=== PATIENT | female | born 1985 | race Caucasian/White ===

== ENCOUNTER 2020-09-07 13:43 | Outpatient (CLI) | payer BC, SELFPAY | END 2020-09-07 13:44 | disposition home or self-care (01) | LOC: ANHAUDIO 13:45 | PROVIDERS: PCP Physician Assistant | DX: H90.3 Sensorineural hearing loss, bilateral (principal) | CPT/HCPCS: 92557; 92567 ==

== ENCOUNTER 2021-02-22 13:24 | Outpatient (CLI) | payer MEDICARE, MEDICAID, SELFPAY ==
--- NOTE | 2021-02-22 15:00 | NEURO_ITS ---
Impression: # Complains of paresthesia of upper limbs. # Normal nerve conduction study # No Carpal Tunnel Syndrome or ulnar neuropathy. # Normal needle/EMG exam. Nerve Conduction Studies Anti Sensory Summary Table Stim Site NR Peak (ms) P-T Amp (?V) Site1 Site2 Delta-P (ms) Dist (cm) Ilir (m/s) Left Median Anti Sensory (2-3nd Digit) Wrist 2.7 60.9 Wrist 2-3nd Digit 2.7 14.0 52 Wrist 2.5 73.9 Wrist 2-3nd Digit 2.7 14.0 52 Right Median Anti Sensory (2-3nd Digit) Wrist 2.3 65.6 Wrist 2-3nd Digit 2.3 14.0 61 Wrist 2.3 75.4 Wrist 2-3nd Digit 2.3 14.0 61 Left Radial Anti Sensory (Base 1st Digit) Wrist 2.0 25.0 Wrist Base 1st Digit 2.0 0.0 Right Radial Anti Sensory (Base 1st Digit) Wrist 1.9 23.4 Wrist Base 1st Digit 1.9 0.0 Left Ulnar Anti Sensory (5th Digit) Wrist 2.2 80.9 Wrist 5th Digit 2.2 14.0 64 Right Ulnar Anti Sensory (5th Digit) Wrist 2.0 62.8 Wrist 5th Digit 2.0 14.0 70 Motor Summary Table Stim Site NR Onset (ms) O-P Amp (mV) Site1 Site2 Delta-0 (ms) Dist (cm) Ilir (m/s) Left Median Motor (Abd Poll Brev) Wrist 2.3 10.8 Elbow Wrist 4.2 26.0 62 Elbow 6.5 5.2 Right Median Motor (Abd Poll Brev) Wrist 2.4 9.7 Elbow Wrist 4.2 26.0 62 Elbow 6.6 4.5 Left Ulnar Motor (Abd Dig Minimi) Wrist 2.1 7.5 A Elbow Wrist 4.7 29.0 62 A Elbow 6.8 6.1 Right Ulnar Motor (Abd Dig Minimi) Wrist 2.0 5.7 A Elbow Wrist 4.7 28.0 60 A Elbow 6.7 5.3 F Wave Studies NR F-Lat (ms) L-R F-Lat (ms) Left Median (Mrkrs) (Abd Poll Brev) 25.78 0.16 Right Median (Mrkrs) (Abd Poll Brev) 25.61 0.16 Left Ulnar (Mrkrs) (Abd Dig Min) 23.93 0.29 Right Ulnar (Mrkrs) (Abd Dig Min) 24.22 0.29 EMG Side Muscle Nerve Root Ins Act Fibs Amp Dur Recrt Comment Right 1stDorInt Ulnar C8-T1 Nml Nml Nml Nml Nml Right Ext Indicis Radial (Post Int) C7-8 Nml Nml Nml Nml Nml Right Ext Digitorum Radial (Post Int) C7-8 Nml Nml Nml Nml Nml Right BrachioRad Radial C5-6 Nml Nml Nml Nml Nml Right PronatorTeres Median C6-7 Nml Nml Nml Nml Nml Right Abd Poll Brev Median C8-T1 Nml Nml Nml Nml Nml Left 1stDorInt Ulnar C8-T1 Nml Nml Nml Nml Nml Left Ext Indicis Radial (Post Int) C7-8 Nml Nml Nml Nml Nml Left Ext Digitorum Radial (Post Int) C7-8 Nml Nml Nml Nml Nml Left BrachioRad Radial C5-6 Nml Nml Nml Nml Nml Left PronatorTeres Median C6-7 Nml Nml Nml Nml Nml Left Abd Poll Brev Median C8-T1 Nml Nml Nml Nml Nml MTDD
== END 2021-02-22 13:25 | disposition home or self-care (01) ==
LOC: ANHNEURO 13:29
PROVIDERS: PCP Physician Assistant; Visit Provider Physician Assistant
DX: R20.2 Paresthesia of skin (principal)
CPT/HCPCS: 95886; 95911

== ENCOUNTER 2023-09-04 15:15 | Outpatient (RCR) | payer MEDICARE, MEDICAID, SELFPAY ==
--- NOTE | 2023-07-03 16:02 | OTOPEVAL1 ---
Assessment and note entered by Hector Arambula, ADRIAN/Caitlin, CHT Evaluation Information Assessment Status Evaluation Diagnosis Post-traumatic osteoarthritis of left wrist Subjective Information Patient has a long history of left wrist issues. About 5 years ago she fell onto her wrist and fractured her scaphoid. She states it took 2 years to get surgery on it and this evidently failed. She just recently (about 2.5 months ago) underwent another surgery - removal of the scaphoid with a 4 corner wrist fusion. She presents today in a prefabricated wrist immobilizer. Reports persistent pain, never getting down to 0/10. States she is unable to carry a laundry basket, but is able to do light tasks in the kitchen, dress, and do her hair with both hands. Reported Pain Level Pain Score 4: Self Report Additional Pain Score Comments 4/10 at rest, never gets lower than 3/10 7/10 pain with active ROM 10/10 pain typically by the end of the day Assessment OT Clinical Summary Patient referred to outpatient hand therapy following a wrist fusion. She presents with limited functional use of the left hand/wrist due to deficits with pain and weakness. Skilled OT indicated to maximize functional use of the hand/ wrist through use of modalities, therapeutic exercise/activities, and HEP instruction and progression. Plan of Care Interventions Therapeutic Exercise,Therapeutic Activities, Paraffin OT Services Indicated Yes Treatment Frequency and 1x/week for 5 weeks Duration These treatments will address the objective and functional deficits as defined above. The patient will be advanced safely and appropriately in order for the patient to progress towards his/her prior level of function. Additional exercises will be introduced and as well as a comprehensive home exercise program upon discharge, if needed, ?to ensure carryover of functional gains achieved in the clinic. This treatment plan has been reviewed and agreement upon by the patient.
--- NOTE | 2023-07-03 16:02 | OPREHPOC ---
Outpatient Therapy Plan of Care This is a Multidisciplinary Plan of Care that may contain components documented by all disciplines (PT, OT, and ST.) OT Problem 1 OT Problem #1 Knowledge Deficit OT Goal 1 Goal 1. Patient to be independent with instructed materials. Target Visit 6 OT Problem 2 OT Problem #2 Impaired Range of Motion OT Goal 1 Goal 1. Increase functional ROM of the left wrist: - flexion to 30 degrees - extension to 40 degrees - RD to 15 degrees - UD to 15 degrees Target Visit 6 OT Problem 3 OT Problem #3 Impaired Strength OT Goal 1 Goal Hold strengthening until ROM is pain-free: 1. Be able to complete wrist strengthening in all planes with 1 lb. free weight. Target Visit 6 OT Problem 4 OT Problem #4 Pain OT Goal 1 Goal 1. Patient to report reduced pain with active ROM to 1/10 or less. Target Visit 6
--- NOTE | 2023-07-17 15:52 | PCOTNOTE ---
Patient did not show up for scheduled appointment this date. Called patient who states she forgot. Reminded her of her next appointment.
--- NOTE | 2023-08-15 16:01 | OTOPPROG ---
Assessment and note entered by ADRIAN Barrow/Caitlin, CHT Progress Update 08/15/23 Assessment Status Progress Diagnosis Post-traumatic osteoarthritis of left wrist Subjective Information Patient has a long history of left wrist issues. About 5 years ago she fell onto her wrist and fractured her scaphoid. She states it took 2 years to get surgery on it and this evidently failed. She just recently (about 2.5 months ago) underwent another surgery - removal of the scaphoid with a 4 corner wrist fusion. She comes in today with increased pain, reporting 8/10 pain for about 10 days. Reports she had to stop doing her home exercise program due to the pain. Site of pain is localized to the ulnar wrist . She presents today stating she is sweaty and nauseated from the pain. Assessment OT Clinical Summary Patient referred to outpatient hand therapy following a wrist fusion. She continues present with limited functional use of the left hand/wrist due to deficits with pain and weakness. 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 Focused on pain management through modalities, manual therapy, and use of kinesiotape. Continued skilled OT indicated to maximize functional use of the hand/wrist through use of modalities, therapeutic exercise/activities , and HEP instruction and progression. Plan of Care Interventions Therapeutic Exercise,Therapeutic Activities, Paraffin OT Services Indicated Yes Treatment Frequency and 1x/week for 4 weeks Duration These treatments will address the objective and functional deficits as defined above. The patient will be advanced safely and appropriately in order for the patient to progress towards his/her prior level of function. Additional exercises will be introduced and as well as a comprehensive home exercise program upon discharge, if needed, ?to ensure carryover of functional gains achieved in the clinic. This treatment plan has been reviewed and agreement upon by the patient.
--- NOTE | 2023-08-16 07:41 | BUOTOPEVAL ---
Assessment and note entered by ADRIAN Barrow/Caitlin, T Progress Update 08/15/23 Diagnosis Post-traumatic osteoarthritis of left wrist Subjective Information Patient has a long history of left wrist issues. About 5 years ago she fell onto her wrist and fractured her scaphoid. She states it took 2 years to get surgery on it and this evidently failed. She recently underwent removal of the scaphoid with a 4 corner wrist fusion. She comes in today with increased pain, reporting 8/10 pain for about 10 days. Reports she had to stop doing her home exercise program due to the pain. Site of pain is localized to the ulnar wrist. She presents today stating she is sweaty and nauseated from the pain. Therapy has been unable to progress past active ROM and use of modalities and manual therapy for pain control. She is unable to use the left hand to lift anything heavier than 0.5 lbs. 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 Reported Pain Level Pain Score 8: Self Report Assessment OT Clinical Summary Patient referred to outpatient hand therapy following a wrist fusion. She continues present with limited functional use of the left hand/wrist due to deficits with pain and weakness. Today she was experiencing too much pain to measure ROM and window systems administrator strength. Focused on pain management through modalities, manual therapy, and use of kinesiotape. Continued skilled OT indicated to maximize functional use of the hand/wrist through use of modalities, therapeutic exercise/activities , and HEP instruction and progression. Plan of Care Interventions Therapeutic Exercise,Therapeutic Activities, Paraffin OT Services Indicated Yes Treatment Frequency and 1x/week for 4 weeks Duration These treatments will address the objective and functional deficits as defined above. The patient will be advanced safely and appropriately in order for the patient to progress towards his/her prior level of function. Additional exercises will be introduced and as well as a comprehensive home exercise program upon discharge, if needed, ?to ensure carryover of functional gains achieved in the clinic. This treatment plan has been reviewed and agreement upon by the patient.
--- NOTE | 2023-08-22 10:03 | PCOTNOTE ---
Patient called & cancelled scheduled appointment yesterday 08/21.
--- NOTE | 2023-08-22 10:03 | PCOTNOTE ---
Patient called & cancelled scheduled appointment this date.
--- NOTE | 2023-08-28 13:20 | PCOTNOTE ---
Patient called & cancelled scheduled appointment this date due to being sick.
--- NOTE | 2023-09-11 12:55 | OTOPDC ---
Assessment and note entered by Hector Arambula, ADRIAN/Caitlin, CHT Therapy Discharge Notification 09/11/23 OT Clinical Summary Please refer to most recent progress note, dated 08/15/23, for most recent therapy summary and updates. OT Discharge 09/11/23: Patient has called and cancelled every appointment since 08/15/23 due to being in too much pain. It is recommended that she follows up with MD for further recommendations as therapy has been unable to progress past very gentle active ROM.
== END 2023-09-11 14:59 | disposition home or self-care (01) ==
LOC: ANHOT 15:15
PROVIDERS: PCP Physician Assistant
DX: M19.132 Post-traumatic osteoarthritis, left wrist (principal)
CPT/HCPCS: 97018; 97110; 97140; 97166; 99199; L3906

== ENCOUNTER 2024-05-13 15:14 | Outpatient (CLI) | payer MEDICARE, MEDICAID, SELFPAY ==
--- NOTE | ~2024-05-13 | CT_ITS ---
EXAMINATION: CT abdomen pelvis wo con DATE: 05/13/2024 15:27 INDICATION: Right lower quadrant abdominal pain. TECHNIQUE: Computed tomography (CT) of the abdomen and pelvis was performed without intravenous contr ast. Automated exposure control and iterative reconstruction technique were employed. The dose-length product was 1143.20 mGy-cm. COMPARISON: CT abdomen and pelvis 08/08/2011 FINDINGS: The visualized portions of the lung bases demonstrate mild atelectasis. No pleural effusion is normal. No pericardial effusion. There is a small sliding hiatal hernia. The liver, gallbladder, spleen, pancreas, adrenal glands, and left kidney are normal. There is a 3 mm stone in right kidney. There are no dilated loops of bowel. The appendix is normal. There are no pathologically enlarged lym ph nodes. There is no free intraperitoneal fluid. There is chronic anterior wedging of multiple lower thoracic vertebral bodies. There is severe lower thoracic spondylosis. IMPRESSION: 1. Small sliding hiatal hernia. Reviewed, dictated and finalized at location E.
== END 2024-05-13 15:15 ==
PROVIDERS: PCP Obstetrics & Gynecology; Visit Provider Surgery
DX: K44.9 Diaphragmatic hernia without obstruction or gangrene (principal); G89.29 Other chronic pain
CPT/HCPCS: 74176

== ENCOUNTER 2024-07-27 13:15 | Outpatient (RCR) | payer MEDICARE, MEDICAID, SELFPAY ==
--- NOTE | 2024-06-29 14:21 | OTOPEVAL1 ---
Assessment and note entered by Hector Arambula, CATARINOR/Caitlin, CHT Evaluation Information Diagnosis Left TFCC injury ICD-10 Condition Codes (OT) M25.532 Subjective Information Patient is s/p left TFCC repair 04/01. Prior to surgery she was experiencing excruciating pain and was unable to use her left hand. Since surgery, she reports she has been experiencing no pain at rest. She has been going without her wrist immobilizer for light ADLs. She has been able to package pick up her water bottle and this is progress for her. She wears the immobilizer when she leaves the house and if her kids are playing rowdy. She reports she feels too weak to get back to heavier lifting, such as holding and washing dishes, carrying the laundry basket, etc. She has been relying on using her right, dominant UE for heavy tasks. Reported Pain Level Pain Score 0: Self Report Additional Pain Score Comments Pain has increased to 5/10 when trying to turn a doorknob. Assessment OT Clinical Summary Patient referred to OT with dx of left TFCC repair . She presents with residual stiffness and weakness that limits return to heavier ADL tasks. Skilled OT indicated to maximize functional strength and use of her left UE. Plan of Care Interventions Therapeutic Exercise,Manual Therapy,Paraffin OT Services Indicated Yes Treatment Frequency and 1x/week for 5 weeks Duration These treatments will address the objective and functional deficits as defined above. The patient will be advanced safely and appropriately in order for the patient to progress towards his/her prior level of function. Additional exercises will be introduced and as well as a comprehensive home exercise program upon discharge, if needed, ?to ensure carryover of functional gains achieved in the clinic. This treatment plan has been reviewed and agreement upon by the patient.
--- NOTE | 2024-06-29 14:23 | OPREHPOC ---
Outpatient Therapy Plan of Care This is a Multidisciplinary Plan of Care that may contain components documented by all disciplines (PT, OT, and ST.) OT Problem 1 OT Problem #1 Knowledge Deficit OT Goal 1 Goal / Goal Update 1. Patient to be independent with HEP. Target Visit 6 OT Problem 2 OT Problem #2 Pain OT Goal 1 Goal / Goal Update 1. Patient to be independent with non-medication pain management. Target Visit 6 OT Problem 3 OT Problem #3 Impaired Strength OT Goal 1 Goal / Goal Update 1. Improve functional strength of the left forearm and wrist to allow patient to be able to complete dishes and carry a laundry basket again. 2. 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 Target Visit 6
--- NOTE | 2024-07-15 14:06 | PCOTNOTE ---
Patient did not show up for scheduled appointment this date. Patient called and message was left with call back number.
--- NOTE | 2024-08-03 13:53 | PCOTNOTE ---
Patient did not show up for scheduled re-evaluation appointment this date. Called patient and she did not answer. Left voicemail informing her to call back to get the re-eval rescheduled and that if we don't hear from her by the end of the week she will be discharged from OT.
--- NOTE | 2024-08-13 14:41 | OTOPDC ---
Assessment and note entered by Hector Arambula, OTR/L, CHT OT D/C 08/13/24 OT Clinical Summary Patient referred to OT with dx of left TFCC repair . She attended the initial evaluation and 2 follow up treatments. She has unfortunately has not shown for her last 2 appointments and we have been unable to get a hold of her to reschedule. D/C OT due to limited attendance.
== END 2024-08-13 15:19 | disposition home or self-care (01) ==
LOC: ANHGOSHOT 13:15
PROVIDERS: PCP Obstetrics & Gynecology
DX: Z48.89 Encounter for other specified surgical aftercare (principal); S69.82XD Other specified injuries of left wrist, hand and finger(s), subsequent encounter
CPT/HCPCS: 97018; 97110; 97140; 97165

== ENCOUNTER 2024-09-15 09:57 | Outpatient (CLI) | payer MEDICARE, MEDICAID, SELFPAY | END 2024-09-15 09:58 | disposition home or self-care (01) | LOC: ANHAUDIO 09:59 | PROVIDERS: PCP Obstetrics & Gynecology; Visit Provider Physician Assistant | DX: H92.03 Otalgia, bilateral (principal); H93.13 Tinnitus, bilateral; H93.239 Hyperacusis, unspecified ear; M26.609 Unspecified temporomandibular joint disorder, unspecified side; G43.809 Other migraine, not intractable, without status migrainosus; R42 Dizziness and giddiness; Z91.81 History of falling | CPT/HCPCS: 92557; 92567 ==

== ENCOUNTER 2024-10-04 10:39 | Emergency (ER) | payer MEDICARE, MEDICAID, SELFPAY ==
--- NOTE | 2024-10-04 10:52 | ED_ITS ---
HPI - URI/Sore Throat General Chief Complaint: Upper Respiratory Infection Stated Complaint: SORE THROAT/TONGUE PROBLEM/EARACHE Time Seen by Provider: 10/04/24 10:41 Source: patient Mode of arrival: ambulatory Limitations: no limitations History of Present Illness HPI Narrative: Magaly is a 39-year-old female patient presenting to the clinic today with complaints of sore throat, pain to her tongue, and ear discomfort. She reports that she is on ear drops for the ear currently and just finished up cephalexin for UTI. She reports symptoms of started over the last 2-3 days. Denies any fever or chills. Patient reports she is also having yeast vaginal discharge. MD elicited complaint: sore throat and nasal congestion Related Data Home Medications Medication Instructions Recorded Confirmed aripiprazole 15 mg tablet 15 mg PO DAILY 11/21/21 04/29/24 bupropion HCl 150 mg 24 hr tablet, 150 mg PO QAM 11/21/21 04/29/24 extended release gabapentin 300 mg capsule 300 mg PO DAILY 11/21/21 04/29/24 montelukast 10 mg tablet 10 mg PO DAILY 11/21/21 04/29/24 nortriptyline 75 mg capsule 75 mg PO DAILY 11/21/21 04/29/24 sumatriptan succinate 100 mg tablet 100 mg PO ONCE 11/21/21 04/29/24 topiramate 100 mg tablet 100 mg PO DAILY 11/21/21 04/29/24 triamcinolone acetonide 0.5 % 1 applic topical BID 11/21/21 04/29/24 topical cream clonazepam 0.5 mg tablet 0.5 mg PO DAILY 03/04/24 04/29/24 acyclovir 400 mg tablet 400 mg PO DAILY 04/13/24 04/29/24 atogepant 60 mg tablet (Qulipta) 60 mg PO DAILY 04/13/24 04/29/24 baclofen 5 mg/5 mL oral solution 5 mg PO DAILY 04/13/24 04/29/24 galcanezumab-gnlm 120 mg/mL 120 mg subcut MONTHLY 04/13/24 04/29/24 subcutaneous pen injector (Emgality Pen) mecobalamin (vitamin B12) 1,000 1,000 mcg PO DAILY 04/13/24 04/29/24 mcg lozenges naproxen 500 mg tablet 500 mg PO BID 04/13/24 04/29/24 omeprazole 40 mg capsule,delayed 40 mg PO DAILY 04/13/24 04/29/24 release ondansetron 4 mg disintegrating 4 mg PO Q8H 04/13/24 04/29/24 tablet prazosin 5 mg capsule 7 mg PO QHS 04/13/24 04/29/24 trazodone 100 mg tablet 100 mg PO BID 04/13/24 04/29/24 ubrogepant 100 mg tablet (Ubrelvy) 100 mg PO ONCE 04/13/24 04/29/24 Allergies Allergy/AdvReac Type Severity Reaction Status Date / Time ibuprofen Allergy Severe stomach Verified 10/04/24 11:01 bleeding Sulfa (Sulfonamide Allergy Severe throat Verified 10/04/24 11:01 Antibiotics) swelling escitalopram Allergy Unknown hives Verified 10/04/24 11:01 GRAPE FLAVORS Allergy Mild hives Uncoded 10/04/24 11:01 Review of Systems Review of Systems: Pertinent positives per HPI. Patient denies any fever, chills, rash, headache, visual changes, dizziness, cough, shortness of breath, chest pain, palpitations, nausea, vomiting, diarrhea, constipation, abdominal pain, or any urinary issues. [facility] Past Medical History Medical History (Reviewed 04/28/24 @ 09:15 by Chastity Cho [facility]) Anxiety Arthritis Depression Dysphagia Cecilia's disease Herpes hsv 1 and 2 Hx LEEP (loop electrosurgical excision procedure), cervix, Hyperlipidemia Kidney stones Osteoporosis Sleep disorder Trichomonal vaginitis Surgical History Surgical History H/O endoscopy H/O total hysterectomy (~03/08/16) History of dilation and curettage (~11/08/15) History of gynecological procedure cryo on cervix History of hysteroscopy (~11/08/15) biopsy History of left salpingo-oophorectomy (~10/06/20) History of orthopedic surgery x 2 left hand History of tonsillectomy Family History Family History Sibling Family history of mental disorder Mother Hypertension Hyperthyroidism Scoliosis Degenerative disorder Social History Social History (Reviewed 10/04/24 @ 11:02 by JANE García Smoking status: Current some day smoker Tobacco type: e-cigarettes/vaping Alcohol intake: current Alcohol use details: 1/2 pint of whiskey on Saturdays Substance use: current Substance use type: marijuana Other substance usage details: 1 every 2 weeks Do You Feel Safe in your Home?: Yes Lack of Transportation: No Lack of Food: Never True Current Housing: Decline to Answer Concerned About Future Housing: YES Difficulty Paying Gas/Electric Bills: YES Difficulty Paying for Meds: No Currently Unemployed: No Education: High School Diploma/GED Difficulty w/ Childcare or Family Care: No Living arrangements: other Additional living arrangements comments: single Occupation/Education: unemployed Additional occupation/education comments: disabled Gender identity (if verbalized by the patient): Female Sexual Orientation (if Verbalized by the Patient): Bisexual Comments At the time of my signature, I reviewed and agree with the nursing past medical, surgical, social, and family history. There is no relevant family history pertinent to the patient complaint. Exam Narrative: General: Well-developed, well nourished, in no apparent distress Head: Normocephalic, atraumatic Eyes: Pupils equally round and reactive to light bilaterally, EOM intact, sclera and conjunctive clear, no discharge, lids normal Ears: TMs intact and clear, ear canals clear, no drainage, grossly hearing normal. Nose: Nares patent, no discharge, no inflammation, no sinus tenderness. Mouth: Oral pharynx red and beefy appearance and tongue with yellow oral thrush, no masses, good dentition, MMM. Neck: Supple, trachea midline, no enlargement of anterior or posterior cervical nodes, no thyroid masses or goiter palpable. Cardio: Regular rate and rhythm, s1 and s2 normal, no murmur appreciated. Resp: Clear to auscultation bilaterally, no rhonchi, rales, wheezing or rubs Course Course Emergency Course: Portions of this record may have been created with voice recognition software. Level of Care: Express Care Visit Vital Signs Vital signs: Vital Signs Temperature 36.6 C 10/04/24 10:56 Pulse Rate 80 10/04/24 10:56 Respiratory Rate 16 10/04/24 10:56 Blood Pressure 115/73 10/04/24 10:56 Pulse Oximetry 100 10/04/24 10:56 Temperature 36.6 C 10/04/24 10:56 Pulse Rate 80 10/04/24 10:56 Respiratory Rate 16 10/04/24 10:56 Blood Pressure 115/73 10/04/24 10:56 Pulse Oximetry 100 10/04/24 10:56 Vital signs reviewed MDM - URI/Sore Throat MDM Narrative Medical decision making narrative: At the time of visit patient is resting comfortably on the exam table. Patient appears to be nontoxic. Plan: Suspect patient has oral thrush and vaginal Sandra is. Will send in prescription for Diflucan and oral nystatin. Supportive measures were discussed with the patient and they voiced understanding discharge instructions and agrees to treatment plan. Return precautions reviewed Differential Diagnosis Differential diagnosis: Likely upper respiratory infection, otitis media, sinusitis, viral infection, bronchitis, influenza, pharyngitis and other (COVID) Discharge Plan Discharge Clinical Impression: Candidiasis of vagina, Oral thrush Patient Disposition: Home, Self-Care Condition: Stable Instructions: Antibiotic Form, Oral Candidiasis (ED), Yeast Infection (ED) Additional Instructions: Take fluconazole and nystatin as prescribed Nystatin is a swish and swallow-retain the medication in your mouth for as long as possible Increase fluids and stay well hydrated Avoid acidic, salty, or spicy foods May take Tylenol/Motrin as needed for pain or fever Follow-up with your primary care doctor next week Prescriptions: New nystatin 100,000 unit/mL suspension 5 ml PO QID 14 Days Qty: 280 0RF Rx Instructions: administer 1/2 of dose in each side of the mouth fluconazole 150 mg tablet 150 mg PO ONCE Qty: 2 0RF Rx Instructions: as a single dose. May repeat in 72 hours if needed. No Action aripiprazole 15 mg tablet 15 mg PO DAILY bupropion HCl 150 mg tablet extended release 24 hr 150 mg PO QAM montelukast 10 mg tablet 10 mg PO DAILY gabapentin 300 mg capsule 300 mg PO DAILY nortriptyline 75 mg capsule 75 mg PO DAILY sumatriptan succinate 100 mg tablet 100 mg PO ONCE topiramate 100 mg tablet 100 mg PO DAILY triamcinolone acetonide 0.5 % cream 1 applic topical BID prazosin 5 mg capsule 7 mg PO QHS clonazepam 0.5 mg tablet 0.5 mg PO DAILY acyclovir 400 mg tablet 400 mg PO DAILY Rx Instructions: take TID for 7 days then BID for the rest of month Qulipta 60 mg tablet 60 mg PO DAILY Emgality Pen 120 mg/mL pen injector 120 mg subcut MONTHLY Ubrelvy 100 mg tablet 100 mg PO ONCE Rx Instructions: as a single dose; may repeat once in >=2 hours after first dose if needed omeprazole 40 mg capsule,delayed release(DR/EC) 40 mg PO DAILY trazodone 100 mg tablet 100 mg PO BID mecobalamin (vitamin B12) 1,000 mcg lozenge 1,000 mcg PO DAILY Rx Instructions: allow to dissolve in mouth OR may chew lightly before swallowing ondansetron 4 mg tablet,disintegrating 4 mg PO Q8H naproxen 500 mg tablet 500 mg PO BID baclofen 5 mg/5 mL solution 5 mg PO DAILY Follow-up/Referrals: Dennise,JOSH Quigley [Primary Care Provider] - Time of Disposition: 10:58 Quality NIHSS Nursing Documentation ED NIHSS nursing documentation: reviewed/agree
[2024-10-04 10:56] VITALS: BP 115/73; PULSE 80; RESP 16; TEMP 36.6; O2SAT 100
== END 2024-10-04 11:06 | disposition home or self-care (01) ==
PROVIDERS: Emergency Provider Nurse Practitioner Family; PCP Physician Assistant
DX: B37.31 Acute candidiasis of vulva and vagina (principal); B37.0 Candidal stomatitis; F17.290 Nicotine dependence, other tobacco product, uncomplicated; F12.90 Cannabis use, unspecified, uncomplicated; M19.90 Unspecified osteoarthritis, unspecified site; E06.3 Autoimmune thyroiditis; E78.5 Hyperlipidemia, unspecified; M81.0 Age-related osteoporosis without current pathological fracture; F41.9 Anxiety disorder, unspecified; F32.A Depression, unspecified
CPT/HCPCS: 99213; G0463

== ENCOUNTER 2024-11-23 13:36 | Outpatient (CLI) | payer MEDICARE, MEDICAID, SELFPAY ==
[2024-11-23 16:15] LABS: Basophils Absolute Auto 0.1 K/mm3 (0.0-0.1); Basophils Percent Auto 0.5 % (0.2-1.2); Eosinophils Absolute Auto 0.1 K/mm3 (0-0.3); Eosinophils Percent Auto 0.5 % (0-4.4); Hematocrit 39.9 % (37.0-47.0); Hemoglobin 12.3 g/dL (12.0-15.0); Immature Granulocyte Absolute 0.05 K/mm3 (0.00-0.031); Immature Granulocyte Percent A 0.5 % (0-0.5); Lymphocytes Absolute Auto 3.18 K/mm3 (0.9-3.2); Lymphocytes Percent Auto 32.3 % (18.3-44.2); Mean Corpuscular HGB Conc 30.8 g/dl (32-36); Mean Corpuscular Hemoglobin 29.1 pg (26-34); Mean Corpuscular Volume 94.3 fl (80-100); Mean Platelet Volume 11.6 fl (7.4-10.4); Monocytes Absolute Auto 0.5 K/mm3 (0.1-0.6); Monocytes Percent Auto 5.5 % (2.6-8.5); Neutrophils Percent Auto 60.7 % (45.5-73.1); Platelet Count Result 240 k/mm3 (150-375); Red Blood Count 4.23 M/mm3 (4.2-5.4); Red Cell Distribution Width 15.6 % (11.5-14.5); White Blood Count 9.8 K/mm3 (4.5-10.0)
[2024-11-23 16:39] LABS: Hemoglobin A1C 5.2 % (<5.7)
[2024-11-23 16:50] LABS: Free T4 Free Thyroxine 0.74 ng/dL (0.78-2.19)
[2024-11-24 20:24] LABS: Alanine Aminotransferase 16 U/L (6-35); Albumin Level 3.8 g/dL (3.5-5.1); Alkaline Phosphatase 76 U/L (38-126); Anion Gap 9 mmol/L (4-12); Aspartate Amino Transferase 24 U/L (14-36); Bilirubin,Total 0.4 mg/dL (0.2-1.3); Blood Urea Nitrogen 13 mg/dL (7-17); Calcium 9.5 mg/dL (8.4-10.2); Carbon Dioxide 25 mmol/L (22-30); Chloride 103 mmol/L (98-107); Estimated Glomerular Filt Rate > 60; Glucose 80 mg/dL (65-110); Potassium 3.8 mmol/L (3.4-5.0); Sodium 137 mmol/L (137-145)
[2024-11-24 21:27] LABS: Folic Acid 6.7 ng/mL (2.76->20)
--- OUTSIDE RECORDS SUMMARY | 2024-11-26 13:38 | XMS_ITS | Data Portability ---
Author Organization [place] - [facility], Main Office Address [address] [place] [address] Care Team Providers Care Sidehand Name Role Phone CHAPINRAFAEL HAYDEN Primary Care Provider [phone] RAFAEL HORAN Referring Provider Assessment Encounter Date Assessment Date Assessment LastModified by Organization Details LastModified Time 03/26/2024 03/26/2024 This note is dictated and transcribed by [employer]. [employer] variances may occur. Despite proofreading, typographical errors may occur. Occasional wrong-word or '[id number]' substitutions may have occurred due to the inherent limitations of voice recording. Read the chart carefully and recognize, using context, where substitutions have occurred. [email or web address] Not available 03/26/2024 12:21:19 07/28/2024 07/28/2024 Time spent with patient included: preparing to see patient by reviewing tests, obtaining and reviewing history, medical examination and evaluation, counseling and educating the patient, ordering medications and tests, documenting clinical information in EHR, independently interpreting results and communicating results to the patient for a total of 55 minutes. [email or web address] Not available 07/28/2024 12:23:29 Plan of Treatment Reminders Order Date Submit Date Provider Last Modified By Organization Details Last Modified Time Details Appointments None recorded. Lab TSH, serum, reflex free T4 2022 023 [email or web address] 146 Not available 3 16:15:47 CBC w/ auto diff 2022 023 [email or web address] 146 Not available 3 16:15:46 BMP, serum or plasma 2022 023 [email or web address] 146 Not available 3 16:15:47 hepatic function panel, serum 2022 023 [email or web address] 146 Not available 3 16:15:47 vitamin B12 + folate, serum or blood 2022 023 PATTIE Not available 3 09:49:28 respiratory allergen panel, [facility] A, serum [address] (Lab), [address] [place], [address], 4 14:37:30 respiratory allergen panel - [facility] b [address] (Lab), [address] [place], [address], 4 14:37:44 tb (M tuberculosi s), ifn-gamma graham, blood [address] (Lab), [address] [place], [address], 4 14:37:55 igg subclasses 1+2+3+4, serum [address] (Lab), [address] [place], [address], 4 14:38:08 alpha-1-ant itrypsin (aat) phenotype, serum [address] (Lab), [address] [place], [address], 4 14:38:19 eosinophil count, manual, blood (OBS) [address] (Lab), [address] [place], [address], 4 14:38:30 BNP (B-type natriuretic peptide), serum or plasma 2023 024 [email or web address] [address] [facility] (Lab), [address] [place], [address], 4 14:38:42 ige, total, serum 2023 024 [email or web address] 82 [facility] (Lab), [address] [place], [address], 4 14:38:52 Referral general surgeon referral 2023 024 [email or web address] Leandro Cordova, [facility] [place], [address], 4 08:11:28 Procedures None recorded. Surgeries None recorded. Imaging None recorded. Medication Orders hydrocodone 7.5 mg-acetamin ophen 325 mg tablet 2022 023 [email or web address] Not available 4 12:47:24 Valium 5 mg tablet 2022 023 [email or web address] Not available 4 11:31:25 methocarbam ol 750 mg tablet 2022 023 [email or web address] [facility] [address] [place], [address], 4 12:47:38 lidocaine 4 % topical cream 2022 023 [email or web address] [facility] [address] [place], [address], 4 11:32:13 nystatin 100,000 unit/mL oral suspension 2022 023 [email or web address] [facility] [address] [place], [address], 4 11:32:34 ammonium lactate 12 % topical cream [address] [facility] [address] [facility] [address] [place], [address], 4 08:09:31 Creon 24,000-76,0 00-120,000 unit capsule,del ayed release [address] [facility] [address] [place], [address], 08:11:50 Patient TargetsNo targets recorded. Patient Instructions Encounter Date Encounter Id Patient Instructions Last Modified By Organization Details Last Modified Time 05/27/2024 [id number] LOW DIET [email or web address] Not available 13:07:09 PT WITH EPI. RESTART CREON 24K/76K/ 120K UNITS . 4 TABS PER MEAL AND 2 PER SNACK . F/U IN 6 MTHS . [email or web address] Not available 05/27/2024 13:08:18 07/28/2024 [id number] methacholine challenge* - Please call patient to schedule. NPAN for [id number] [email or web address] Not available 09/10/2024 11:54:29 six minute walk test* [email or web address] Not available 09/02/2024 16:11:47 Reason for Referral General Surgeon Referral for Sliding hiatus hernia Referring Physician: Mary Ellen Jin, Gastroenterology, Encounter Date: 05/27/2024 Results Created Date Observation Date Name Description Value Unit Range Abnormal Flag Note LastModifiedBy Organization Detail LastModifiedTime 05/21/2003/25/2023 home sleep study No observ ation record ed. [email or web address] Not Available 05/23 15:25:15 05/22/20 23 01/06/2023 CT, abdom en + pelvi s, w/ contr ast No observ ation record ed. [email or web address] [facility] [address] [place], [address], 05/23/2023 15:33:43 11/29/19 24 10/19/2023 XR, chest , 2 view No observ ation record ed. [email or web address] [facility] [address] [place], [address], 11/29/2023 12:40:15 11/29/19 24 10/19/2023 CT, angio gram, chest , w/o contr ast No observ ation record ed. [email or web address] Not Available 11/29 14:06:13 07/24/20 24 07/23/2024 compl ete PFT w/ post bron hodil ator iva metry * No observ ation record ed. BARCODE Not Available 2023 16:26:09 Result Notes None recorded. Problems Name Problem SNOMED Code Status Onset Date Resolution Date Notes Provider Name and Address Organization Details Recorded Time Pain in upper limb 987038808 Active Not Available [facility] 3 02:50:54 Tobacco user 233471871 Active Not Available [facility] 3 02:50:54 Mass of soft tissue of right lower limb 59028400085 106118 Active 2022 Not Available [facility] 3 02:50:54 Acute folliculi tis 346876946 Active Not Available [facility] 3 02:50:54 Disorder of colon 507296797 Active Not Available [facility] 3 02:50:54 Post-scab etic nodules 773737458 Active Not Available [facility] 3 02:50:54 Constipat ion 82193312 Active Not Available [facility] 3 02:50:54 Congenita l bilateral pes planus 08051895674 347689 Active 2021 Not Available [facility] 3 02:50:54 Pain of left ankle joint 13291874290 329579 Active 2021 Not Available [facility] 3 02:50:55 Abnormal weight gain 681850497 Active Not Available [facility] 3 02:50:55 Indigesti on 451394786 Active Not Available [facility] 3 02:50:55 Body mass index 30+ - obesity 609849125 Active Not Available [facility] 3 02:50:55 Dry skin 94958047 Active Not Available [facility] 3 02:50:55 On examinati on - nails brittle Active Not Available [facility] 3 02:50:55 Tibialis posterior tendiniti s 023544872 Active 2020 Not Available [facility] 3 02:50:55 Abdominal pain 82348975 Completed Not Available [facility] 3 02:50:56 Generaliz ed anxiety disorder 50557446 Active Not Available [facility] 3 02:50:56 Nile thyroidit is 08999456 Active Not Available [facility] 3 02:50:56 Foot callus 571404554 Active 2020 Not Available [facility] 3 02:50:56 Osteophyt e of bone 70945623808 9100 Active Not Available [facility] 3 02:50:56 Gastroeso phageal reflux disease 366515721 Active Not Available [facility] 3 02:50:56 Chronic diarrhea 693434957 Active 2021 Not Available [facility] 3 02:50:56 Chronic pelvic pain of female 242916361 Active Not Available [facility] 3 02:50:57 Lateral femoral cutaneous neuralgia 732812779 Active Not Available [facility] 3 02:50:57 Degenerat ion of lumbar intervert ebral disc 83205406 Active 2016 Not Available [facility] 3 02:50:57 Dysmenorr hea 128245591 Completed Not Available [facility] 3 02:50:57 Abnormal weight loss 935219310 Active 2021 Not Available [facility] 3 02:50:57 Mixed hyperlipi demia 144476739 Active Not Available [facility] 3 02:50:57 Papular eruption 262311007 Active Not Available [facility] 3 02:50:58 Eruption 363937921 Active Not Available [facility] 3 02:50:58 Insect bite - wound 478102675 Active 2021 Not Available [facility] 3 02:50:58 Loss of hair 537118103 Active 2022 Not Available [facility] 3 02:50:58 Periphera l neuropath ic pain 864409109 Active 2022 Not Available [facility] 3 02:50:58 Scoliosis deformity of spine 783001964 Active Not Available [facility] 3 02:50:59 Left lower quadrant pain 821030438 Active Not Available [facility] 3 02:50:59 Nonunion of fracture 574407323 Active Not Available [facility] 3 02:50:59 Glossodyn ia 04743008 Active 2022 Not Available [facility] 3 02:50:59 Lower urinary tract symptoms 369037809 Active Not Available [facility] 3 02:50:59 Thyroid function tests abnormal 194373441 Active 2022 Not Available [facility] 3 02:51:00 Anterior abdominal wall mass 230023082 Active Not Available [facility] 3 02:51:00 Pain in right foot 42208067832 9107 Active Not Available [facility] 3 02:51:00 Multiple joint pain 64515165 Active Not Available [facility] 3 02:51:00 Major depressiv e disorder 589307931 Active Not Available [facility] 3 02:51:01 Arthritis 8160232 Active left foot Not Available [facility] 3 02:51:01 Hematoma 100328247 Completed Not Available [facility] 3 02:51:01 Disorder of vitamin B12 601995030 Active Not Available [facility] 3 02:51:01 Effusion of joint 411176865 Active Not Available [facility] 3 02:51:02 Hirsutism 112462173 Active Not Available [facility] 3 02:51:02 Ingrowing toenail 963413643 Active 2020 Not Available [facility] 3 02:51:02 Lower urinary tract infectiou s disease 6609871 Active Not Available [facility] 3 02:51:02 Hematoche kelly 508194749 Active Not Available [facility] 3 02:51:03 Dysphagia 82342950 Active Not Available [facility] 3 02:51:03 Obesity 425882665 Active Not Available [facility] 3 02:51:03 Onychomyc osis 580214183 Active Not Available [facility] 3 02:51:03 Vomiting 844121159 Active Not Available [facility] 3 02:51:04 Postopera tive seroma 601280315 Completed Not Available [facility] 3 02:51:04 Dyssomnia 36272041 Active Not Available [facility] 3 02:51:04 Sprain of ankle 43278064 Active Not Available [facility] 3 02:51:04 Gastritis 0444919 Active Not Available [facility] 3 02:51:05 Foot pain 83267224 Active 2020 Not Available [facility] 3 02:51:05 Dysuria 87981312 Completed Not Available [facility] 3 02:51:05 Upper respirato ry infection 60975523 Active Not Available [facility] 3 02:51:06 Lower abdominal pain 73438435 Completed Not Available [facility] 3 02:51:06 Nicotine dependenc e 70624246 Active 2021 Not Available [facility] 3 02:51:06 Infection by Trichomon as 22911005 Completed Not Available [facility] 3 02:51:06 Diarrhea 34400811 Active 2021 Not Available [facility] 3 02:51:07 Vitamin B12 deficienc y (non anemic) 01241480 Active 2021 Not Available [facility] 3 02:51:07 Urinary tract infectiou s disease 90716705 Active 2021 Not Available [facility] 3 02:51:07 Duodeniti s 75962829 Active Not Available [facility] 3 02:51:08 Cyst of ovary 66975657 Active Not Available [facility] 3 02:51:08 Irregular periods 44051225 Completed Not Available [facility] 3 02:51:09 Neck pain 62561243 Active 2022 Not Available [facility] 3 02:51:09 Fatigue 73812168 Active Not Available [facility] 3 02:51:09 Weight gain 5034095 Active 2022 Not Available [facility] 3 02:51:10 Female stress incontine nce 61397723 Active 2022 Jayesh Thapa MD [address], [address], [place], [address] , [employer] 3 10:18:13 Candidias is of vagina 99864068 Active 2022 ALYSSA Campos [address], [place], [address] , [employer] 3 16:30:48 Muscle tension 741797180 Active 2022 ALYSSA Campos [address], [place], [address] , [employer] 3 15:21:58 Acute sinusitis 06590940 Active 2022 ALYSSA Campos [address], [address], [place], [address] , [employer] 3 12:32:59 Metatarsa lgia of right foot 42201798785 9100 Active 2023 David Jasso DPM [address], [place], [address] , [employer] 4 12:18:59 Ingrowing nail of toe of right foot 18310737723 831081 Active 2023 David Jasso DPM [address], [place], [address] , [employer] 4 12:19:10 Congenita l pes planus 14754470 Active 2023 David Jasso DPM [address], [place], [address] , [facility] [employer] [facility] 4 12:19:23 Exocrine pancreati c insuffici ency 83902420 Active 2023 Mary Ellen Jin MD [address], [place], [address] , [facility] [employer] [facility] 4 13:05:47 Sliding hiatus hernia 959230326 Active 2023 Mary Ellen Jin MD [address], [place], [address] , [facility] [employer] [facility] 4 13:09:20 Asthma without status asthmatic 67190022 Active 2023 Jeanie Garrett MA null, [facility] [employer] [facility] 4 11:16:23 Dyspnea on exertion 43316646 Active 2023 Dominique Ramírez NP [address] [address], [place], [address] , [facility] [employer] [facility] 4 11:39:29 Sleep apnea 32730399 Active 2023 Dominique Ramírez NP [address], [place], [address] , [facility] [employer] [facility] 4 12:16:48 Notes:COVID-19 pos 11/09/21 So me problems listed in Documents: #[id number], #[id number], #[id number], #[id number] could not be added to this patient's chart. Please review these documents and add these problems to the patient's chart manually as needed. Problem Notes None recorded. Procedures Surgical History Date Name Laterality Status Provider Name and Address Organization Details Recorded Time 03/26/20 24 Nail Debridement completed David Jasso DPM [address], [place], [address], [facility] [employer] [facility] 03/26/2024 12:22:57 02/07/20 21 Date of Last Colonoscopy completed Not Available [facility] 01/02/2023 02:40:48 02/07/20 21 Colonoscopy completed Not Available [facility] 01/03/20 02:40:53 10/06/20 20 [employer] Surgery completed Not Available [facility] 01/03/20 02:40:53 03/09/20 16 [employer] Surgery completed Not Available [facility] 01/03/20 02:40:53 11/08/19 16 [employer] Surgery completed Not Available [facility] 01/03/20 02:40:53 09/14/20 15 Date of Last Pap Smear completed Not Available [facility] 01/02/2023 02:40:48 [employer] Surgery completed STARLA Palma Julián [place] [employer] [facility] 04/15/2023 15:04:50 [employer] Surgery completed Not Available [facility] 01/02/2023 02:40:53 [facility]lectomy [facility] 01/02/2023 02:40:53 [employer] Surgery completed Not Available [facility] 01/02/2023 02:40:53 Endoscopy completed Not Available [facility] 0 01/02/2023 02:40:53 Imaging Results Imaging Date Name Status LastModified by Organization Details LastModified Time 03/25/2023 home sleep study completed [email or web address] Informat ion not available 05/23/2023 15:25:15 01/06/2023 CT, abdomen + pelvis, w/ contrast completed [email or web address] [facility] [address] [place], [address], 05/23/2023 15:33:43 10/19/2023 XR, chest, 2 view completed [email or web address] [facility] [address] [place], [address], 11/29/2023 12:40:15 10/19/2023 CT, angiogram, chest, w/o contrast completed [email or web address] Information not available 11/29/2023 14:06:13 07/23/2024 complete PFT w/ post bronchodilator spirometry* completed BARCODE Information not available 07/24/2024 16:26:09 Procedure Notes None recorded. Medical Equipment None Reported. Allergies Allergen ID Allergen Name Allergen Category Reaction Reaction Severity Criticality Documentation Date Start Date Code Code System Note Provider Name and Address Organization Details Recorded Time 5175 Substance with sulfonami de structure and antibacte rial mechanism of action (substanc e) medicatio n itching Not available Not available 01/02/2023 21921 8003 SNOMED Not Available [facility] 3 03:07:12 5176 ibuprofen medicatio n Not available Not available Not available 01/02/2023 5640 RxNorm Other react ions and sever ities : 'Adve rse react ion to subst ance' . Not Available [facility] 3 03:07:12 5177 grape flavor food,medi cation Not available Not available Not available 01/02/2023 81335 UNK Not Available [facility] 3 03:07:12 5178 duloxetin e medicatio n Not available Not available Not available 01/02/2023 71418 RxNorm Other react ions and sever ities : 'Adve rse react ion to subst ance' . Not Available [facility] 3 03:07:12 5179 Cymbalta medicatio n Not available Not available Not available 01/02/2023 09373 4 RxNorm Not Available [facility] 3 03:07:12 Medications Name Sig Start Date Stop Date Status Note LastModified by Organization Details LastModified Time cmp budesonide 0.5mg capsule EMPTY ONE CAPSULE INTO IDS, ADD DISTILLED WATER AND SALINE PACKET, IRRIGATE ONCE DAILY active Not Available Not Available No t Available celecoxib 200 mg capsule Take 1 capsule by mouth once daily active Not Available Not Available No t Available cyclobenzap rine 10 mg tablet TAKE 1 TABLET BY MOUTH THREE TIMES DAILY NEEDED 03/26 completed Not Available Not Available Not Available amoxicillin 500 mg capsule 09/12 completed Not Available Not Available Not Available medroxyprog esterone 10 mg tablet Take 1 tablet every day by oral route for 30 days. 01/17 completed Not Available Not Available Not Available buspirone 5 mg tablet Takes one daily 09/12 completed Not Available Not Available Not Available metformin 500 mg tablet TAKE ONE TABLET BY MOUTH TWICE DAILY WITH MEALS. 09/12 completed Not Available Not Available Not Available nystatin 100,000 unit/mL oral suspension TAKE 5ML BY MOUTH EVERY 6 HOURS NEEDED. SWISH, SWIRIL THEN EXPECTORA TE. active Not Available Not Available No t Available venlafaxine ER 75 mg capsule,ext ended release 24 hr Take 1 capsule every day by oral route for 30 days. active Not Available Not Available No t Available gabapentin 600 mg tablet TAKE 1 TABLET BY MOUTH 4 TIMES DAILY 09/06 completed Not Available Not Available Not Available doxycycline hyclate 100 mg capsule TAKE 1 CAPSULE BY MOUTH TWICE DAILY FOR 10 DAYS 04/15 completed Not Available Not Available Not Available nicotine 14 mg/24 hr daily transdermal patch Apply 1 patch every day by transderm al route as directed. 09/06 completed Not Available Not Available Not Available clindamycin HCl 300 mg capsule active Not Available Not Available Not Available ammonium lactate 12 % lotion APPLY TO FEET ONCE DAILY 05/09 completed Not Available Not Available Not Available Cardura 4 mg tablet Take 1 tablet every day by oral route. 09/12 completed Not Available Not Available Not Available trazodone 50 mg tablet Take 1 tablet every day by oral route at bedtime. active Not Available Not Available No t Available oxybutynin chloride ER 10 mg tablet,exte nded release 24 hr TAKE 1 TABLET BY MOUTH ONCE DAILY 12/06 completed Not Available Not Available Not Available azithromyci n 250 mg tablet TAKE 2 TABLETS BY MOUTH ON DAY 1, AND THEN TAKE 1 TABLET BY MOUTH ONCE A DAY ON DAY 2 THROUGH DAY 5 03/26 completed Not Available Not Available Not Available lidocaine 5 % topical cream APPLY TO THE AREAS OF MUSCLE PAIN (BACK) THREE TIMES DAILY NEEDED. active Not Available Not Available No t Available ibuprofen 800 mg tablet active Not Available Not Available Not Available fluconazole 150 mg tablet TAKE 1 TABLET BY MOUTH ONCE DAILY FOR 1 DAY active Not Available Not Available No t Available benzonatate 200 mg capsule TAKE 1 CAPSULE BY MOUTH THREE TIMES DAILY NEEDED FOR COUGH 04/15 completed Not Available Not Available Not Available valacyclovi r 1 gram tablet Take 1 tablet twice a day by oral route for 7 days. 09/12 completed Not Available Not Available Not Available sumatriptan 100 mg tablet TAKE 1 TABLET BY MOUTH TWICE DAILY NEEDED FOR MIGRAINE TAKE 1 TABLET AT ONSET OF SYMPTOMS, MAY TAKE 1 TABLET 2 HOURS LATER. MAX OF 2 TABLETS IN 24-HOUR PERIOD active Not Available Not Available No t Available hydrocodone 5 mg-acetamin ophen 325 mg tablet TAKE 1 TABLET BY MOUTH EVERY 6 HOURS NEEDED FOR PAIN 03/26 completed Not Available Not Available Not Available prazosin 1 mg capsule 10/06 completed Not Available Not Available Not Available meloxicam 15 mg tablet Take 1 tablet every day by oral route for 30 days. 09/12 completed Not Available Not Available Not Available sucralfate 1 gram tablet Take 1 tablet 3 times a day by oral route as needed. active Not Available Not Available No t Available phenazopyri dine 200 mg tablet active Not Available Not Available Not Available ondansetron HCl 4 mg tablet TAKE 1 TABLET BY MOUTH EVERY 8 HOURS NEEDED 03/26 completed Not Available Not Available Not Available methylpheni date 5 mg tablet TAKE 1 TABLET BY MOUTH ONCE DAILY BEFORE BREAKFAST 11/22 completed Not Available Not Available Not Available prednisone 20 mg tablet TAKE 3 TABLETS BY MOUTH ONCE DAILY FOR 5 DAYS 03/26 completed Not Available Not Available Not Available clonazepam 0.5 mg tablet TAKE 1 TABLET BY MOUTH TWICE DAILY 07/24 completed Not Available Not Available Not Available terconazole 0.8 % vaginal cream Insert 1 applicato rful every day by vaginal route at bedtime for 7 days. 03/26 completed Not Available Not Available Not Available lidocaine 4 % topical cream apply as directed to neck or low back daily PRN pain 03/26 completed Not Available Not Available Not Available clonazepam 1 mg tablet TAKE 1 TABLET BY MOUTH TWICE DAILY active Not Available Not Available No t Available methylpredn isolone 4 mg tablet 09/12 completed Not Available Not Available Not Available Mobic 7.5 mg tablet Take 1 tablet every day by oral route with meals for 30 days. 08/04 completed Not Available Not Available Not Available permethrin 5 % topical cream APPLY (THOROUGH LY MASSAGE INTO SKIN FROM HEAD TO SOLES OF FEET) BY TOPICAL ROUTE ONCE LEAVE ON FOR 8-14 HR, THEN REMOVE BY THOROUGH WASHING active Not Available Not Available No t Available clindamycin HCl 150 mg capsule Take 1 capsule every 6 hours by oral route. active Not Available Not Available No t Available venlafaxine ER 150 mg capsule,ext ended release 24 hr Take 1 capsule twice a day by oral route for 30 days. active Not Available Not Available No t Available sumatriptan 50 mg tablet PRN 10/06 completed Not Available Not Available Not Available cyanocobala min (vit B-12) 1,000 mcg tablet Take 1 tablet every day by oral route. 11/07 completed Not Available Not Available Not Available hydroxyzine pamoate 50 mg capsule Take 1 capsule 4 times a day by oral route for 30 days. 09/12 completed Not Available Not Available Not Available topiramate 25 mg tablet 10/06 completed Not Available Not Available Not Available triamcinolo ne acetonide 0.5 % topical ointment APPLY TO THE AFFECTED AREA(S) TWICE DAILY 12/06 completed Not Available Not Available Not Available metronidazo le 500 mg tablet TAKE 1 TABLET BY MOUTH EVERY 12 HOURS FOR 7 DAYS 03/26 completed Not Available Not Available Not Available phentermine 37.5 mg tablet Take 1 tablet every day by oral route. 2020 active Not Available Not Available Not Avai lable acetaminoph en 300 mg-codeine 30 mg tablet 09/12 completed Not Available Not Available Not Available acyclovir 400 mg tablet TAKE ONE TABLET BY MOUTH THREE TIMES DAILY FOR 7 DAYS, THEN TWICE DAILY FOR THE REST OF THE MONTH active Not Available Not Available No t Available divalproex 500 mg tablet,ana yed release Take 1 tablet twice a day by oral route for 8 days. 09/12 completed Not Available Not Available Not Available valacyclovi r 500 mg tablet Take 1 tablet every day by oral route. 09/12 completed Not Available Not Available Not Available ciprofloxac in 500 mg tablet TAKE 1 TABLET BY MOUTH EVERY 12 HOURS 03/26 completed Not Available Not Available Not Available sulfamethox azole 800 mg-trimetho prim 160 mg tablet Take 1 tablet every 12 hours by oral route with meals. active Not Available Not Available No t Available peg-electro lyte solution 420 gram oral solution 09/06 completed Not Available Not Available Not Available omeprazole 40 mg capsule,del ayed release TAKE 1 CAPSULE BY MOUTH ONCE DAILY active Not Available Not Available No t Available tramadol 50 mg tablet 3 times a day PRN 09/12 completed Not Available Not Available Not Available triamcinolo ne acetonide 0.1 % topical cream APPLY A THIN LAYER TO THE AFFECTED AREA(S) OF LEG TWICE DAILY active Not Available Not Available No t Available phentermine 30 mg capsule Take 1 capsule every day by oral route in the morning. 02/15 completed Not Available Not Available Not Available ketorolac 10 mg tablet 09/12 completed Not Available Not Available Not Available nortriptyli ne 25 mg capsule TAKE 2 CAPSULES BY MOUTH ONCE DAILY AT BEDTIME 09/12 completed Not Available Not Available Not Available risperidone 2 mg tablet 10/06 completed Not Available Not Available Not Available prazosin 5 mg capsule TAKE 1 CAPSULE BY MOUTH AT BEDTIME active Not Available Not Available No t Available venlafaxine 100 mg tablet Take by oral route for 30 days. active Not Available Not Available No t Available oxycodone-a cetaminophe n 5 mg-325 mg tablet TAKE 1 TO 2 TABLETS BY MOUTH EVERY 6 HOURS NEEDED FOR PAIN . DO NOT EXCEED 6 PER 24 HOURS 05/27 completed Not Available Not Available Not Available amoxicillin 875 mg tablet taking twice a day 10/05 completed Not Available Not Available Not Available potassium chloride ER 20 mEq tablet,exte nded release(par t/cryst) TAKE 1 BY MOUTH TWICE DAILY WITH MEALS 03/26 completed Not Available Not Available Not Available famotidine 20 mg tablet TAKE 1 TABLET BY MOUTH TWICE DAILY. DISCONTIN UE RANITIDIN E 08/12 completed Not Available Not Available Not Available diphenhydra mine 50 mg/mL injection solution 05/27 completed Not Available Not Available Not Available magnesium oxide 400 mg (241.3 mg magnesium) tablet TAKE 1 TABLET BY MOUTH ONCE DAILY FOR 30 DAYS 07/24 completed Not Available Not Available Not Available lorazepam 0.5 mg tablet 09/12 completed Not Available Not Available Not Available methocarbam ol 750 mg tablet TAKE 1 TABLET BY MOUTH THREE TIMES DAILY NEEDED 05/27 completed Not Available Not Available Not Available triamcinolo ne acetonide 0.025 % topical cream APPLY A THIN LAYER TO THE AFFECTED AREA(S) of face BY TOPICAL ROUTE 2 TIMES PER DAY PRN 05/09 completed Not Available Not Available Not Available chlordiazep oxide 25 mg capsule TAKE 1 CAPSULE BY MOUTH THREE TIMES DAILY NEEDED FOR WITHDRAWA L 03/26 completed Not Available Not Available Not Available tamsulosin 0.4 mg capsule Take 1 capsule every day by oral route. active Not Available Not Available No t Available trazodone 100 mg tablet TAKE 2 TABLETS BY MOUTH AT BEDTIME active Not Available Not Available No t Available meclizine 25 mg tablet TAKE 1 TABLET BY MOUTH EVERY 8 HOURS NEEDED 10/05 completed Not Available Not Available Not Available phenazopyri dine 100 mg tablet TAKE 2 TABLETS BY MOUTH THREE TIMES DAILY FOR 2 DAYS 10/05 completed Not Available Not Available Not Available baclofen 10 mg tablet TAKE 1 TABLET BY MOUTH THREE TIMES DAILY NEEDED active Not Available Not Available No t Available benzonatate 100 mg capsule TAKE 1 CAPSULE BY MOUTH EVERY 8 HOURS NEEDED 03/26 completed Not Available Not Available Not Available nortriptyli ne 75 mg capsule TAKE 1 CAPSULE BY MOUTH AT BEDTIME 07/24 completed Not Available Not Available Not Available hydrocodone 7.5 mg-acetamin ophen 325 mg tablet TAKE 1 TABLET BY MOUTH EVERY 6 HOURS NEEDED 05/27 completed Not Available Not Available Not Available cephalexin 500 mg capsule TAKE 1 CAPSULE BY MOUTH EVERY 8 HOURS FOR 7 DAYS active Not Available Not Available No t Available paroxetine 30 mg tablet 09/12 completed Not Available Not Available Not Available paroxetine 20 mg tablet 09/12 completed Not Available Not Available Not Available pantoprazol e 40 mg tablet,ana yed release Take 1 tablet every day by oral route in the morning. active Not Available Not Available No t Available erythromyci n 5 mg/gram (0.5 %) eye ointment 10/06 completed Not Available Not Available Not Available cyanocobala min (vit B-12) 1,000 mcg/mL injection solution INJECT 1 ML SUBCUTANE OUSLY ONCE EVERY MONTH active Not Available Not Available No t Available mirtazapine 30 mg tablet Take 1 tablet every day by oral route. 09/12 completed Not Available Not Available Not Available trazodone 150 mg tablet Take by oral route. active Not Available Not Available No t Available ferrous sulfate 325 mg (65 mg iron) tablet one daily 09/12 completed Not Available Not Available Not Available triamcinolo ne acetonide 0.1 % topical ointment APPLY A THIN LAYER TO THE AFFECTED AREA(S) of face BY TOPICAL ROUTE 2 TIMES PER DAY PRN 03/26 completed Not Available Not Available Not Available ranitidine 150 mg tablet TAKE ONE TABLET BY MOUTH TWICE DAILY WITH MEALS. 10/06 completed Not Available Not Available Not Available buspirone 10 mg tablet TAKE 1 TABLET BY MOUTH THREE TIMES DAILY 07/24 completed Not Available Not Available Not Available misoprostol 200 mcg tablet Take 2 tablets by oral route at bedtime for 1 day. active Not Available Not Available No t Available divalproex ER 500 mg tablet,exte nded release 24 hr 09/12 completed Not Available Not Available Not Available metronidazo le 0.75 % topical cream APPLY A THIN LAYER TO THE perioral area BY TOPICAL ROUTE 2 TIMES PER DAY IN THE MORNING AND EVENING PRN 06/03 completed Not Available Not Available Not Available nicotine 21 mg/24 hr daily transdermal patch Apply 1 patch every day by transderm al route. 06/21 completed Not Available Not Available Not Available BD Luer-Terry Syringe 3 mL 25 gauge x 1 USE MONTHLY DIRECTED 07/24 completed Not Available Not Available Not Available Xylocaine 20 mg/mL (2 %) injection solution 20 mL by injection route. 02/06 completed Not Available Not Available Not Available gabapentin 300 mg capsule TAKE 2 CAPSULES BY MOUTH THREE TIMES DAILY active Not Available Not Available No t Available gentamicin 0.1 % topical cream 10/06 completed Not Available Not Available Not Available folic acid 1 mg tablet TAKE 1 TABLET BY MOUTH ONCE DAILY 03/26 completed Not Available Not Available Not Available montelukast 10 mg tablet TAKE 1 TABLET BY MOUTH ONCE DAILY active Not Available Not Available No t Available hydroxyzine HCl 25 mg tablet TAKE 1 TABLET BY MOUTH EVERY 6 HOURS NEEDED FOR ANXIETY (MILD ANXIETY SCALE 1-4) 05/27 completed Not Available Not Available Not Available ammonium lactate 12 % topical cream APPLY CREAM TOPICALLY TO AFFECTED AREA ONCE DAILY NEEDED active Not Available Not Available No t Available codeine 10 mg-guaifene sin 100 mg/5 mL oral liquid TAKE 5ML BY MOUTH EVERY 6 HOURS NEEDED FOR COUGH 03/26 completed Not Available Not Available Not Available cyanocobala min (vit B-12) 1,[address] 1 tablet every day by sublingua l route as directed. 03/26 completed Not Available Not Available Not Available ranitidine 150 mg capsule Take 1 capsule twice a day by oral route. 2014 active Not Available Not Available Not Avai lable mirtazapine 15 mg tablet TAKE 1 TABLET BY MOUTH AT BEDTIME active Not Available Not Available No t Available gabapentin 100 mg capsule 09/12 completed Not Available Not Available Not Available sodium chloride 0.9 % intravenous solution 07/24 completed Not Available Not Available Not Available dexamethaso ne sodium phosphate 4 mg/mL injection solution bring bottle to physical therapy 05/09 completed Not Available Not Available Not Available azelastine 137 mcg (0.1 %) nasal spray USE 1 TO 2 SPRAY(S) IN EACH NOSTRIL TWICE DAILY 03/26 completed Not Available Not Available Not Available cefuroxime axetil 500 mg tablet Take 1 tablet every 12 hours by oral route. active Not Available Not Available No t Available levofloxaci n 500 mg tablet Take 1 tablet every 24 hours by oral route. 09/12 completed Not Available Not Available Not Available methylpredn isolone 4 mg tablets in a dose pack TAKE BY MOUTH DIRECTED ON INSIDE OF PACKAGE 05/27 completed Not Available Not Available Not Available albuterol sulfate HFA 90 mcg/actuati on aerosol inhaler INHALE 2 PUFFS BY MOUTH EVERY 4 HOURS NEEDED active Not Available Not Available No t Available paroxetine 40 mg tablet one daily 09/12 completed Not Available Not Available Not Available Vitamin D2 1,250 mcg (50,000 unit) capsule TAKE 1 CAPSULE BY MOUTH ONCE A WEEK DIRECTED active Not Available Not Available No t Available oxybutynin chloride 5 mg tablet TAKE ONE TABLET BY MOUTH TWICE DAILY active Not Available Not Available No t Available ondansetron 4 mg disintegrat ing tablet DISSOLVE 1 TABLET IN MOUTH EVERY 8 HOURS NEEDED FOR NAUSEA 07/24 completed Not Available Not Available Not Available cefdinir 300 mg capsule TAKE 1 CAPSULE BY MOUTH TWICE DAILY FOR 3 DAYS 05/27 completed Not Available Not Available Not Available topiramate 100 mg tablet TAKE 1 TABLET BY MOUTH TWICE DAILY active Not Available Not Available No t Available fluoxetine 20 mg capsule active Not Available Not Available Not Available fluticasone propionate 50 mcg/actuati on nasal spray,suspe nsion USE 2 SPRAY(S) IN EACH NOSTRIL ONCE DAILY 03/26 completed Not Available Not Available Not Available betamethaso ne dipropionat e 0.05 % lotion 10/06 completed Not Available Not Available Not Available risperidone 1 mg tablet 11/20 completed Not Available Not Available Not Available doxycycline hyclate 100 mg tablet TAKE 1 TABLET BY MOUTH TWICE DAILY FOR 10 DAYS 03/26 completed Not Available Not Available Not Available dicyclomine 10 mg capsule TAKE 1 CAPSULE BY MOUTH THREE TIMES DAILY 04/15 completed Not Available Not Available Not Available ipratropium bromide 21 mcg (0.03 %) nasal spray [place] 2 sprays every day by intranasa l route as directed. active Not Available Not Available No t Available prazosin 2 mg capsule TAKE 1 CAPSULE BY MOUTH AT BEDTIME FOR 90 DAYS active Not Available Not Available No t Available naproxen 500 mg tablet TAKE 1 TABLET BY MOUTH TWICE DAILY WITH FOOD NEEDED active Not Available Not Available No t Available spironolact one 50 mg tablet Take 1 tablet every day by oral route. 01/17 completed Not Available Not Available Not Available diazepam 5 mg tablet TAKE 1 TABLET BY MOUTH TWICE DAILY 03/26 completed Not Available Not Available Not Available metoclopram jayesh 10 mg tablet Take 1 tablet 3 times a day by oral route. active Not Available Not Available No t Available progesteron e micronized 100 mg capsule TAKE 1 CAPSULE BY MOUTH ONCE DAILY FOR 10 DAYS 12/06 completed Not Available Not Available Not Available amoxicillin 875 mg-potassiu m clavulanate 125 mg tablet TAKE 1 TABLET BY MOUTH EVERY 12 HOURS FOR 7 DAYS 03/26 completed Not Available Not Available Not Available nicotine 7 mg/24 hr daily transdermal patch APPLY 1 PATCH TOPICALLY ONCE DAILY 09/12 completed Not Available Not Available Not Available buspirone 15 mg tablet TAKE 1 TABLET BY MOUTH THREE TIMES DAILY 03/26 completed Not Available Not Available Not Available hydroxyzine pamoate 25 mg capsule active Not Available Not Available N ot Available neomycin 3.5 mg/g-polymy tanesha B 10,000 unit/g-dexa meth 0.1 % eye oint 10/06 completed Not Available Not Available Not Available azithromyci n 500 mg tablet TAKE 1 TABLET BY MOUTH ONCE DAILY 05/27 completed Not Available Not Available Not Available aripiprazol e 10 mg tablet TAKE 1 TABLET BY MOUTH ONCE DAILY active Not Available Not Available No t Available aripiprazol e 15 mg tablet TAKE 1 TABLET BY MOUTH ONCE DAILY FOR 30 DAYS 09/06 completed Not Available Not Available Not Available divalproex ER 250 mg tablet,exte nded release 24 hr 09/12 completed Not Available Not Available Not Available Vitamin D3 25 mcg (1,000 unit) capsule Take 1 capsule every day by oral route. 04/15 completed Not Available Not Available Not Available Allergy Relief (loratadine ) 10 mg tablet Take 1 tablet by mouth once daily active Not Available Not Available No t Available aripiprazol e 5 mg tablet 04/15 completed Not Available Not Available Not Available ciprofloxac in 0.3 %-dexametha sone 0.1 % ear drops,suspe nsion INSTILL FOUR DROPS INTO THE AFFECTED EAR(S) EVERY 12 HOURS FOR 7 DAYS. RETAIN EAR DROPS IN AFFECTED EAR(S) FOR 5 MINUTES active Not Available Not Available No t Available bupropion HCl XL 300 mg 24 hr tablet, extended release TAKE 1 TABLET BY MOUTH ONCE DAILY 10/05 completed Not Available Not Available Not Available bupropion HCl XL 150 mg 24 hr tablet, extended release TAKE 3 TABLETS BY MOUTH ONCE DAILY active Not Available Not Available No t Available metoprolol tartrate 25 mg tablet Take 1 tablet by oral route. 12/06 completed Not Available Not Available Not Available topiramate 50 mg tablet takes one tab bid 10/06 completed Not Available Not Available Not Available nitrofurant oin monohydrate /macrocryst als 100 mg capsule TAKE 1 CAPSULE BY MOUTH EVERY 12 HOURS 03/26 completed Not Available Not Available Not Available acamprosate 333 mg tablet,ana yed release TAKE 1 TABLET BY MOUTH THREE TIMES DAILY active Not Available Not Available No t Available duloxetine 60 mg capsule,del ayed release 09/12 completed Not Available Not Available Not Available levalbutero l HFA 45 mcg/actuati on aerosol inhaler INHALE 1 TO 2 PUFFS BY MOUTH EVERY 6 HOURS NEEDED FOR WHEEZING FOR SHORTNESS OF BREATH 03/26 completed Not Available Not Available Not Available Tylenol 800mg 2-3 times a day for pain as needed. 2014 active Not Available Not Available Not Avai lable Valtrex 2014 active for rickyg les. Not Available Not Available Not Available quetiapine 50 mg tablet active Not Available Not Available Not Available peg 3350 240 gram-electr olytes 22.72 gram-6.72 g-5.84 g powdr for soln 09/12 completed Not Available Not Available Not Available Golytely 236 gram-22.74 gram-6.74 gram-5.86 gram oral solution DIRECTED 09/06 completed Not Available Not Available Not Available omeprazole 20 mg tablet,ana yed release Take 1 tablet twice a day by oral route before meals. 09/12 completed Not Available Not Available Not Available Toviaz 4 mg tablet,exte nded release Take 1 tablet every day by oral route. 07/22 completed Not Available Not Available Not Available Creon 24,000-76,0 00-120,000 unit capsule,del ayed release TAKE 4 CAPSULES BY MOUTH WITH EACH MEAL AND 2 CAPSULES WITH EACH SNACK. 07/24 completed Not Available Not Available Not Available Suprep Bowel Prep Kit 17.5 gram-3.13 gram-1.6 gram oral solution DIRECTED active Not Available Not Available No t Available doxycycline 100mg capsule and topical skin cleanser no.19 OTC 04/15 completed Not Available Not Available Not Available lidocaine 5 % topical ointment APPLY 500 MG TO LOWER AND MID BACK EVERY DAY DIRECTED 01/17 completed Not Available Not Available Not Available Linzess 145 mcg capsule TAKE 1 CAPSULE BY MOUTH ONCE DAILY IN THE MORNING 09/06 completed Not Available Not Available Not Available naloxone 4 mg/actuatio n nasal spray ADMINISTE R A SINGLE SPRAY IN ONE NOSTRIL UPON SIGNS OF OPIOID OVERDOSE. CALL 911. REPEAT AFTER 3 MINUTES IF NO RESPONSE. 05/27 completed Not Available Not Available Not Available Zenpep 25,000 unit-79,000 unit-105,00 0 unit capsule,del ayed release TAKE ONE CAPSULE BY MOUTH PER SNACK active Not Available Not Available No t Available baclofen 5 mg tablet 05/27 completed Not Available Not Available Not Available Emgality Pen 120 mg/mL subcutaneou s pen injector INJECT 120MG SUBCUTANE OUSLY ONCE EVERY 30 DAYS active Not Available Not Available No t Available Fluzone Quad (PF) 60 mcg (15 mcg x 4)/0.5 mL IM syringe PHARMACIS T ADMINISTE RED IMMUNIZAT ION ADMINISTE RED AT TIME OF DISPENSIN G 10/06 completed Not Available Not Available Not Available Ubrelvy 100 mg tablet TAKE 1 TABLET BY MOUTH TWICE DAILY NEEDED . DO NOT EXCEED 2 PER 24 HOURS active Not Available Not Available No t Available Vyepti 100 mg/mL intravenous solution active Not Available Not Available Not Available Fluzone Quad (PF) 60 mcg (15 mcg x 4)/0.5 mL IM syringe PHARMACIS T ADMINISTE RED IMMUNIZAT ION ADMINISTE RED AT TIME OF DISPENSIN G active Not Available Not Available No t Available Qulipta 60 mg tablet TAKE 1 TABLET BY MOUTH ONCE DAILY active Not Available Not Available No t Available Zenpep 60,000-189, 600-252,600 unit capsule,del ayed release Take 1 capsule per meal active Not Available Not Available No t Available Vitals Date Recorded Body height Heart rate Body mass index (BMI) Body weight Body temperature Oxygen saturation Oxygen saturation in Arterial blood by Pulse oximetry Provider Name and Address Organization Details Last Updated DateTime 3 172.72 cm 77 /min 35.3 kg/m2 661794. 43 g 97.2 [degF] 85 % 85 % Heriberto Hernandez [facility] [employer] [facility] 3 10:00:48 Date Recorded Body height Body temperature Respiratory rate Oxygen saturation Oxygen saturation in Arterial blood by Pulse oximetry Heart rate Systolic blood pressure Diastolic blood pressure Provider Name and Address Organization Details Last Updated DateTime 3 172.72 cm 97.9 [degF] 16 /min 98 % 98 % 81 /min 120 mm[Hg] 72 mm[Hg] Libby Vera Alfredito [facility] [employer] [facility] 3 15:05:30 Date Recorded Body height Heart rate Respiratory rate Oxygen saturation Oxygen saturation in Arterial blood by Pulse oximetry Systolic blood pressure Diastolic blood pressure Provider Name and Address Organization Details Last Updated DateTime 4 172.72 cm 94 /min 14 /min 98 % 98 % 117 mm[Hg] 81 mm[Hg] Martina Choi [facility] [employer] [facility] 4 11:26:15 Date Recorded Body height Body mass index (BMI) Body weight Heart rate Oxygen saturation Oxygen saturation in Arterial blood by Pulse oximetry Systolic blood pressure Diastolic blood pressure Provider Name and Address Organization Details Last Updated DateTime 4 172.72 cm 37.4 kg/m2 260458. 72 g 93 /min 98 % 98 % 132 mm[Hg] 76 mm[Hg] STARLA Rice [facility] [employer] [facility] 4 12:45:33 Date Recorded Body height Body mass index (BMI) Body weight Body temperature Heart rate Oxygen saturation Oxygen saturation in Arterial blood by Pulse oximetry Systolic blood pressure Diastolic blood pressure Provider Name and Address Organization Details Last Updated DateTime 4 172.72 cm 36.9 kg/m2 719788. 95 g 97.4 [degF] 83 /min 94 % 94 % 128 mm[Hg] 74 mm[Hg] Jeanie Garrett MA [facility] [employer] [facility] 4 11:24:10 Social History Question Answer Notes LastModified by Organizat ion Details LastModified Time Tobacco Smoking Status Former Smoker Annette Horton MA null, [facility] [employer] [facility] 04/15/2023 14:55:39 Do You Have An Advance Directive? No [id number] Information not available 01/02/2023 What Is Your Level Of Alcohol Consumption? Occasional [id number] Information not available 01/02/2023 If You Are , What Was Your Level Of Alcohol Consumption Prior To ? None Information not available 04/15/2023 Do You Wear A Helmet When Biking? No Information not available 04/15/2023 Are You Blind Or Do You Have Difficulty Seeing? No Information not available 04/15/2023 What Is Your Level Of Caffeine Consumption? Moderate [id number] Information not available 01/02/2023 How Much Tobacco Do You Chew? None [id number] Information not available 01/02/2023 In The 14 Days Before Symptom Onset, Have You Had Close Contact With A Laboratory-coronai rmed COVID-19 While That Case Was Ill? No Information not available 04/15/2023 In The 14 Days Before Symptom Onset, Have You Had Close Contact With A Person Who Is Under Investigation For COVID-19 While That Person Was Ill? No Information not available 04/15/2023 Are You Currently Employed? Yes [email or web address] Information not available 06/21/2023 Are You Deaf Or Do You Have Serious Difficulty Hearing? No Information not available 04/15/2023 What Type Of Diet Are You Following? REGULAR [id number] Information not available 01/02/2023 Which Illicit Or Recreational Drugs Have You Used? Marijuana Information not available 04/15/2023 Do You Or Have You Ever Used E-cigarettes Or Vape? Current User Of Electronic Cigarettes Vaping Information not available 04/15/2023 What Is The Highest Grade Or Level Of School You Have Completed Or The Highest Degree You Have Received? [id number] Information not available 04/15/2023 What Is Your Occupation? [employer] Information not available 04/15/2023 Have There Been Any Changes To Your Family Or Social Situation? No Information not available 04/15/2023 Are There Any Guns Present In Your Home? No Information not available 04/15/2023 Do You Use Insect Repellent Routinely? No Information not available 04/15/2023 Where Do You Live? SingleLevelHouse Information not available 04/15/2023 Do You Have A Medical Power Of Bank Teller? No Information not available 04/15/2023 What Was The Date Of Your Most Recent Tobacco Screening? 07/28/2024 [email or web address] Information not available 07/28/2024 Have You Ever Been Counseled For Unhealthy Alcohol Use? No Information not available 04/15/2023 Do You Have Any Pets? No Information not available 04/15/2023 What Is Your Relationship Status? Single [id number] Information not available 01/02/2023 Do You Use Your Seat Belt Or Car Seat Routinely? Yes Information not available 04/15/2023 Do You Have Smoke And Carbon Monoxide Detectors In Your Home? Yes Information not available 04/15/2023 At What Age Did You Start Smoking Tobacco? 12 Information not available 04/15/2023 Are You Passively Exposed To Smoke? No Information not available 04/15/2023 Do You Or Have You Ever Used Smokeless Tobacco? Never Used Smokeless Tobacco [id number] Information not available 01/02/2023 Are There Any Smokers In Your House? Yes Information not available 04/15/2023 How Much Tobacco Do You Smoke? 0.5 PPD [id number] Information not available 01/02/2023 Do You Feel Stressed (tense, Restless, Nervous, Or Anxious, Or Unable To Sleep At Night)? [id number] Information not available 04/15/2023 Do You Use Any Illicit Or Recreational Drugs? Yes Information not available 04/15/2023 Do You Use Sunscreen Routinely? Yes Information not available 04/15/2023 Has Tobacco Cessation Counseling Been Provided? No Information not available 04/15/2023 Have You Recently Traveled Abroad? No Information not available 04/15/2023 Have You Used IV Drugs? No Information not available 04/15/2023 Do You Have Any Dietary Restrictions? No Information not available 04/15/2023 Do You Or Have You Ever Used Any Other Forms Of Tobacco Or Nicotine? No Information not available 04/15/2023 Sex: Female Functional Status Question Answer Note LastModified by Organizat ion Details LastModified Time Do you have difficulty walking or climbing stairs? No Information not available 04/15/2023 Are you able to walk? YESWOREST Information not available 04/15/2023 Do you have difficulty doing errands alone? No Information not available 04/15/2023 Are you able to care for yourself? Yes Information not available 04/15/2023 Do you have difficulty dressing or bathing? No Information not available 04/15/2023 What is your exercise level? Occasional [id number] Information not available 01/02/2023 Mental Status Question Answer Note LastModified by Organization D etails LastModified Time Do you have difficulty concentrating, remembering or making decisions? No Information no t available 04/15/2023 Family History Relationship Description Onset Age of this Age Resolved Age Notes LastModified by Organization Details LastModified Time Mother Essential hypertension [id number].106 [id number] Not available 01/02/2023 02:40:57 Mother Hyperthyroid ism MIGRATION.363 [id number] Not available 01/02/2023 02:40:57 Mother Acquired scoliosis MIGRATION.316 [id number] Not available 01/02/2023 02:40:57 Mother Degenerative disorder MIGRATION.973 [id number] Not available 01/02/2023 02:40:57 Notes:no new health issues Medical History Condition Response ARTHRITIS Y HEADACHES/MIGRAINES Y GI PROBLEMS Y KIDNEY STONES Y HIGH CHOLESTEROL / HYPERLIPIDEMIA Y HYPERTHYROIDISM Y ANXIETY DISORDER Y OSTEOPOROSIS Y URINARY/BLADDER/KIDNEY PROBLEMS Y SLEEP DISORDER Y FEMALE PROBLEMS / INFECTIONS Y DEPRESSION (INCLUDING POST ) Y MIGRAINES Y HERPES Y Gynecological History Statement/Question Response Abnormal Pap Y Date of Last Pap Smear 09/14/2015 Current Control Method Hysterectom y Age at Menarche 11 Date of Last Colonoscopy 02/06/2021 Obstetrics History GPAL:G 2 P 0 0 0 1 Type Value Living 1 Total 2 Immunizations Vaccine Type Date Status Note Provider Nam e and Address Organization Details Recorded Time Influenza, split virus, quadrivalent, preservative 7 completed Not Available [facility] 01/02/2023 03:06:48 Influenza, split virus, quadrivalent, PF 7 completed Not Available [facility] 01/02/2023 03:06:48 Past Encounters Encounter ID Performer Location Encounter Start Date Encounter Closed Date Diagnosis/Indication Diagnosis SNOMED-CT Code Diagnosis ICD10 Code Diagnosis Note [id number] _ATHENA_M IGRATION_ DEFAULT_1 _1 , 01/18/2021 00:00:00 01/18/2021 10:50:01 [id number] _ATHENA_M IGRATION_ DEFAULT_1 _1 , 03/01/2021 00:00:00 03/01/2021 17:13:38 [id number] _ATHENA_M IGRATION_ DEFAULT_1 _1 , 05/31/2021 00:00:00 05/31/2021 16:20:29 [id number] [facility] Pod[facility] Hardik Harper [address] [place] [address] 08/03/2021 00:00:00 08/03/2021 13:52:23 [id number] [facility] [place] [address] [place] [address], [address] [place] [address] 08/04/2021 00:00:00 08/04/2021 15:56:37 [id number] [facility] [place] [address] [place] [address] 09/07/2021 00:00:00 09/07/2021 11:21:02 [id number] [facility] [place] [address] [place] [address] 10/05/2021 00:00:00 10/31/2021 23:05:46 [id number] [facility] [place] [address] [place] [address] 11/30/2021 00:00:00 11/30/2021 13:23:36 [id number] [facility] [place] [address] [place] [address] 01/25/2022 00:00:00 01/26/2022 09:03:39 [id number] [facility] [place] [address] [place] [address] 03/27/2022 00:00:00 04/02/2022 14:33:24 [id number] _ATHENA_M IGRATION_ DEFAULT_1 _1 , 05/09/2022 00:00:00 05/09/2022 17:10:38 [id number] _ATHENA_M IGRATION_ DEFAULT_1 _1 , 07/11/2022 00:00:00 07/11/2022 15:16:40 [id number] [facility] [place] [address] [place] [address], [address] [place] [address] 09/06/2022 00:00:00 09/06/2022 10:10:26 [id number] [facility] [place] [address] [place] [address] 11/22/2022 00:00:00 12/02/2022 12:42:39 [id number] [facility] U[facility] [address], [address] [address] 12/06/2022 00:00:00 12/06/2022 20:32:58 [id number] Jayesh Thapa MD [facility] [address] [address] 01/10/2023 09:33:20 01/10/2023 10:27:23 Female stress incontinence [id number] N39.3 Patient reassured. Pain meds and valium for muscle spasms. bedrest and sitz baths f/u in a week. 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 Muscle tension 119688112 R29.898 refill muscle relaxer and lidocaine cream Pre-surger y evaluation [id number] Z01.818 cbc, bmp and LFT due Long-term drug therapy 408373990 Z79.899 labs are due [id number] David Jasso DPM [facility] [place] [address] [place] [address] 03/26/2024 11:16:04 03/27/2024 10:03:13 Metatarsalgia of right foot [id number] 08240 M77.41 recommend custom orthoticss upportive shoe gearmonito r for wounds infectionh as naproxen may take for painrice therapyfol low-up 6 months Congenital pes planus 23 992814 Q66.51 Q66.52 bilateral feetx-rays reviewed with the patientrec ommend custom orthotics with offloading under the sub 5th metatarsal head rightfollo w-up 6 monthsdid not obtain prior orthotics Rx from [facility] of toe of right foot [id number] 2727741 L60.0 medial cornerSlan t backNon-in fectedFoll ow-up as needed Foot callus 640385296 L8 4 right 5th metatarsal head- mild non-infect edRx Amlactin Peripheral neuropathic pain 094737580 M79.2 continue with neurology follow-upr ecommend pain management if continues be problemati c [id number] Mary Ellen Jin MD [facility] General Surgery [address] [facility], [facility] [address] [place] [address] 05/27/2024 12:43:01 05/27/2024 13:35:59 Exocrine pancreatic insufficiency 60130259 K86.81 Sliding hiatus hernia 23 2465778 K44.9 [id number] Dominique Ramírez NP [facility] Pulmonolo gy [place] [address] [facility] [address] [place] [address] 07/28/2024 10:57:37 07/30/2024 14:46:11 Dyspnea on exertion 42506482 R06.09 PFT 07/23/24-wn l without methacholi ne (PFT normal)had recent sleep study done by neuro-per patient showed mild sleep apnea-will obtain testing-wi ll order CPAP if not addressed by neurowill hold off on albuterol inhaler at present with negative Pft-with do methacolin e challenge and will rx if positiveCX R and Ct chest 10/26 treated for pneumonia at that time-[facility] work todayWill consider ECHO-do encourage patient to consider Cardiology Discussed possible need to see rheumatsheila yin in futureFoll ow-up after methacolin e testing and will do 6 minute walk-call once scheduled Ex-cigarette smoker 2810 30128 Z87.891 Sleep apnea 38281550 G47 .30 need recent home sleep studywill set up with CPAP at next visit-if neurology has addressed Advised good sleep habits and patterns:- Set a goal for at least 7 to 8 hours of sleep time per day.-Use the bed mainly for sleep and to go to bed only when tired. If unable to fall asleep after 30 minutes, patient should get out of bed but should not engage in any activity that requires sustained mental alertness. -Maintain a regular bedtime and wake-up time even on weekends or days off of work.-Avoi d excessive naps during the daytime. If a nap is necessary, limit it to no more than 30minutes. -Minimize environmen obed noise, bright lights, and extremes in bedroom temperatur e.-Avoid alcohol, caffeinate d beverages, and nicotine products for at least 6 hours prior to bedtime.-A void strenuous exercise and large meals for at least 4 hours prior to bedtime.RT C in one year, PRN for concerns Body mass index 30+ - obesity [id number] Z68.36 Patient counseled on weight and it's effect on the body including sleep and breathing, encourage healthy diet and exercise to improve health and for weight loss. Health Concerns Section Related Observation LastModified by Organization Detai ls LastModified Time None Recorded Concern Status LastModified by Organization Details LastModified Time None Recorded Advance Directives Directive N: Payers Encounter Date Sequence Insurance Name Policy Number Policy [place] Covered Member ID Press[place] Member ID Guarantor Name 01/10/2023 1 [place] [facility] [id number] [facility] 01/10/2023 2 [place] OR MEDICARE REPLACEMENT PRIMARY) [facility] [id number] [facility] 04/15/2023 1 [place] [facility] [id number] [facility] 04/15/2023 2 [place] OR [place] REPLACEMENT PRIMARY) [facility] [id number] [facility] 03/26/2024 1 [place] [facility] [id number] [facility] 03/26/2024 2 [place] OR [place] REPLACEMENT PRIMARY) [facility] [id number] [facility] 05/27/2024 1 [place] [facility] [id number] [facility] 05/27/2024 2 [place] OR [place]IC[place] REPLACEMENT PRIMARY) [facility] [id number] [facility] 07/28/2024 1 [place] [facility] [id number] [facility] 07/28/2024 2 [place] OR [place]ICARE REPLACEMENT PRIMARY) [facility] [id number] [facility] Notes Date Note Type Note Provider Name and Address Organization Details Recorded Time 01/10/2023 text/html The patient is s /p MUS is having a really tough recovery. She had a sudden onset of severe pain and some vaginal bleeding. She when to [facility] but they would not see her. She went to our ED and was started on abx. Xrays were normal. She is complaining of pain in the lower abdomen. voiding ok pvr zero. ua clear. Jayesh Thapa MD [address], [place], [address], [employer] 01/10/2023 10:23:14 04/15/2023 text/html Generic HPI TemplateReported bypatient.Notes:Pt is here for a surgery clearance for L wrist scaphoid removal lunato capitate versus four corner fusion on the . Form is in the room w/her. ALYSSA Campos [address], [address], [place], [address], [employer] 05/03/2023 23:25:20 03/26/2024 text/html . Patient is a 38-year-old female who presents the office with multiple complaints. Patient states she is bilateral foot pain. Patient states she has an ingrown toenail without infection to the medial corner of the right great toe which is painful with weight bearing. Patient denies any fever, chills, nausea vomiting. Patient states she also has pain in both of her feet with walking. Patient had bilateral foot x-rays which were reviewed she is found to have bilateral flexible pes planus foot deformity. Patient was given custom orthotics in the past which she did not obtain she does not currently utilize orthotics. I did recommend that she obtain orthotics for custom orthotics for her condition to help support her feet to prevent arthritis and tendinopathy. Patient also has pain under her sub 5th metatarsal head secondary to added pressure with weight-bearing. Patient has no open wounds or signs of infection. Patient states she does at times develop mild callusing under the sub 5th metatarsal head. Patient denies any other complaints. David Jasso DPM [address], [place], [address], [employer] 03/26/2024 13:23:27 05/27/2024 text/html NISA WAS SEEN IN THE OFFICE TODAY FOR EVALUATION . PT WAS DX WITH EPI IN THE PAST AND WAS ON CREON /120 . 4 TABS PER MEAL AND 2 PER SNACKS . TODAY PT REPORTS BEING OFF MEDS X 18 MTHS . SHE REPORTS DIARRHEA 5-6X DAILY , MALODOROUS, DIFFICULT TO FLUSH , AND GREASY APPEARING . SHE REPORTS ABD PAIN .PT C/O S LIDING HIATAL HERNIA THAT SHOWS ON CT ABD . Mary Ellen Jin MD [address], [address], [place], [address], [employer] 05/27/2024 13:09:39 07/28/2024 text/html DyspneaReported bypatient.Quality:dys pnea;tightness;can't catch breath;can't get a deep breath Severity:severe; limits activity Duration:sensation/ep isode lasts >5 minutes; for 6 months Onset/Timing:daily; during daytime Context:with activity;at rest;reflux Alleviating Factors:relieved with inhaler Aggravating Factors:activity;when supine Associated Symptoms:no PND; no fever; no chills; no wheezing; no dietary indiscretion; no sputum production; no hemoptysis; no weight gain;chest pain/discomfort;palpi tations;orthopnea;fat igue;dyspepsia;lighth eadedness;weaknessNot es:former smoker 1/2ppdHX nile and fibromyalgiaESS-17ACT -7MMRC-3sleep study done by neurology due to migraines-per pt mild KYLE but waiting call from neuro to discusstakes sleep medication from neuro and primary-acts out dreams-insomnia Dominique Ramírez NP [address], [place], [address], [employer] 07/28/2024 12:26:31 OBGyn Episode No OBEpisode recorded.
--- OUTSIDE RECORDS SUMMARY | 2024-11-26 13:38 | XMS_ITS | Data Portability ---
Author Organization [facility] Address [address] [facility] [place] [address] Care Team Providers Care Boxing Inspector Name Role Phone JIAN BOWDENIE Primary Care Provider Unavailab le Assessment No assessment recorded. Plan of Treatment Reminders Order Date Submit Date Provider Last Modified By Organization Details Last Modified Time Details Appointments None recorded. Lab magnesium, serum or plasma 2023 024 Not available 4 14:48:24 CBC w/ auto diff 2023 024 Not available 4 14:48:24 CMP, serum or plasma 2023 024 PATTIE Not available 4 00:02:45 culture, urine 2023 024 PATTIE Not available 4 08:29:35 urinalysis , complete 2023 024 PATTIE Not available 4 13:30:31 vitamin B12 + folate, serum or blood 2023 024 PATTIE Not available 4 00:02:44 TSH + free T4, serum 2023 024 PATTIE Not available 4 00:02:45 T3, free, serum or plasma 2023 024 Not available 4 14:48:24 HbA1c (hemoglobi n A1c), blood 2023 024 Not available 4 14:48:24 lipid panel, serum 2023 024 PATTIE Not available 00:02:45 Referral shank turner referral - pt was prior patient of dr. velazquez, has records with [facility]. needs to [facility] podiatry care. 2023 024 David Louisa DPM, [address], [place], [address], 4 16:54:24 EGD referral 2023 024 [email or web address] Jin MD, [address] [facility], [facility] [address], [place], [address], 4 23:12:54 gastroente rologist referral 2023 024 PATTIE Jin MD, [address] [facility], [facility] [address], [place], [address], 4 12:50:18 pulmonolog ist referral 2023 024 [email or web address] Sneed MD, [address] [place], [address], 4 09:37:19 dermatolog ist referral 2023 024 [email or web address] Jose Maria Valencia MD, [facility] [place], [address], 4 10:54:31 Procedures None recorded. Surgeries None recorded. Imaging MAMMO, screening, digital, bilateral 2023 024 Not available 5 14:16:06 Medication Orders Macrobid 100 mg capsule 2023 024 [facility] [address], [address], [place], [address], 4 18:21:49 triamcinol one acetonide 0.1 % topical cream 2023 024 [facility] [address], [address], [place], [address], 4 17:15:43 omeprazole 40 mg capsule,de layed release 2023 024 [facility] [address], [address], [place], [address], 4 17:15:39 azithromyc in 250 mg tablet [email or web address] [facility] [address], [address], [place], [address], 4 18:21:39 Diflucan 150 mg tablet 2023 024 [facility] [address], [address], [place], [address], 4 11:46:44 cyclobenza rob 10 mg tablet [email or web address] [facility] [address], [address], [place], [address], 4 18:24:02 lidocaine 5 % topical patch 2023 024 [facility] [address], [address], [place], [address], 4 18:00:39 cyanocobal garcia (vit B-12) 1,000 mcg/mL injection solution 2023 024 Not available 10:56:52 omeprazole 40 mg capsule,de layed release 2023 024 [facility] [address], [address], [place], [address], 4 12:15:41 lidocaine 5 % topical cream 2023 024 [facility] [address], [address] [place] [address], [address], 16:01:34 Patient TargetsNo targets recorded. Patient InstructionsNo instructions recorded. Reason for Referral Flower Grower Referral for Exocrine pancreatic insufficiency Referring Physician: Soraida Bowden, Internal Medicine, Encounter Date: 02/19/2024 EGD Referral for Hiatal kirk ia with gastroesophageal reflux Referring Physician: Soraida Bowden, Internal Medicine, Encounter Date: 02/19/2024 Bacon Skinner Referral for Bila teral foot joint pain pt was prior patient of dr. velazquez, has records with [facility] [facility]. needs to pickle cutter podiatry care. Referring Physician: Soraida Bowden, Internal Medicine, Encounter Date: 02/19/2024 Inspector Of Dredging Referral for D isorder of nail Referring Physician: Soraida Bowden, Internal Medicine, Encounter Date: 06/16/2024 Hot Wort Settler Referral for D yspnea Referring Physician: Soraida Bowden, Internal Medicine, Encounter Date: 06/16/2024 Results Created Date Observation Date Name Description Value Unit Range Abnormal Flag Note LastModifiedBy Organization Detail LastModifiedTime 03/03/20 24 03/03/2024 nerve condu ction study No observ ation record ed. Not Available 2023 17:04:21 03/17/20 24 03/17/2024 elect roenc ephal ogram (EEG) (PROC ) No observ ation record ed. Not Available 2023 23:11:05 03/17/20 24 03/17/2024 CT, tempo ral bone, w/o contr ast No observ ation record ed. [address], [address], 03/19/2024 23:11:21 03/20/20 24 03/20/2024 US, pelvi s, limit ed No observ ation record ed. [address], [address], 03/21/2024 10:56:40 04/15/[address], head, w/o contr ast [facility] [place] [address] EXAMIN ATION: CT of the head CLINIC AL HISTOR Y: Headac he COMPAR AIDEE: MRI TECHNI QUE: CT examin ation of the head withou t contra st was perfor med with axial images obtain ed. A radiat ion dose loweri ng techni que was used for this proced ure, which may includ e, but is not limite d to, dose reduct ion techni que, automa gurjit exposu re contro l, the use of iterat bre recons tructi on, ALARA (As Low As Reason ably Achiev able) techni ques, and Image Gently techni ques. FINDIN GS: There is no eviden ce of acute intrac ranial hemorr mark, abnorm al extra- axial collec tions, intrac ranial mass effect , or midlin e shift. The ventri cles and extra- axial/ subara chnoid spaces are unrema rkable . The riley-w kvng matter differ entiat ion is grossl y preser cheryl. There is no defini te CT eviden ce to sugges t acute territ orial infarc tion. The calvar ium is unrema rkable withou t eviden ce of acute fractu re. The visual ized mastoi d air cells, parana axel sinuse s, and orbits are grossl y unrema rkable . IMPRES RADHA: No defini te CT eviden ce for acute intrac ranial abnorm ality. Please note that CT has limite d sensit ivity for the detect ion of acute ischem ia. Referr ed By: Electr onical ly Signed By: Igor Coughlin MD on 9:21 PM Interp reted By: Igor Coughlin MD, 9:15 PM [facility] [address], [place], [address], 04/16/2024 16:29:53 05/18/20 24 05/13/2024 CT, abdom en + pelvi s, w/o contr ast No observ ation record ed. [facility] [address], [place], [address], 05/19/2024 18:04:05 06/03/20 24 06/03/2024 XR, chest , 2 view No observ ation record ed. [facility] [address] [place], [address], 06/03/2024 17:52:29 06/19/20 24 06/19/2024 lumba r punct ure (PROC ) No observ ation record ed. [email or web address]: Pulmonology 1 [place], [address], 06/19/2024 16:07:12 06/28/20 24 06/28/2024 XR, chest , 2 view No observ ation record ed. [facility] [address] [place], [address], 06/28/2024 16:35:31 07/27/20 24 07/23/2024 PFT, compl ete No observ ation record ed. [facility] ([facility]) [address] [place], [address], 07/28/2024 09:37:11 07/28/20 24 06/22/2024 home sleep study No observ ation record ed. [facility] [place] [address] [place], [address], 07/28/2024 12:28:20 07/29/20 24 07/29/2024 MRI, lumba r spine , w/o contr ast No observ ation record ed. [email or web address] [facility], [place], [address], 08/06/2024 13:56:59 07/29/20 24 07/29/2024 MRI, thora cic spine , w/o contr ast No observ ation record ed. [email or web address] [facility] [address], [place], [address], 08/06/2024 13:56:59 09/15/20 24 08/25/2024 audio logic asses sment (PROC ) No observ ation record ed. [facility] [address], [place], [address], 09/15/2024 18:33:11 11/24/1911/23/2024 XR, chest , 2 view No observ ation record ed. [facility] [address], [place], [address], 11/24/2024 16:04:39 Result Notes None recorded. Problems Name Problem SNOMED Code Status Onset Date Resolution Date Notes Provider Name and Address Organization Details Recorded Time Hiatal hernia with gastroesophage al reflux 478670051 Active 2023 ALYSSA Campos Attn: Deion duque,[address] [place], [address], [facility] 4 19:53:56 Exocrine pancreatic insufficiency 15593268 Active 2023 ALYSSA Campos Attn: Deion duque,[address] [place], [address], [facility] 4 19:53:58 Lower urinary tract symptoms 358258087 Active 2023 ALYSSA Campos Attn: Deion duque,[address] [place], [address], [facility] 4 19:53:59 Hypomagnesemia 390610553 Active 2023 ALYSSA Campos Attn: Deion duque,[address] [facility], [place], [address], [place] [facility] 4 19:54:01 Fatigue 87616446 Active 2023 ALYSSA Campos Attn: Deion duque,[address] [facility], [place], [address], [place] [facility] 4 19:54:02 Muscle tension pain 761967441 Active 2023 ALYSSA Campos Attn: Deion duque,[address] [facility], [place], [address], [place] [facility] 4 19:54:03 Problem Notes None recorded. Procedures Surgical History Date Name Laterality Status Provider Name and Address Organization Details Recorded Time colonoscopy completed Libby Vera [place] - [facility] 08/03/2024 17:02:22 Imaging Results Imaging Date Name Status LastModified by Organization Details LastModified Time 03/03/2024 nerve conduction study completed In formation not available 03/07/2024 17:04:21 03/17/2024 electroencephalogram (EEG) (PROC) completed Information not available 03/19/2024 23:11:05 03/17/2024 CT, temporal bone, w /o contrast completed [address], [address], 03/19/2024 23:11:21 03/20/2024 US, pelvis, limited completed [facility] [address] [place], [address], 03/21/2024 10:56:40 04/15/2024 CT, head, w/o contrast completed [address], [address], 04/16/2024 16:29:53 05/13/2024 CT, abdomen + pelvis , w/o contrast completed [address] [facility] [address], [place], [address], 05/19/2024 18:04:05 06/03/2024 XR, chest, 2 view completed [facility] [address] [place], [address], 06/03/2024 17:52:29 06/19/2024 lumbar puncture (PROC) completed [address]: Pulmonology 1 [facility], [place], [address], 06/19/2024 16:07:12 06/28/2024 XR, chest, 2 view completed [facility] [address] [place], [address], 06/28/2024 16:35:31 07/23/2024 PFT, complete completed [facility] ([facility]) [address] [place], [address], 07/28/2024 09:37:11 06/22/2024 home sleep study completed [address] Sleep [facility] One [facility], [place], [address], 07/28/2024 12:28:20 07/29/2024 MRI, lumbar spine, w /o contrast completed [address] [place], [address], 08/06/2024 13:56:59 07/29/2024 MRI, thoracic spine, w/o contrast completed [address] [place], [address], 08/06/2024 13:56:59 08/25/2024 audiologic assessmen t (PROC) completed [address], [place], [address], 09/15/2024 18:33:11 11/23/2024 XR, chest, 2 view active [facility] [address], [place], [address], 11/24/2024 16:04:39 Procedure Notes None recorded. Medical Equipment None Reported. Allergies Allergen ID Allergen Name Allergen Category Reaction Reaction Severity Criticality Documentation Date Start Date Code Code System Note Provider Name and Address Organization Details Recorded Time [id number] Substance with sulfonami de structure and antibacte rial mechanism of action (substanc e) medicatio n Not available Not available Not available 02/19/2024 [id number] SNOMED Not Available Not Available Not Available Medications Name Sig Start Date Stop Date Status Note LastModified by Organization Details LastModified Time cmp budesonid e 0.5mg capsule EMPTY ONE CAPSULE INTO IDS, ADD DISTILLE D WATER AND SALINE PACKET, IRRIGATE ONCE DAILY active Not Available Not Available No t Available cyclobenz aprine 10 mg tablet TAKE 1 TABLET BY MOUTH THREE TIMES DAILY NEEDED 03/24 completed Not Available Not Available Not Available nystatin 100,000 unit/mL oral suspensio n TAKE 5 ML BY MOUTH FOUR TIMES DAILY FOR 14 DAYS. ADMINIST ER 1/2 (ONE-LORRIE F) OF DOSE IN EACH SIDE OF THE MOUTH active Not Available Not Available No t Available doxycycli ne hyclate 100 mg capsule TAKE 1 CAPSULE BY MOUTH TWICE DAILY FOR 7 DAYS 11/17 completed Not Available Not Available Not Available azithromy sugar 250 mg tablet TAKE 2 TABLETS BY MOUTH ON DAY 1, AND THEN TAKE 1 TABLET BY MOUTH ONCE A DAY ON DAY 2 THROUGH DAY 5 03/24 completed Not Available Not Available Not Available lidocaine 5 % topical cream APPLY TO THE AREAS OF MUSCLE PAIN (BACK) THREE TIMES DAILY NEEDED. 09/03 completed Not Available Not Available Not Available fluconazo le 150 mg tablet TAKE 1 TABLET BY MOUTH ONCE A SINGLE DOSE. MAY REPEAT IN 72 HOURS NEEDED active Not Available Not Available No t Available sumatript an 100 mg tablet TAKE 1 TABLET BY MOUTH TWICE DAILY NEEDED FOR MIGRAINE TAKE 1 TABLET AT ONSET OF SYMPTOMS , MAY TAKE 1 TABLET 2 HOURS LATER. MAX OF 2 TABLETS IN 24-HOUR PERIOD active Not Available Not Available No t Available hydrocodo ne 5 mg-acetam inophen 325 mg tablet TAKE 1 TABLET BY MOUTH EVERY 6 HOURS NEEDED FOR PAIN 02/18 completed Not Available Not Available Not Available ondansetr on HCl 4 mg tablet TAKE 1 TABLET BY MOUTH EVERY 8 HOURS NEEDED FOR NAUSEA active Not Available Not Available No t Available prednison e 20 mg tablet TAKE 3 TABLETS BY MOUTH ONCE DAILY FOR 5 DAYS 02/18 completed Not Available Not Available Not Available clonazepa m 0.5 mg tablet TAKE 1 TABLET BY MOUTH TWICE DAILY 06/16 completed Not Available Not Available Not Available clonazepa m 1 mg tablet TAKE 1 TABLET BY MOUTH TWICE DAILY active Not Available Not Available No t Available metronida zole 500 mg tablet TAKE 1 TABLET BY MOUTH EVERY 12 HOURS FOR 7 DAYS 02/18 completed Not Available Not Available Not Available acyclovir 400 mg tablet TAKE ONE TABLET BY MOUTH THREE TIMES DAILY FOR 7 DAYS, THEN TWICE DAILY FOR THE REST OF THE MONTH active Not Available Not Available No t Available omeprazol e 40 mg capsule,d elayed release TAKE 1 CAPSULE BY MOUTH ONCE DAILY active Not Available Not Available No t Available triamcino lone acetonide 0.1 % topical cream APPLY A THIN LAYER TO THE AFFECTED AREA(S) OF LEG TWICE DAILY active Not Available Not Available No t Available prazosin 5 mg capsule TAKE 1 CAPSULE BY MOUTH AT BEDTIME active Not Available Not Available No t Available oxycodone -acetamin ophen 5 mg-325 mg tablet TAKE 1 TO 2 TABLETS BY MOUTH EVERY 6 HOURS NEEDED FOR PAIN . DO NOT EXCEED 6 PER 24 HOURS 06/16 completed Not Available Not Available Not Available potassium chloride ER 20 mEq tablet,ex tended release(p art/cryst ) TAKE 1 BY MOUTH TWICE DAILY WITH MEALS 02/18 completed Not Available Not Available Not Available diphenhyd ramine 50 mg/mL injection solution active Not Available Not Available Not Available magnesium oxide 400 mg (241.3 mg magnesium ) tablet TAKE 1 TABLET BY MOUTH ONCE DAILY FOR 30 DAYS active Not Available Not Available No t Available methocarb tahira 750 mg tablet TAKE 1 TABLET BY MOUTH THREE TIMES DAILY NEEDED 02/18 completed muscle relaxer- isn't covered insuranc e Not Available Not Available Not Available chlordiaz epoxide 25 mg capsule TAKE 1 CAPSULE BY MOUTH THREE TIMES DAILY NEEDED FOR WITHDRAW AL 06/16 completed Not Available Not Available Not Available trazodone 100 mg tablet TAKE 2 TABLETS BY MOUTH AT BEDTIME active Not Available Not Available No t Available baclofen 10 mg tablet TAKE 1 TABLET BY MOUTH THREE TIMES DAILY NEEDED active Not Available Not Available No t Available nortripty line 75 mg capsule TAKE 1 CAPSULE BY MOUTH NIGHTLY AT BEDTIME active Not Available Not Available No t Available hydrocodo ne 7.5 mg-acetam inophen 325 mg tablet 06/16 completed Not Available Not Available Not Available cyanocoba chad (vit B-12) 1,000 mcg/mL injection solution INJECT 1 ML SUBCUTAN EOUSLY ONCE EVERY MONTH active Not Available Not Available No t Available Prozac 20 mg capsule Take 1 capsule every day by oral route. active Not Available Not Available No t Available buspirone 10 mg tablet TAKE 1 TABLET BY MOUTH THREE TIMES DAILY 02/18 completed Not Available Not Available Not Available lidocaine 5 % topical patch APPLY 1 PATCH BY TOPICAL ROUTE ONCE DAILY to neck and low back (MAY WEAR UP TO 12HOURS. ) 02/20 completed Not Available Not Available Not Available BD Luer-Terry Syringe 3 mL 25 gauge x 1 USE MONTHLY DIRECTED active Not Available Not Available No t Available gabapenti n 300 mg capsule TAKE 2 CAPSULES BY MOUTH THREE TIMES DAILY active Not Available Not Available No t Available folic acid 1 mg tablet TAKE 1 TABLET BY MOUTH ONCE DAILY 02/18 completed Not Available Not Available Not Available monteluka st 10 mg tablet TAKE 1 TABLET BY MOUTH ONCE DAILY active Not Available Not Available No t Available hydroxyzi ne HCl 25 mg tablet TAKE 1 TABLET BY MOUTH EVERY 6 HOURS NEEDED FOR ANXIETY (MILD ANXIETY SCALE 1-4) 02/18 completed Not Available Not Available Not Available ammonium lactate 12 % topical cream APPLY CREAM TOPICALL Y TO AFFECTED AREA ONCE DAILY NEEDED active Not Available Not Available No t Available codeine 10 mg-guaife nesin 100 mg/5 mL oral liquid TAKE 5ML BY MOUTH EVERY 6 HOURS NEEDED FOR COUGH 02/18 completed Not Available Not Available Not Available sodium chloride 0.9 % intraveno us solution active Not Available Not Available Not Available azelastin e 137 mcg (0.1 %) nasal spray USE 1 TO 2 SPRAY(S) IN EACH NOSTRIL TWICE DAILY 02/18 completed Not Available Not Available Not Available methylpre dnisolone 4 mg tablets in a dose pack TAKE BY MOUTH DIRECTED ON INSIDE OF PACKAGE 11/17 completed Not Available Not Available Not Available albuterol sulfate HFA 90 mcg/actua tion aerosol inhaler Inhale 2 puffs every 4-6 hours by inhalati on route as needed. 2024 active Not Available Not Available Not Avai lable ondansetr on 4 mg disintegr ating tablet DISSOLVE 1 TABLET IN MOUTH EVERY 8 HOURS NEEDED FOR NAUSEA 11/17 completed Not Available Not Available Not Available cefdinir 300 mg capsule TAKE 1 CAPSULE BY MOUTH TWICE DAILY FOR 3 DAYS 04/29 completed Not Available Not Available Not Available topiramat e 100 mg tablet TAKE 1 TABLET BY MOUTH TWICE DAILY active Not Available Not Available No t Available fluticaso ne propionat e 50 mcg/actua tion nasal spray,tucker pension USE 2 SPRAY(S) IN EACH NOSTRIL ONCE DAILY 02/18 completed Not Available Not Available Not Available doxycycli ne hyclate 100 mg tablet TAKE 1 TABLET BY MOUTH TWICE DAILY FOR 10 DAYS 02/18 completed Not Available Not Available Not Available prazosin 2 mg capsule TAKE 1 CAPSULE BY MOUTH AT BEDTIME FOR 90 DAYS active Not Available Not Available No t Available naproxen 500 mg tablet TAKE 1 TABLET BY MOUTH TWICE DAILY WITH FOOD NEEDED 2024 active Not Available Not Available Not Avai lable amoxicill in 875 mg-potass ium clavulana te 125 mg tablet Take 1 tablet every 12 hours by oral route. 2024 active Not Available Not Available Not Avai lable buspirone 15 mg tablet TAKE 1 TABLET BY MOUTH THREE TIMES DAILY active Not Available Not Available No t Available azithromy sugar 500 mg tablet TAKE 1 TABLET BY MOUTH ONCE DAILY 06/16 completed Not Available Not Available Not Available aripipraz ole 10 mg tablet TAKE 1 TABLET BY MOUTH ONCE DAILY active Not Available Not Available No t Available ciproflox acin 0.3 %-dexamet hasone 0.1 % ear drops,tucker pension INSTILL FOUR DROPS INTO THE AFFECTED EAR(S) EVERY 12 HOURS FOR 7 DAYS. RETAIN EAR DROPS IN AFFECTED EAR(S) FOR 5 MINUTES 11/17 completed Not Available Not Available Not Available bupropion HCl XL 300 mg 24 hr tablet, extended release Take 1 tablet every day by oral route for 30 days. active Not Available Not Available No t Available bupropion HCl XL 150 mg 24 hr tablet, extended release TAKE 3 TABLETS BY MOUTH ONCE DAILY 11/17 completed Not Available Not Available Not Available nitrofura ntoin monohydra te/macroc rystals 100 mg capsule TAKE 1 CAPSULE BY MOUTH EVERY 12 HOURS 03/24 completed Not Available Not Available Not Available acamprosa te 333 mg tablet,de layed release TAKE 1 TABLET BY MOUTH THREE TIMES DAILY active Not Available Not Available No t Available Creon 24,000-76 ,000-120, 000 unit capsule,d elayed release TAKE 4 CAPSULES BY MOUTH ONCE DAILY WITH EACH MEAL AND 2 CAPSULES WITH EACH SNACK 06/16 completed need referral Not Available Not Available Not Available lidocaine 5 % topical ointment apply 1- 2grams to the low back region tid PRN pain 09/03 completed Not Available Not Available Not Available naloxone 4 mg/actuat ion nasal spray ADMINIST ER A SINGLE SPRAY IN ONE NOSTRIL UPON SIGNS OF OPIOID OVERDOSE . CALL 911. REPEAT AFTER 3 MINUTES IF NO RESPONSE . 06/16 completed Not Available Not Available Not Available Zenpep 25,000 unit-79,0 00 unit-105, 000 unit capsule,d elayed release TAKE ONE CAPSULE BY MOUTH PER SNACK active Not Available Not Available No t Available baclofen 5 mg tablet TAKE 1 TABLET BY MOUTH THREE TIMES DAILY NEEDED FOR MUSCLE TENSION PAIN 04/14 completed Not Available Not Available Not Available Emgality Pen 120 mg/mL subcutane ous pen injector INJECT 120MG SUBCUTAN EOUSLY ONCE EVERY 30 DAYS active Not Available Not Available No t Available Ubrelvy 100 mg tablet TAKE 1 TABLET BY MOUTH TWICE DAILY NEEDED . DO NOT EXCEED 2 PER 24 HOURS active Not Available Not Available No t Available Vyepti 100 mg/mL intraveno us solution active Not Available Not Available Not Available Qulipta 60 mg tablet TAKE 1 TABLET BY MOUTH ONCE DAILY active Not Available Not Available No t Available Zenpep 60,000-18 9,600-957 ,600 unit capsule,d elayed release TAKE 1 CAPSULE BY MOUTH PER MEAL active Not Available Not Available No t Available Vitals Date Recorded Body height Provider Name an d Address Organization Details Last Updated DateTime 02/19/2024 175.26 cm Rudy Jason MA [facility] 2023 16:24:38 Date Recorded Body mass index (BMI) Body weight Provider Name and Address Organization Details Last Updated DateTime 02/19/2024 35.7 kg/m2 763623.35 g Rudy Jason MA [facility] 02/19/2024 16:26:46 Date Recorded Oxygen saturation Oxygen saturation in Arterial blood by Pulse oximetry Provider Name and Address Organization Details Last Updated DateTime 02/19/2024 98 % 98 % Rudy Jason MA [facility] 02/19/2024 16:33:20 Date Recorded Heart rate Provider Name an d Address Organization Details Last Updated DateTime 02/19/2024 100 /min Rudy Jason MA [facility] 2023 16:33:21 Date Recorded Body height Provider Name an d Address Organization Details Last Updated DateTime 06/16/2024 175.26 cm Rudy Jason MA [facility] 2023 11:34:17 Date Recorded Body mass index (BMI) Body weight Provider Name and Address Organization Details Last Updated DateTime 06/16/2024 35.5 kg/m2 829789.6 neto Jason MA [facility] 06/16/2024 11:43:29 Date Recorded Respiratory rate Provider Name a nd Address Organization Details Last Updated DateTime 06/16/2024 20 /min Rudy Jason MA [facility] 06/16/2024 11:43:31 Date Recorded Oxygen saturation Oxygen saturation in Arterial blood by Pulse oximetry Provider Name and Address Organization Details Last Updated DateTime 06/16/2024 100 % 100 % Rudy Jason MA [facility] 06/16/2024 11:44:40 Date Recorded Heart rate Provider Name an d Address Organization Details Last Updated DateTime 06/16/2024 83 /min Rudy Jason MA [facility] 2023 11:44:44 Date Recorded Body height Provider Name an d Address Organization Details Last Updated DateTime 11/17/2024 175.26 cm Rudy Jason MA [facility] 2024 15:20:27 Date Recorded Respiratory rate Provider Name a nd Address Organization Details Last Updated DateTime 11/17/2024 20 /min Rudy Jason MA [facility] 11/17/2024 15:24:51 Date Recorded Oxygen saturation Oxygen saturation in Arterial blood by Pulse oximetry Provider Name and Address Organization Details Last Updated DateTime 11/17/2024 99 % 99 % Rudy Jason MA [facility] 11/17/2024 15:25:01 Date Recorded Heart rate Provider Name an d Address Organization Details Last Updated DateTime 11/17/2024 90 /min Rudy Jason MA [facility] 2024 15:25:03 Date Recorded Systolic blood pressure Diastolic blood pressure Provider Name and Address Organization Details Last Updated DateTime 02/19/2024 126 mm[Hg] 88 mm[Hg] Rudy Jason MA [facility] 02/19/2024 16:34:45 Date Recorded Systolic blood pressure Diastolic blood pressure Provider Name and Address Organization Details Last Updated DateTime 06/16/2024 128 mm[Hg] 82 mm[Hg] Rudy Jason MA [facility] 06/16/2024 11:45:52 Date Recorded Systolic blood pressure Diastolic blood pressure Provider Name and Address Organization Details Last Updated DateTime 06/16/2024 100 mm[Hg] 70 mm[Hg] ALYSSA Campos Attn: [address]ing[address] [place], [address], [facility] 06/16/2024 12:15:05 Date Recorded Systolic blood pressure Diastolic blood pressure Provider Name and Address Organization Details Last Updated DateTime 11/17/2024 110 mm[Hg] 72 mm[Hg] Rudy Jason MA [facility] 11/17/2024 15:26:36 Social History Question Answer Notes LastModified by Organizat ion Details LastModified Time Tobacco Smoking Status Former Smoker Rudy Jason MA null, [facility] 02/19/2024 16:25:59 Do You Have An Advance Directive? No Information not available 02/19/2024 What Is Your Level Of Alcohol Consumption? Occasional Information not available 02/19/2024 Are You Blind Or Do You Have Difficulty Seeing? No Glasses Information not available 02/19/2024 What Is Your Level Of Caffeine Consumption? Moderate Information not available 02/19/2024 In The 14 Days Before Symptom Onset, Have You Had Close Contact With A Laboratory-confir med COVID-19 While That Case Was Ill? No Information not available 02/19/2024 In The 14 Days Before Symptom Onset, Have You Had Close Contact With A Person Who Is Under Investigation For COVID-19 While That Person Was Ill? No Information not available 02/19/2024 Have You Been To An Area Known To Be High Risk For COVID-19? No Information not available 02/19/2024 Are You Deaf Or Do You Have Serious Difficulty Hearing? No Trouble Hearing Information not available 02/19/2024 What Type Of Diet Are You Following? REGULAR Information not available 02/19/2024 Do You Or Have You Ever Used E-cigarettes Or Vape? Current User Of Electronic Cigarettes Information not available 02/19/2024 Are There Any Guns Present In Your Home? No Information not available 02/19/2024 What Was The Date Of Your Most Recent Tobacco Screening? 11/17/2024 Information not available 11/17/2024 What Is Your Current Pack Years? 10-19packyear s Information not available 02/19/2024 Do You Use Your Seat Belt Or Car Seat Routinely? Yes Information not available 02/19/2024 Do You Have Smoke And Carbon Monoxide Detectors In Your Home? No Information not available 02/19/2024 Do You Or Have You Ever Used Smokeless Tobacco? Never Used Smokeless Tobacco Information not available 02/19/2024 Do You Feel Stressed (tense, Restless, Nervous, Or Anxious, Or Unable To Sleep At Night)? [id number] Information not available 02/19/2024 Do You Use Any Illicit Or Recreational Drugs? No Information not available 02/19/2024 Do You Use Sunscreen Routinely? No Information not available 02/19/2024 Has Tobacco Cessation Counseling Been Provided? Yes Information not available 02/19/2024 On What Date Was Tobacco Cessation Counseling Provided? 06/16/2024 Information not available 06/16/2024 Do You Or Have You Ever Used Any Other Forms Of Tobacco Or Nicotine? Yes Information not available 02/19/2024 Sex: Female Functional Status Question Answer Note LastModified by Organization D etails LastModified Time Are you able to care for yourself? Yes Information n ot available 02/19/2024 Mental Status None recorded. Family History Relationship Description Onset Age of this Age Resolved Age Notes LastModified by Organization Details LastModified Time Father Alcohol abuse [email or web address] Not available 2023 17:30:35 Father Depressive disorder [email or web address] Not available 2023 17:30:47 Mother Depressive disorder [email or web address] Not available 2023 17:30:47 Mother Disorder of thyroid gland [email or web address] Not available 2023 17:30:51 Mother Hypertensive disorder [email or web address] Not available 2023 17:31:03 Mother Migraine [email or web address] Not availabl e 02/19/2024 17:31:09 Brother Depressive disorder tcarterma Not available 2023 17:30:47 Brother Hypertensive disorder tcarterma Not available 2023 17:31:03 Medical History Condition Response Coronary Artery Disease N Other N High Blood Pressure N Atrial Fibrillation N Kidney or Bladder Problems N Thyroid Problems Y GI Problems N Depression Y COPD N Blood Clots N Skin Problems N Anemia N Heart Attack ([place]) N Anxiety Disorder Y Diabetes N Muscle, Joint, or Bone Problems Y Seizures/Epilepsy N Acid Reflux (GERD) Y Cancer N Stroke N Asthma N Allergies N High Cholesterol N Hepatitis N Liver Disease N Headaches Y Heart Failure N Osteoporosis N Gynecological History Statement/Question Response Menses Monthly N Current Control Method Hysterectom y Obstetrics History GPAL:G 2 P 1 0 0 1 Type Value Full Term 1 Induced 0 Spontaneous 0 Premature 0 Living 1 Total 2 Immunizations Vaccine Type Date Status Note Provider Nam e and Address Organization Details Recorded Time MMR 3 completed Rudy [place] [facility] 11/17/2024 15:22:12 MMR 0 completed Rud[place] [facility] 11/17/2024 15:22:12 MMR 4 completed Rud[place] [facility] 11/17/2024 15:22:12 COVID-19, mRNA, LNP-S, PF, 30 mcg/0.3 mL dose 1 completed Rud[place] [facility] 11/17/2024 15:22:12 COVID-19, mRNA, LNP-S, PF, 30 mcg/0.3 mL dose 1 completed Rud[place] [facility] 11/17/2024 15:22:12 COVID-19, mRNA, LNP-S, PF, 30 mcg/0.3 mL dose 1 completed Rud[place] [facility] 11/17/2024 15:22:12 influenza, unspecified formulation 8 completed [place] [facility] 11/17/2024 15:22:12 Td(adult) unspecified formulation 7 completed Rud[place] [facility] 11/17/2024 15:22:12 Tdap 2 completed [place] [facility] 11/17/2024 15:22:12 DTP 4 completed [place] [facility] 11/17/2024 15:22:12 DTP 5 completed [place] [facility] 11/17/2024 15:22:12 DTP 4 completed [place] [facility] 11/17/2024 15:22:12 DTP 8 completed [place] APRIL [place] [facility] 11/17/2024 15:22:12 DTP 3 completed [place] [facility] 11/17/2024 15:22:12 OPV 4 completed Rud[place] [facility] 11/17/2024 15:22:12 OPV 5 completed [place] [facility] 11/17/2024 15:22:12 OPV 4 completed [place] [facility] 11/17/2024 15:22:12 OPV 8 completed Rud[place] [facility] 11/17/2024 15:22:12 OPV 3 completed [place] [facility] 11/17/2024 15:22:12 Influenza, split virus, trivalent, preservative 7 completed [place] [facility] 11/17/2024 15:22:12 Influenza, split virus, quadrivalent, PF 0 completed Rud[place] [facility] 11/17/2024 15:22:12 Influenza, split virus, quadrivalent, PF 9 completed Rud[place] [facility] 11/17/2024 15:22:12 Influenza, split virus, quadrivalent, PF 8 completed [place] [facility] 11/17/2024 15:22:12 Influenza, split virus, quadrivalent, PF 3 completed [place] [facility] 11/17/2024 15:22:12 Influenza, split virus, quadrivalent, PF 1 completed [place] [facility] 11/17/2024 15:22:13 Past Encounters Encounter ID Performer Location Encounter Start Date Encounter Closed Date Diagnosis/Indication Diagnosis SNOMED-CT Code Diagnosis ICD10 Code Diagnosis Note [id number] ALYSSA Campos [facility] [employer] [address] [place] [address] 02/19/2024 16:09:17 03/04/2024 15:03:14 Hiatal hernia with gastroesophageal reflux 612920899 K44.9 refer to Gi for f/u EGD and refill PPI Therapy Exocrine p ancreatic insufficiency 98959427 K86.81 refer back to GI for mangaement . Lower urin kaela tract symptoms 633110954 R39.9 frequency, pressure, little bit of burn; start macrobid course. check ua after abx Localized eruption of skin 510706943 R21 RX for steroid cream low dose PRN to the leg area Hypomagnesemia 208282291 E83.42 hx of def. in magnesium. check updated lab Long-term drug therapy 923801430 Z79.899 cmp and cbc due Fatigue 92529540 R53.83 screening thyroid and vitamins Muscle tension pain 2790 63324 M79.10 Rx for refill lidocaine patches and refill flexeril. Bilateral foot joint pain 4592344986 1354821 M79.671 M79.672 refer to shank turner . Cholesterol screening 27 1488574 Z13.220 fasting lipids due Diabetes m ellitus screening 194311694 Z13.1 screening a1c due Otalgia of right ear 121 8965728 H92.01 rx for zpack therapy. Right ear is mildly erythemati c. RX for diflucan too Screening mammography 24 422258 Z12.31 mammogram is due [id number] ALYSSA Campos [facility] [employer] [address] [place] [address] 05/05/2024 09:28:17 05/05/2024 10:04:22 Cobalamin deficiency 150081985 E53.8 [id number] ALYSSA Campos [facility] [employer] [address] [place] [address] 06/16/2024 11:23:17 06/16/2024 12:48:14 Sliding hiatus hernia 191087925 K44.9 Start omeprazole 40 mg twice daily and she is supposed to be getting referral lined up to GI Disorder of nail 4527543 8 L60.9 Patient has some unusual indentatio n on fingernail s, we will refer to dermatolog ist to see if biopsy is needed Muscle tension pain 2790 26719 M79.10 Refill on lidocaine cream per request to use on scattered areas of muscle tension pain Dyspnea 836226392 R06.00 This has been evaluated also in the emergency room prior. This has been noncardiac in nature. We will refer her to a pulmonolog ist to discuss further Health Concerns Section Related Observation LastModified by Organization Detai ls LastModified Time None Recorded Concern Status LastModified by Organization Details LastModified Time None Recorded Advance Directives Directive N: Payers Encounter Date Sequence Insurance Name Policy Number Policy Pressley Covered Member ID Pressley Member ID Guarantor Name 02/19/2024 1 [place] [employer] [facility] [id number] [facility] 02/19/2024 1 [place] [facility] [id number] [facility] 05/05/2024 1 [place] [facility] [id number] [facility] 05/05/2024 2 [place] OR MEDICARE REPLACEMENT PRIMARY) [facility] [id number] [facility] 06/16/2024 1 [place] [facility] [id number] [facility] 06/16/2024 2 [place]IC[place] REPLACEMENT PRIMARY) [facility] [id number] [facility] Notes Date Note Type Note Provider Name and Address Organization Details Recorded Time 02/19/2024 text/html pt. need a referral to gi states that she feels like she has a Uti, states that she has a rash on her leg states that she needs her ears to be checked also states that they feel clogged states that she also needs her magnesium checked states that when she wentStates that she needs help with getting her omeprazole and another medication checked states that her insurance denied it and stopped covering her meds.Needs referral to jewelry racker, Would like to get back on lidocaine cream for her pain states that she wants to try to patches, would also like to discuss weight loss. Would like to talk about ENT for hearing problems. ALYSSA Campos Attn: [employer] [facility], [place], [address], [facility] 03/03/2024 19:54:42 06/16/2024 text/html pt. need a referral to gi states that she feels like she has a Uti, states that she has a rash on her leg states that she needs her ears to be checked also states that they feel clogged states that she also needs her magnesium checked states that when she wentStates that she needs help with getting her omeprazole and another medication checked states that her insurance denied it and stopped covering her meds.Needs referral to jewelry racker Would like to get back on lidocaine cream for her pain states that she wants to try to patches, would also like to discuss weight loss. Would like to talk about ENT for hearing problems. ALYSSA Campos Attn: Accounting[address] [facility], [place], [address], [facility] 2024 18:41:59 OBGyn Episode No OBEpisode recorded.
== END 2024-11-23 13:37 | disposition home or self-care (01) ==
LOC: ANHGOSHLAB 13:39
PROVIDERS: PCP Physician Assistant; Visit Provider Physician Assistant
DX: R53.83 Other fatigue (principal); R73.09 Other abnormal glucose; Z79.899 Other long term (current) drug therapy
CPT/HCPCS: 36415; 80053; 82607; 82746; 83036; 84439; 84443; 85025

== ENCOUNTER 2024-11-23 14:30 | Outpatient (CLI) | payer MEDICARE, MEDICAID, SELFPAY ==
--- NOTE | ~2024-11-23 | XR_ITS ---
EXAMINATION: XR chest 2V DATE: 11/23/2024 14:55 INDICATION: Cough, wheezing and shortness of breath TECHNIQUE: PA and lateral views of the chest were obtained. COMPARISON: Chest radiograph dated 08/23/[address] dated 05/13/2024 FINDINGS: The lungs remain clear with no focal airspace opacities, pulmonary edema, pleural effusion or pneumot horax. The cardiomediastinal silhouette is normal. Chronic anterior wedging at T10 and T11. IMPRESSION: 1. No acute cardiopulmonary disease. Reviewed, dictated and finalized at location A. [facility]NAGER
== END 2024-11-23 14:31 | disposition home or self-care (01) ==
LOC: MICIMG 14:33
PROVIDERS: PCP Physician Assistant; Visit Provider Physician Assistant
DX: R05.9 Cough, unspecified (principal)
CPT/HCPCS: 71046

== ENCOUNTER 2025-04-12 12:41 | Outpatient (CLI) | payer MEDICARE, MEDICAID, SELFPAY ==
[2025-04-12 13:24] LABS: Basophils Percent Auto 0.3 % (0.2-1.2); Hematocrit 43.3 % (37.0-47.0); Hemoglobin 13.4 g/dL (12.0-15.0); Immature Granulocyte Absolute 0.04 K/mm3 (0.00-0.031); Immature Granulocyte Percent A 0.5 % (0-0.5); Lymphocytes Percent Auto 28.5 % (18.3-44.2); Mean Corpuscular HGB Conc 30.9 g/dl (32-36); Mean Corpuscular Hemoglobin 28.2 pg (26-34); Mean Corpuscular Volume 91.2 fl (80-100); Mean Platelet Volume 11.4 fl (7.4-10.4); Monocytes Absolute Auto 0.6 K/mm3 (0.1-0.6); Monocytes Percent Auto 6.6 % (2.6-8.5); Neutrophils Absolute Auto 5.6 K/mm3 (1.3-6.7); Neutrophils Percent Auto 64.1 % (45.5-73.1); Platelet Count Result 207 k/mm3 (150-375); Red Blood Count 4.75 M/mm3 (4.2-5.4); Red Cell Distribution Width 15.9 % (11.5-14.5); White Blood Count 8.8 K/mm3 (4.5-10.0)
--- OUTSIDE RECORDS SUMMARY | 2025-04-12 13:53 | XMS_ITS | Encounter Summary ---
Author Organization [facility] Health Address [address] [facility] [place] [address] Care Team Providers Care Loans Officer Name Role Phone Anju NaikBRUSH HOLDER INSPECTOR Primary Care Provider Soraida Ruiz Primary Care Pr ovider Reason for Visit * Reason Onset Date Comments MEDICATION REFILL 11/23/2023 Encounter Details Date Type Department Care Team (Late st Contact Info) Description 11/23/2023 Refill [facility] - Internal Med [address] [place] [address], [place] [phone] Anju Naik APRN-BRUSH HOLDER INSPECTOR [address] [place] [address] OF [facility] [address] MEDICATION REFILL Social History Tobacco Use Types Packs/Day Years Used Date Smoking Tobacco: Former Cigarettes 0.1 24.2 1 995 - 12/30/2018 Smokeless Tobacco: Never Comments:a cigarette every n ow and then Alcohol Use Standard Drinks/Week Comments Yes 0 (1 standard drink = 0.6 oz pur e alcohol) maybe 4 times a year AUDIT-C Answer Date Recorded Frequency of Alcohol Consumption Never 09/18/2019 Average Number of Drinks Not on file 019 Frequency of Binge Drinking Not on file 09/04 PHQ-2 Answer Date Recorded Patient Health Questionnaire-2 Score 6 08/12/2023 Comments No Sex and Gender Information Value Date Recorded Sex Assigned at Not on file Legal Sex Female 6:09 AM EVAPORATOR REPAIRER Gender Identity Not on file Sexual Orientation Not on file 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 Industry Job Start Date Job End Date 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 Not on file Not on file N ot on file documented as of this encounter Miscellaneous Notes * Telephone Encounter - Mar Brewer RN - 11/25/2023 12:59 PM EVAPORATOR REPAIRER Refill Request Nisa Gallego Dee Recent Visits Date Type Provider Dept 07/09/23 Office Visit Anju Naik APRN-CNP [facility] 2l 06/19/23 Office Visit Ale Ford [facility] Showing recent visits within past 540 days with a meds authorizing provider and meeting all other requirements Future Appointments Date Type Provider Dept 12/23/23 Appointment Ale Ford APRN-CNP [facility] 2l Showing future appointments within next 150 days with a meds authorizing provider and meeting all other requirements Last Refill: 09-14-23 Allergies: Allergies Allergen Reactions ??? Sulfa Drugs Anaphylaxis and Rash Throat swells up ??? Duloxetine Other and Unknown Increased anger/aggression ??? Ibuprofen Vomiting and Unknown ??? Food Anaphylaxis and Rash Grape flavoring with Anesthesia and Candy. Not allergic to Grapes ??? Allergy Itching ??? Grape, Artificial Unknown Pended Medication Order: Requested Prescriptions Pending Prescriptions Disp Refills ??? albuterol HFA (Ventolin HFA) 108 (90 Base) MCG/ACT inhaler 8 g 2 Sig: Inhale 2 (two) puffs by mouth every 4 hours as needed ORATOR REPAIRER documented in this encounter Plan of Treatment Upcoming Encounters Date Type Department Care Team (Late st Contact Info) Description 06/18/2025 9:10 AM CDT Office Visit [facility] - Dermatology [address] [place] [address], [place] [address] Jinny Hale MD [address] [place] [address] [address] [place] [address] documented as of this encounter Visit Diagnoses Not on filedocumented in this encounter Care Teams Loans Officer Relationship Specialty Start Date End Date Anju Naik, R D INTERN-BRUSH HOLDER INSPECTOR [address] OF [facility] [place] [address] PCP - General Nurse Practitioner Family 07/09/2301/03 Soraida Ruiz PA [address] [place] [address] PCP - General Physician Wave Guide Assembler 01/28/25 documented as of this encounter
--- OUTSIDE RECORDS SUMMARY | 2025-04-12 13:53 | XMS_ITS | Encounter Summary ---
Author Organization [facility] Health Address [address] [facility] [place] [address] Care Team Providers Care Passenger Service Manager Name Role Phone Anju Naik Primary Care Provider Soraida Ruiz Primary Care Pr ovider Reason for Visit * Reason Onset Date Comments MEDICATION REFILL 12/23/2023 Encounter Details Date Type Department Care Team (Late st Contact Info) Description 12/23/2023 Refill [facility] - Internal Med [address] [place] [address], [place] [phone] Anju Naik APRN-MANAGER SERVICES [address] [place] [address] OF [facility] [place] [address] MEDICATION REFILL Social History Tobacco Use Types [...] on file Legal Sex Female 6:09 AM BINDER CASER Gender Identity Not on file Sexual Orientation Not on file 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 Pt no longer sees [facility]. Per the last Rheum visit 03/11/2019: - Continue Naproxen 500 mg BID, can be continued by PCP - Continue to incorporate exercise daily - Consider going to physical therapy - Practice good sleep hygiene - Continue follow up with pain management, psych and PCP - F/u with PCP for workup of abdominal pain - RTC prn Refill Request Nisa Price Recent Visits Date Type Provider Dept 07/09/23 Office Visit Anju Naik APRN-[facility] 06/19/23 Office [facility] Showing recent visits within past 540 days with a meds authorizing provider and meeting all other requirements Future Appointments Date Type Provider Dept 02/12/24 Appointment Ale Ford APRN-CNP [facility] Showing future appointments within next 150 days with a meds authorizing provider and meeting all other requirements Allergies: Allergies Allergen Reactions ??? Sulfa Drugs [...] by mouth every 4 hours as needed ??? naproxen (Naprosyn) 500 MG tablet 60 tablet 4 Sig: Take 1 (one) tablet by mouth 2 times daily ER CASER documented in this encounter Plan of Treatment Upcoming Encounters Date Type Department Care Team (Late st Contact Info) Description 06/18/2025 9:10 AM CDT Office Visit [facility] - Dermatology [address] [facility], [place] [phone] Jinny Hale MD [address] [facility] 3L [place] [address] documented as of this encounter Visit Diagnoses Not on filedocumented in this encounter Care Teams Passenger Service Manager Relationship Specialty Start Date End Date Anju Naik, CAGER OPERATOR-MANAGER SERVICES [address] [facility] 2L DIV OF [facility] [place] [address] PCP - General Nurse Practitioner Family 07/09/2301/03 Soraida Ruiz PA [address] [place] [address] PCP - General Physician Searchlight Operator 01/28/25 documented as of this encounter
--- OUTSIDE RECORDS SUMMARY | 2025-04-12 13:53 | XMS_ITS | Clinical Summary ---
Author Organization [facility] [employer] Address [address] [place] [address] Care Team Providers Care Nailer Hand Name Role Phone Soraida Ruiz Primary Care Pr ovider Source Comments [facility] [employer],non-owned Affiliates and Associated Physician Practices is amultiple site organization consisting of ambulatory clinics and hospital sitesin [place], [place], [place] and [place]. This disclosure is being madepursuant to the Care Everywhere program and may not contain all information available regarding this patient. Last updated 18.[facility] [employer] Allergies Active Allergy Reactions Criticality Noted Date Comments Allergy Itching Duloxetine Other,Unknown Medium 08/18/2018 Increased anger/aggression Food Anaphylaxis,Rash High 03/13/2017 Grape flavoring with Anesthesia and Candy. Not allergic to Grapes Grape, Artificial Unknown 07/09/2023 Ibuprofen Vomiting,Unknown Sulfa Drugs Anaphylaxis,Rash High 02/24/2018 Throat swells up Medications * This document contains information received from the source organization and may not represent a complete record from that organization. * Be aware that medications may not be up to date on this document. Alwaysverify current medications with the patient. montelukast (SINGULAIR) 10 MG tablet 8 Active omeprazole (PRILOSEC) 40 MG capsule 9 Active naproxen (NAPROSYN) 500 MG tablet Take 1 tablet by mouth 2 times daily 60 tablet 4 9 Active ondansetron, disintegrating, (Zofran ODT) [address] 1 TABLET ON TOP OF THE TONGUE WHERE IT WILL DISSOLVE, THEN SWALLOW 4 TIMES PER DAY Active pancrelipase (Creon) 45989-87215 units capsule TAKE 4 CAPSULES BY MOUTH ONCE DAILY WITH EACH MEAL AND 2 CAPSULES WITH EACH SNACK Active nortriptyline (Pamelor) 75 MG capsuleIndicatio ns:Migraine without aura and without status migrainosus, not intractable Take 1 (one) capsule by mouth at bedtime 90 capsule 1 3 Active gabapentin (Neurontin) 300 MG capsule Take 1 (one) capsule by mouth 3 times daily 90 capsule 3 3 Active methocarbamol (Robaxin) 750 MG tablet Take 1 (one) tablet by mouth 3 times daily Per patient 07-25-23 Active fluticasone propionate (Flonase) 50 MCG/ACT nasal spray [place] 2 (two) sprays into each nostril once daily 16 g 1 3 Active SUMAtriptan (Imitrex) 100 MG tablet Take 1 (one) tablet by mouth as needed for Migraine (Take one with onset of migraine, can repeat in 2 hours, maximum of 2 in 24 hours.) 9 tablet 5 3 Active albuterol HFA (Ventolin HFA) 108 (90 Base) MCG/ACT inhaler Inhale 2 (two) puffs by mouth every 4 hours as needed 8 g 2 3 Active ARIPiprazole (Abilify) 10 MG tablet Take 1 (one) tablet by mouth once daily 30 tablet 5 5 07/25/20 25 Active acamprosate calcium EC (Campral) 333 MG tablet Take 1 (one) tablet by mouth 3 times daily for 90 days 90 tablet 2 5 04/26/20 25 Active FLUoxetine (PROzac) 40 MG capsule Take 1 (one) capsule by mouth every morning 30 capsule 4 5 Active buPROPion XL 24hr (Wellbutrin-XL) 150 MG tablet Take 1 (one) tablet by mouth once daily 30 tablet 3 5 Active prazosin (Minipress) 2 MG capsule Take 1 (one) capsule by mouth at bedtime 30 capsule 5 5 07/25/20 25 Active prazosin (Minipress) 5 MG capsule Take 1 (one) capsule by mouth at bedtime 30 capsule 5 5 07/25/20 25 Active traZODone (Desyrel) 100 MG tablet Take 2 (two) tablets by mouth at bedtime 60 tablet 5 5 07/25/20 25 Active clonazePAM (KlonoPIN) 1 MG tablet Take 1 (one) tablet by mouth 2 times daily 60 tablet 2 5 Active Active Problems Problem Noted Date Diagnosed Date Dysmenorrhea 07/09/2023 07/09/2023 Dysuria 07/09/2023 07/09/2023 Irregular periods 07/09/2023 07/09/2023 Chronic migraine w/o aura w/ o status migrainosus, not intractable 03/11/2023 07/09/2023 Peripheral neuropathic pain 11/21/2022 09/0 03/2023 Thyroid function test abnormal 11/21/2022 0 07/09/2023 Nicotine dependence 03/16/2022 07/09/2023 Arthritis 02/28/2022 Overview (07/09/2023): left foot Dry skin 02/28/2022 Dysphagia 02/28/2022 Obesity 02/28/2022 Congenital pes planus of both feet 01/26/2022 Urinary tract infectious disease 12/08/2021 Arthralgia of left ankle 11/30/2021 Foot callus 08/03/2021 Ingrowing toenail 08/03/2021 Tibialis posterior tendinitis 08/03/2021 Borderline personality disorder 07/22/2021 Bladder dysfunction 01/05/2020 Cyst of ovary 01/05/2020 Fracture with nonunion 01/05/2020 Sprain of ankle 01/05/2020 Tobacco user 01/05/2020 Chronic pelvic pain in female 01/05/2020 PVC (premature ventricular contraction) 08/14/20 19 Dyspnea on exertion 06/24/2019 Intractable chronic migraine without aura and without status migrainosus 03/16/2019 Closed nondisplaced fracture of scaphoid of right wrist with nonunion 02/24/2019 Small fiber neuropathy 11/03/2018 Vitamin B12 deficiency (non anemic) 09/11/2018 Chronic back pain 09/11/2018 Chronic neck pain 09/11/2018 Fibromyalgia 09/11/2018 GERD (gastroesophageal reflux disease) 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 Hearing disorder 09/11/2018 Overview (09/11/2018): hearing sensitivity Knee pain, bilateral 09/11/2018 PTSD (post-traumatic stress disorder) 09/11/2018 Vestibular migraine 09/11/2018 Vitamin D deficiency 09/11/2018 Neuropathy 09/11/2018 Overview (09/11/2018): Positive EMG Legs and feet White matter abnormality on MRI of brain 018 Poor balance 09/11/2018 Excessive daytime sleepiness 09/11/2018 Chronic fatigue 09/11/2018 Chronic insomnia 09/11/2018 KYLE (obstructive sleep apnea) 03/07/2018 Female stress incontinence 03/07/2018 Severe episode of recurrent major depressive disorder, without psychotic features 03/07/2018 Generalized anxiety disorder 03/07/2018 Other alopecia areata 02/27/2018 Encounter to establish care 10/16/2017 Iron deficiency Incontinence in female Overview (09/11/2018): and overflow Resolved Problems Problem Noted Date Diagnosed Date Resolved Date Constipation 02/28/2022 03/28/2022 Injury of left wrist 02/12/2019 019 Panic disorder 03/07/2018 11/11/2018 Encounters * This document contains information received from the source organization and may not represent a complete record from that organization. Date Type Department Care Team Description 04/09/2025 Travel 01/28/2025 Travel 01/26/2025 Travel from Last 3 Months Immunizations Immunization Administration Dates Next Due INFLUENZA VACCINE, TRIV. (AF LURIA, FLUZONE TRIVALENT; 6MO+) (IIV3) 07/16/2017 DTP, HISTORIC VACCINE 06/21/1988, 985,03/11/1984,1983,1983 INFLUENZA VACCINE 10/05/2021,,07/06/2019,2017,08/16/2017,07/16/2017 INFLUENZA VACCINE, QUADR. (F LUZONE; FLULAVAL; FLUARIX; AFLURIA QUADRIVALENT; 6MO+), 0.5 ML (IIV4) 10/05/2021,06/26/2020,07/06/2019,2017 MMR VACCINE 05/31/1993,06/05/1990,10/20/1984 POLIO OPV 06/21/1988, 5,03/11/1984,1983,1983 TD, HISTORIC VACCINE 08/18/1997 TDAP (7yrs+) 08/18/1997 TDAP, HISTORIC VACCINE 12/13/2021 Family History Medical History Relation Name Comments Asthma Brother Jensen Diabetes - Type 2 Brother Jensen Hypertension Brother Jensen Other Brother Jensen back and neck p ain Other - Neurologic Daughter Idiopathi c Intracranial HTN Other Father unknown Hypertension Mother Other - Musculoskeletal Mother Page t's Sleep Disorder - Other Mother KYLE n ot using CPAP Thyroid Disease Mother CVA Neg Hx Cancer - Breast Neg Hx Cancer - Other Neg Hx Cancer - Skin, Melanoma Neg Hx Cancer - Skin, Non Melanoma Neg Hx Depression Neg Hx Eczema Neg Hx Glaucoma Neg Hx Hemophilia Neg Hx Psoriasis Neg Hx Seizures Neg Hx Relation Name Status Comments Brother Jensen Alive Daughter Alive Father Mother Alive Social History Tobacco Use Types Packs/Day Years Used Date Smoking Tobacco: Former Cigarettes 0.1 24.2 1 995 - 12/30/2018 Smokeless Tobacco: Never Tobacco Cessation:Counseling Given: Not Answered Comments:a cigarette every now and then Alcohol Use Standard Drinks/Week Comments Yes 0 (1 standard drink = 0.6 oz pur e alcohol) maybe 4 times a year AUDIT-C Answer Date Recorded Frequency of Alcohol Consumption Never 09/18/2019 Average Number of Drinks Not on file 019 Frequency of Binge Drinking Not on file 09/04 PHQ-2 Answer Date Recorded Patient Health Questionnaire-2 Score 4 01/26/2025 Comments No Sex and Gender Information Value Date Recorded Sex Assigned at Not on file Legal Sex Female 6:09 AM LEARNING SUPPORT RESOURCE ROOM TEACHER Gender Identity Not on file Sexual Orientation Not on file 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 on file Not on file N ot on file Last Filed Vital Signs Vital Sign Reading Time Taken Comments Blood Pressure 120/73 01/26/2025 9:22 AM CDT Pulse 93 01/26/2025 9:22 AM CDT Temperature 36 C (96.8 F) 07/17/2024 8:39 AM CDT Respiratory Rate 18 01/04/2023 4:47 PM LEARNING SUPPORT RESOURCE ROOM TEACHER Oxygen Saturation 98% 01/26/2025 9:22 AM CDT Inhaled Oxygen Concentration - - Weight 111.1 kg (245 lb) 01/26/2025 9:22 AM CDT Height 172.7 cm (5' 8) 01/26/2025 9:22 AM CDT Body Mass Index 37.25 01/26/2025 9:22 AM CDT Plan of Treatment Upcoming Encounters Date Type Department Care Team (Late st Contact Info) Description 06/18/2025 9:10 AM CDT Office Visit [facility] - Dermatology [address] [place] [phone] Jinny Hale MD [facility] [address] [place] [id number] Health Maintenance Due Date Last Done Comments MAMMOGRAM 1983 HIV SCREENING 1998 HEPATITIS C SCREENING 06/29/2001 HEPATITIS B VACCINE (1 of 3 - 19+ 3-dose series) 2002 PAP with HPV 2013 LIPID TESTING 11/12/2023 11/12/2018 COVID-19 VACCINE ( season) 2024 10/05/2021, 02/23/2021, 02/02/2021 MEDICARE AWV CALENDAR YEAR 2024 INFLUENZA VACCINE (Season Ended) 2025 10/05/2021, 10/05/2021, 06/26/2020, Additional history exists SCREENING FOR DIABETES 04/18/2027 , 04/18/2024, 04/17/2024, Additional history exists DTAP/TDAP/TD VACCINES (9 - Td or Tdap) 12/13/2031 12/13/2021, 08/18/1997, 08/18/1997, Additional history exists ZOSTER VACCINE (1 of 2) 2033 DEPRESSION SCREENING Completed 01/26/2025, 01/30/2024, 08/12/2023, Additional history exists HIB VACCINE Aged Out No longer eligi ble based on patient's age to complete this topic HPV VACCINE Aged Out No longer eligi ble based on patient's age to complete this topic MENINGOCOCCAL (Group B) VACCINE SHARED DECISION-MAKING Aged Out No longer eligible based on patient's age to complete this topic MENINGOCOCCAL GROUPS A/C/Y/W VACCINE Aged Out No longer eligible based on patient's age to complete this topic PNEUMOCOCCAL VACCINE Aged Out No long er eligible based on patient's age to complete this topic Medical Devices Implanted Type Area Rubber Chemist Device Identifier Shelf Expiration Date Model / Serial / Lot Screw 2.5mm 18mm Flly Thrd Mark Comp Implanted:Qty: 1 on 02/12/2019 by Gokul Jolly MD at [facility] Left: Wrist [employer] [id number] / / Explanted Type Area Rubber Chemist Device Identifier Shelf Expiration Date Model / Serial / Lot Wire K .9mm 95mm Cocr 2.5mm Screw Fx Explanted:Qty: 4 on 02/12/2019 at [facility] [employer] [id number] / / Procedures Procedure Name Priority Date/Time Associated Diagnosis Comments BASIC METABOLIC PANEL (CALCIUM TOTAL) Routine 08/25/2019 11:51 AM CDT Hypokalemia LIPID PROFILE Routine 11/12/2018 11:16 AM LEARNING SUPPORT RESOURCE ROOM TEACHER Other alopecia areata from Last 3 Months or Most Recently Relevant to Health Maintenance Results * (ABNORMAL) BASIC METABOLIC PANEL (CALCIUM TOTAL) (08/25/2019 11:51 AM CDT) BUN 8 7 - 26 mg/dL 08/25/2019 1:59 PM [facility] Creatinine 0.9 0.6 - 1.2 mg/dL 08/25/2019 1:59 PM [facility] Sodium 140 136 - 145 mmol/L 08/25/2019 1:59 PM [facility] Potassium 3.5 3.5 - 4.5 mmol/L 08/25/2019 1:59 PM [facility] Chloride 111(H) 98 - 107 mmol/L 08/25/2019 1:59 PM [facility] CO2 19(L) 22 - 29 mmol/L 08/25/2019 1:59 PM CDT [facility] Glucose 85 70 - 115 mg/dL 08/25/2019 1:59 PM T [facility] Calcium 8.9 8.4 - 10.2 mg/dL 08/25/2019 1:59 PM [facility] Anion Gap 14 8 - 18 08/25/2019 1:59 PM [facility] BUN/Creatinine Ratio 9 7 - 23 08/25/2019 1:59 PM T [facility] Osmolality Calculated 288 270 - 300 mOsm/kg 08/25/2019 1:59 PM [facility] eGFR >60 >60 mL/min/1.7 3 m2 08/25/2019 1:59 PM [facility] Blood BLOOD SPECIMEN / Unknown Lab Venipuncture / Unknown 08/25/2019 11:51 AM CDT 08/25/2019 12:48 PM CDT us Dyllan Lopez MD LAB - CHEMISTRY ORDERABLES Final Result Performing Organization Address [facility]/State/[facility] Co de Phone Number [address] [phone] * LIPID PROFILE (11/12/2018 11:16 AM [facility] Cholesterol Total 149 <200 mg/dL 11/12/2018 12:42 PM [facility] HDL 47 >40 mg/dL 11/12/2018 12:42 PM [facility] Comment: ATP III Classification of HDL Cholesterol: <40 mg/dL: Considered a major risk factor. >60 mg/dL: Considered a negative risk factor. LDL Calculated 82 <100 mg/dL 11/12/2018 12:42 PM [facility] Comment: ATP III Classification of LDL Cholesterol: <100 mg/dL: Optimal 100 - 129 mg/dL: Near Optimal/Above Optimal 130 - 159 mg/dL: Borderline High 160 - 189 mg/dL: High >190 mg/dL: Very High Triglycerides 99 <150 mg/dL 11/12/2018 12:42 PM [facility] Comment: ATP III Classification of Triglycerides: <150 mg/dL: Normal 150 - 199 mg/dL: Borderline High 200 - 400 mg/dL: High >500 mg/dL: Very High Blood BLOOD SPECIMEN / Unknown Lab Venipuncture / Unknown 11/12/2018 11:16 AM LEARNING SUPPORT RESOURCE ROOM TEACHER 11/12/2018 11:56 AM LEARNING SUPPORT RESOURCE ROOM TEACHER us Ordering Provider Unlisted MD LAB - CHEMISTRY OR DERABLES Final Result [address] [phone] from Last 3 Months or Most Recently Relevant to Health Maintenance Insurance MED[place] [employer] [place] [address] MEDICAID - [place] [facility] MANAGED MEDICARE ADV Care Teams Nailer Hand Relationship Specialty Start Date End Date Soraida Ruiz PA [address] [place] [address] [place] [phone] PCP - General Physician Programming Instructor 01/28/25
--- OUTSIDE RECORDS SUMMARY | 2025-04-12 13:53 | XMS_ITS | Data Portability ---
Author Organization [place] [facility] [employer], Main Office Address [address] [place] [address] Care Team Providers Care Payroll Technician Name Role Phone RAFAEL HORAN Primary Care Provider WALLYJeannieJIANIE Referring Provider Assessment Encounter Date Assessment Date Assessment LastModified by Organization Details LastModified Time 03/26/2024 03/26/2024 This note is dictated and transcribed by [employer]. Lye Peel Operator variances may occur. Despite proofreading, typographical errors may occur. Occasional wrong-word or '[id number]' substitutions may have occurred due to the [...] Modified Time Details Appointments None recorded. Lab respiratory allergen panel, [employer] A, serum 2023 024 [email or web address] [facility] (Lab), [address] [place], [address], 11:12:45 respiratory allergen panel - [employer] b [email or web address] (Lab), [address] [place], [address], 5 11:12:46 tb (M tuberculosi s), ifn-gamma graham, blood [address] (Lab), [address] [place], [address], 5 11:12:46 igg subclasses 1+2+3+4, serum [address] (Lab), [address] [place], [address], 5 11:12:46 alpha-1-ant itrypsin (aat) phenotype, serum [address] (Lab), [address] [place], [address], 5 11:12:46 eosinophil count, manual, blood (OBS) [address] (Lab), [address] [place], [address], 5 11:12:46 BNP (B-type natriuretic peptide), serum or plasma [address] (Lab), [address] [place], [address], 5 11:12:47 ige, total, serum [address] (Lab), [address] [place], [address], 5 11:12:47 TSH, serum, reflex free T4 2022 023 [email or web address] Not available 3 16:15:47 CBC w/ auto diff 2022 023 [email or web address] 146 Not available 3 16:15:46 BMP, serum or plasma 2022 023 [email or web address] 146 Not available 3 16:15:47 hepatic function panel, serum 2022 023 [email or web address] 146 Not available 3 16:15:47 vitamin B12 + folate, serum or blood 2022 023 PATTIE Not available 3 09:49:28 Referral general surgeon referral 2023 024 carmel Cordova, [address] [facility], [place], [address], 4 08:11:28 Procedures None recorded. Surgeries None recorded. Imaging None recorded. Medication Orders Creon 24,000-76,0 00-120,000 unit capsule,del ayed release [address] [facility] [address] [facility] [place], [address], 4 08:11:50 ammonium lactate 12 % topical cream [address] [facility], [address] [place], [address], 4 08:09:31 methocarbam ol 750 mg tablet 2022 023 [email or web address] [facility], [address] [place], [address], 4 12:47:38 lidocaine 4 % topical cream 2022 023 [email or web address] [facility], [address] [place], [address], 4 11:32:13 nystatin 100,000 unit/mL oral suspension 2022 023 [email or web address] [facility], [address] [place], [address], 11:32:34 hydrocodone 7.5 mg-acetamin ophen 325 mg tablet 2022 023 [email or web address] Not available 12:47:24 Valium 5 mg tablet 2022 023 [email or web address] Not available 11:31:25 Patient TargetsNo targets recorded. Patient Instructions Encounter Date Encounter Id Patient Instructions Last Modified By Organization Details Last Modified Time 05/27/2024 [id number] LOW DIET [email or web address] Not available 13:07:09 PT WITH EPI. RESTART CREON 24K/76K/ 120K UNITS . 4 TABS PER MEAL AND 2 PER SNACK . F/U IN 6 MTHS . [email or web address] Not available 05/27/2024 13:08:18 07/28/2024 [id number] methacholine challenge* - Please call patient to schedule. NPAN for [id number] [email or web address] Not available 09/10/2024 11:54:29 six minute walk test* Not available 01/05/2025 09:13:52 Reason for Referral General Surgeon Referral for Sliding hiatus hernia Referring Physician: Mary Ellen Jin, Gastroenterology, Encounter Date: 05/27/2024 Results Created Date Observation Date Name Description Value Unit Range Abnormal Flag Note LastModifiedBy Organization Detail LastModifiedTime 05/21/2003/25/2023 home sleep study No observ ation record ed. [email or web address] Not Available 05/23 15:25:15 05/22/20 23 01/06/2023 CT, abdom en + pelvi s, w/ contr ast No observ ation record ed. [email or web address] [facility] [address] [place], [address], 05/23/2023 15:33:43 11/29/19 24 10/19/2023 XR, chest , 2 view No observ ation record ed. [email or web address] [facility] [address] [place], [address], 11/29/2023 12:40:15 11/29/19 24 10/19/2023 CT, angio gram, chest , w/o contr ast No observ ation record ed. [email or web address] Not Available 11/29 14:06:13 07/24/20 24 07/23/2024 compl ete PFT w/ post bron hodil ator iva metry * No observ ation record ed. BARCODE Not Available 2023 16:26:09 04/05/20 25 02/09/2025 RF, esoph agram No observ ation record ed. [email or web address] Not Available 2024 12:49:13 Result Notes None recorded. Problems Name Problem SNOMED Code Status Onset Date Resolution Date Notes Provider Name and Address Organization Details Recorded Time Pain in upper limb 209929769 Active Not Available [facility] 3 02:50:54 Tobacco user 620771933 Active Not Available [facility] 3 02:50:54 Mass of soft tissue of right lower limb 87371648742 416440 Active 2022 Not Available [facility] 3 02:50:54 Acute folliculi tis 562272333 Active Not Available [facility] 3 02:50:54 Disorder of colon 747648471 Active Not Available [facility] 3 02:50:54 Post-scab etic nodules 007661165 Active Not Available [facility] 3 02:50:54 Constipat ion 96292703 Active Not Available [facility] 3 02:50:54 Congenita l bilateral pes planus 43448328590 955023 Active 2021 Not Available [facility] 3 02:50:54 Pain of left ankle joint 62340391697 671665 Active 2021 Not Available [facility] 3 02:50:55 Abnormal weight gain 542738957 Active Not Available [facility] 3 02:50:55 Indigesti on 192229272 Active Not Available [facility] 3 02:50:55 Body mass index 30+ - obesity 972054189 Active Not Available [facility] 3 02:50:55 Dry skin 91284107 Active Not Available [facility] 3 02:50:55 On examinati on - nails brittle Active Not Available [facility] 3 02:50:55 Tibialis posterior tendiniti s 272404591 Active 2020 Not Available [facility] 3 02:50:55 Abdominal pain 85446327 Completed Not Available [facility] 3 02:50:56 Generaliz ed anxiety disorder 46745011 Active Not Available [facility] 3 02:50:56 Nile thyroidit is 39543851 Active Not Available [facility] 3 02:50:56 Foot callus 595670696 Active 2020 Not Available [facility] 3 02:50:56 Osteophyt e of bone 09373646279 9100 Active Not Available [facility] 3 02:50:56 Gastroeso phageal reflux disease 794131166 Active Not Available [facility] 3 02:50:56 Chronic diarrhea 539782873 Active 2021 Not Available [facility] 3 02:50:56 Chronic pelvic pain of female 275788174 Active Not Available [facility] 3 02:50:57 Lateral femoral cutaneous neuralgia 767978563 Active Not Available [facility] 3 02:50:57 Degenerat ion of lumbar intervert ebral disc 85643331 Active 2016 Not Available [facility] 3 02:50:57 Dysmenorr hea 748579524 Completed Not Available [facility] 3 02:50:57 Abnormal weight loss 470751449 Active 2021 Not Available [facility] 3 02:50:57 Mixed hyperlipi demia 421300905 Active Not Available [facility] 3 02:50:57 Papular eruption 249357336 Active Not Available [facility] 3 02:50:58 Eruption 425461734 Active Not Available [facility] 3 02:50:58 Insect bite - wound 103061550 Active 2021 Not Available [facility] 3 02:50:58 Loss of hair 255747284 Active 3 Not Available [facility] 3 02:50:58 Periphera l neuropath ic pain 632119948 Active 2022 Not Available [facility] 3 02:50:58 Scoliosis deformity of spine 606684957 Active Not Available [facility] 3 02:50:59 Left lower quadrant pain 877963648 Active Not Available [facility] 3 02:50:59 Nonunion of fracture 932229200 Active Not Available [facility] 3 02:50:59 Glossodyn ia 19342458 Active 3 Not Available [facility] 3 02:50:59 Lower urinary tract symptoms 704149770 Active Not Available [facility] 3 02:50:59 Thyroid function tests abnormal 046371922 Active 3 Not Available [facility] 3 02:51:00 Anterior abdominal wall mass 657970249 Active Not Available [facility] 3 02:51:00 Pain in right foot 73521947243 9107 Active Not Available [facility] 3 02:51:00 Pain of multiple joints 71567454 Active Not Available [facility] 3 02:51:00 Major depressiv e disorder 037219350 Active Not Available [facility] 3 02:51:01 Arthritis 0166735 Active left foot Not Available [facility] 3 02:51:01 Hematoma 128087569 Completed Not Available [facility] 3 02:51:01 Disorder of vitamin B12 228318581 Active Not Available [facility] 3 02:51:01 Effusion of joint 068945286 Active Not Available [facility] 3 02:51:02 Hirsutism 675643148 Active Not Available [facility] 3 02:51:02 Ingrowing toenail 506365987 Active 2020 Not Available [facility] 3 02:51:02 Lower urinary tract infectiou s disease 5805649 Active Not Available [facility] 3 02:51:02 Hematoche kelly 135145055 Active Not Available [facility] 3 02:51:03 Dysphagia 83396109 Active Not Available [facility] 3 02:51:03 Obesity 654247233 Active Not Available [facility] 3 02:51:03 Onychomyc osis 735817214 Active Not Available [facility] 3 02:51:03 Vomiting 137092711 Active Not Available [facility] 3 02:51:04 Postopera tive seroma 094062352 Completed Not Available [facility] 3 02:51:04 Dyssomnia 56783739 Active Not Available [facility] 3 02:51:04 Sprain of ankle 84300253 Active Not Available [facility] 3 02:51:04 Gastritis 5569112 Active Not Available [facility] 3 02:51:05 Foot pain 76736650 Active 2020 Not Available [facility] 3 02:51:05 Dysuria 20437552 Completed Not Available [facility] 3 02:51:05 Upper respirato ry infection 79799322 Active Not Available [facility] 3 02:51:06 Lower abdominal pain 55854404 Completed Not Available [facility] 3 02:51:06 Nicotine dependenc e 84513346 Active 2021 Not Available [facility] 3 02:51:06 Infection by Trichomon as 25700442 Completed Not Available [facility] 3 02:51:06 Diarrhea 73268238 Active 2021 Not Available [facility] 3 02:51:07 Vitamin B12 deficienc y (non anemic) 19117418 Active 2021 Not Available [facility] 3 02:51:07 Urinary tract infectiou s disease 32303429 Active 2021 Not Available [facility] 3 02:51:07 Duodeniti s 82595405 Active Not Available [facility] 3 02:51:08 Cyst of ovary 88363927 Active Not Available [facility] 3 02:51:08 Irregular periods 99143548 Completed Not Available [facility] 3 02:51:09 Neck pain 80571921 Active 2022 Not Available [facility] 3 02:51:09 Fatigue 57771932 Active Not Available [facility] 3 02:51:09 Weight gain 7561581 Active 2022 Not Available [facility] 3 02:51:10 Female stress incontine nce 03114685 Active 2022 Jayesh Thapa MD [address], [address], [place], [address] , [employer] 3 10:18:13 Candidias is of vagina 50137324 Active 2022 ALYSSA Campos [address], [address], [place], [address] , [facility] 3 16:30:48 Muscle tension 964377038 Active 2022 ALYSSA Campos [address], [address], [place], [address] , [facility] 3 15:21:58 Acute sinusitis 20552876 Active 2022 ALYSSA Campos [address], [place], [address] , [employer] 3 12:32:59 Metatarsa lgia of right foot 97440109174 9100 Active 2023 David Jasso DPM [address], [address], [place], [address] , [facility] 4 12:18:59 Ingrowing nail of toe of right foot 94817679658 767567 Active 2023 David Jasso DPM [address], [address], [place], [address] , [facility] [employer] [facility] [employer] [facility] 4 12:19:10 Congenita l pes planus 67616619 Active 2023 David Jasso DPM [address], [place], [address] , [facility] [employer] [facility] [employer] [facility] 4 12:19:23 Exocrine pancreati c insuffici ency 02903021 Active 2023 Mary Ellen Jin MD [address] [facility], [address], [place], [address] , [facility] [employer] [facility] 4 13:05:47 Sliding hiatus hernia 602213307 Active 2023 Mary Ellen Jin MD [address] [facility], [address], [place], [address] , [facility] [employer] [facility] 4 13:09:20 Asthma without status asthmatic 54558312 Active 2023 Jeanie Garrett MA null, [place] [employer] [facility] [employer] [facility] 4 11:16:23 Dyspnea on exertion 09013489 Active 2023 Dominique Ramírez NP [address], [place], [address] , [facility] [employer] [facility] 4 11:39:29 Sleep apnea 25587875 Active 2023 Dominique Ramírez NP [address] [facility], [address], [place], [address] , [facility] [employer] [facility] [employer] [facility] 4 12:16:48 Hiatal hernia 60973162 Active 2024 STARLA Rice null, [facility] [employer] [facility] 5 15:20:30 Notes:COVID-19 pos 11/09/21 So me problems listed in Documents: #[id number], #[id number], #[id number], #[id number] could not be added to this patient's chart. Please review these documents and add these problems to the patient's chart manually as needed. Problem Notes None recorded. Procedures Surgical History Date Name Laterality Status Provider Name and Address Organization Details Recorded Time 03/26/20 24 Nail Debridement completed David Jasso DPM [address] [facility], [address], [place], [address], [facility] Nephosity 03/26/2024 12:22:57 02/07/20 21 Date of Last Colonoscopy completed Not Available [facility] 01/02/2023 02:40:48 02/07/20 21 Colonoscopy completed Not Available [facility] 01/03/20 02:40:53 10/06/20 20 [employer] Surgery completed Not Available [facility] 01/03/20 02:40:53 03/09/20 16 [employer] Surgery completed Not Available [facility] 01/03/20 02:40:53 11/08/19 16 [employer] Surgery completed Not Available [facility] 01/03/20 02:40:53 09/14/20 15 Date of Last Pap Smear completed Not Available [facility] 01/02/2023 02:40:48 [employer] Surgery completed STARLA [place] [employer] [facility] [employer] 04/15/2023 15:04:50 [employer] Surgery completed Not Available [facility] 01/02/2023 02:40:53 Tonsillectomy completed Not Available [facility] 01/02/2023 02:40:53 [employer] Surgery completed Not Available [facility] 01/02/2023 02:40:53 Endoscopy completed Not Available [facility] [address] 01/02/2023 02:40:53 Imaging Results None recorded. Procedure Notes None recorded. Medical Equipment None Reported. Allergies Allergen ID Allergen Name Allergen Category Reaction Reaction Severity Criticality Documentation Date Start Date Code Code System Note Provider Name and Address Organization Details Recorded Time 5175 Substance with sulfonami de structure and antibacte rial mechanism of action (substanc e) medicatio n itching Not available Not available 01/02/2023 80263 8003 SNOMED Not Available [facility] 03:07:12 5176 ibuprofen medicatio n Not available Not available Not available 01/02/2023 5640 RxNorm Other react ions and sever ities : 'Adve rse react ion to subst ance' . Not Available [facility] 3 03:07:12 5177 grape flavor food,medi cation Not available Not available Not available 01/02/2023 38291 UNK Not Available [facility] 3 03:07:12 5178 duloxetin e medicatio n Not available Not available Not available 01/02/2023 38262 RxNorm Other react ions and sever ities : 'Adve rse react ion to subst ance' . Not Available [facility] 3 03:07:12 5179 Cymbalta medicatio n Not available Not available Not available 01/02/2023 45034 4 RxNorm Not Available [facility] 3 03:07:12 Medications Name Sig Start Date Stop Date Status Note LastModified by Organization Details LastModified Time cmp budesonide 0.5mg capsule EMPTY ONE CAPSULE INTO IDS, ADD DISTILLED WATER AND SALINE PACKET, IRRIGATE ONCE DAILY active Not Available Not Available No t Available celecoxib 200 mg capsule Take 1 capsule by mouth once daily active Not Available Not Available No t Available fluoxetine 40 mg capsule TAKE 1 CAPSULE BY MOUTH IN THE MORNING active Not Available Not Available No t [...] TAKE 1 CAPSULE BY MOUTH TWICE DAILY WITH MEALS active Not Available Not Available No t Available nicotine 14 mg/24 hr daily transdermal [...] Not Available fluconazole 150 mg tablet TAKE ONE TABLET BY MOUTH ON DAYS 1 AND 3 OF ANTIBIOTI C active Not Available Not Available No t [...] Not Available Not Available No t Available methylpheni date 5 mg tablet TAKE [...] MOUTH EVERY 12 HOURS FOR 7 DAYS (DO NOT DRINK ALCOHOL WHILE TAKING THIS ANTIBIOTI C) active Not Available Not Available No t Available phentermine 37.5 mg tablet Take 1 [...] Available Not Available No t Available hydrocodone 7.5 mg-acetamin ophen 325 mg [...] 1,000 mcg/mL injection solution INJECT 1 ML ONCE EVERY MONTH active Not Available Not [...] BY MOUTH DIRECTED ON INSIDE OF PACKAGE active Not Available Not Available No t Available albuterol sulfate HFA 90 mcg/actuati on aerosol inhaler INHALE 2 PUFFS BY MOUTH EVERY 4 TO 6 HOURS NEEDED active Not Available Not Available [...] bromide 21 mcg (0.03 %) nasal spray [employer] 2 sprays every day by intranasa l route as directed. active Not Available Not Available No t Available loratadine 10 mg tablet TAKE 1 TABLET BY [...] 1 TABLET BY MOUTH EVERY 12 HOURS active Not Available Not Available No t Available nicotine 7 mg/24 hr daily transdermal [...] Available Not Available Not Available aripiprazol e 5 mg tablet 04/15 [...] Not Avai lable Valtrex 2014 active for shing les. Not Available Not Available Not Available [...] [employer] 60,000-189, 600-252,600 unit capsule,del ayed release TAKE ONE CAPSULE BY MOUTH PER MEAL. NEEDS APPOINTME NT FOR FUTURE REFILLS active Not Available Not Available No t Available Vitals Date Recorded Body height Heart rate Body mass index (BMI) Body weight Body temperature Oxygen saturation Oxygen saturation in Arterial blood by Pulse oximetry Provider Name and Address Organization Details Last Updated DateTime 3 172.72 cm 77 /min 35.3 kg/m2 087341. 43 g 97.2 [degF] 85 % 85 % Heriberto Hernandez [facility] [employer] [facility] 3 10:00:48 Date Recorded Body height Heart rate Respiratory rate Oxygen saturation Oxygen saturation in Arterial blood by Pulse oximetry Systolic blood pressure Diastolic blood pressure Provider Name and Address Organization Details Last Updated DateTime 4 172.72 cm 94 /min 14 /min 98 % 98 % 117 mm[Hg] 81 mm[Hg] Martina Choi [facility] [employer] [facility] 4 11:26:15 Date Recorded Body height Body temperature Respiratory rate Oxygen saturation Oxygen saturation in Arterial blood by Pulse oximetry Heart rate Systolic blood pressure Diastolic blood pressure Provider Name and Address Organization Details Last Updated DateTime 3 172.72 cm 97.9 [degF] 16 /min 98 % 98 % 81 /min 120 mm[Hg] 72 mm[Hg] Libby Vera [facility] [employer] [facility] 3 15:05:30 Date Recorded Body height Body mass index (BMI) Body weight Heart rate Oxygen saturation Oxygen saturation in Arterial blood by Pulse oximetry Systolic blood pressure Diastolic blood pressure Provider Name and Address Organization Details Last Updated DateTime 4 172.72 cm 37.4 kg/m2 430354. 72 g 93 /min 98 % 98 % 132 mm[Hg] 76 mm[Hg] Cecilai Melendrez [facility] [employer] [facility] 4 12:45:33 Date Recorded Body height Body mass index (BMI) Body weight Body temperature Heart rate Oxygen saturation Oxygen saturation in Arterial blood by Pulse oximetry Systolic blood pressure Diastolic blood pressure Provider Name and Address Organization Details Last Updated DateTime 4 172.72 cm 36.9 kg/m2 716497. 95 g 97.4 [degF] 83 /min 94 % 94 % 128 mm[Hg] 74 mm[Hg] Jeanie Garrett MA [employer] 4 11:24:10 Social History Question Answer Notes LastModified by Organizat ion Details LastModified Time Tobacco Smoking Status Former Smoker Annette Horton MA null, [employer] 04/15/2023 14:55:39 Do You Have An Advance Directive? No [id number] Information not available 01/02/2023 If You Are , What Was Your Level Of Alcohol Consumption Prior To ? None Information not available 04/15/2023 Do You Wear A Helmet When Biking? No Information not available 04/15/2023 Are You Blind Or Do You Have Difficulty Seeing? No Information not available 04/15/2023 What Is Your Level Of Caffeine Consumption? Moderate [id number] Information not available 01/02/2023 How Much Tobacco Do You Chew? None [id number] Information not available 01/02/2023 In The 14 [...] No Information not available 04/15/2023 Are You Deaf Or Do You Have Serious Difficulty Hearing? No Information not available 04/15/2023 What Type Of Diet Are You Following? REGULAR [id number] Information not available 01/02/2023 Which Illicit Or Recreational Drugs Have You Used? Marijuana Information not available 04/15/2023 What Is The Highest Grade Or Level Of School You Have Completed Or The Highest Degree You Have Received? [id number] Information not available 04/15/2023 Have There Been Any Changes To Your Family Or Social Situation? No Information no t available 04/15/2023 Are There Any Guns Present In Your Home? No Information not available 04/15/2023 Do You Use Insect Repellent Routinely? No Information not available 04/15/2023 Where Do You Live? SingleLevelHouse Information not available 04/15/2023 Do You Have A Medical Power Of Security Door Installer? No Information not available 04/15/2023 What Was The Date Of Your Most Recent Tobacco Screening? 07/28/2024 [email or web address] Information not available 07/28/2024 Have You Ever Been Counseled For Unhealthy Alcohol Use? No Information not available 04/15/2023 Do You Have Any Pets? No Information not available 04/15/2023 What Is Your Relationship Status? Single [id number] Information not available 01/02/2023 Do You Use Your Seat Belt Or Car Seat Routinely? Yes Information not available 04/15/2023 Do You Have Smoke And Carbon Monoxide Detectors In Your Home? Yes Information not available 04/15/2023 At What Age Did You Start Smoking Tobacco? 12 Information not available 04/15/2023 Are You Passively Exposed To Smoke? No Information no t available 04/15/2023 Are There Any Smokers In Your House? Yes Information not available 04/15/2023 How Much Tobacco Do You Smoke? 0.5 PPD [id number] Information not available 01/02/2023 Do You Use Sunscreen Routinely? Yes Information not available 04/15/2023 Has Tobacco Cessation Counseling Been Provided? No Information not available 04/15/2023 Have You Recently Traveled Abroad? No Information not available 04/15/2023 Have You Used IV Drugs? No Information not available 04/15/2023 Do You Have Difficulty Walking Or Climbing Stairs? No Information not available 04/15/2023 Do You Have Any Dietary Restrictions? No Information not available 04/15/2023 Sex: Female Functional Status Question Answer Note LastModified by Organizat ion Details LastModified Time Do you use any illicit or recreational drugs? Yes Information not available 04/15/2023 Do you or have you ever used any other forms of tobacco or nicotine? No Information not available 04/15/2023 What is your level of alcohol consumption? Occasional [id number] Information not available 01/02/2023 Do you or have you ever used smokeless tobacco? Never used smokeless tobacco [id number] Information not available 01/02/2023 Are you currently employed? Yes Information not available 06/21/2023 Are you able to walk? YESWOREST Information not available 04/15/2023 Do you have difficulty doing errands alone? No Information not available 04/15/2023 Are you able to care for yourself? 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 No Information not available 04/15/2023 Do you or have you ever used e-cigarettes or vape? Current user of electronic cigarettes vaping Information not available 04/15/2023 What is your exercise level? Occasional [id number] Information not available 01/02/2023 Mental Status Question Answer Note LastModified by Organizat ion Details LastModified Time Do you feel stressed (tense, restless, nervous, or anxious, or unable to sleep at night)? [id number] Information not available 04/15/2023 Do you have difficulty concentrating, remembering or making decisions? No Information no t available 04/15/2023 Family History Relationship Description Onset Age of this Age Resolved Age Notes LastModified by Organization Details LastModified Time Mother Essential hypertension [id number].950 [id number] Not available 01/02/2023 02:40:57 Mother Hyperthyroid ism MIGRATION.339 [id number] Not available 01/02/2023 02:40:57 Mother Acquired scoliosis MIGRATION.905 [id number] Not available 01/02/2023 02:40:57 Mother Degenerative disorder MIGRATION.878 [id number] Not available 01/02/2023 02:40:57 Notes:no new health issues Medical History Condition Response ARTHRITIS Y HEADACHES/MIGRAINES Y GI PROBLEMS Y KIDNEY STONES Y HIGH CHOLESTEROL / HYPERLIPIDEMIA Y HYPERTHYROIDISM Y ANXIETY DISORDER Y OSTEOPOROSIS Y URINARY/BLADDER/KIDNEY PROBLEMS Y FEMALE PROBLEMS / INFECTIONS Y DEPRESSION (INCLUDING POST ) Y SLEEP DISORDER Y MIGRAINES Y HERPES Y Gynecological History [...] virus, quadrivalent, preservative 7 completed Not Available [facility] 01/02/2023 03:06:48 Influenza, split virus, quadrivalent, PF 7 completed Not Available [facility] 01/02/2023 03:06:48 Past Encounters Encounter ID Performer Location Encounter Start Date Encounter Closed Date Diagnosis/Indication Diagnosis SNOMED-CT Code Diagnosis ICD10 Code Diagnosis Note [id number] [facility] _ATHENA_M IGRATION_ DEFAULT_1 _1 , 01/18/2021 00:00:00 01/18/2021 10:50:01 [id number] _ATHN_MIGR ATION_1 _ATHENA_M IGRATION_ DEFAULT_1 _1 , 03/01/2021 00:00:00 03/01/2021 17:13:38 [id number] _ATHN_MIGR ATION_1 _ATHENA_M IGRATION_ DEFAULT_1 _1 , 05/31/2021 00:00:00 05/31/2021 16:20:29 [id number] [facility] [place] [address] [place] [address] 08/03/2021 00:00:00 08/03/2021 13:52:23 [id number] Delvin Leary MD [facility] [place] [address] [facility] [address] [place] [address] 08/04/2021 00:00:00 08/04/2021 15:56:37 [id number] [facility] [place] [address] [place] [address] 09/07/2021 00:00:00 09/07/2021 11:21:02 [id number] ALYSSA Campos [facility] Internal Med [place] [address] [place] [address] 10/05/2021 00:00:00 10/31/2021 23:05:46 [id number] [facility] [place] [address] [place] [address] 11/30/2021 00:00:00 11/30/2021 13:23:36 [id number] [facility] [place] [address] [place] [address] 01/25/2022 00:00:00 01/26/2022 09:03:39 [id number] Leandro Carias MD [facility] [place] [address] [place] [address] 03/27/2022 00:00:00 04/02/2022 14:33:24 [id number] _ATHN_MIGR ATION_1 _ATHENA_M IGRATION_ DEFAULT_1 _1 , 05/09/2022 00:00:00 05/09/2022 17:10:38 [id number] _ATHN_MIGR ATION_1 _ATHENA_M IGRATION_ DEFAULT_1 _1 , 07/11/2022 00:00:00 07/11/2022 15:16:40 [id number] Jayesh Thapa MD [facility] [place] [address] [facility] [address] [place] [address] 09/06/2022 00:00:00 09/06/2022 10:10:26 [id number] ALYSSA Campos [facility] [place] [address] [place] [address] 11/22/2022 00:00:00 12/02/2022 12:42:39 [id number] Jayesh Thapa MD [facility] [address] [place] [address] 12/06/2022 00:00:00 12/06/2022 20:32:58 [id number] Jayesh Thapa MD [facility] [address] [place] [address] 01/10/2023 09:33:20 01/10/2023 10:27:23 Female stress incontinence [id number] N39.3 Patient reassured. Pain meds and valium for muscle spasms. bedrest and sitz baths f/u in a week. 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 Muscle tension 728764085 R29.898 refill muscle relaxer and lidocaine cream Pre-surger y evaluation 610423269 Z01.818 cbc, bmp and LFT due Long-term drug therapy [id number] Z79.899 labs are due [id number] David Jasso DPM [facility] Podiatry [place] [address] [place] [address] 03/26/2024 11:16:04 03/27/2024 10:03:13 Metatarsalgia of right foot [id number] 89548 M77.41 recommend custom orthoticss upportive shoe gearmonito r for wounds infectionh as naproxen may take for painrice therapyfol low-up 6 months Congenital pes planus 23 720397 Q66.51 Q66.52 bilateral feetx-rays reviewed with the patientrec ommend custom orthotics with offloading under the sub 5th metatarsal head rightfollo w-up 6 monthsdid not obtain prior orthotics Rx from [facility] of toe of right foot [id number] 2462098 L60.0 medial cornerSlan t backNon-in fectedFoll ow-up as needed Foot callus 956273091 L8 4 right 5th metatarsal head- mild non-infect edRx Amlactin Peripheral neuropathic pain 157992683 M79.2 continue with neurology follow-upr ecommend pain management if continues be problemati c [id number] Mary Ellen Jin MD [facility] General Surgery [address] [facility], [facility] 27 [place] [address] 05/27/2024 12:43:01 05/27/2024 13:35:59 Exocrine pancreatic insufficiency 86524660 K86.81 Sliding hiatus hernia 23 7372389 K44.9 [id number] Dominique Ramírez NP S_[facility] Pulmonolo gy [place] [address] [facility] 15 [place] [address] 07/28/2024 10:57:37 07/30/2024 14:46:11 Dyspnea on exertion 19184820 R06.09 PFT 07/23/24-wn l without methacholi ne (PFT normal)had recent sleep study done by neuro-per patient showed mild sleep apnea-will obtain testing-wi ll order CPAP if not addressed by neurowill hold off on albuterol inhaler at present with negative Pft-with do methacolin e challenge and will rx if positiveCX R and Ct chest 10/26 treated for pneumonia at that time-[facility] work todayWill consider ECHO-do encourage patient to consider Cardiology Discussed possible need to see rheumatsheila gy in futureFoll ow-up after methacolin e testing and will do 6 minute walk-call once scheduled Ex-cigarette smoker 2810 07189 Z87.891 Sleep apnea 67483295 G47 .30 need recent home sleep studywill [...] concerns Body mass index 30+ - obesity 292692738 Z68.36 Patient counseled on weight and it's [...] ID Guarantor Name 01/10/2023 1 [place] [facility] [id number] [facility] 01/10/2023 2 [place] OR MEDICARE REPLACEMENT PRIMARY) [facility] [id number] [facility] 04/15/2023 1 [place] [facility] [id number] [facility] 04/15/2023 2 [place] OR [place]IC[place] REPLACEMENT PRIMARY) [facility] [id number] [facility] 03/26/2024 1 [place] [facility] [id number] [facility] 03/26/2024 2 [place] OR [place]IC[place] REPLACEMENT PRIMARY) [facility] [id number] [facility] 05/27/2024 1 [place] [facility] [id number] [facility] 05/27/2024 2 [place] OR [place]IC[place] REPLACEMENT PRIMARY) [facility] [id number] [facility] 07/28/2024 1 [place] [facility] [id number] [facility] 07/28/2024 2 [place] OR MEDICARE REPLACEMENT PRIMARY) [facility] [id number] [facility] Notes Date Note Type Note [...] zero. ua clear. Jayesh Thapa MD [address] [facility], [place], [address], [employer] 01/10/2023 10:23:14 04/15/2023 text/html Generic HPI TemplateReported bypatient.Notes:Pt is here for a surgery clearance for L wrist scaphoid removal lunato capitate versus four corner fusion on the . Form is in the room w/her. ALYSSA Campos [address], [place], [address], [employer] 05/03/2023 23:25:20 03/26/2024 text/html . Patient is [...] any other complaints. David Jasso DPM [address], [place], [address], [employer] 03/26/2024 13:23:27 05/27/2024 text/html NISA WAS SEEN [...] ABD . Mary Ellen Jin MD [address] [facility], [facility] [address], [place], [address], [employer] 05/27/2024 13:09:39 07/28/2024 text/html DyspneaReported bypatient.Quality:dys pnea;tightness;can't [...] out dreams-insomnia Dominique Ramírez NP [address], [place], [address], [employer] 07/28/2024 12:26:31 OBGyn Episode No OBEpisode recorded.
--- OUTSIDE RECORDS SUMMARY | 2025-04-12 13:53 | XMS_ITS | Clinical Summary ---
Author Organization [facility] Address [address] [place] [address] Phone Care Team Providers Care Power Generation Turbine Room Operator Name Role Phone Soraida Bowden Primary Care Provider Allergies Active Allergy Reactions Criticality Noted Date Comments Duloxetine Unknown 12/12/2023 Grape (Artificial) Flavoring Agent (Non-Screening) Unknown 12/12/2023 Ibuprofen Other (see Comments) 04/13/2024 Sulfa Antibiotics Hives Medium 02/27/2017 Medications * This document contains information received from the source organization and may not represent a complete record from that organization. traZODone (DESYREL) 100 MG Tablet Take 200 mg by mouth nightly. 7 Active ARIPiprazole (ABILIFY) 10 MG Tablet Take 10 mg by mouth daily. 4 Active buPROPion (WELLBUTRIN) 150 MG XL tablet Take 150 mg by mouth 3 times daily. 4 Active gabapentin (NEURONTIN) 300 MG Capsule Take 600 mg by mouth 3 times daily (with meals). 3 Active montelukast (SINGULAIR) 10 MG Tablet Take 10 mg by mouth daily. 3 Active omeprazole (PriLOSEC) 40 MG CAPSULE DELAYED RELEASE Take 40 mg by mouth nightly. 3 Active prazosin (MINIPRESS) 2 MG Capsule Take 1 Capsule by mouth nightly. 4 Active prazosin (MINIPRESS) 5 MG Capsule Take 1 Capsule by mouth nightly. 4 Active SUMAtriptan (IMITREX) 100 MG Tablet Take 100 mg by mouth 2 times daily as needed. 3 Active topiramate (TOPAMAX) 100 MG Tablet Take 100 mg by mouth 2 times daily. 4 Active ondansetron (ZOFRAN-ODT) 4 MG TABLET DISPERSIBLE Take 1 Tablet by mouth every 6 hours as needed for Nausea - 1st line. 10 Tablet 4 Active Atogepant (Qulipta) 60 MG Tablet Take by mouth. Activ e Galcanezumab-gn lm (Emgality) 120 MG/ML Solution Prefilled Syringe 120 mg by Subcutaneous route every 30 days. Active Ubrelvy 100 MG Tablet TAKE 1 TABLET BY MOUTH TWICE DAILY NEEDED . DO NOT EXCEED 2 PER 24 HOURS Active clonazePAM (KlonoPIN) 0.5 MG Tablet Take 0.5 mg by mouth 2 times daily. 4 Active cyanocobalamin (VITAMIN B-12) 1000 MCG/ML Solution 1,000 mcg by Intramuscular route. Active triamcinolone (KENALOG) 0.1 % Ointment APPLY A THIN LAYER TO THE AFFECTED AREA(S) of face BY TOPICAL ROUTE 2 TIMES PER DAY PRN Active naproxen (NAPROSYN) 500 MG Tablet TAKE 1 TABLET BY MOUTH TWICE DAILY WITH FOOD NEEDED 4 Active BACLOFEN PO Take 5 mg by mouth 3 times daily. Active NORTRIPTYLINE HCL PO Take by mouth. Activ e Active Problems Problem Noted Date Diagnosed Date Chronic alcoholism 12/12/2023 Alcohol withdrawal 12/12/2023 Stimulant dependence 12/12/2023 Tobacco dependence 12/12/2023 Obstructive sleep apnea 12/12/2023 Anxiety disorder 12/12/2023 Alcohol withdrawal delirium 12/12/2023 Family History Medical History Relation Name Comments Heart Disease Father Other-comment Father hiatal hernia Relation Name Status Comments Brother Alive Child Alive Father Mother Alive Social History Tobacco Use Types Packs/Day Years Used Date Smoking Tobacco: Former Cigarettes 0.5 20 Q uit: 11/04/2023 Smokeless Tobacco: Never Tobacco Cessation:Counseling Given: No Alcohol Use Standard Drinks/Week Comments Yes 0 (1 standard drink = 0.6 oz pur e alcohol) one pint on Saturdays [facility] Utilities Answer Date Recorded In the past 12 months has th e electric, gas, oil, or water company threatened to shut off services in your home? No 12/12/2023 PHQ-2 Answer Date Recorded Total Score - Questions 1-9 24 04/04 Hunger Vital Sign Answer Date Recorded Within the past 12 months, y ou worried that your food would run out before you got the money to buy more. Never true 12/12/19 24 Within the past 12 months, t he food you bought just didn't last and you didn't have money to get more. Never true 12/12/2023 PRAPARE - Transportation Answer Date Re corded In the past 12 months, has l ack of transportation kept you from medical appointments or from getting medications? No 06/2024 In the past 12 months, has l ack of transportation kept you from meetings, work, or from getting things needed for daily living? No 12/12/2023 Housing Stability Vital Sign Answer Toni e Recorded In the last 12 months, was t here a time when you were not able to pay the mortgage or rent on time? No 12/12/2023 In the last 12 months, how many places have you lived? 1 12/12/2023 In the last 12 months, was t here a time when you did not have a steady place to sleep or slept in a senior living (including now)? No 12/12/2023 Sexually Active Control Partners Comments Yes Comments No Sex and Gender Information Value Date Recorded Sex Assigned at Not on file Legal Sex Female 3:04 PM CDT Gender Identity Not on file Sexual Orientation Not on file Last Filed Vital Signs Vital Sign Reading Time Taken Comments Blood Pressure 132/74 04/13/2024 11:25 AM CDT Pulse 106 04/13/2024 11:25 AM CDT Temperature 36.8 C (98.2 F) 04/13/2024 11:25 AM CDT Respiratory Rate 18 04/13/2024 11:2 5 AM CDT Oxygen Saturation 98% 04/13/2024 11: 25 AM CDT Inhaled Oxygen Concentration - - Weight 109.8 kg (242 lb 1.6 oz) 024 11:25 AM CDT Height 175.3 cm (5' 9) 04/13/2024 11:2 5 AM CDT Body Mass Index 35.75 04/13/2024 11:25 AM CDT Plan of Treatment Health Maintenance Due Date Last Done Comments Hepatitis C Virus (HCV) Screening 1983 Mammogram 1983 Hepatitis B Immunization (1 of 3 - 19+ 3-dose series) 2002 Discussion re Starting/Frequency of Mammograms 2023 SARS-COV-2 Immunization ( season) 2024 10/05/2021, 02/23/2021, 02/02/2021 Influenza Immunization (Season Ended) 2025 08/07/2023, 10/05/2021, 06/26/2020, Additional history exists Respiratory Syncytial Virus (RSV) Immunization (Adult) (1 - 1-dose 75+ series) 2058 DTaP/Tdap/Td Immunization Discontinued 2021, 08/18/1997, 08/18/1997, Additional history exists TdaP Immunization Completed 12/13/2021, 08/18/1997 Human Papillomavirus (HPV) Immunization Aged Out No longer eligible based on patient's age to complete this topic Meningococcal Immunization (ACWY) Aged Out No longer eligible based on patient's age to complete this topic Pneumococcal Immunization Combined Aged Out No longer eligible based on patient's age to complete this topic Rotavirus Immunization Aged Out No lo nger eligible based on patient's age to complete this topic Insurance [place] Advance Directives * Full Code (Latest Code Status on File) Date Activated Date Inactivated Comments 12/12/2023 12:36 PM 12/16/2023 4:55 PM CPR-Full Robert atment: FULL ARREST: Attempt Resuscitation/CPR wit intubation and mechanical ventilation. PRE-ARREST: Use entire range of life support measures to stabilize the patient. * Full Code Date Activated Date Inactivated Comments 12/12/2023 12:23 PM 12/12/2023 12:36 PM CPR-Full Robert atment: FULL ARREST: Attempt Resuscitation/CPR wit intubation and mechanical ventilation. PRE-ARREST: Use entire range of life support measures to stabilize the patient. Care Teams Power Generation Turbine Room Operator Relationship Specialty Start Date End Date Soraida Bowden PA PCP - General Family Medicine 07/15/17
--- OUTSIDE RECORDS SUMMARY | 2025-04-12 13:53 | XMS_ITS | Encounter Summary ---
Author Organization [facility] Health Address [address] [facility] [place] [address] Care Team Providers Care Receiving Tank Operator Name Role Phone Anju Naik Primary Care Provider Soraida Ruiz Primary Care Pr ovider Reason for Visit * Reason Onset Date Comments MEDICATION REFILL 09/13/2023 Encounter Details Date Type Department Care Team (Late st Contact Info) Description 09/13/2023 Refill [facility] - Internal Med [address] [place] [address], [place] [address] Pancho Hurley MD [address] [place] [address] [place] [address] MEDICATION REFILL Social History Tobacco Use Types [...] on file Legal Sex Female 6:09 AM 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 Recent refill requests for this patient also list you as internal medicine? [employer] EX[employer]IVE [employer] SAL[employer] documented in this encounter Plan of Treatment Upcoming Encounters Date Type Department Care Team (Late st Contact Info) Description 06/18/2025 9:10 AM CDT Office Visit [facility] - Dermatology [address] [facility], [place] [address] Jinny Hale MD [address] [facility] [address]L [place] [address] documented as of this encounter Visit Diagnoses Diagnosis Migraine without aura and without status migrainosus, not intractable Migraine without aura, without mention of intractable migraine without mention of status migrainosus documented in this encounter Care Teams Receiving Tank Operator Relationship Specialty Start Date End Date Anju Naik, HAND RIGGER-A P MECHANIC [address] [facility] [address]L DIV OF [facility] [place] [address] PCP - General Nurse Practitioner Family 07/09/2301/03 Soraida Ruiz PA [address] [place] [id number] PCP - General Physician Patient Services Coordinator 01/28/25 documented as of this encounter
--- OUTSIDE RECORDS SUMMARY | 2025-04-12 13:53 | XMS_ITS | Encounter Summary ---
Author Organization [facility] Health Address [address] [facility] [place] [address] Care Team Providers Care Rim Turning Machine Operator Name Role Phone Anju Naik Primary Care Provider Soraida Ruiz Primary Care Pr ovider Reason for Visit * Reason Onset Date Comments MEDICATION REFILL 03/03/2024 Encounter Details Date Type Department Care Team (Late st Contact Info) Description 03/03/2024 Refill [facility] - Internal Med [address] [place] [address], [place] [address] Anju Naik APRN-DRAW MACHINE OPERATOR [address] [place] [address] OF [facility] [place] [address] MEDICATION REFILL Social History Tobacco Use Types [...] Date Recorded Patient Health Questionnaire-2 Score 6 01/30/2024 Comments No Sex and Gender Information Value Date Recorded Sex Assigned at Not on file Legal Sex Female 6:09 AM DIGITAL MARKETING ASSISTANT Gender Identity Not on file Sexual Orientation Not on file 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 Industry 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 Start 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 Showing future appointments within next 150 days with a meds authorizing provider and meeting all other requirements Last Refill: 09.14.23 Allergies: Allergies Allergen Reactions ??? Sulfa Drugs [...] by mouth every 4 hours as needed documented in this encounter Plan of Treatment Upcoming Encounters Date Type Department Care Team (Late st Contact Info) Description 06/18/2025 9:10 AM CDT Office Visit [facility] - Dermatology [address] [place] [address], [place] [phone] Jinny Hale MD [address] [place] [address] 3 [place] [address] documented as of this encounter Visit Diagnoses Not on filedocumented in this encounter Care Teams Rim Turning Machine Operator Relationship Specialty Start Date End Date Anju Naik APRN-CANDACE [address] [place] [address] 2L DIV OF [facility] [place] [address] PCP - General Nurse Practitioner Family 07/09/2301/03 Soraida Ruiz PA [address] [place] [address] PCP - General Physician Shell Freezing Machine Operator 01/28/25 documented as of this encounter
--- OUTSIDE RECORDS SUMMARY | 2025-04-12 13:53 | XMS_ITS | CONTINUITY OF CARE DOCUMENT ---
Author Name ana cristina de la paz Address Unknown Organization [facility] Address [address] [place] [address] [address] [place] [address] Phone [phone] Care Team Providers Care Administrative Officer Name Role Phone Kelly DELGADO, Sunil Unavailable RAFAEL GOFF Unavailable [phone] RAFAEL GOFF Unavailable PROBLEMS Condition Status Date Provider Notes Dyspnea on exertion active Amina Peres INSURANCE PROVIDERS Payer name Policy type / Coverage type [employer] party ID [place] Medicare [id number] [place] (2) Medicaid [id number] HISTORY OF PROCEDURES Procedure Date Procedure Name Provider Procedure Notes S tatus Regadenoson, 4 units Sunil Mendoza MD completed Cardiolite, 2 units Sunil Mendoza MD completed SPECT Images Sunil Mendoza MD comple gurjit Stress EKG Sunil Mendoza MD complete d
--- OUTSIDE RECORDS SUMMARY | 2025-04-12 13:53 | XMS_ITS | Data Portability ---
Author Organization [facility] Address [address] [facility] [place] [address] Care Team Providers Care Diagnostic Sales Specialist Name Role Phone CHAPINSORAIDA HAYDEN Primary Care Provider Unavailab le Assessment No assessment recorded. Plan of Treatment Reminders Order Date Submit Date Provider Last Modified By Organization Details Last Modified Time Details Appointments ANY 15 2024 09:00A Larry Oshea MD Not available Not available Not available Lab CBC w/ auto diff 2024 [facility]25 [email or web address] [address], [place], [address], 12/15/2024 11:27:25 CMP, serum or plasma 2024 025 [email or web address] [address], [place], [address], 12/15/2024 11:27:25 HbA1c (hemoglob in A1c), blood 2024 025 [facility] [address], [place], [address], 12/15/2024 11:27:25 vitamin B12 + folate, serum or blood 2024 025 [facility] [address], [place], [address], 12/15/2024 11:27:26 TSH + free T4, serum 2024 025 [email or web address] [address], [place], [address], 12/15/2024 11:27:26 magnesium , serum or plasma 2023 024 Not available 03/18/2024 14:48:24 CBC w/ auto diff 2023 024 Not available 03/18/2024 14:48:24 CMP, serum or plasma 2023 024 PATTIE Not available 03/13/2024 00:02:45 culture, urine 2023 024 PATTIE Not available 03/16/2024 08:29:35 urinalysi s, complete 2023 024 PATTIE Not available 03/13/2024 13:30:31 vitamin B12 + folate, serum or blood 2023 024 PATTIE Not available 03/13/2024 00:02:44 TSH + free T4, serum 2023 024 PATTIE Not available 03/13/2024 00:02:45 T3, free, serum or plasma 2023 024 Not available 03/18/2024 14:48:24 HbA1c (hemoglob in A1c), blood 2023 024 Not available 03/18/2024 14:48:24 lipid panel, serum 2023 024 PATTIE Not available 03/13/2024 00:02:45 Referral otolaryng ologist referral 2024 025 [email or web address] Jayesh Oshea MD, [address], [place], [address], 04/08/2025 14:31:09 urolog[address] [facility], [facility] [place], [address], 03/02/2025 16:44:40 dermatolo gist referral 2024 025 [facility], [address] [place], [address], 03/02/2025 16:44:40 pulmonolo gist referral 2023 024 mhlucy Sneed MD, [address] [place], [address], 07/28/2024 09:37:19 dermatolo gist referral 2023 024 [email or web address] Jose Maria Valencia MD, [address] [place], [address], 10/20/2024 10:54:31 podiatris t referral - pt was prior patient of dr. velazquez , has records with [facility]. 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 2023 024 David Jasso DPM, [address], [place], [address], 04/14/2024 16:54:24 EGD referral 2023 024 Mary Ellen Jin MD, [address] [facility], [facility], [place], [address], 07/12/2024 23:12:54 gastroent erologist referral 2023 024 PATTIE Jin MD, [address] [facility], [facility], [place], [address], 07/13/2024 12:50:18 Procedures None recorded. Surgeries None recorded. Imaging XR, chest, 2 view 2024 025 [email or web address], [address] [place] [address] , [address], [place], [address], 12/22/2024 13:11:13 MAMMO, screening , digital, bilateral 2023 024 Not available 02/24/2025 14:00:01 Medication Orders doxycycli ne hyclate 100 mg capsule 2024 025 [facility] [address] [facility], [place], [address], 12/31/2024 12:12:49 Medrol (Leandro) 4 mg tablets in a dose pack 2024 025 [facility] [address], [address] [facility], [place], [address], 04/05/2025 16:32:36 fluconazo le 150 mg tablet 2024 025 [facility] [address], [address] [facility], [place], [address], 12/31/2024 12:12:47 loratadin e 10 mg tablet 2024 025 [facility] [address], [address] [facility], [place], [address], 12/31/2024 12:12:50 albuterol sulfate HFA 90 mcg/actua tion aerosol inhaler 2024 025 [facility] [address], [address] [facility], [place], [address], 11/17/2024 16:12:40 amoxicill in 875 mg-potass ium clavulana te 125 mg tablet 2024 025 [facility] [address], [address] [facility], [place], [address], 12/31/2024 11:33:29 omeprazol e 40 mg capsule,d elayed release 2023 024 [facility] [address], [address] [facility], [place], [address], 06/16/2024 12:15:41 lidocaine 5 % topical cream 2023 024 [facility] [address], [address] [facility], [place], [address], 09/03/2024 16:01:34 cyanocoba chad (vit B-12) 1,000 mcg/mL injection solution 2023 024 [email or web address] Not available 12/31/2024 11:32:24 Macrobid 100 mg capsule [address] [facility] [address] [place], [address], 03/24/2024 18:21:49 triamcino lone acetonide 0.1 % topical cream 2023 024 [facility] [address] [place], [address], 02/19/2024 17:15:43 omeprazol e 40 mg capsule,d elayed release 2023 024 [facility] [address] [place], [address], 02/19/2024 17:15:39 azithromy sugar 250 mg tablet [address] [facility] [address] [place], [address], 03/24/2024 18:21:39 Diflucan 150 mg tablet 2023 024 [email or web address] [facility] [address] [place], [address], 12/31/2024 11:32:34 cyclobenz aprine 10 mg tablet [address] [facility] [address] [place], [address], 03/24/2024 18:24:02 lidocaine 5 % topical patch 2023 024 [facility] [address] [place], [address], 02/21/2024 18:00:39 Patient TargetsNo targets recorded. 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 velazquez, has records with [facility]. 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 Referring Physician: Soraida Bowden Internal Medicine, Encounter Date: 02/19/2024 Wire Stripper Referral for D isorder of nail Referring Physician: Soraida Bowden Internal Medicine, Encounter Date: 06/16/2024 Office Support Associate Referral for D yspnea Referring Physician: Soraida Bowden Internal Medicine, Encounter Date: 06/16/2024 Tank House Supervisor Referral fo r Cyst of nasal cavity Referring Physician: Soraida Bowden Internal Medicine, Encounter Date: 12/31/2024 Wire Stripper Referral for S kin lesion Referring Physician: Soraida Bowden Internal Medicine, Encounter Date: 12/31/2024 Urologist Referral for Incre ased frequency of urination Referring Physician: Soraida Bowden Internal Medicine, Encounter Date: 12/31/2024 Results Created Date Observation Date Name Description Value Unit Range Abnormal Flag Note LastModifiedBy Organization Detail LastModifiedTime 03/17/20 24 03/19/2024 [place] light chain s.gissel e/Haynes bda light chain s.gissel e [Mass Ratio ] in Serum kappa light chains.free [mass/volume ] in serum 23.5 mg/L low: 3.3mg/ Lhigh: 19.4mg /L high KAPPA FREE LIGHT CHAIN 23.5 (H) 3.3 - 19.4 mg/L 03/19 5:01 PM CDT [facility] Not Available Not Available 01/06/2025 10:29:15 03/17/20 24 03/19/2024 [place] light chain s.gissel e/Haynes bda light chain s.gissel e [Mass Ratio ] in Serum lambda light chains.free [mass/volume ] in serum or plasma 12.4 mg/L low: 5.7mg/ Lhigh: 26.3mg /L LAMBD A FREE LIGHT CHAIN 12.4 5.7 - 26.3 mg/L 03/19 5:01 PM CDT [facility]TIL LY Not Available Not Available 01/06/2025 10:29:15 03/17/20 24 03/19/2024 [place] light chain s.gissel e/Haynes bda light chain s.gissel e [Mass Ratio ] in Serum kappa light chains.free/ lambda light chains.free [mass ratio] in serum 1.9 low: 0.26hi gh: 1.65 high KAPPA /BARLOW DA FREE 1.90 (H) 0.26 - 1.65 03/19 5:01 PM CDT [facility] Not Available Not Available 01/06/2025 10:29:15 03/17/20 24 03/19/2024 [place] light chain s.gissel e/Haynes bda light chain s.gissel e [Mass Ratio ] in Serum interpretati on and review of laboratory results Abnorm al Not Available Not Available 10:29:15 03/17/20 24 03/17/2024 Folat e [Mass /volu me] in Serum or Plasm a folate [mass/volume ] in serum or plasma 19.6 text: 3.1 - 17.5 NG/mL high FOLAT E 19.6 (H) 3.1 - 17.5 NG/ML 03/17 1:44 PM CDT [facility] Not Available Not Available 01/06/2025 10:29:14 03/17/20 24 03/17/2024 Folat e [Mass /volu me] in Serum or Plasm a interpretati on and review of laboratory results Abnorm al Not Available Not Available 10:29:14 03/17/20 24 03/21/2024 Pyrid oxine [Mass /volu me] in Serum or Plasm a pyridoxine [mass/volume ] in serum or plasma 4.4 NG/mL low: 2.1NG/ mLhigh : 21.7NG /mL VITAM IN B6 S/P/B 4.4 2.1 - 21.7 ng/mL 03/21 1:52 PM CDT [facility] Not Available Not Available 01/06/2025 10:29:14 03/17/20 24 03/20/2024 Corrnie ine [Mole s/vol ume] in Serum or Plasm a thiamine [moles/volum e] in serum or plasma 13 nmol/ L low: 8nmol/ Lhigh: 30nmol /L VITAM IN B1 S/P/B 13 8 - 30 nmol/ L 03/20 1:14 PM CDT [facility] Not Available Not Available 01/06/2025 10:29:14 03/17/20 24 03/17/2024 Cobal garcia (Jael min B12) [Mass /volu me] in Serum or Plasm a cobalamin (vitamin B12) [mass/volume ] in serum or plasma 385 pg/mL low: 254pg/ mLhigh : 1320pg /mL VITAM IN B12 S/P/B 385 254 - 1,320 PG/ML 03/17 1:44 PM CDT [facility] Not Available Not Available 01/06/2025 10:29:14 04/15/20 24 04/15/2024 Phosp hate [Mass /volu me] in Serum or Plasm a phosphate [mass/volume ] in serum or plasma 3 text: 2.5 - 4.9 mg/dL PHOSP HORUS 3.0 2.5 - 4.9 MG/DL 04/15 3:30 PM CDT [facility] Not Available Not Available 02/15/2025 11:03:36 04/15/20 24 04/15/2024 Magne sium [Mass /volu me] in Serum or Plasm a magnesium [mass/volume ] in serum or plasma 1.3 text: 1.8 - 2.4 mg/dL low MAGNE SIUM 1.3 (L) 1.8 - 2.4 MG/DL 04/15 3:30 PM CDT [facility] Not Available Not Available 02/15/2025 11:03:36 04/15/20 24 04/15/2024 Magne sium [Mass /volu me] in Serum or Plasm a interpretati on and review of laboratory results Abnorm al Not Available Not Available 11:03:36 04/15/20 24 04/15/2024 Fibri n D-dim er FEU [Mass /volu me] in Plate let poor plasm a fibrin D-dimer feu [mass/volume ] in platelet poor plasma 534 NG{fe u}/mL low: 0NG{fe u}/mLh igh: 500NG{ feu}/m L critical high D-DIM ER 534 (HH) 0 - 500 ng{FE U}/mL 04/15 3:44 PM CDT [facility] Not Available Not Available 02/15/2025 11:03:36 04/15/20 24 04/15/2024 Fibri n D-dim er FEU [Mass /volu me] in Plate let poor plasm a interpretati on and review of laboratory results Abnorm al Not Available Not Available 11:03:36 04/15/20 24 04/15/2024 Compr ehens ifeanyi metab olic 1999 panel - Serum or Plasm a glucose [mass/volume ] in serum or plasma 96 text: 70 - 99 mg/dL GLUCO SE 96 70 - 99 MG/DL 04/15 3:30 PM CDT [facility] Not Available Not Available 02/15/2025 11:03:36 04/15/20 24 04/15/2024 Compr ehens ifeanyi metab olic 1999 panel - Serum or Plasm a urea nitrogen [mass/volume ] in serum or plasma 12 text: 7 - 18 mg/dL BUN 12 7 - 18 MG/DL 04/15 3:30 PM CDT [facility] Not Available Not Available 02/15/2025 11:03:36 04/15/20 24 04/15/2024 Compr ehens ifeanyi metab olic 1999 panel - Serum or Plasm a creatinine [mass/volume ] in serum or plasma 1.04 text: 0.55 - 1.02 mg/dL high CREAT ININE S/P/B 1.04 (H) 0.55 - 1.02 MG/DL 04/15 3:30 PM CDT [facility] Not Available Not Available 02/15/2025 11:03:36 04/15/20 24 04/15/2024 Compr ehens ifeanyi metab olic 1999 panel - Serum or Plasm a sodium [moles/volum e] in serum or plasma 136 text: 136 - 145 mmol/L SODIU M S/P/B 136 136 - 145 MMOL/ L 04/15 3:30 PM CDT [facility] Not Available Not Available 02/15/2025 11:03:36 04/15/20 24 04/15/2024 Compr ehens ifeanyi metab olic 1999 panel - Serum or Plasm a potassium [moles/volum e] in serum or plasma 3.3 text: 3.5 - 5.1 mmol/L low POTAS SIUM S/P/B 3.3 (L) 3.5 - 5.1 MMOL/ L 04/15 3:30 PM CDT [facility] Not Available Not Available 02/15/2025 11:03:36 04/15/20 24 04/15/2024 Compr ehens ifeanyi metab olic 2000 panel - Serum or Plasm a chloride [moles/volum e] in serum or plasma 106 text: 100 - 108 mmol/L CHLOR JENNIFER S/P/B 106 100 - 108 MMOL/ L 04/15 3:[address] [facility] Not Available Not Available 02/15/2025 11:03:36 04/15/20 24 04/15/2024 Compr ehens ifeanyi metab olic 2000 panel - Serum or Plasm a carbon dioxide, total [moles/volum e] in serum or plasma 22.8 text: 21 - 32 mmol/L CO2 22.8 21 - 32 MMOL/ L 04/15 3:30 PM CDT [facility] Not Available Not Available 02/15/2025 11:03:36 04/15/20 24 04/15/2024 Compr ehens ifeanyi metab olic 2000 panel - Serum or Plasm a calcium [mass/volume ] in serum or plasma 8.4 text: 8.5 - 10.1 mg/dL low CALCI UM S/P/B 8.4 (L) 8.5 - 10.1 MG/DL 04/15 3:30 PM CDT [facility] Not Available Not Available 02/15/2025 11:03:36 04/15/20 24 04/15/2024 Compr ehens ifeanyi metab olic 1999 panel - Serum or Plasm a bilirubin.to obed [mass/volume ] in serum or plasma 0.4 text: 0.2 - 1.2 mg/dL BILIR UBIN TOTAL S/P/B 0.4 0.2 - 1.2 MG/DL 04/15 3:30 PM CDT [facility] Not Available Not Available 02/15/2025 11:03:36 04/15/20 24 04/15/2024 Compr ehens ifeanyi metab olic 2000 panel - Serum or Plasm a protein [mass/volume ] in serum or plasma 6.7 text: 6.4 - 8.2 g/dL TOTAL PROTE IN S/P/B 6.7 6.4 - 8.2 G/DL 04/15 3:30 PM CDT [facility] Not Available Not Available 02/15/2025 11:03:36 04/15/20 24 04/15/2024 Compr ehens ifeanyi metab olic 2000 panel - Serum or Plasm a albumin [mass/volume ] in serum or plasma 3.2 text: 3.4 - 5.0 g/dL low ALBUM IN S/P/B 3.2 (L) 3.4 - 5.0 G/DL 04/15 3:30 PM CDT [facility] Not Available Not Available 02/15/2025 11:03:36 04/15/20 24 04/15/2024 Compr ehens ifeanyi metab olic 1999 panel - Serum or Plasm a aspartate aminotransfe rase [enzymatic activity/vol ume] in serum or plasma 18 U/L low: 15U/Lh igh: 37U/L AST 18 15 - 37 U/L 04/15 3:30 PM CDT [facility] Not Available Not Available 02/15/2025 11:03:36 04/15/20 24 04/15/2024 Compr ehens ifeanyi metab olic 1999 panel - Serum or Plasm a alanine aminotransfe rase [enzymatic activity/vol ume] in serum or plasma 18 U/L low: 14U/Lh igh: 55U/L ALT 18 14 - 55 U/L 04/15 3:30 PM CDT [facility] Not Available Not Available 02/15/2025 11:03:36 04/15/20 24 04/15/2024 Compr ehens ifeanyi metab olic 1999 panel - Serum or Plasm a alkaline phosphatase [enzymatic activity/vol ume] in serum or plasma 54 U/L low: 50U/Lh igh: 136U/L ALKAL INE PHOSP HATAS E S/P/B 54 50 - 136 U/L 04/15 3:30 PM CDT [facility] Not Available Not Available 02/15/2025 11:03:36 04/15/20 24 04/15/2024 Compr ehens ifeanyi metab olic 2000 panel - Serum or Plasm a anion gap in serum or plasma by calculation 7.2 text: 5 - 15 mmol/L ANION GAP 7.2 5 - 15 MMOL/ L 04/15 3:30 PM CDT [facility] Not Available Not Available 02/15/2025 11:03:36 04/15/20 24 04/15/2024 Compr ehens ifeanyi metab olic 1999 panel - Serum or Plasm a urea nitrogen/cre atinine [mass ratio] in serum or plasma 11.5 low: 6high: 26 BUN CREAT ININE RATIO 11.5 6 - 26 04/15 3:30 PM CDT [facility] Not Available Not Available 02/15/2025 11:03:36 04/15/20 24 04/15/2024 Compr ens ifeanyi metab olic 2000 panel - Serum or Plasm a albumin/glob ulin [mass ratio] in serum or plasma 0.9 text: 1.0 - 2.0 ratio low A/G RATIO 0.9 (L) 1.0 - 2.0 RATIO 04/15 3:30 PM CDT [facility] Not Available Not Available 02/15/2025 11:03:36 04/15/20 24 04/15/2024 Compr ehens ifeanyi metab olic 2000 panel - Serum or Plasm a glomerular filtration rate [volume rate/area] in serum, plasma or blood by creatinine-b ased formula (CKD-epi 2020)/1.73 sq M 70 text: >90 mL/min /1.73 M2 low GFR ESTIM ATE 70 (L) >90 ML/UT N/1.7 3 M2 04/15 3:30 PM CDT [facility] Not Available Not Available 02/15/2025 11:03:36 04/15/20 24 04/15/2024 Compr AJ Team Productsens ifeanyi metab olic 2000 panel - Serum or Plasm a interpretati on and review of laboratory results Abnorm al Not Available Not Available 11:03:36 04/15/20 24 04/15/2024 CBC W Auto Diffe nargis al panel - Blood leukocytes [#/volume] in blood by automated count 17.11 text: 4.5 - 11.0 x10'3/ uL high WBC 17.11 (H) 4.5 - 11.0 x10'3 /uL 04/15 2:52 PM CDT [facility] Not Available Not Available 02/15/2025 11:03:36 04/15/20 24 04/15/2024 CBC W Auto Diffe renti al panel - Blood erythrocytes [#/volume] in blood by automated count 4.4 text: 4.20 - 5.40 x10'6/ uL RBC 4.40 4.20 - 5.40 x10'6 /uL 04/15 2:52 PM CDT [facility] Not Available Not Available 02/15/2025 11:03:36 04/15/20 24 04/15/2024 CBC W Auto Diffe renti al panel - Blood hemoglobin [mass/volume ] in blood 12.9 text: 12.0 - 16.0 g/dL HGB 12.9 12.0 - 16.0 G/DL 04/15 2:52 PM CDT [facility] Not Available Not Available 02/15/2025 11:03:36 04/15/20 24 04/15/2024 CBC W Auto Diffe renti al panel - Blood hematocrit [volume fraction] of blood by calculation 39.8 % low: 38%hig h: 48% HCT 39.8 38.0 - 48.0 % 04/15 2:52 PM CDT [facility] Not Available Not Available 02/15/2025 11:03:36 04/15/20 24 04/15/2024 CBC W Auto Diffe renti al panel - Blood MCV [entitic mean volume] in red blood cells 90.5 text: 81.0 - 99.0 fL MCV 90.5 81.0 - 99.0 FL 04/15 2:52 PM CDT [facility] Not Available Not Available 02/15/2025 11:03:36 04/15/20 24 04/15/2024 CBC W Auto Diffe renti al panel - Blood MCH [entitic mass] 29.3 pg low: 27pghi gh: 31pg MCH 29.3 27.0 - 31.0 PG 04/15 2:52 PM CDT [facility] Not Available Not Available 02/15/2025 11:03:36 04/15/20 24 04/15/2024 CBC W Auto Diffe renti al panel - Blood MCHC [entitic mass/volume] in red blood cells 32.4 text: 32.0 - 36.0 g/dL MCHC 32.4 32.0 - 36.0 G/DL 04/15 2:52 PM CDT [facility] Not Available Not Available 02/15/2025 11:03:36 04/15/20 24 04/15/2024 CBC W Auto Diffe renti al panel - Blood RDW 16.4 % low: 11.5%h igh: 14.5% high RDW 16.4 (H) 11.5 - 14.5 % 04/15 2:52 PM CDT [facility] Not Available Not Available 02/15/2025 11:03:36 04/15/20 24 04/15/2024 CBC W Auto Diffe renti al panel - Blood platelets [#/volume] in blood 238 text: 130 - 400 x10'3/ uL PLT 238 130 - 400 x10'3 /uL 04/15 2:52 PM CDT [facility] Not Available Not Available 02/15/2025 11:03:36 04/15/20 24 04/15/2024 CBC W Auto Diffe renti al panel - Blood platelet [entitic mean volume] in blood 11.4 text: 9.3 - 12.2 fL MPV 11.4 9.3 - 12.2 FL 04/15 2:52 PM CDT [facility] Not Available Not Available 02/15/2025 11:03:36 04/15/20 24 04/15/2024 CBC W Auto Diffe renti al panel - Blood differential cell count method - blood AUTOMA BUCK DIFFER ENTIAL DIFFE RENTI AL TYPE AUTOM ATED DIFFE RENTI AL 04/15 2:52 PM CDT [facility] Not Available Not Available 02/15/2025 11:03:36 04/15/20 24 04/15/2024 CBC W Auto Diffe renti al panel - Blood neutrophils/ leukocytes in blood by automated count 85 % NEUTR OPHIL S 85.0 % 04/15 2:52 PM CDT [facility] Not Available Not Available 02/15/2025 11:03:36 04/15/20 24 04/15/2024 CBC W Auto Diffe renti al panel - Blood lymphocytes/ leukocytes in blood by automated count 10.6 % LYMPH OCYTE S 10.6 % 04/15 2:52 PM CDT [facility] Not Available Not Available 02/15/2025 11:03:36 04/15/20 24 04/15/2024 CBC W Auto Diffe renti al panel - Blood monocytes/le ukocytes in blood by automated count 3.6 % MONOC YTES 3.6 % 04/15 2:52 PM CDT [facility] Not Available Not Available 02/15/2025 11:03:36 04/15/20 24 04/15/2024 CBC W Auto Diffe renti al panel - Blood eosinophils/ leukocytes in blood by automated count 0 % EOSIN OPHIL S 0.0 % 04/15 2:52 PM CDT [facility] Not Available Not Available 02/15/2025 11:03:36 04/15/20 24 04/15/2024 CBC W Auto Diffe renti al panel - Blood basophils/le ukocytes in blood by automated count 0.3 % BASOP HILS 0.3 % 04/15 2:52 PM CDT [facility] Not Available Not Available 02/15/2025 11:03:36 04/15/20 24 04/15/2024 CBC W Auto Diffe renti al panel - Blood immature granulocytes /leukocytes in blood by automated count 0.5 % IMMAT URE GRANS 0.5 % 04/15 2:52 PM CDT [facility] Not Available Not Available 02/15/2025 11:03:36 04/15/20 24 04/15/2024 CBC W Auto Diffe renti al panel - Blood neutrophils [#/volume] in blood 14.55 text: 1.80 - 7.70 x10'3/ uL high ABS. NEUTR OPHIL S 14.55 (H) 1.80 - 7.70 x10'3 /uL 04/15 2:52 PM CDT [facility] Not Available Not Available 02/15/2025 11:03:36 04/15/20 24 04/15/2024 CBC W Auto Diffe renti al panel - Blood lymphocytes [#/volume] in blood 1.82 text: 1.00 - 4.80 x10'3/ uL ABS. LYMPH OCYTE S 1.82 1.00 - 4.80 x10'3 /uL 04/15 2:52 PM CDT [facility] Not Available Not Available 02/15/2025 11:03:36 04/15/20 24 04/15/2024 CBC W Auto Diffe renti al panel - Blood monocytes [#/volume] in blood 0.61 text: 0.24 - 0.86 x10'3/ uL ABS. MONOC YTES 0.61 0.24 - 0.86 x10'3 /uL 04/15 2:52 PM CDT [facility] Not Available Not Available 02/15/2025 11:03:36 04/15/20 24 04/15/2024 CBC W Auto Diffe renti al panel - Blood eosinophils [#/volume] in blood 0 text: 0.04 - 0.36 x10'3/ uL low ABS. EOSIN OPHIL S 0.00 (L) 0.04 - 0.36 x10'3 /uL 04/15 2:52 PM CDT [facility] Not Available Not Available 02/15/2025 11:03:36 04/15/20 24 04/15/2024 CBC W Auto Diffe renti al panel - Blood basophils [#/volume] in blood 0.05 text: 0.01 - 0.08 x10'3/ uL ABS. BASOP HILS 0.05 0.01 - 0.08 x10'3 /uL 04/15 2:52 PM CDT [facility] Not Available Not Available 02/15/2025 11:03:36 04/15/20 24 04/15/2024 CBC W Auto Diffe renti al panel - Blood immature granulocytes [#/volume] in blood 0.08 text: 0.00 - 0.49 x10'3/ uL ABS. IMMAT URE GRANU LOCYT ES 0.08 0.00 - 0.49 x10'3 /uL 04/15 2:52 PM CDT [facility] Not Available Not Available 02/15/2025 11:03:36 04/15/20 24 04/15/2024 CBC W Auto Diffe renti al panel - Blood interpretati on and review of laboratory results Abnorm al Not Available Not Available 11:03:36 04/15/20 24 04/15/2024 Urina lysis dipst ick W Refle x Micro scopi c panel - Urine collection method - specimen URINE CLEAN CATCH Speci men Type URINE CLEAN CATCH 04/15 1:59 PM CDT [facility] Not Available Not Available 02/15/2025 11:03:36 04/15/20 24 04/15/2024 Urina lysis dipst ick W Refle x Micro scopi c panel - Urine color of urine YELLOW COLOR (U) YELLO W 04/15 2:24 PM CDT [facility] Not Available Not Available 02/15/2025 11:03:36 04/15/20 24 04/15/2024 Urina lysis dipst ick W Refle x Micro scopi c panel - Urine clarity of urine CLEAR TRANS PAREN CY CLEAR 04/15 2:24 PM CDT [facility] [facility] Not Available Not Available 02/15/2025 11:03:36 04/15/20 24 04/15/2024 Urina lysis dipst ick W Refle x Micro scopi c panel - Urine specific gravity of urine 1.024 low: 1.001h igh: 1.03 SPECI FIC GRAVI TY (U) 1.024 1.001 - 1.030 04/15 2:24 PM CDT [facility] Not Available Not Available 02/15/2025 11:03:36 04/15/20 24 04/15/2024 Urina lysis dipst ick W Refle x Micro scopi c panel - Urine pH of urine 6 low: 5high: 9 U PH 6.0 5.0 - 9.0 04/15 2:24 PM CDT [facility] Not Available Not Available 02/15/2025 11:03:36 04/15/20 24 04/15/2024 Urina lysis dipst ick W Refle x Micro scopi c panel - Urine leukocytes [#/volume] in urine by test strip NEGATI VE text: negati ve LEUKO CYTES (U) NEGAT IFEANYI NEGAT IFEANYI 04/15 2:24 PM CDT [facility] Not Available Not Available 02/15/2025 11:03:36 04/15/20 24 04/15/2024 Urina lysis dipst ick W Refle x Micro scopi c panel - Urine nitrite [presence] in urine NEGATI VE text: negati ve NITRI BENJAMIN NEGAT IFEANYI NEGAT IFEANYI 04/15 2:24 PM CDT [facility] Not Available Not Available 02/15/2025 11:03:36 04/15/20 24 04/15/2024 Urina lysis dipst ick W Refle x Micro scopi c panel - Urine protein [mass/volume ] in urine by test strip 10 text: <30 mg/dL PROTE IN RANDO M (U) 10 <30 MG/DL 04/15 2:24 PM CDT [facility] Not Available Not Available 02/15/2025 11:03:36 04/15/20 24 04/15/2024 Urina lysis dipst ick W Refle x Micro scopi c panel - Urine glucose [mass/volume ] in urine NORMAL text: normal mg/dL GLUCO SE (U) RAMSEY L RAMSEY L MG/DL 04/15 2:24 PM CDT [facility] Not Available Not Available 02/15/2025 11:03:36 04/15/20 24 04/15/2024 Urina lysis dipst ick W Refle x Micro scopi c panel - Urine ketones [mass/volume ] in urine by test strip NEGATI VE text: negati ve mg/dL KETON ES (U) NEGAT IFEANYI NEGAT IFEANYI MG/DL 04/15 2:24 PM CDT [facility] Not Available Not Available 02/15/2025 11:03:36 04/15/20 24 04/15/2024 Urina lysis dipst ick W Refle x Micro scopi c panel - Urine urobilinogen [units/volum e] in urine by test strip NORMAL text: normal mg/dL UROBI LINOG EN RAMSEY L RAMSEY L MG/DL 04/15 2:24 PM CDT [facility] Not Available Not Available 02/15/2025 11:03:36 04/15/20 24 04/15/2024 Urina lysis dipst ick W Refle x Micro scopi c panel - Urine bilirubin.to obed [mass/volume ] in urine NEGATI VE text: negati ve mg/dL BILIR UBIN (U) NEGAT IFEANYI NEGAT IFEANYI MG/DL 04/15 2:24 PM CDT [facility] Not Available Not Available 02/15/2025 11:03:36 04/15/20 24 04/15/2024 Urina lysis dipst ick W Refle x Micro scopi c panel - Urine erythrocytes [#/volume] in urine by automated test strip NEGATI VE text: negati ve BLOOD (U) NEGAT IFEANYI NEGAT IFEANYI 04/15 2:24 PM CDT [facility] Not Available Not Available 02/15/2025 11:03:36 04/15/20 24 04/15/2024 Influ mehnaz virus A+B Ag [Pres ence] in Speci men specimen source identified NASAL Speci men Type NASAL 04/15 2:07 PM CDT [facility] Not Available Not Available 02/15/2025 11:03:36 04/15/20 24 04/15/2024 Influ mehnaz virus A+B Ag [Pres ence] in Speci men influenza virus A Ag [presence] in specimen NEGATI VE text: negati ve INFLU MEHNAZ A NEGAT IFEANYI NEGAT IFEANYI 04/15 2:36 PM CDT [facility] Not Available Not Available 02/15/2025 11:03:36 04/15/20 24 04/15/2024 Influ mehnaz virus A+B Ag [Pres ence] in Speci men haemophilus influenzae B Ag [presence] in specimen NEGATI VE text: negati ve INFLU MEHNAZ B NEGAT IFEANYI NEGAT IFEANYI 04/15 2:36 PM CDT [facility] Not Available Not Available 02/15/2025 11:03:36 04/16/20 24 04/21/2024 Bacte charlotte ident ified in Blood by Cultu re specimen source identified BLOOD SPEC DESCR IPTIO N BLOOD 04/16 1:34 PM CDT [facility] Not Available Not Available 02/15/2025 11:03:37 04/16/20 24 04/21/2024 Bacte charlotte ident ified in Blood by Cultu re service comment NO SPECIA L REQUES T SPECI AL REQUE STS NO SPECI AL REQUE ST 04/16 1:34 PM CDT [facility] Not Available Not Available 02/15/2025 11:03:37 04/16/20 24 04/21/2024 Bacte charlotte ident ified in Blood by Cultu re bacteria identified in specimen by culture NO GROWTH 5 DAYS CULTU RE RESUL T NO GROWT H 5 DAYS 04/21 6:43 AM CDT [facility] Not Available Not Available 02/15/2025 11:03:37 04/16/20 24 04/21/2024 Bacte charlotte ident ified in Blood by Cultu re specimen source identified BLOOD SPEC DESCR IPTIO N BLOOD 04/16 1:34 PM CDT [facility] Not Available Not Available 02/15/2025 11:03:37 04/16/20 24 04/21/2024 Bacte charlotte ident ified in Blood by Cultu re service comment NO SPECIA L REQUES T SPECI AL REQUE STS NO SPECI AL REQUE ST 04/16 1:34 PM CDT [facility] Not Available Not Available 02/15/2025 11:03:37 04/16/20 24 04/21/2024 Bacte charlotte ident ified in Blood by Cultu re bacteria identified in specimen by culture NO GROWTH 5 DAYS CULTU RE RESUL T NO GROWT H 5 DAYS 04/21 6:43 AM CDT [facility] Not Available Not Available 02/15/2025 11:03:37 04/16/20 24 04/16/2024 Lacta te [Mole s/vol ume] in Serum or Plasm a lactate [moles/volum e] in serum or plasma 2.1 text: 0.4 - 2.0 mmol/L high LACTI C ACID VENOU S 2.1 (H) 0.4 - 2.0 MMOL/ L 04/16 12:23 PM CDT [facility] Not Available Not Available 02/15/2025 11:03:37 04/16/20 24 04/16/2024 Lacta te [Mole s/vol ume] in Serum or Plasm a interpretati on and review of laboratory results Abnorm al Not Available Not Available 11:03:37 04/16/20 24 04/16/2024 Basic metab olic 1999 panel - Serum or Plasm a glucose [mass/volume ] in serum or plasma 97 text: 70 - 99 mg/dL GLUCO SE 97 70 - 99 MG/DL 04/16 6:14 AM T [facility] Not Available Not Available 02/15/2025 11:03:37 04/16/20 24 04/16/2024 Basic metab olic 1999 panel - Serum or Plasm a urea nitrogen [mass/volume ] in serum or plasma 10 text: 7 - 18 mg/dL BUN 10 7 - 18 MG/DL 04/16 6:14 AM T [facility] Not Available Not Available 02/15/2025 11:03:37 04/16/20 24 04/16/2024 Basic metab olic 2000 panel - Serum or Plasm a creatinine [mass/volume ] in serum or plasma 0.88 text: 0.55 - 1.02 mg/dL CREAT ININE S/P/B 0.88 0.55 - 1.02 MG/DL 04/16 6:14 AM T [facility] Not Available Not Available 02/15/2025 11:03:37 04/16/20 24 04/16/2024 Basic metab olic 2000 panel - Serum or Plasm a sodium [moles/volum e] in serum or plasma 142 text: 136 - 145 mmol/L SODIU M S/P/B 142 136 - 145 MMOL/ L 04/16 6:14 AM CDT [facility] Not Available Not Available 02/15/2025 11:03:37 04/16/20 24 04/16/2024 Basic metab olic 2000 panel - Serum or Plasm a potassium [moles/volum e] in serum or plasma 3.5 text: 3.5 - 5.1 mmol/L POTAS SIUM S/P/B 3.5 3.5 - 5.1 MMOL/ L 04/16 6:14 AM T [facility] Not Available Not Available 02/15/2025 11:03:37 04/16/20 24 04/16/2024 Basic metab olic 2000 panel - Serum or Plasm a chloride [moles/volum e] in serum or plasma 113 text: 100 - 108 mmol/L high CHLOR JENNIFER S/P/B 113 (H) 100 - 108 MMOL/ L 04/16 6:14 AM T [facility] Not Available Not Available 02/15/2025 11:03:37 04/16/20 24 04/16/2024 Basic metab olic 1999 panel - Serum or Plasm a carbon dioxide, total [moles/volum e] in serum or plasma 23.9 text: 21 - 32 mmol/L CO2 23.9 21 - 32 MMOL/ L 04/16 6:14 AM T [facility] Not Available Not Available 02/15/2025 11:03:37 04/16/20 24 04/16/2024 Basic metab olic 2000 panel - Serum or Plasm a calcium [mass/volume ] in serum or plasma 7.8 text: 8.5 - 10.1 mg/dL low CALCI UM S/P/B 7.8 (L) 8.5 - 10.1 MG/DL 04/16 6:14 AM T [facility] Not Available Not Available 02/15/2025 11:03:37 04/16/20 24 04/16/2024 Basic metab olic 1999 panel - Serum or Plasm a anion gap in serum or plasma by calculation 5.1 text: 5 - 15 mmol/L ANION GAP 5.1 5 - 15 MMOL/ L 04/16 6:14 AM T [facility] Not Available Not Available 02/15/2025 11:03:37 04/16/20 24 04/16/2024 Basic metab olic 2000 panel - Serum or Plasm a urea nitrogen/cre atinine [mass ratio] in serum or plasma 11.4 low: 6high: 26 BUN CREAT ININE RATIO 11.4 6 - 26 04/16 6:14 AM CDT [facility] Not Available Not Available 02/15/2025 11:03:37 04/16/20 24 04/16/2024 Basic metab olic 2000 panel - Serum or Plasm a glomerular filtration rate [volume rate/area] in serum, plasma or blood by creatinine-b ased formula (CKD-epi 2020)/1.73 sq M 85 text: >90 mL/min /1.73 M2 low GFR ESTIM ATE 85 (L) >90 ML/UT N/1.7 3 M2 04/16 6:14 AM CDT [facility] Not Available Not Available 02/15/2025 11:03:37 04/16/20 24 04/16/2024 Basic metab olic 2000 panel - Serum or Plasm a interpretati on and review of laboratory results Abnorm al Not Available Not Available 11:03:37 04/16/20 24 04/16/2024 CBC W Auto Diffe renti al panel - Blood leukocytes [#/volume] in blood by automated count 8.12 text: 4.5 - 11.0 x10'3/ uL WBC 8.12 4.5 - 11.0 x10'3 /uL 04/16 5:46 AM CDT [facility] Not Available Not Available 02/15/2025 11:03:36 04/16/20 24 04/16/2024 CBC W Auto Diffe renti al panel - Blood erythrocytes [#/volume] in blood by automated count 3.57 text: 4.20 - 5.40 x10'6/ uL low RBC 3.57 (L) 4.20 - 5.40 x10'6 /uL 04/16 5:46 AM CDT [facility] Not Available Not Available 02/15/2025 11:03:36 04/16/20 24 04/16/2024 CBC W Auto Diffe renti al panel - Blood hemoglobin [mass/volume ] in blood 10.6 text: 12.0 - 16.0 g/dL low HGB 10.6 (L) 12.0 - 16.0 G/DL 04/16 5:46 AM CDT [facility] Not Available Not Available 02/15/2025 11:03:36 04/16/20 24 04/16/2024 CBC W Auto Diffe renti al panel - Blood hematocrit [volume fraction] of blood by calculation 34 % low: 38%hig h: 48% low HCT 34.0 (L) 38.0 - 48.0 % 04/16 5:46 AM CDT [facility] Not Available Not Available 02/15/2025 11:03:36 04/16/20 24 04/16/2024 CBC W Auto Diffe renti al panel - Blood MCV [entitic mean volume] in red blood cells 95.2 text: 81.0 - 99.0 fL MCV 95.2 81.0 - 99.0 FL 04/16 5:46 AM CDT [facility] Not Available Not Available 02/15/2025 11:03:36 04/16/20 24 04/16/2024 CBC W Auto Diffe renti al panel - Blood MCH [entitic mass] 29.7 pg low: 27pghi gh: 31pg MCH 29.7 27.0 - 31.0 PG 04/16 5:46 AM CDT [facility] Not Available Not Available 02/15/2025 11:03:36 04/16/20 24 04/16/2024 CBC W Auto Diffe renti al panel - Blood MCHC [entitic mass/volume] in red blood cells 31.2 text: 32.0 - 36.0 g/dL low MCHC 31.2 (L) 32.0 - 36.0 G/DL 04/16 5:46 AM CDT [facility] Not Available Not Available 02/15/2025 11:03:36 04/16/20 24 04/16/2024 CBC W Auto Diffe renti al panel - Blood RDW 16.7 % low: 11.5%h igh: 14.5% high RDW 16.7 (H) 11.5 - 14.5 % 04/16 5:46 AM CDT [facility] Not Available Not Available 02/15/2025 11:03:36 04/16/20 24 04/16/2024 CBC W Auto Diffe renti al panel - Blood platelets [#/volume] in blood 191 text: 130 - 400 x10'3/ uL PLT 191 130 - 400 x10'3 /uL 04/16 5:46 AM CDT [facility] Not Available Not Available 02/15/2025 11:03:36 04/16/20 24 04/16/2024 CBC W Auto Diffe renti al panel - Blood platelet [entitic mean volume] in blood 11.4 text: 9.3 - 12.2 fL MPV 11.4 9.3 - 12.2 FL 04/16 5:46 AM CDT [facility] Not Available Not Available 02/15/2025 11:03:36 04/16/20 24 04/16/2024 CBC W Auto Diffe renti al panel - Blood differential cell count method - blood AUTOMA BUCK DIFFER ENTIAL DIFFE RENTI AL TYPE AUTOM ATED DIFFE RENTI AL 04/16 5:46 AM CDT [facility] Not Available Not Available 02/15/2025 11:03:36 04/16/20 24 04/16/2024 CBC W Auto Diffe renti al panel - Blood neutrophils/ leukocytes in blood by automated count 55.8 % NEUTR OPHIL S 55.8 % 04/16 5:46 AM CDT [facility] Not Available Not Available 02/15/2025 11:03:36 04/16/20 24 04/16/2024 CBC W Auto Diffe renti al panel - Blood lymphocytes/ leukocytes in blood by automated count 38.1 % LYMPH OCYTE S 38.1 % 04/16 5:46 AM CDT [facility] Not Available Not Available 02/15/2025 11:03:36 04/16/20 24 04/16/2024 CBC W Auto Diffe renti al panel - Blood monocytes/le ukocytes in blood by automated count 5.3 % MONOC YTES 5.3 % 04/16 5:46 AM CDT [facility] Not Available Not Available 02/15/2025 11:03:36 04/16/20 24 04/16/2024 CBC W Auto Diffe renti al panel - Blood eosinophils/ leukocytes in blood by automated count 0 % EOSIN OPHIL S 0.0 % 04/16 5:46 AM CDT [facility] Not Available Not Available 02/15/2025 11:03:36 04/16/20 24 04/16/2024 CBC W Auto Diffe renti al panel - Blood basophils/le ukocytes in blood by automated count 0.4 % BASOP HILS 0.4 % 04/16 5:46 AM CDT [facility] Not Available Not Available 02/15/2025 11:03:36 04/16/20 24 04/16/2024 CBC W Auto Diffe renti al panel - Blood immature granulocytes /leukocytes in blood by automated count 0.4 % IMMAT URE GRANS 0.4 % 04/16 5:46 AM CDT [facility] Not Available Not Available 02/15/2025 11:03:36 04/16/20 24 04/16/2024 CBC W Auto Diffe renti al panel - Blood neutrophils [#/volume] in blood 4.54 text: 1.80 - 7.70 x10'3/ uL ABS. NEUTR OPHIL S 4.54 1.80 - 7.70 x10'3 /uL 04/16 5:46 AM CDT [facility] Not Available Not Available 02/15/2025 11:03:36 04/16/20 24 04/16/2024 CBC W Auto Diffe renti al panel - Blood lymphocytes [#/volume] in blood 3.09 text: 1.00 - 4.80 x10'3/ uL ABS. LYMPH OCYTE S 3.09 1.00 - 4.80 x10'3 /uL 04/16 5:46 AM CDT [facility] Not Available Not Available 02/15/2025 11:03:36 04/16/20 24 04/16/2024 CBC W Auto Diffe renti al panel - Blood monocytes [#/volume] in blood 0.43 text: 0.24 - 0.86 x10'3/ uL ABS. MONOC YTES 0.43 0.24 - 0.86 x10'3 /uL 04/16 5:46 AM CDT [facility] Not Available Not Available 02/15/2025 11:03:36 04/16/20 24 04/16/2024 CBC W Auto Diffe renti al panel - Blood eosinophils [#/volume] in blood 0 text: 0.04 - 0.36 x10'3/ uL low ABS. EOSIN OPHIL S 0.00 (L) 0.04 - 0.36 x10'3 /uL 04/16 5:46 AM CDT [facility] Not Available Not Available 02/15/2025 11:03:36 04/16/20 24 04/16/2024 CBC W Auto Diffe renti al panel - Blood basophils [#/volume] in blood 0.03 text: 0.01 - 0.08 x10'3/ uL ABS. BASOP HILS 0.03 0.01 - 0.08 x10'3 /uL 04/16 5:46 AM CDT [facility] Not Available Not Available 02/15/2025 11:03:36 04/16/20 24 04/16/2024 CBC W Auto Diffe renti al panel - Blood immature granulocytes [#/volume] in blood 0.03 text: 0.00 - 0.49 x10'3/ uL ABS. IMMAT URE GRANU LOCYT ES 0.03 0.00 - 0.49 x10'3 /uL 04/16 5:46 AM CDT [facility] Not Available Not Available 02/15/2025 11:03:36 04/16/20 24 04/16/2024 CBC W Auto Diffe nargis bryant panel - Blood interpretati on and review of laboratory results Geo bryant Not Available Not Available 11:03:36 04/16/20 24 04/16/2024 Thyro tropi n [Unit s/vol ume] in Serum or Plasm a thyrotropin [units/volum e] in serum or plasma 2.38 text: 0.358 - 3.74 uIU/mL TSH 2.380 0.358 - 3.74 uIU/M L 04/16 6:14 AM CDT [facility] Not Available Not Available 02/15/2025 11:03:36 04/17/20 24 04/17/2024 Lacta te [Mole s/vol ume] in Serum or Plasm a lactate [moles/volum e] in serum or plasma 1.4 text: 0.4 - 2.0 mmol/L LACTI C ACID VENOU S 1.4 0.4 - 2.0 MMOL/ L 04/17 10:59 AM CDT [facility] Not Available Not Available 02/15/2025 11:03:37 04/17/20 24 04/17/2024 Basic metab olic 2000 panel - Serum or Plasm a glucose [mass/volume ] in serum or plasma 102 text: 70 - 99 mg/dL high GLUCO SE 102 (H) 70 - 99 MG/DL 04/17 8:53 AM CDT [facility] Not Available Not Available 02/15/2025 11:03:37 04/17/20 24 04/17/2024 Basic metab olic 2000 panel - Serum or Plasm a urea nitrogen [mass/volume ] in serum or plasma 11 text: 7 - 18 mg/dL BUN 11 7 - 18 MG/DL 04/17 8:53 AM CDT [facility] Not Available Not Available 02/15/2025 11:03:37 04/17/20 24 04/17/2024 Basic metab olic 1999 panel - Serum or Plasm a creatinine [mass/volume ] in serum or plasma 0.93 text: 0.55 - 1.02 mg/dL CREAT ININE S/P/B 0.93 0.55 - 1.02 MG/DL 04/17 8:53 AM CDT [facility] Not Available Not Available 02/15/2025 11:03:37 04/17/20 24 04/17/2024 Basic metab olic 1999 panel - Serum or Plasm a sodium [moles/volum e] in serum or plasma 143 text: 136 - 145 mmol/L SODIU M S/P/B 143 136 - 145 MMOL/ L 04/17 8:53 AM CDT [facility] Not Available Not Available 02/15/2025 11:03:37 04/17/20 24 04/17/2024 Basic metab olic 1999 panel - Serum or Plasm a potassium [moles/volum e] in serum or plasma 3.7 text: 3.5 - 5.1 mmol/L POTAS SIUM S/P/B 3.7 3.5 - 5.1 MMOL/ L 04/17 8:53 AM CDT [facility] Not Available Not Available 02/15/2025 11:03:37 04/17/20 24 04/17/2024 Basic metab olic 1999 panel - Serum or Plasm a chloride [moles/volum e] in serum or plasma 118 text: 100 - 108 mmol/L high CHLOR JENNIFER S/P/B 118 (H) 100 - 108 MMOL/ L 04/17 8:53 AM CDT [facility] Not Available Not Available 02/15/2025 11:03:37 04/17/20 24 04/17/2024 Basic metab olic 1999 panel - Serum or Plasm a carbon dioxide, total [moles/volum e] in serum or plasma 18.9 text: 21 - 32 mmol/L low CO2 18.9 (L) 21 - 32 MMOL/ L 04/17 8:53 AM CDT [facility] Not Available Not Available 02/15/2025 11:03:37 04/17/20 24 04/17/2024 Basic metab olic 2000 panel - Serum or Plasm a calcium [mass/volume ] in serum or plasma 8.5 text: 8.5 - 10.1 mg/dL CALCI UM S/P/B 8.5 8.5 - 10.1 MG/DL 04/17 8:53 AM T [facility] Not Available Not Available 02/15/2025 11:03:37 04/17/20 24 04/17/2024 Basic metab olic 2000 panel - Serum or Plasm a anion gap in serum or plasma by calculation 6.1 text: 5 - 15 mmol/L ANION GAP 6.1 5 - 15 MMOL/ L 04/17 8:53 AM T [facility] Not Available Not Available 02/15/2025 11:03:37 04/17/20 24 04/17/2024 Basic metab olic 2000 panel - Serum or Plasm a urea nitrogen/cre atinine [mass ratio] in serum or plasma 11.8 low: 6high: 26 BUN CREAT ININE RATIO 11.8 6 - 26 04/17 8:53 AM [facility] Not Available Not Available 02/15/2025 11:03:37 04/17/20 24 04/17/2024 Basic metab olic 2000 panel - Serum or Plasm a glomerular filtration rate [volume rate/area] in serum, plasma or blood by creatinine-b ased formula (CKD-epi 2020)/1.73 sq M 80 text: >90 mL/min /1.73 M2 low GFR ESTIM ATE 80 (L) >90 ML/UT N/1.7 3 M2 04/17 8:53 AM [facility] Not Available Not Available 02/15/2025 11:03:37 04/17/20 24 04/17/2024 Basic metab olic 2000 panel - Serum or Plasm a interpretati on and review of laboratory results Abnorm al Not Available Not Available 11:03:37 04/17/20 24 04/17/2024 CBC W Auto Diffe renti al panel - Blood leukocytes [#/volume] in blood by automated count 6.89 text: 4.5 - 11.0 x10'3/ uL WBC 6.89 4.5 - 11.0 x10'3 /uL 04/17 8:29 AM CDT [facility] Not Available Not Available 02/15/2025 11:03:37 04/17/20 24 04/17/2024 CBC W Auto Diffe renti al panel - Blood erythrocytes [#/volume] in blood by automated count 3.69 text: 4.20 - 5.40 x10'6/ uL low RBC 3.69 (L) 4.20 - 5.40 x10'6 /uL 04/17 8:29 AM CDT [facility] Not Available Not Available 02/15/2025 11:03:37 04/17/20 24 04/17/2024 CBC W Auto Diffe renti al panel - Blood hemoglobin [mass/volume ] in blood 10.9 text: 12.0 - 16.0 g/dL low HGB 10.9 (L) 12.0 - 16.0 G/DL 04/17 8:29 AM CDT [facility] Not Available Not Available 02/15/2025 11:03:37 04/17/20 24 04/17/2024 CBC W Auto Diffe renti al panel - Blood hematocrit [volume fraction] of blood by calculation 35 % low: 38%hig h: 48% low HCT 35.0 (L) 38.0 - 48.0 % 04/17 8:29 AM CDT [facility] Not Available Not Available 02/15/2025 11:03:37 04/17/20 24 04/17/2024 CBC W Auto Diffe renti al panel - Blood MCV [entitic mean volume] in red blood cells 94.9 text: 81.0 - 99.0 fL MCV 94.9 81.0 - 99.0 FL 04/17 8:29 AM CDT [facility] Not Available Not Available 02/15/2025 11:03:37 04/17/20 24 04/17/2024 CBC W Auto Diffe renti al panel - Blood MCH [entitic mass] 29.5 pg low: 27pghi gh: 31pg MCH 29.5 27.0 - 31.0 PG 04/17 8:29 AM CDT [facility] Not Available Not Available 02/15/2025 11:03:37 04/17/20 24 04/17/2024 CBC W Auto Diffe renti al panel - Blood MCHC [entitic mass/volume] in red blood cells 31.1 text: 32.0 - 36.0 g/dL low MCHC 31.1 (L) 32.0 - 36.0 G/DL 04/17 8:29 AM CDT [facility] Not Available Not Available 02/15/2025 11:03:37 04/17/20 24 04/17/2024 CBC W Auto Diffe renti al panel - Blood RDW 16.7 % low: 11.5%h igh: 14.5% high RDW 16.7 (H) 11.5 - 14.5 % 04/17 8:29 AM CDT [facility] Not Available Not Available 02/15/2025 11:03:37 04/17/20 24 04/17/2024 CBC W Auto Diffe renti al panel - Blood platelets [#/volume] in blood 178 text: 130 - 400 x10'3/ uL PLT 178 130 - 400 x10'3 /uL 04/17 8:29 AM CDT [facility] Not Available Not Available 02/15/2025 11:03:37 04/17/20 24 04/17/2024 CBC W Auto Diffe renti al panel - Blood platelet [entitic mean volume] in blood 11.4 text: 9.3 - 12.2 fL MPV 11.4 9.3 - 12.2 FL 04/17 8:29 AM CDT [facility] Not Available Not Available 02/15/2025 11:03:37 04/17/20 24 04/17/2024 CBC W Auto Diffe renti al panel - Blood differential cell count method - blood AUTOMA BUCK DIFFER ENTIAL DIFFE RENTI AL TYPE AUTOM ATED DIFFE RENTI AL 04/17 8:29 AM CDT [facility] Not Available Not Available 02/15/2025 11:03:37 04/17/20 24 04/17/2024 CBC W Auto Diffe renti al panel - Blood neutrophils/ leukocytes in blood by automated count 51.6 % NEUTR OPHIL S 51.6 % 04/17 8:29 AM CDT [facility] Not Available Not Available 02/15/2025 11:03:37 04/17/20 24 04/17/2024 CBC W Auto Diffe renti al panel - Blood lymphocytes/ leukocytes in blood by automated count 41.8 % LYMPH OCYTE S 41.8 % 04/17 8:29 AM CD[facility] Not [facility] Not Available 02/15/2025 11:03:37 04/17/20 24 04/17/2024 CBC W Auto Diffe renti al panel - Blood monocytes/le ukocytes in blood by automated count 5.7 % MONOC YTES 5.7 % 04/17 8:29 AM CDT [facility] Not Available Not Available 02/15/2025 11:03:37 04/17/20 24 04/17/2024 CBC W Auto Diffe renti al panel - Blood eosinophils/ leukocytes in blood by automated count 0 % EOSIN OPHIL S 0.0 % 04/17 8:29 AM CDT [facility] Galleg[facility] Not Available Not Available 02/15/2025 11:03:37 04/17/20 24 04/17/2024 CBC W Auto Diffe renti al panel - Blood basophils/le ukocytes in blood by automated count 0.6 % BASOP HILS 0.6 % 04/17 8:29 AM CDT [facility] Not Available Not Available 02/15/2025 11:03:37 04/17/20 24 04/17/2024 CBC W Auto Diffe renti al panel - Blood immature granulocytes /leukocytes in blood by automated count 0.3 % IMMAT URE GRANS 0.3 % 04/17 8:29 AM CDT [facility] Not Available Not Available 02/15/2025 11:03:37 04/17/20 24 04/17/2024 CBC W Auto Diffe renti al panel - Blood neutrophils [#/volume] in blood 3.56 text: 1.80 - 7.70 x10'3/ uL ABS. NEUTR OPHIL S 3.56 1.80 - 7.70 x10'3 /uL 04/17 8:29 AM CDT [facility] Not Available Not Available 02/15/2025 11:03:37 04/17/20 24 04/17/2024 CBC W Auto Diffe renti al panel - Blood lymphocytes [#/volume] in blood 2.88 text: 1.00 - 4.80 x10'3/ uL ABS. LYMPH OCYTE S 2.88 1.00 - 4.80 x10'3 /uL 04/17 8:29 AM CDT [facility] Not Available Not Available 02/15/2025 11:03:37 04/17/20 24 04/17/2024 CBC W Auto Diffe renti al panel - Blood monocytes [#/volume] in blood 0.39 text: 0.24 - 0.86 x10'3/ uL ABS. MONOC YTES 0.39 0.24 - 0.86 x10'3 /uL 04/17 8:29 AM CDT [facility] Not Available Not Available 02/15/2025 11:03:37 04/17/20 24 04/17/2024 CBC W Auto Diffe renti al panel - Blood eosinophils [#/volume] in blood 0 text: 0.04 - 0.36 x10'3/ uL low ABS. EOSIN OPHIL S 0.00 (L) 0.04 - 0.36 x10'3 /uL 04/17 8:29 AM CDT [facility] Not Available Not Available 02/15/2025 11:03:37 04/17/20 24 04/17/2024 CBC W Auto Diffe renti al panel - Blood basophils [#/volume] in blood 0.04 text: 0.01 - 0.08 x10'3/ uL ABS. BASOP HILS 0.04 0.01 - 0.08 x10'3 /uL 04/17 8:29 AM CDT [facility] Not Available Not Available 02/15/2025 11:03:37 04/17/20 24 04/17/2024 CBC W Auto Diffe renti al panel - Blood immature granulocytes [#/volume] in blood 0.02 text: 0.00 - 0.49 x10'3/ uL ABS. IMMAT URE GRANU LOCYT ES 0.02 0.00 - 0.49 x10'3 /uL 04/17 8:29 AM CDT [facility] Not Available Not Available 02/15/2025 11:03:37 04/17/20 24 04/17/2024 CBC W Auto Diffe renti al panel - Blood interpretati on and review of laboratory results Abnorm al Not Available Not Available 11:03:37 04/18/20 24 04/18/2024 CBC W Auto Diffe renti al panel - Blood leukocytes [#/volume] in blood by automated count 7.41 text: 4.5 - 11.0 x10'3/ uL WBC 7.41 4.5 - 11.0 x10'3 /uL 04/18 6:10 AM CDT [facility] Not Available Not Available 02/15/2025 11:03:37 04/18/20 24 04/18/2024 CBC W Auto Diffe renti al panel - Blood erythrocytes [#/volume] in blood by automated count 3.67 text: 4.20 - 5.40 x10'6/ uL low RBC 3.67 (L) 4.20 - 5.40 x10'6 /uL 04/18 6:10 AM CDT [facility] Not Available Not Available 02/15/2025 11:03:37 04/18/20 24 04/18/2024 CBC W Auto Diffe renti al panel - Blood hemoglobin [mass/volume ] in blood 10.8 text: 12.0 - 16.0 g/dL low HGB 10.8 (L) 12.0 - 16.0 G/DL 04/18 6:10 AM CDT [facility] Not Available Not Available 02/15/2025 11:03:37 04/18/20 24 04/18/2024 CBC W Auto Diffe nargis al panel - Blood hematocrit [volume fraction] of blood by calculation 35 % low: 38%hig h: 48% low HCT 35.0 (L) 38.0 - 48.0 % 04/18 6:10 AM CDT [facility] Not Available Not Available 02/15/2025 11:03:37 04/18/20 24 04/18/2024 CBC W Auto Diffe desiti al panel - Blood MCV [entitic mean volume] in red blood cells 95.4 text: 81.0 - 99.0 fL MCV 95.4 81.0 - 99.0 FL 04/18 6:10 AM CDT [facility] Not Available Not Available 02/15/2025 11:03:37 04/18/20 24 04/18/2024 CBC W Auto Diffe nargis al panel - Blood MCH [entitic mass] 29.4 pg low: 27pghi gh: 31pg MCH 29.4 27.0 - 31.0 PG 04/18 6:10 AM CDT [facility] Not Available Not Available 02/15/2025 11:03:37 04/18/20 24 04/18/2024 CBC W Auto Diffe renti al panel - Blood MCHC [entitic mass/volume] in red blood cells 30.9 text: 32.0 - 36.0 g/dL low MCHC 30.9 (L) 32.0 - 36.0 G/DL 04/18 6:10 AM CDT [facility] Not Available Not Available 02/15/2025 11:03:37 04/18/20 24 04/18/2024 CBC W Auto Diffe renti al panel - Blood RDW 16.8 % low: 11.5%h igh: 14.5% high RDW 16.8 (H) 11.5 - 14.5 % 04/18 6:10 AM CDT [facility] Not Available Not Available 02/15/2025 11:03:37 04/18/20 24 04/18/2024 CBC W Auto Diffe renti al panel - Blood platelets [#/volume] in blood 145 text: 130 - 400 x10'3/ uL PLT 145 130 - 400 x10'3 /uL 04/18 6:10 AM CDT [facility] Not Available Not Available 02/15/2025 11:03:37 04/18/20 24 04/18/2024 CBC W Auto Diffe renti al panel - Blood platelet [entitic mean volume] in blood 11.6 text: 9.3 - 12.2 fL MPV 11.6 9.3 - 12.2 FL 04/18 6:10 AM CDT [facility] Not Available Not Available 02/15/2025 11:03:37 04/18/20 24 04/18/2024 CBC W Auto Diffe renti al panel - Blood differential cell count method - blood AUTOMA BUCK DIFFER ENTIAL DIFFE RENTI AL TYPE AUTOM ATED DIFFE RENTI AL 04/18 6:11 AM CDT [facility] Not Available Not Available 02/15/2025 11:03:37 04/18/20 24 04/18/2024 CBC W Auto Diffe renti al panel - Blood neutrophils/ leukocytes in blood by automated count 48 % NEUTR OPHIL S 48.0 % 04/18 6:11 AM CDT [facility] Not Available Not Available 02/15/2025 11:03:37 04/18/20 24 04/18/2024 CBC W Auto Diffe renti al panel - Blood lymphocytes/ leukocytes in blood by automated count 46.3 % LYMPH OCYTE S 46.3 % 04/18 6:11 AM CDT [facility] Not Available Not Available 02/15/2025 11:03:37 04/18/20 24 04/18/2024 CBC W Auto Diffe renti al panel - Blood monocytes/le ukocytes in blood by automated count 4.9 % MONOC YTES 4.9 % 04/18 6:11 AM CDT [facility] Not Available Not Available 02/15/2025 11:03:37 04/18/20 24 04/18/2024 CBC W Auto Diffe renti al panel - Blood eosinophils/ leukocytes in blood by automated count 0.1 % EOSIN OPHIL S 0.1 % 04/18 6:11 AM T [facility] Not Available Not Available 02/15/2025 11:03:37 04/18/20 24 04/18/2024 CBC W Auto Diffe renti al panel - Blood basophils/le ukocytes in blood by automated count 0.4 % BASOP HILS 0.4 % 04/18 6:11 AM CDT [facility] Not Available Not Available 02/15/2025 11:03:37 04/18/20 24 04/18/2024 CBC W Auto Diffe renti al panel - Blood immature granulocytes /leukocytes in blood by automated count 0.3 % IMMAT URE GRANS 0.3 % 04/18 6:11 AM T [facility] Not Available Not Available 02/15/2025 11:03:37 04/18/20 24 04/18/2024 CBC W Auto Diffe renti al panel - Blood neutrophils [#/volume] in blood 3.56 text: 1.80 - 7.70 x10'3/ uL ABS. NEUTR OPHIL S 3.56 1.80 - 7.70 x10'3 /uL 04/18 6:11 AM CDT [facility] Not Available Not Available 02/15/2025 11:03:37 04/18/20 24 04/18/2024 CBC W Auto Diffe renti al panel - Blood lymphocytes [#/volume] in blood 3.43 text: 1.00 - 4.80 x10'3/ uL ABS. LYMPH OCYTE S 3.43 1.00 - 4.80 x10'3 /uL 04/18 6:11 AM CDT [facility] Not Available Not Available 02/15/2025 11:03:37 04/18/20 24 04/18/2024 CBC W Auto Diffe renti al panel - Blood monocytes [#/volume] in blood 0.36 text: 0.24 - 0.86 x10'3/ uL ABS. MONOC YTES 0.36 0.24 - 0.86 x10'3 /uL 04/18 6:11 AM CDT [facility] Not Available Not Available 02/15/2025 11:03:37 04/18/20 24 04/18/2024 CBC W Auto Diffe renti al panel - Blood eosinophils [#/volume] in blood 0.01 text: 0.04 - 0.36 x10'3/ uL low ABS. EOSIN OPHIL S 0.01 (L) 0.04 - 0.36 x10'3 /uL 04/18 6:11 AM CDT [facility] Not Available Not Available 02/15/2025 11:03:37 04/18/20 24 04/18/2024 CBC W Auto Diffe renti al panel - Blood basophils [#/volume] in blood 0.03 text: 0.01 - 0.08 x10'3/ uL ABS. BASOP HILS 0.03 0.01 - 0.08 x10'3 /uL 04/18 6:11 AM CDT [facility] Not Available Not Available 02/15/2025 11:03:37 04/18/20 24 04/18/2024 CBC W Auto Diffe renti al panel - Blood immature granulocytes [#/volume] in blood 0.02 text: 0.00 - 0.49 x10'3/ uL ABS. IMMAT URE GRANU LOCYT ES 0.02 0.00 - 0.49 x10'3 /uL 04/18 6:11 AM CDT [facility] Not Available Not Available 02/15/2025 11:03:37 04/18/20 24 04/18/2024 CBC W Auto Diffe renti al panel - Blood erythrocytes [morphology] in blood by automated count RBC MORPHO LOGY APPEAR S NORMAL . SLIDE REVIEW ED. RBC MORPH OLOGY RBC MORPH OLOGY APPEA RS RAMSEY Dan SLIDE REVIE WED. 04/18 6:11 AM CDT [facility] Not Available Not Available 02/15/2025 11:03:37 04/18/20 24 04/18/2024 CBC W Auto Diffe renti al panel - Blood platelets [#/volume] in blood by automated count ADEQUA TE PLT EST. ADEQU ATE 04/18 6:11 AM CDT [facility] Not Available Not Available 02/15/2025 11:03:37 04/18/20 24 04/18/2024 CBC W Auto Diffe renti al panel - Blood interpretati on and review of laboratory results Abnorm al Not Available Not Available 11:03:37 04/18/20 24 04/18/2024 Basic metab olic 2000 panel - Serum or Plasm a glucose [mass/volume ] in serum or plasma 117 text: 70 - 99 mg/dL high GLUCO SE 117 (H) 70 - 99 MG/DL 04/18 5:59 AM CDT [facility] Not Available Not Available 02/15/2025 11:03:37 04/18/20 24 04/18/2024 Basic metab olic 1999 panel - Serum or Plasm a urea nitrogen [mass/volume ] in serum or plasma 12 text: 7 - 18 mg/dL BUN 12 7 - 18 MG/DL 04/18 5:59 AM CDT [facility] Not Available Not Available 02/15/2025 11:03:37 04/18/20 24 04/18/2024 Basic metab olic 1999 panel - Serum or Plasm a creatinine [mass/volume ] in serum or plasma 0.9 text: 0.55 - 1.02 mg/dL CREAT ININE S/P/B 0.90 0.55 - 1.02 MG/DL 04/18 5:59 AM CDT [facility] Not Available Not Available 02/15/2025 11:03:37 04/18/20 24 04/18/2024 Basic metab olic 1999 panel - Serum or Plasm a sodium [moles/volum e] in serum or plasma 140 text: 136 - 145 mmol/L SODIU M S/P/B 140 136 - 145 MMOL/ L 04/18 5:59 AM CDT [facility] Not Available Not Available 02/15/2025 11:03:37 04/18/20 24 04/18/2024 Basic metab olic 1999 panel - Serum or Plasm a potassium [moles/volum e] in serum or plasma 3.5 text: 3.5 - 5.1 mmol/L POTAS SIUM S/P/B 3.5 3.5 - 5.1 MMOL/ L 04/18 5:59 AM CDT [facility] Not Available Not Available 02/15/2025 11:03:37 04/18/20 24 04/18/2024 Basic metab olic 1999 panel - Serum or Plasm a chloride [moles/volum e] in serum or plasma 116 text: 100 - 108 mmol/L high CHLOR JENNIFER S/P/B 116 (H) 100 - 108 MMOL/ L 04/18 5:59 AM CDT [facility] Not Available Not Available 02/15/2025 11:03:37 04/18/20 24 04/18/2024 Basic metab olic 2000 panel - Serum or Plasm a carbon dioxide, total [moles/volum e] in serum or plasma 15.8 text: 21 - 32 mmol/L low CO2 15.8 (L) 21 - 32 MMOL/ L 04/18 5:59 AM CDT [facility] Not Available Not Available 02/15/2025 11:03:37 04/18/20 24 04/18/2024 Basic metab olic 1999 panel - Serum or Plasm a calcium [mass/volume ] in serum or plasma 8.8 text: 8.5 - 10.1 mg/dL CALCI UM S/P/B 8.8 8.5 - 10.1 MG/DL 04/18 5:59 AM T [facility] Not Available Not Available 02/15/2025 11:03:37 04/18/20 24 04/18/2024 Basic metab olic 2000 panel - Serum or Plasm a anion gap in serum or plasma by calculation 8.2 text: 5 - 15 mmol/L ANION GAP 8.2 5 - 15 MMOL/ L 04/18 5:59 AM T [facility] Not Available Not Available 02/15/2025 11:03:37 04/18/20 24 04/18/2024 Basic metab olic 2000 panel - Serum or Plasm a urea nitrogen/cre atinine [mass ratio] in serum or plasma 13.4 low: 6high: 26 BUN CREAT ININE RATIO 13.4 6 - 26 04/18 5:59 AM T [facility] Not Available Not Available 02/15/2025 11:03:37 04/18/20 24 04/18/2024 Basic metab olic 2000 panel - Serum or Plasm a glomerular filtration rate [volume rate/area] in serum, plasma or blood by creatinine-b ased formula (CKD-epi 2020)/1.73 sq M 83 text: >90 mL/min /1.73 M2 low GFR ESTIM ATE 83 (L) >90 ML/UT N/1.7 3 M2 04/18 5:59 AM CDT [facility] Not Available Not Available 02/15/2025 11:03:37 04/18/20 24 04/18/2024 Basic metab olic 2000 panel - Serum or Plasm a interpretati on and review of laboratory results Abnorm al Not Available Not Available 11:03:37 06/19/20 24 06/19/2024 Plate lets [#/vo lume] in Blood platelets [#/volume] in blood 224 text: 130 - 400 x10'3/ uL PLT 224 130 - 400 x10'3 /uL 06/19 9:01 AM CDT [facility] Not Available Not Available 12/31/2024 10:28:59 06/19/20 24 06/19/2024 Plate lets [#/vo lume] in Blood platelet mean volume [entitic volume] in blood 10.6 text: 9.3 - 12.2 fL MPV 10.6 9.3 - 12.2 FL 06/19 9:01 AM CDT [facility] Not Available Not Available 12/31/2024 10:28:59 06/19/20 24 06/19/2024 aPTT in Plate let poor plasm a by Coagu latio n assay APTT in platelet poor plasma by coagulation assay 25.8 text: 25.1 - 36.5 sec PTT 25.8 25.1 - 36.5 SEC 06/19 9:15 AM CDT [facility] Not Available Not Available 12/31/2024 10:28:59 06/19/20 24 06/19/2024 Proth rombi n time (PT) prothrombin time (PT) 9.4 text: 10.2 - 12.9 sec low PROTI ME 9.4 (L) 10.2 - 12.9 SEC 06/19 9:15 AM CDT [facility] Not Available Not Available 12/31/2024 10:28:59 06/19/20 24 06/19/2024 Proth rombi n time (PT) INR in platelet poor plasma by coagulation assay 0.8 INR 0.8 06/19 9:15 AM CDT [facility] Not Available Not Available 12/31/2024 10:28:59 06/19/20 24 06/19/2024 Proth rombi n time (PT) interpretati on and review of laboratory results Abnorm al Not Available Not Available 10:28:59 03/03/20 24 03/03/2024 nerve condu ction study No observ ation record ed. Not Available 2023 17:04:21 03/17/20 24 03/17/2024 elect roenc ephal ogram (EEG) (PROC ) No observ ation record ed. Not Available 2023 23:11:05 03/17/20 24 03/17/2024 CT, tempo ral bone, w/o contr ast No observ ation record ed. [facility] [address] [place], [address], 03/19/2024 23:11:21 03/20/20 24 03/20/2024 US, pelvi s, limit ed No observ ation record ed. [facility] [address] [place], [address], 03/21/2024 10:56:40 04/15/[address] CT, head, w/o contr ast [facility] [place] [address] EXAMIN ATION: CT of the head CLINIC AL HISTOR Y: Headac he COMPAR AIDEE: MRI 024 TECHNI QUE: CT examin ation of the head withou t contra st was perfor med with axial images obtain ed. A radiat ion dose loweri ng techni que was used for this proced ure, which may includ e, but is not limite d to, dose reduct ion techni que, automa buck exposu re contro l, the use of iterat ifeanyi recons tructi on, ALARA (As Low As [...] reted By: Igor Coughlin MD, 9:15 PM [facility] [address] [facility], [place], [address], 04/16/2024 16:29:53 05/18/20 24 05/13/2024 CT, abdom en + pelvi s, w/o contr ast No observ ation record ed. [facility] [address], [place], [address], 05/19/2024 18:04:05 06/03/20 24 06/03/2024 XR, chest , 2 view No observ ation record ed. [address], [address], 06/03/2024 17:52:29 06/19/20 24 06/19/2024 lumba r punct ure (PROC ) No observ ation record ed. [email or web address]: Pulmonology [address] [facility], [place], [address], 06/19/2024 16:07:12 06/28/20 24 06/28/2024 XR, chest , 2 view No observ ation record ed. [facility] [address] [place], [address], 06/28/2024 16:35:31 07/27/20 24 07/23/2024 PFT, compl ete No observ ation record ed. [facility] [address] [place], [address], 07/28/2024 09:37:11 07/28/20 24 06/22/2024 home sleep study No observ ation record ed. [facility] [facility] [address] [facility], [place], [address], 07/28/2024 12:28:20 07/29/20 24 07/29/2024 MRI, lumba r spine , w/o contr ast No observ ation record ed. [address] [place], [address], 08/06/2024 13:56:59 07/29/20 24 07/29/2024 MRI, thora cic spine , w/o contr ast No observ ation record ed. [address] [place], [address], 08/06/2024 13:56:59 09/15/20 24 08/25/2024 audio logic asses sment (PROC ) No observ ation record ed. [email or web address] [place] [address] [address], [place], [address], 09/15/2024 18:33:11 11/24/19 25 11/23/2024 XR, chest , 2 view No observ ation record ed. PATTIE [facility] [address], [place], [address], 11/30/2024 15:11:29 12/09/19 25 12/08/2024 MR, venog kaylie, brain , w/wo contr ast No observ ation record ed. [address], [place], [address], 12/11/2024 00:35:31 Result Notes None recorded. Problems Name Problem SNOMED Code Status Onset Date Resolution Date Notes Provider Name and Address Organization Details Recorded Time Hiatal hernia with gastroesophage al reflux 636355199 Active 2023 ALYSSA Campos Attn: Deion duque,[address] [place], [address], [place] - [facility] 4 19:53:56 Exocrine pancreatic insufficiency 04839167 Active 2023 ALYSSA Campos Attn: Deion duque,[address] [place], [address], [place] [facility] 4 19:53:58 Lower urinary tract symptoms 321567740 Active 2023 ALYSSA Campos Attn: Deion duque,[address] [place], [address], [place] - [facility] 4 19:53:59 Hypomagnesemia 030065245 Active 2023 ALYSSA Campos Attn: Deion duque,[address] [place], [address], [place] [facility] 4 19:54:01 Fatigue 45337645 Active 2023 ALYSSA Campos Attn: Deion duque,[address] [place], [address], [place] [facility] 4 19:54:02 Muscle tension pain 742822040 Active 2023 ALYSSA Campos Attn: Miguelrob duque,[address] [place], [address], [place] [facility] 4 19:54:03 Body mass index 30+ - obesity 925479166 Active 2024 Rudy Jason [place] null, [place] - [facility] 5 11:35:14 Obesity 487170160 Active 2024 ALYSSA Campos Attn: Deion neto,[address] [place], [address], [place] [facility] 5 21:52:51 Cyst of nasal cavity 832032182 Active 2024 ALYSSA Campos Attn: Deion duque,[address] [place], [address], [place] [facility] 5 21:53:01 Increased frequency of urination 117509043 Active 2024 ALYSSA Campos Attn: Deion duque,[address] [place], [address], [place] [facility] 5 21:53:22 Skin lesion 91703741 Active 2024 ALYSSA Campos Attn: Deion duque,[address] [place], [address], [place] [facility] 5 21:53:23 Long-term drug therapy Active 2024 ALYSSA Campos Attn: Deion duque,[address] [place], [address], [place] - [facility] 5 21:53:43 Problem Notes None recorded. Procedures Surgical History Date Name Laterality Status Provider Name and Address Organization Details Recorded Time colonoscopy completed Libby Vera [place] - [facility] 08/03/2024 17:02:22 Imaging Results None recorded. Procedure Notes None recorded. Medical Equipment None Reported. Allergies Allergen ID Allergen Name Allergen Category Reaction Reaction Severity Criticality Documentation Date Start Date Code Code System Note Provider Name and Address Organization Details Recorded Time 558044 Substance with sulfonami de structure and antibacte rial mechanism of action (substanc e) medicatio n Not available Not available Not available 02/19/2024 [id number] SNOMED ALYSSA Campos Attn: Deion neto,[address] [facility], [place], [address], [facility] - [facility] 16:48:43 Medications Name Sig Start Date Stop Date [...] Not Available No t Available azithromy sugar 250 mg tablet TAKE [...] Available fluconazo le 150 mg tablet TAKE ONE TABLET BY MOUTH ON DAYS 1 AND 3 OF ANTIBIOT IC active Not Available Not Available No t [...] Not Available clonazepa m 1 mg tablet Take 1 tablet every day by oral route for 30 days. active Not Available Not Available No t Available metronida zole 500 mg tablet TAKE 1 TABLET BY MOUTH EVERY 12 HOURS FOR 7 DAYS (DO NOT DRINK ALCOHOL WHILE TAKING THIS ANTIBIOT IC) active Not Available Not Available No t Available acyclovir 400 mg tablet TAKE ONE TABLET BY MOUTH THREE TIMES DAILY FOR 7 DAYS, THEN TWICE DAILY FOR THE REST OF THE MONTH active Not Available Not Available No t Available omeprazol e 40 mg capsule,d elayed release Take 1 capsule by mouth once daily 2024 active Not Available Not Available Not Avai lable tramadol 50 mg tablet Take 1 tablet every 6 hours by oral route as needed. 2024 active Not Available Not Available Not Avai lable triamcino lone acetonide 0.1 % topical cream [...] No t Available baclofen 10 mg tablet Take 1 tablet by mouth three times daily as needed 2024 active Not Available Not Available Not Avai lable nortripty line 75 mg capsule TAKE 1 CAPSULE BY MOUTH NIGHTLY AT BEDTIME active Not Available Not Available No t Available hydrocodo ne 7.5 mg-acetam inophen 325 mg tablet 06/16 completed Not Available Not Available Not Available cyanocoba chad (vit B-12) 1,000 mcg/mL injection solution INJECT 1 ML SUBCUTAN EOUSLY ONCE EVERY MONTH 2024 active Not Available Not Available Not Avai lable Prozac 20 mg capsule Take 1 capsule [...] gauge x 1 USE MONTHLY DIRECTED active needs refilled Not Available Not Available Not Available gabapenti n 300 mg capsule TAKE 2 CAPSULES BY MOUTH THREE TIMES DAILY active Not Available Not Available No t Available folic acid 1 mg tablet TAKE 1 TABLET BY MOUTH ONCE DAILY 02/18 completed Not Available Not Available Not Available monteluka st 10 mg tablet Take 1 tablet by mouth once daily 2024 active Not Available Not Available Not Avai lable hydroxyzi ne HCl 25 mg tablet TAKE [...] BY MOUTH DIRECTED ON INSIDE OF PACKAGE 04/05 completed Not Available Not Available Not Available albuterol sulfate HFA 90 mcg/actua tion aerosol inhaler INHALE 2 PUFFS BY MOUTH EVERY 4 TO 6 HOURS NEEDED active Not Available Not Available No t Available ondansetr on 4 mg disintegr ating tablet DISSOLVE 1 TABLET IN MOUTH EVERY 8 HOURS NEEDED FOR NAUSEA 11/17 completed Not Available Not Available Not Available cefdinir 300 mg capsule TAKE 1 CAPSULE BY MOUTH TWICE DAILY FOR 3 DAYS 04/29 completed Not Available Not Available Not Available topiramat e 100 mg tablet Take 1 tablet every day [...] completed Not Available Not Available Not Available loratadin e 10 mg tablet TAKE 1 TABLET BY MOUTH ONCE DAILY active Not Available Not Available No t Available prazosin 2 mg capsule TAKE 1 CAPSULE BY MOUTH AT BEDTIME FOR 90 DAYS active Not Available Not Available No t Available naproxen 500 mg tablet TAKE 1 TABLET BY MOUTH TWICE DAILY WITH FOOD NEEDED active Not Available Not Available No t Available amoxicill in 875 mg-potass ium clavulana te 125 mg tablet TAKE 1 TABLET BY MOUTH EVERY 12 HOURS 12/31 completed Not Available Not Available Not Available buspirone 15 mg tablet Take 1 tablet every day by oral route for 90 days. active Not Available Not Available No [...] Available Vyepti 100 mg/mL intraveno us solution Inject 300 mg every 3 months by intraven . route for 84 days. active Not Available Not Available No t Available Qulipta 60 mg tablet TAKE 1 TABLET BY MOUTH ONCE DAILY active Not Available Not Available No t Available Zenpep 60,000-18 9,600-252 ,600 unit capsule,d elayed release TAKE 1 CAPSULE BY MOUTH PER MEAL active Not Available Not Available No t Available Vitals Date Recorded Body height Respiratory rate Oxygen saturation Oxygen saturation in Arterial blood by Pulse oximetry Heart rate Systolic blood pressure Diastolic blood pressure Provider Name and Address Organization Details Last Updated DateTime 5 175.26 cm 20 /min 99 % 99 % 90 /min 110 mm[Hg] 72 mm[Hg] Rudy Jason MA [facility] 15:26:36 Date Recorded Body height Provider Name an d Address Organization Details Last Updated DateTime 12/21/2024 175.26 cm Rudy Jason MA [facility] 2024 12:57:29 Date Recorded Body height Body mass index (BMI) Body weight Respiratory rate Oxygen saturation Oxygen saturation in Arterial blood by Pulse oximetry Heart rate Systolic blood pressure Diastolic blood pressure Provider Name and Address Organization Details Last Updated DateTime 175.26 cm 36.9 kg/m2 615966. 09 g 20 /min 99 % 99 % 85 /min 118 mm[Hg] 82 mm[Hg] Rudy Jason MA [facility] 11:37:00 Date Recorded Body height Body mass index (BMI) Body weight Oxygen saturation Oxygen saturation in Arterial blood by Pulse oximetry Heart rate Systolic blood pressure Diastolic blood pressure Provider Name and Address Organization Details Last Updated DateTime 4 175.26 cm 35.7 kg/m2 447269. 35 g 98 % 98 % 100 /min 126 mm[Hg] 88 mm[Hg] Rudy Jason MA [facility] 16:34:45 Date Recorded Systolic blood pressure Diastolic blood pressure Provider Name and Address Organization Details Last Updated DateTime 06/16/2024 100 mm[Hg] 70 mm[Hg] ALYSSA Campos Attn: Accounting,[address] [place], [address], [facility] 06/16/2024 12:15:05 Date Recorded Body height Body mass index (BMI) Body weight Respiratory rate Oxygen saturation Oxygen saturation in Arterial blood by Pulse oximetry Heart rate Systolic blood pressure Diastolic blood pressure Provider Name and Address Organization Details Last Updated DateTime 175.26 cm 35.5 kg/m2 759861. 6 g 20 /min 100 % 100 % 83 /min 128 mm[Hg] 82 mm[Hg] Rudy Jason [place] - [facility] 11:45:52 Social History Question Answer Notes LastModified by Organizat ion Details LastModified Time Tobacco Smoking Status Former Smoker Rudy Jason MA null, [place] - [place] 02/19/2024 16:25:59 Do You Have An Advance Directive? No Information not available 02/19/2024 Are You Blind [...] You Following? REGULAR Information not available 02/19/2024 Are There Any Guns Present In Your Home? No Information not available 02/19/2024 What Was The Date Of Your Most Recent Tobacco Screening? 12/31/2024 Information not available 12/31/2024 What Is Your Current Pack Years? 10-19packyea rs Information not available 02/19/2024 Do You Use Your Seat Belt Or Car Seat Routinely? Yes Information not available 02/19/2024 Do You Have Smoke And Carbon Monoxide Detectors In Your Home? No Information not available 02/19/2024 How Much Tobacco Do You Smoke? No Information not available 12/31/2024 Do You Use Sunscreen Routinely? No Information not available 02/19/2024 Has Tobacco Cessation Counseling Been Provided? Yes Information not available 02/19/2024 On What Date Was Tobacco Cessation Counseling Provided? 12/31/2024 Information not available 12/31/2024 Sex: Female Functional Status Question Answer Note LastModified by Organizat ion Details LastModified Time Do you use any illicit or recreational drugs? No Information not available 02/19/2024 Do you or have you ever used any other forms of tobacco or nicotine? Yes Information not available 02/19/2024 What is your level of alcohol consumption? Occasional Information not available 02/19/2024 Do you or have you ever used smokeless tobacco? Never used smokeless tobacco Information not available 02/19/2024 Are you able to care for yourself? Yes Information not available 02/19/2024 Do you or have you ever used e-cigarettes or vape? Current user of electronic cigarettes Information not available 02/19/2024 What is your exercise level? None Information not available 12/31/2024 Mental Status Question Answer Note LastModified by Organization D etails LastModified Time Do you feel stressed (tense, restless, nervous, or anxious, or unable to sleep at night)? [id number] Information not available 02/19/2024 Family History Relationship Description Onset Age of this Age Resolved Age Notes LastModified by Organization Details LastModified Time Father Harmful pattern of use of alcohol tcarterma Not available 2023 17:30:35 Father Depressive [...] High Blood Pressure N Atrial Fibrillation N Thyroid Problems Y Kidney or Bladder Problems N GI Problems N Depression Y COPD N Blood Clots N Skin Problems N Anemia N Heart Attack ([place]) N Anxiety Disorder Y Diabetes N Muscle, Joint, or Bone Problems Y Seizures/Epilepsy N Acid Reflux (GERD) Y Cancer N Stroke N Asthma N Allergies N High Cholesterol N Hepatitis N Liver Disease N Headaches Y Osteoporosis N Heart Failure N Gynecological History Statement/Question Response Menses Monthly [...] PF, 30 mcg/0.3 mL dose 1 completed APRIL [place], [place] - [facility] 11/17/2024 15:22:12 COVID-19, mRNA, LNP-S, PF, 30 mcg/0.3 mL dose 1 [place] [facility] 11/17/2024 15:22:12 influenza, unspecified [...] 11/17/2024 15:22:12 DTP 8 completed Rudy Jason [place] [facility] 11/17/2024 15:22:12 DTP 3 completed Rudy Jason [place] [facility] 11/17/2024 15:22:12 OPV 4 completed Rudy [place] [facility] 11/17/2024 15:22:12 OPV 5 completed Rudy [place] [facility] 11/17/2024 15:22:12 OPV 4 completed Rudy Jaosn [place] [facility] 11/17/2024 15:22:12 OPV 8 completed Rudy [place] [facility] 11/17/2024 15:22:12 OPV 3 completed Rudy [place] [facility] 11/17/2024 15:22:12 Influenza, split virus, trivalent, preservative 7 completed Rudy [place] [facility] 11/17/2024 15:22:12 Influenza, split virus, quadrivalent, PF 0 completed Rudy [place] [facility] 11/17/2024 15:22:12 Influenza, split virus, quadrivalent, PF 9 completed Rudy Jason APRIL [place] - [facility] 11/17/2024 15:22:12 Influenza, split virus, quadrivalent, PF 8 completed Rudy Eren APRIL [place], [place] - [facility] 11/17/2024 15:22:12 Influenza, split virus, quadrivalent, PF 3 completed Rudy Eren APRIL [place], [place] - [facility] 11/17/2024 15:22:12 Influenza, split virus, quadrivalent, PF 1 completed Rudy Eren APRIL [place] - [facility] 11/17/2024 15:22:13 Past Encounters Encounter ID Performer Location Encounter Start Date Encounter Closed Date Diagnosis/Indication Diagnosis SNOMED-CT Code Diagnosis ICD10 Code Diagnosis Note [id number] Leandro Carias MD [facility] - [place] [address] [place] [address] 02/19/2024 16:09:17 03/04/2024 15:03:14 Hiatal hernia with gastroesophageal reflux 813066484 K44.9 refer to Gi for f/u EGD and refill PPI Therapy Exocrine p ancreatic insufficiency 06153046 K86.81 refer back to GI for mangaement . Lower urin kaela tract symptoms 060912705 R39.9 frequency, pressure, little bit of burn; start macrobid course. check ua after abx Localized eruption of skin 505239858 R21 RX for steroid cream low dose PRN to the leg area Hypomagnesemia 732382431 E83.42 hx of def. in magnesium. check updated lab Long-term drug therapy 107067420 Z79.899 cmp and cbc due Fatigue 03219059 R53.83 screening thyroid and vitamins Muscle tension pain 2790 28674 M79.10 Rx for refill lidocaine patches and refill flexeril. Bilateral foot joint pain 2102839080 9402724 M79.671 M79.672 refer to front end architect . Cholesterol screening 27 3126127 Z13.220 fasting lipids due Diabetes m ellitus screening 954340374 Z13.1 screening a1c due Otalgia of right ear 210 1100952 H92.01 rx for zpack therapy. Right ear is mildly erythemati c. RX for diflucan too Screening mammography 24 883605 Z12.31 mammogram is due [id number] Leandro Carias MD [facility] [employer] [facility] - [place] [address] [employer] [place] [address] 05/05/2024 09:28:17 05/05/2024 10:04:22 Cobalamin deficiency 346337030 E53.8 [id number] Leandro Carias MD [facility] [employer] - [place] [address] [place] [address] 06/16/2024 11:23:17 06/16/2024 12:48:14 Sliding hiatus hernia 049835839 K44.9 Start omeprazole 40 mg twice daily and she is supposed to be getting referral lined up to GI Disorder of nail 7416803 8 L60.9 Patient has some unusual indentatio n on fingernail s, we will refer to dermatolog ist to see if biopsy is needed Muscle tension pain 2790 10860 M79.10 Refill on lidocaine cream per request to use on scattered areas of muscle tension pain Dyspnea 091690667 R06.00 This has been evaluated also in the emergency room prior. This has been noncardiac in nature. We will refer her to a pulmonolog ist to discuss further [id number] Leandro Carias MD [facility] [employer] - [place] [address] [place] [address] 11/17/2024 14:48:18 11/30/2024 14:56:51 Acute sinusitis 32340925 J01.90 Start Augmentin 875 twice daily for 7 days for treatment of acute sinusitis Cough 71758137 R05.9 Refill on albuterol inhaler, check an updated chest x-ray for ongoing cough over 2 weeks Long-term drug therapy 129315741 Z79.899 cmp and cbc due Blood gluc ose outside reference range 829997411 R73.09 Screening A1c is due Fatigue 52237216 R53.83 screening thyroid and vitamins ordered for continued fatigue [id number] Leandro Carias MD [facility] - [place] [address] [place] [address] 12/31/2024 11:20:51 12/31/2024 13:09:48 Body mass index 30+ - obesity 636075239 Z68.36 BMI is 36.9 Obesity 282529072 E66.9 discussed healthy diet, exercise, controllin g carbohydra benjamin and added sugars in the diet Adult heal th examination 957272825 Z00.01 Annual wellness exam completed Cyst of nasal cavity 232 882544 J34.1 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 We are hopeful that [facility] accepts her insurance. She needs overall skin check Increased frequency of urination 114988158 R35.0 Refer to [facility] urology Acute sinusitis 27991726 J01.90 For continued sinus symptoms we will start doxycyclin e 100 mg twice daily along with a Medrol Dosepak, loratadine and empiric fluconazol e treatment Long-term drug therapy 779924780 Z79.899 Health Concerns Section Related Observation LastModified by Organization Detai ls LastModified Time None Recorded Concern Status LastModified by Organization Details LastModified Time None Recorded Advance Directives Directive N: Payers Encounter Date Sequence Insurance Name Policy Number Policy Pressley Covered Member ID Pressley Member ID Guarantor Name 02/19/2024 1 [place] [facility] [id number] [facility] 02/19/2024 1 [place] [facility] [id number] [facility] 05/05/2024 1 [place] [facility] [id number] [facility] 05/05/2024 2 [place] OR MEDICARE REPLACEMENT PRIMARY) [facility] [id number] [facility] 06/16/2024 1 [place] [facility] [id number] [facility] 06/16/2024 2 [place] REPLACEMENT PRIMARY) [facility] [id number] [facility] 11/17/2024 2 [place] REPLACEMENT PRIMARY) [facility] [id number] [facility] 11/17/2024 1 [facility] (MEDICARE REPLACEMENT/AD VANTAGE - HMO) [id number] [facility] [id number] [facility] 12/31/2024 2 [place] OR MEDIC[place] REPLACEMENT PRIMARY) [facility] [id number] [facility] 12/31/2024 1 [facility] (MEDICARE REPLACEMENT/AD VANTAGE - HMO) [id number] [facility] [id number] [facility] Notes Date Note Type Note Provider Name and Address Organization Details Recorded Time 02/19/2024 text/html pt. 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 Would like to talk about ENT for hearing problems. ALYSSA Campos Attn: Accounting,[address] [place], [address], [facility] [place] 03/03/2024 19:54:42 06/16/2024 text/html pt. 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 Would like to talk about ENT for hearing problems. ALYSSA Campos Attn: Accounting,[address] [place], [address], [facility] [place] 2024 18:41:59 11/17/2024 text/html Upper Respirator y SymptomsReported bypatient.Location:hea d; chest Quality:productive cough;colored phlegm;congested Severity:moderate Duration:onset within the last week Onset/Timing:sudden Context:no sick contacts Modifying Factors:OTC medication Associated Symptoms:fatigue ALYSSA Campos Attn: Accounting,[address] [facility], [place], [address], [facility] [place] 12/04/2024 21:38:27 12/31/2024 text/html Patient is here for her HMO wellness exam. She has an extensive list of comorbidities which are managed with medications. Her mental health is managed with BuSpar and bupropion, Prozac and clonazepam and she has a psychiatry specialist. She also has a neurologist that she sees routinely and is on chronic migraine medication. She also has a lot of gastroenterology upper GI symptoms in which she is taking proton pump inhibitor on a daily basis. She is always having abdominal pain but this has been evaluated in depth by specialty. Patient at this point today has a lot of nasal discharge and sinus symptoms. She has a history of a Thornwaldt cyst and she thinks that this is continued problem for her chronic sinus and allergy drainage. She also needs to find a extractor puller in her insurance network and a urologist in her insurance network. She continues to have increased frequency of urination and frequent UTI like symptoms. She is up-to-date on her labs ALYSSA Campos Attn: Accounting,[address] [facility], [place], [address], [facility] [place] 12/31/2024 21:54:04 OBGyn Episode No OBEpisode recorded.
--- OUTSIDE RECORDS SUMMARY | 2025-04-12 13:53 | XMS_ITS | Encounter Summary ---
Author Organization [facility] Health Address [address] [facility] [place] [address] Care Team Providers Care Bank Officer Name Role Phone Anju Naik Primary Care Provider Soraida Ruiz Primary Care Pr ovider Reason for Visit * Reason Onset Date Comments MEDICATION REFILL 07/24/2023 Encounter Details Date Type Department Care Team (Late st Contact Info) Description 07/24/2023 Refill [facility] - Internal Med [address] [place] [address], [place] [address] Pancho Hurley MD [address] [place] [address] [place] [address] MEDICATION REFILL Social History Tobacco [...] Date Recorded Patient Health Questionnaire-2 Score 6 07/11/2023 Comments No Sex and Gender Information Value Date Recorded Sex Assigned at Not on file Legal 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 Gender Identity Not on file Sexual Orientation Not on file Occupation Industry Job Start Date Job End 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 Sulfa Drugs Anaphylaxis and Rash Throat swells up ??? Duloxetine Other and Unknown Increased anger/aggression ??? Ibuprofen Vomiting and Unknown ??? Food Anaphylaxis and Rash Grape flavoring with Anesthesia and Candy. Not allergic to Grapes ??? Allergy Itching ??? Grape, Artificial Unknown Pended Medication Order: Requested Prescriptions Pending Prescriptions Disp Refills ??? nortriptyline (Pamelor) 75 MG capsule 90 capsule 3 Sig: Take 1 (one) capsule by mouth at bedtime ??? SUMAtriptan (Imitrex) 100 MG tablet 9 tablet 5 Sig: No more than 2 doses in 24 hours. ??? gabapentin (Neurontin) 300 MG capsule 90 capsule 0 Sig: Take 1 (one) capsule by mouth 3 times daily documented in this encounter Plan of Treatment Upcoming Encounters Date Type Department Care Team (Late st Contact Info) Description 06/18/2025 9:10 AM CDT Office Visit [facility] - Dermatology [address] [place] [address], [facility] [place] [address] Jinny Hale MD [address] [place] [address] [address] DEPT [place] [phone] documented as of this encounter Visit Diagnoses Diagnosis Migraine without aura and without status migrainosus, not intractable Migraine without aura, without mention of intractable migraine without mention of status migrainosus documented in this encounter Care Teams Bank Officer Relationship Specialty Start Date End Date Anju Naik, DRAWSTRING KNOTTER[employer]ODU[employer] SALES ENGINEER [address] [place] [address] PCP - General Nurse Practitioner Family 07/09/2301/03 Soraida Ruiz PA [address] [place] [address] PCP - General Physician Oxygen Plant Operator 01/28/25 documented as of this encounter
== END 2025-04-12 12:42 | disposition home or self-care (01) ==
LOC: ANHGOSHLAB 12:45
PROVIDERS: PCP Obstetrics & Gynecology
DX: R79.9 Abnormal finding of blood chemistry, unspecified (principal)
CPT/HCPCS: 36415; 85025

== ENCOUNTER 2025-05-11 10:02 | Outpatient (CLI) | payer MEDICARE, MEDICAID, SELFPAY ==
--- OUTSIDE RECORDS SUMMARY | 2025-05-11 10:08 | XMS_ITS | Encounter Summary ---
Author Organization [facility] Health Address [address] [facility] [place] [address] Care Team Providers Care Data Management Manager Name Role Phone Anju Naik Primary Care Provider Soraida Ruiz Primary Care Pr ovider Reason for Visit * Reason Onset Date Comments MEDICATION REFILL 07/24/2023 Encounter Details Date Type Department Care Team (Late st Contact Info) Description 07/24/2023 Refill [facility] - Internal Med [address] [place] [address], [place] [address] Pancho Hurley MD [address] [place] [address] [place] [address] MEDICATION REFILL Social History Tobacco [...] on file Legal Sex 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 Gender Identity Not on file Sexual Orientation Not on file Occupation Industry Job Start Date Job End Date 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 on file Not on file N ot on file documented as of this encounter Miscellaneous Notes * Telephone Encounter - Josselin Monsalve - 07/24/2023 2:49 PM CDT Refill Request Nisa Price MATEO: NOV due: NOV scheduled: LRF: 03/14/2022 for gabapentin/ [...] Care Team (Late st Contact Info) Description 06/01/2025 8:00 AM CDT Office Visit [facility] - Urology [address] [place] [address] Milind Mcelroy PA [address] [place] [address] 06/18/2025 9:10 AM CDT Office Visit [facility] - Dermatology [address] [facility] [place] [address] Jinny Hale MD [address] [place] [address] documented as of this encounter Visit Diagnoses Diagnosis Migraine without aura and without status migrainosus, not intractable Migraine without aura, without mention of intractable migraine without mention of status migrainosus documented in this encounter Care Teams Data Management Manager Relationship Specialty Start Date End Date Anju Naik, REHABILITATION ASSISTANT-DISTRIBUTION COORDINATOR [address] DIV OF [facility] [place] [address] PCP - General Nurse Practitioner Family 07/09/2301/03 Soraida Ruiz PA [address] [place] [address] PCP - General Physician Structurer 01/28/25 documented as of this encounter
--- OUTSIDE RECORDS SUMMARY | 2025-05-11 10:08 | XMS_ITS | Data Portability ---
Author Organization [place] - [employer], Main Office Address [address] [place] [address] Care Team Providers Care Machine Hose Cutter Name Role Phone RAFAEL HORAN Primary Care Provider [phone] CHAPINJACKELYNJIANIE Referring Provider [phone] Assessment Encounter Date Assessment Date Assessment LastModified by Organization Details LastModified Time 03/26/2024 03/26/2024 This note is dictated and transcribed by [employer]. Human Services Program Specialist variances may occur. Despite proofreading, typographical errors may occur. Occasional wrong-word or 'vrnyo-p-[id number]' substitutions may have occurred due to the [...] Appointments None recorded. Lab respiratory allergen panel, [facility] A, serum 2023 024 [email or web address] [facility] (Lab), [address] [place], [address], 11:12:45 respiratory allergen panel - [facility] b [address] (Lab), [address] [place], [address], 5 11:12:46 tb (M tuberculosi s), ifn-gamma graham, blood [address] (Lab), [address] [place], [address], 5 11:12:46 igg subclasses 1+2+3+4, serum [address] (Lab), [address] [place], [address], 5 11:12:46 alpha-1-ant itrypsin (aat) phenotype, serum [address] (Lab), [address] [place], [address], 5 11:12:46 eosinophil count, manual, blood (OBS) [address] (Lab), [address] [place], [address], 5 11:12:46 BNP (B-type natriuretic peptide), serum or plasma [address] (Lab), [address] [place], [address], 5 11:12:47 ige, total, serum [address] (Lab), [address] [place], [address], 5 11:12:47 TSH, serum, reflex free T4 [...] surgeon referral 2023 024 carmel Cordova, [address] [facility], [place], [address], 4 08:11:28 Procedures None recorded. Surgeries None recorded. Imaging None recorded. Medication Orders Creon 24,000-76,0 00-120,000 unit capsule,del ayed release [address] [facility] [address] [facility] [place], [address], 4 08:11:50 ammonium lactate 12 % topical cream [address] [facility], [address] [place], [address], 4 08:09:31 methocarbam ol 750 mg tablet 2022 023 [email or web address] [facility] [address], [address] [facility] [place], [address], 4 12:47:38 lidocaine 4 % topical cream 2022 023 [email or web address] [facility], [address] [place], [address], 4 11:32:13 nystatin 100,000 unit/mL oral suspension 2022 023 [email or web address] [facility], [address] [place], [address], 4 11:32:34 hydrocodone 7.5 mg-acetamin ophen 325 mg tablet 2022 023 [email or web address] Not available 12:47:24 Valium 5 mg tablet 2022 023 [email or web address] Not available 11:31:25 Patient TargetsNo targets recorded. Patient Instructions Encounter Date Encounter Id Patient Instructions Last Modified By Organization Details Last Modified Time 05/27/2024 [id number] LOW DIET [email or web address] Not available 13:07:09 PT WITH EPI. RESTART CREON 24K/76K/ 120K UNITS . 4 TABS PER MEAL AND 2 PER SNACK . F/U IN 6 MTHS . [email or web address] Not available 05/27/2024 13:08:18 07/28/2024 [id number] methacholine challenge* - Please call patient to schedule. NPAN for [id number] [email or web address] Not available 09/10/2024 11:54:29 six minute walk test* [email or web address] Not available 05/05/2025 12:23:48 Reason for Referral General Surgeon Referral for Sliding hiatus hernia Referring Physician: Mary Ellen Jin, Gastroenterology, Encounter Date: 05/27/2024 Results Created Date Observation Date Name Description Value Unit Range Abnormal Flag Note LastModifiedBy Organization Detail LastModifiedTime 05/21/20 23 03/25/2023 home sleep study No observ ation record ed. Not Available 05/23 15:25:15 05/22/20 23 01/06/2023 CT, abdom en + pelvi s, w/ contr ast No observ ation record ed. [email or web address] [facility] [address] [place], [address], 05/23/2023 15:33:43 11/29/19 24 10/19/2023 XR, chest , 2 view No observ ation record ed. [email or web address] [facility] [address] [facility], [place], [address], 11/29/2023 12:40:15 11/29/19 24 10/19/2023 CT, angio gram, chest , w/o contr ast No observ ation record ed. [email or web address] Not Available 11/29 14:06:13 07/24/20 24 07/23/2024 [...] Details Recorded Time Pain in upper limb 804839635 Active Not Available [facility] 3 02:50:54 Tobacco user 988529597 Active Not Available [facility] 3 02:50:54 Mass of soft tissue of right lower limb 51150548819 823216 Active 2022 Not Available [facility] 3 02:50:54 Acute folliculi tis 471883487 Active Not Available [facility] 3 02:50:54 Disorder of colon 135113925 Active Not Available [facility] 3 02:50:54 Post-scab etic nodules 869856175 Active Not Available [facility] 3 02:50:54 Constipat ion 07324232 Active Not Available [facility] 3 02:50:54 Congenita l bilateral pes planus 02547610920 997934 Active 2021 Not Available [facility] 3 02:50:54 Pain of left ankle joint 94022359274 768527 Active 2021 Not Available [facility] 3 02:50:55 Abnormal weight gain 822921196 Active Not Available [facility] 3 02:50:55 Indigesti on 078374563 Active Not Available [facility] 3 02:50:55 Body mass index 30+ - obesity 483301210 Active Not Available [facility] 3 02:50:55 Dry skin 82882715 Active Not Available [facility] 3 02:50:55 On examinati on - nails brittle Active Not Available [facility] 3 02:50:55 Tibialis posterior tendiniti s 201375877 Active 2020 Not Available [facility] 3 02:50:55 Abdominal pain 60196315 Completed Not Available [facility] 3 02:50:56 Generaliz ed anxiety disorder 45571186 Active Not Available [facility] 3 02:50:56 Nile thyroidit is 02116594 Active Not Available [facility] 3 02:50:56 Foot callus 887636072 Active 2020 Not Available [facility] 3 02:50:56 Osteophyt e of bone 77841101894 9100 Active Not Available [facility] 3 02:50:56 Gastroeso phageal reflux disease 805977920 Active Not Available [facility] 3 02:50:56 Chronic diarrhea 540879946 Active 2021 Not Available [facility] 3 02:50:56 Chronic pelvic pain of female 104688428 Active Not Available [facility] 3 02:50:57 Lateral femoral cutaneous neuralgia 735342261 Active Not Available [facility] 3 02:50:57 Degenerat ion of lumbar intervert ebral disc 10015144 Active 2016 Not Available [facility] 3 02:50:57 Dysmenorr hea 852116342 Completed Not Available [facility] 3 02:50:57 Abnormal weight loss 861378477 Active 2021 Not Available [facility] 3 02:50:57 Mixed hyperlipi demia 689787920 Active Not Available [facility] 3 02:50:57 Papular eruption 925807293 Active Not Available [facility] 3 02:50:58 Eruption 640591791 Active Not Available [facility] 3 02:50:58 Insect bite - wound 043469466 Active 2021 Not Available [facility] 3 02:50:58 Loss of hair 211602733 Active 2022 Not Available [facility] 3 02:50:58 Periphera l neuropath ic pain 916545600 Active 2022 Not Available [facility] 3 02:50:58 Scoliosis deformity of spine 818885984 Active Not Available [facility] 3 02:50:59 Left lower quadrant pain 004066936 Active Not Available [facility] 3 02:50:59 Nonunion of fracture 373137654 Active Not Available [facility] 3 02:50:59 Glossodyn ia 98584476 Active 3 Not Available [facility] 3 02:50:59 Lower urinary tract symptoms 166978865 Active Not Available [facility] 3 02:50:59 Thyroid function tests abnormal 353859844 Active 3 Not Available [facility] 3 02:51:00 Anterior abdominal wall mass 022615161 Active Not Available [facility] 3 02:51:00 Pain in right foot 90459954612 9107 Active Not Available [facility] 3 02:51:00 Pain of multiple joints 31723319 Active Not Available [facility] 3 02:51:00 Major depressiv e disorder 128750354 Active Not Available [facility] 3 02:51:01 Arthritis 4383809 Active left foot Not Available [facility] 3 02:51:01 Hematoma 380041071 Completed Not Available [facility] 3 02:51:01 Disorder of vitamin B12 684179162 Active Not Available [facility] 3 02:51:01 Effusion of joint 110411485 Active Not Available [facility] 3 02:51:02 Hirsutism 903135765 Active Not Available [facility] 3 02:51:02 Ingrowing toenail 826299492 Active 2020 Not Available [facility] 3 02:51:02 Lower urinary tract infectiou s disease 9949048 Active Not Available [facility] 3 02:51:02 Hematoche kelly 424484073 Active Not Available [facility] 3 02:51:03 Dysphagia 77413093 Active Not Available [facility] 3 02:51:03 Obesity 388701087 Active Not Available [facility] 3 02:51:03 Onychomyc osis 648177594 Active Not Available [facility] 3 02:51:03 Vomiting 563211722 Active Not Available [facility] 3 02:51:04 Postopera tive seroma 637948942 Completed Not Available [facility] 3 02:51:04 Dyssomnia 30013742 Active Not Available [facility] 3 02:51:04 Sprain of ankle 42238232 Active Not Available [facility] 3 02:51:04 Gastritis 9665931 Active Not Available [facility] 3 02:51:05 Foot pain 07091396 Active 2020 Not Available [facility] 3 02:51:05 Dysuria 79220651 Completed Not Available [facility] 3 02:51:05 Upper respirato ry infection 50902664 Active Not Available [facility] 3 02:51:06 Lower abdominal pain 24977956 Completed Not Available [facility] 3 02:51:06 Nicotine dependenc e 18589841 Active 2021 Not Available [facility] 3 02:51:06 Infection by Trichomon as 65144846 Completed Not Available [facility] 3 02:51:06 Diarrhea 79862663 Active 2021 Not Available [facility] 3 02:51:07 Vitamin B12 deficienc y (non anemic) 36723458 Active 2021 Not Available [facility] 3 02:51:07 Urinary tract infectiou s disease 38323133 Active 2021 Not Available [facility] 3 02:51:07 Duodeniti s 15960476 Active Not Available [facility] 3 02:51:08 Cyst of ovary 48359756 Active Not Available [facility] 3 02:51:08 Irregular periods 60097113 Completed Not Available [facility] 3 02:51:09 Neck pain 47226053 Active 2022 Not Available [facility] 3 02:51:09 Fatigue 20314886 Active Not Available [facility] 3 02:51:09 Weight gain 2897402 Active 2022 Not Available [email or web address]10 Female stress incontine nce 25666475 Active 2022 Jayesh Thapa MD [address], [address], [place], [address] , [employer] 3 10:18:13 Candidias is of vagina 49629377 Active 2022 ALYSSA Campos [address], [place], [address] , [employer] 3 16:30:48 Muscle tension 601044027 Active 2022 ALYSSA Campos [address], [place], [address] , [employer] 3 15:21:58 Acute sinusitis 87099277 Active 2022 ALYSSA Campos [address], [place], [address] , [employer] 3 12:32:59 Metatarsa lgia of right foot 33803906454 9100 Active 2023 David Jasso DPM [address], [place], [address] , [employer] 4 12:18:59 Ingrowing nail of toe of right foot 65585031499 513017 Active 2023 David Jasso DPM [address], [address], [place], [address] , [email or web address] 4 12:19:10 Congenita l pes planus 60777528 Active 2023 David Jasso DPM [address], [address], [place], [address] , [email or web address] 4 12:19:23 Exocrine pancreati c insuffici ency 86526666 Active 2023 Mary Ellen Jin MD [address], [address], [place], [address] , [email or web address] 4 13:05:47 Sliding hiatus hernia 238402144 Active 2023 Mary Ellen Jin MD [address], [place] [address], [place], [address] , [email or web address] 4 13:09:20 Asthma without status asthmatic 33066126 Active 2023 Jeanie Garrett MA null, [employer] [facility] [employer] 4 11:16:23 Dyspnea on exertion 76901780 Active 2023 Dominique Ramírez NP [address], [place], [address] , [employer] [facility] 4 11:39:29 Sleep apnea 51450545 Active 2023 Dominique Ramírez NP [address], [place], [address] , [employer] [facility] [employer] [facility] 4 12:16:48 Hiatal hernia 71692090 Active 2024 STARLA Rice null, [place] [employer] [facility] [employer] [facility] 5 15:20:30 Notes:COVID-19 pos 11/09/21 So me problems listed in Documents: #[id number], #[id number], #[id number], #[id number] could not be added to this patient's chart. Please review these documents and add these problems to the patient's chart manually as needed. Problem Notes None recorded. Procedures Surgical History Date Name Laterality Status Provider Name and Address Organization Details Recorded Time 03/26/20 24 Nail Debridement completed David Jasso DPM [address] [facility], [place], [address], [facility] [employer] 03/26/2024 12:22:57 02/07/20 21 Date of Last Colonoscopy completed Not Available [facility] 01/02/2023 02:40:48 02/07/20 21 Colonoscopy completed Not Available [facility] 01/03/20 02:40:53 10/06/20 20 NURSE MIDWIFE Surgery completed Not Available [facility] 01/03/20 02:40:53 03/09/20 16 NURSE MIDWIFE Surgery completed Not Available [facility] 01/03/20 02:40:53 11/08/19 16 NURSE MIDWIFE Surgery completed Not Available [facility] 01/03/20 02:40:53 09/14/20 15 Date of Last Pap Smear completed Not Available [facility] 01/02/2023 02:40:48 NURSE MIDWIFE Surgery completed STARLA Palma [place] [employer] [facility] [employer] 04/15/2023 15:04:50 NURSE MIDWIFE Surgery completed Not Available [facility] 01/02/2023 02:40:53 Tonsillectomy completed Not Available [facility] 01/02/2023 02:40:53 NURSE MIDWIFE Surgery completed Not Available [facility] 01/02/2023 02:40:53 Endoscopy completed Not Available [facility] [address] 01/02/2023 02:40:53 Imaging Results None recorded. Procedure Notes None recorded. Medical Equipment None Reported. Allergies Allergen ID Allergen Name Allergen Category Reaction Reaction Severity Criticality Documentation Date Start Date Code Code System Note Provider Name and Address Organization Details Recorded Time 5175 Substance with sulfonami de structure and antibacte rial mechanism of action (substanc e) medicatio n itching Not available Not available 01/02/2023 82276 8003 SNOMED Not Available [facility] 03:07:12 5176 ibuprofen medicatio n Not available Not available Not available 01/02/2023 5640 RxNorm Other react ions and sever ities : 'Adve rse react ion to subst ance' . Not Available [facility] 3 03:07:12 5177 grape flavor food,medi cation Not available Not available Not available 01/02/2023 57145 UNK Not Available [facility] 3 03:07:12 5178 duloxetin e medicatio n Not available Not available Not available 01/02/2023 73121 RxNorm Other react ions and sever ities : 'Adve rse react ion to subst ance' . Not Available [facility] 3 03:07:12 5179 Cymbalta medicatio n Not available Not available Not available 01/02/2023 72020 4 RxNorm Not Available [facility] 3 03:07:12 Medications Name Sig [...] MOUTH THREE TIMES DAILY FOR 2 DAYS 12/02 /2021 completed Not Available Not Available Not Available [...] bromide 21 mcg (0.03 %) nasal spray [place] 2 sprays every day by intranasa l [...] TAKE ONE CAPSULE BY MOUTH PER MEAL. APPOINTME NT REQUIRED FOR FUTURE REFILLS 2024 active Not Available Not Available Not Avai lable Vitals Date Recorded Body height Heart rate Body mass index (BMI) Body weight Body temperature Oxygen saturation Oxygen saturation in Arterial blood by Pulse oximetry Provider Name and Address Organization Details Last Updated DateTime 3 172.72 cm 77 /min 35.3 kg/m2 131504. 43 g 97.2 [degF] 85 % 85 % Heriberto Hernandez [facility] [employer] [facility] 3 10:00:48 Date Recorded Body height Heart rate Respiratory rate Oxygen saturation Oxygen saturation in Arterial blood by Pulse oximetry Systolic And Diastolic Provider Name and Address Organization Details Last Updated DateTime 4 172.72 cm 94 /min 14 /min 98 % 98 % 117/81 mm[Hg] Martina Choi [facility] [employer] [facility] 4 11:26:15 Date Recorded Body height Body temperature Respiratory rate Oxygen saturation Oxygen saturation in Arterial blood by Pulse oximetry Heart rate Systolic And Diastolic Provider Name and Address Organization Details Last Updated DateTime 3 172.72 cm 97.9 [degF] 16 /min 98 % 98 % 81 /min 120/72 mm[Hg] Libby Vera [facility] [employer] [facility] 3 15:05:30 Date Recorded Body height Body mass index (BMI) Body weight Heart rate Oxygen saturation Oxygen saturation in Arterial blood by Pulse oximetry Systolic And Diastolic Provider Name and Address Organization Details Last Updated DateTime 4 172.72 cm 37.4 kg/m2 278845. 72 g 93 /min 98 % 98 % 132/76 mm[Hg] Cecilia Melendrez [facility] [employer] [facility] 4 12:45:33 Date Recorded Body height Body mass index (BMI) Body weight Body temperature Heart rate Oxygen saturation Oxygen saturation in Arterial blood by Pulse oximetry Systolic And Diastolic Provider Name and Address Organization Details Last Updated DateTime 4 172.72 cm 36.9 kg/m2 545504. 95 g 97.4 [degF] 83 /min 94 % 94 % 128/74 mm[Hg] Jeanie Garrett MA [employer] [facility] [employer] [facility] 4 11:24:10 Social History Question Answer Notes LastModified by Organizat ion Details LastModified Time Tobacco Smoking Status Former Smoker Annette Horton MA null, [facility] [employer] [facility] 04/15/2023 14:55:39 Do You Have An Advance Directive? No [id number] Information not available 01/02/2023 If You Are , What Was Your Level Of Alcohol Consumption Prior To ? None Information not available 04/15/2023 Do You Wear A Helmet When Biking? No Information not available 04/15/2023 Are You Blind Or Do You Have Difficulty Seeing? No Information not available 04/15/2023 What Is Your Level Of Caffeine Consumption? Moderate [id number] Information not available 01/02/2023 How Much Tobacco Do You Chew? None [id number].25890 [id number] Information not available 01/02/2023 In The 14 [...] Type Of Diet Are You Following? REGULAR MIGRATION.65957 [id number] Information not available 01/02/2023 Which Illicit Or Recreational Drugs Have You Used? Marijuana Information not available 04/15/2023 What Is The Highest Grade Or Level Of School You Have Completed Or The Highest Degree You Have Received? [id number] Information not available 04/15/2023 Have There Been Any Changes To Your Family Or Social Situation? No Information no t available 04/15/2023 Are There Any Guns Present In Your Home? No Information not available 04/15/2023 Do You Use Insect Repellent Routinely? No Information not available 04/15/2023 Where Do You Live? SingleLevelHouse Information not available 04/15/2023 Do You Have A Medical Power Of Elevator Pilot? No Information not available 04/15/2023 What Was The Date Of Your Most Recent Tobacco Screening? 07/28/2024 [email or web address] Information not available 07/28/2024 Have You Ever Been Counseled For Unhealthy Alcohol Use? No Information not available 04/15/2023 Do You Have Any Pets? No Information not available 04/15/2023 What Is Your Relationship Status? Single MIGRATION.90376 [id number] Information not available 01/02/2023 Do You Use [...] Much Tobacco Do You Smoke? 0.5 PPD MIGRATION.84194 46384 Information not available 01/02/2023 Do You Use [...] is your level of alcohol consumption? Occasional MIGRATION.[id number] 6045 Information not available 01/02/2023 Do you or have you ever used smokeless tobacco? Never used smokeless tobacco MIGRATION.373390 3904 Information not available 01/02/2023 Are you currently employed? Yes [email or web address] Information not available 06/21/2023 Are you able [...] 04/15/2023 What is your exercise level? Occasional MIGRATION.[id number] 5342 Information not available 01/02/2023 Mental Status Question Answer Note LastModified by Organizat ion Details LastModified Time Do you feel stressed (tense, restless, nervous, or anxious, or unable to sleep at night)? [id number] Information not available 04/15/2023 Do you have difficulty concentrating, remembering or making decisions? No Information no t available 04/15/2023 Family History Relationship Description Onset Age of this Age Resolved Age Notes LastModified by Organization Details LastModified Time Mother Essential hypertension [id number].928 [id number] Not available 01/02/2023 02:40:57 Mother Hyperthyroid ism [id number].365 [id number] Not available 01/02/2023 02:40:57 Mother Acquired scoliosis MIGRATION.171 [id number] Not available 01/02/2023 02:40:57 Mother Degenerative disorder [id number].281 [id number] Not available 01/02/2023 02:40:57 Notes:no new health [...] virus, quadrivalent, preservative 7 completed Not Available [facility] 01/02/2023 03:06:48 Influenza, split virus, quadrivalent, PF 7 completed Not Available [facility] 01/02/2023 03:06:48 Past Encounters Encounter ID Performer Location Encounter Start Date Encounter Closed Date Diagnosis/Indication Diagnosis SNOMED-CT Code Diagnosis ICD10 Code Diagnosis Note [id number] [facility] _ATHENA_M IGRATION_ DEFAULT_1 _1 , 01/18/2021 00:00:00 01/18/2021 10:50:01 [id number] _ATHN_MIGR ATION_1 _ATHENA_M IGRATION_ DEFAULT_1 _1 , 03/01/2021 00:00:00 03/01/2021 17:13:38 [id number] _ATHN_MIGR ATION_1 _ATHENA_M IGRATION_ DEFAULT_1 _1 , 05/31/2021 00:00:00 05/31/2021 16:20:29 [id number] [facility] [address] [place] [address] 08/03/2021 00:00:00 08/03/2021 13:52:23 [id number] eDlvin Leary MD [facility] [address] [facility] [address] [place] [address] 08/04/2021 00:00:00 08/04/2021 15:56:37 [id number] [facility] [address] [place] [address] 09/07/2021 00:00:00 09/07/2021 11:21:02 [id number] ALYSSA Campos [facility] [address] [place] [address] 10/05/2021 00:00:00 10/31/2021 23:05:46 [id number] [facility] [address] [place] [address] 11/30/2021 00:00:00 11/30/2021 13:23:36 [id number] [facility] [address] [place] [address] 01/25/2022 00:00:00 01/26/2022 09:03:39 [id number] Leandro Carias MD [facility] [address] [place] [address] 03/27/2022 00:00:00 04/02/2022 14:33:24 [id number] _ATHN_MIGR ATION_1 _ATHENA_M IGRATION_ DEFAULT_1 _1 , 05/09/2022 00:00:00 05/09/2022 17:10:38 [id number] _ATHN_MIGR ATION_1 _ATHENA_M IGRATION_ DEFAULT_1 _1 , 07/11/2022 00:00:00 07/11/2022 15:16:40 [id number] Jayesh Thapa MD S_GMG ENT [place] [address] [facility] [address] [place] [address] 09/06/2022 00:00:00 09/06/2022 10:10:26 [id number] ALYSSA Campos A[facility] Internal Med [place] [address] [place] [address] 11/22/2022 00:00:00 12/02/2022 12:42:39 [id number] Jayesh Thapa MD [facility] [address] [place] [address] 12/06/2022 00:00:00 12/06/2022 20:32:58 [id number] Jayesh Thapa MD [facility] [address] [place] [address] 01/10/2023 09:33:20 01/10/2023 10:27:23 Female stress incontinence [id number] N39.3 Patient reassured. Pain meds and valium for muscle spasms. bedrest and sitz baths f/u in a week. [id number] ALYSSA Campos [facility] Internal Med [place] [address] [place] [address] 04/15/2023 14:55:04 04/15/2023 15:30:24 Glossodynia [id number] K14.6 Rx for nystatin susp and check b12 and folate. Muscle tension 566837157 R29.898 refill muscle relaxer and lidocaine cream Pre-surger y evaluation 716901631 Z01.818 cbc, bmp and LFT due Long-term drug therapy 618195413 Z79.899 labs are due [id number] David Jasso DPM [facility] Podiatry [place] [address] [place] [address] 03/26/2024 11:16:04 03/27/2024 10:03:13 Metatarsalgia of right foot [id number] 11548 M77.41 recommend custom orthoticss upportive shoe gearmonito r for wounds infectionh as naproxen may take for painrice therapyfol low-up 6 months Congenital pes planus 23 375138 Q66.51 Q66.52 bilateral feetx-rays reviewed with the patientrec ommend custom orthotics with offloading under the sub 5th metatarsal head rightfollo w-up 6 monthsdid not obtain prior orthotics Rx from [facility] nail of toe of right foot [id number] L60.0 medial cornerSlan t backNon-in fectedFoll ow-up as needed Foot callus 581896804 L8 4 right 5th metatarsal head- mild non-infect edRx Amlactin Peripheral neuropathic pain 918502576 M79.2 continue with neurology follow-upr ecommend pain management if continues be problemati c [id number] Mary Ellen Jin MD [facility] General Surgery [address] [facility], [address] [place] [address] 05/27/2024 12:43:01 05/27/2024 13:35:59 Exocrine pancreatic insufficiency 51723830 K86.81 Sliding hiatus hernia 23 7394262 K44.9 [id number] Dominique Ramírez NP [facility] Pulmonolo gy [place] [address] [facility], [facility] [address] [place] [address] 07/28/2024 10:57:37 07/30/2024 14:46:11 Dyspnea on exertion 20592941 R06.09 PFT 07/23/24-wn l without methacholi ne (PFT normal)had recent sleep study done by neuro-per patient showed mild sleep apnea-will obtain testing-wi ll order CPAP if not addressed by neurowill hold off on albuterol inhaler at present with negative Pft-with do methacolin e challenge and will rx if positiveCX R and Ct chest 10/26 treated for pneumonia at that time-[facility] work todayWill consider ECHO-do encourage patient to consider Cardiology Discussed possible need to see rheumatsheila yin in futureFoll ow-up after methacolin e testing and will do 6 minute walk-call once scheduled Ex-cigarette smoker [id number] 63587 Z87.891 Sleep apnea 05924200 G47 .30 need recent home sleep studywill [...] concerns Body mass index 30+ - obesity 188169164 Z68.36 Patient counseled on weight and it's effect on the body including sleep and breathing, encourage healthy diet and exercise to improve health and for weight loss. Health Concerns Section Related Observation LastModified by Organization Detai ls LastModified Time None Recorded Concern Status LastModified by Organization Details LastModified Time None Recorded Advance Directives Directive N: Payers Insurance Date Sequence Insurance Name Policy Number Policy Pressley Covered Member ID Pressley Member ID Guarantor Name 04/19/2025 1 [place] [facility] [id number] [facility] 04/19/2025 2 [place]CON[place] WHEN MEDICARE OR MEDICARE REPLACEMENT PRIMARY) [facility] [id number] [facility] 10/08/2024 [employer] ADMINISTRATORS - DMEPOS ASSIGNED (MEDICARE DME REGION B) [facility] [id number] [facility] 10/08/2024 [place]ICAID [place] DURABLE MEDICAL EQUIPMENT [facility] [id number] [facility] 04/19/2025 1 [facility] (MEDICARE REPLACEMENT/ADVA NTAGE - HMO) [id number] [facility] [id number] [facility] Notes Date Note Type Note Provider [...] zero. ua clear. Jayesh Thapa MD [address] [facility], [facility] [address], [place], [address], [place] [facility] [employer] 01/10/2023 10:23:14 04/15/2023 text/html Generic HPI TemplateReported bypatient.Notes:Pt is here for a surgery clearance for L wrist scaphoid removal lunato capitate versus four corner fusion on the . Form is in the room w/her. ALYSSA Campos [address], [facility] [address], [place], [address], [employer] 05/03/2023 23:25:20 03/26/2024 text/html . Patient is [...] other complaints. David Jasso DPM [address], [facility] [address], [place], [address], [email or web address] 03/26/2024 13:23:27 05/27/2024 text/html NISA WAS SEEN [...] ABD . Mary Ellen Jin MD [address], [facility] [address], [place], [address], [email or web address] 05/27/2024 13:09:39 07/28/2024 text/html DyspneaReported bypatient.Quality:dys pnea;tightness;can't [...] primary-acts out dreams-insomnia Dominique Ramírez NP [address] [facility] [address], [place], [address], [facility] [employer] 07/28/2024 12:26:31 OBGyn Episode No OBEpisode recorded.
--- OUTSIDE RECORDS SUMMARY | 2025-05-11 10:08 | XMS_ITS | Encounter Summary ---
Author Organization [facility] Address [address] [place] [address] Care Team Providers Care Bid Analyst Name Role Phone Soraida Bowden Primary Care Provider [phone] Encounter Details Date Type Department Care Team (Late Contact Info) Description 05/13/2023 SCYFIX Message Enc [facility] Medical Group Orthopedic & Sports Medicine - [address] [address] [place], [facility] Provider post op apt Social History Tobacco Use Types Packs/Day Years Used Date Smoking Tobacco: Former Cigarettes Smokeless Tobacco: Never Comments:Vapes currently pas t 6-8 mo Alcohol Use Standard Drinks/Week Comments Yes 0 (1 standard drink = 0.6 oz pur e alcohol) PHQ-2 Answer Date Recorded Patient Health Questionnaire-2 Score 4 01/07/2023 Comments No Sex and Gender Information Value Date Recorded Sex Assigned at Female 12/08/2024 6:39 AM [employer] Legal Sex Female 10:09 AM [employer] Gender Identity Not on file Sexual Orientation Not on file COVID-19 Exposure Response Date Recorded In the last 10 days, have yo u been in contact with someone who was confirmed or suspected to have Coronavirus/COVID-19? No / Unsure 04/19/2023 10:13 AM CDT documented as of this encounter Plan of Treatment Upcoming Encounters Date Type Department Care Team (Late Contact Info) Description 06/03/2025 8:00 AM CDT Office Visit [facility] Medical [facility] Multispecialty Care - [address], [address] [place] [address] Neemsio Santillan MD [address] [place] [address] documented as of this encounter Visit Diagnoses Not on filedocumented in this encounter Additional Health Concerns Infection Onset Date Last Indicated Resolved Time COVID-19 Rule Out 04/15/2024 04/15/2024 04/15/2024 2:36 PM CDT Assessment Noted Time PHQ-9 Depression Total Score: 22 023 9:09 AM [employer] documented as of this encounter Care Teams Bid Analyst Relationship Specialty Start Date End Date Soraida Bowden PA PCP - General PHYSICIAN [employer] REC[employer] MANAGEMENT OFFICER 01/04/22 documented as of this encounter
--- OUTSIDE RECORDS SUMMARY | 2025-05-11 10:08 | XMS_ITS | Encounter Summary ---
Author Organization [facility] Address [address] [place] [address] Care Team Providers Care Log Carrier Operator Name Role Phone Soraida Bowden Primary Care Provider [phone] Encounter Details Date Type Department Care Team (Late Contact Info) Description 04/23/2023 NTRglobal Message Enc [facility] Medical [facility] Orthopedic & Sports Medicine - [address] [address] [place], [facility] Provider picture Social History Tobacco Use Types Packs/Day Years [...] Sex Assigned at Female 12/08/2024 6:39 AM AUTOTRANSFUSIONIST Legal Sex Female 10:09 AM AUTOTRANSFUSIONIST Gender Identity Not on file Sexual Orientation [...] Description 06/03/2025 8:00 AM CDT Office Visit [facility] Medical [facility] Multispecialty Care - [address], [address] [place] [address] Nemesio Santillan MD [address] [place] [address] documented as of this encounter Visit Diagnoses Not on filedocumented in this encounter Additional Health Concerns Infection Onset Date Last Indicated Resolved Time COVID-19 Rule Out 04/15/2024 04/15/2024 04/15/2024 2:36 PM CDT Assessment Noted Time PHQ-9 Depression Total Score: 22 023 9:09 AM AUTOTRANSFUSIONIST documented as of this encounter Care Teams Log Carrier Operator Relationship Specialty Start Date End Date Soraida Bowden PA PCP - General PHYSICIAN INTERNATIONAL OPERATIONS MANAGER 01/04/22 documented as of this encounter
--- OUTSIDE RECORDS SUMMARY | 2025-05-11 10:08 | XMS_ITS | Encounter Summary ---
Author Organization [facility] Address [address] [place] [address] Care Team Providers Care Ear Nose Throat Physician Name Role Phone Soraida Bowden Primary Care Provider [phone] Encounter Details Date Type Department Care Team (Late Contact Info) Description 04/22/2023 Xiaohongshu Message Enc [facility] Medical Group Orthopedic & Sports Medicine - [address] [address] [place], [facility] Provider hand after surgery Social History Tobacco Use Types Packs/Day Years [...] Sex Assigned at Female 12/08/2024 6:39 AM [employer] Legal Sex Female 10:09 AM [employer] Gender Identity Not on file Sexual Orientation [...] Description 06/03/2025 8:00 AM CDT Office Visit [facility] Medical [facility] Multispecialty Care - [address], [address] [place] [address] Nemesio Santillan MD [address] [place] [address] documented as of this encounter Visit Diagnoses Not on filedocumented in this encounter Additional Health Concerns Infection Onset Date Last Indicated Resolved Time COVID-19 Rule Out 04/15/2024 04/15/2024 04/15/2024 2:36 PM CDT Assessment Noted Time PHQ-9 Depression Total Score: 22 023 9:09 AM [employer] documented as of this encounter Care Teams Ear Nose Throat Physician Relationship Specialty Start Date End Date Soraida Bowden PA PCP - General PHYSICIAN EMISSION TECHNICIAN 01/04/22 documented as of this encounter
--- OUTSIDE RECORDS SUMMARY | 2025-05-11 10:08 | XMS_ITS | Clinical Summary ---
Author Organization [facility] Address Replaced by [facility] [place] [address] Care Team Providers Care Motorcoach Operator Name Role Phone Soraida Bowden Primary Care Provider Allergies Active Allergy Reactions Criticality Noted Date Comments Duloxetine Hcl Other (see comment) 01/04/2022 depression Grape (Artificial) Flavoring Agent (Non-Screening) Swelling 01/04/2022 Tongue swelling Ibuprofen Vomiting 01/04/2022 Misc. Sulfonamide Containing Compounds Hives,Itching 05/20/2023 Sulfa Antibiotics Hives,Itching 01/04/2022 Medications montelukast 10 MG tablet Take 1 tablet (10 mg total) by mouth daily. Active omeprazole 40 MG capsule Take 1 capsule (40 mg total) by mouth nightly at bedtime. Active prazosin 5 MG capsule Take 1 capsule (5 mg total) by mouth nightly at bedtime. Active traZODone 100 MG tablet Take 2 tablets (200 mg total) by mouth nightly at bedtime. 11/20/19 22 Active naproxen (NAPROSYN) 500 MG tablet Take 1 tablet (500 mg total) by mouth 2 (two) times daily as needed (Pain). 07/12/20 22 Active buPROPion XL (WELLBUTRIN XL) 150 MG 24 hr tablet Take 2 tablets (300 mg total) by mouth daily. Active ARIPiprazole (ABILIFY) 10 MG tablet Take 1 tablet (10 mg total) by mouth daily. 05/03/20 23 Active SUMAtriptan (IMITREX) 100 MG tabletIndications: Migraine without aura, not intractable, without status migrainosus Take 1 tablet (100 mg total) by mouth 2 (two) times daily as needed for Migraine. Take 1 tablet at onset of symptoms, may take 1 tablet 2 hours later. Max of 2 tablets in 24-hour period. 16 tablet 10/16/20 23 Active Galcanezumab-gnlm (EMGALITY) 120 MG/ML Solution Auto-injectorIndic ations:Chronic migraine w/o aura w/o status migrainosus, not intractable Inject 120 mg into the skin every 30 (thirty) days. 1 pen. 6 10/18/20 23 Active ubrogepant (UBRELVY) 100 MG tabletIndications: Migraine without aura, not intractable, without status migrainosus Take 1 tablet (100 mg total) by mouth 2 (two) times daily as needed. Max of 2 tablets (200 mg) in 24 hours 16 tablet 02/12/20 24 Active acamprosate EC (CAMPRAL) 333 MG tablet Take 1 tablet (333 mg total) by mouth 2 (two) times a day. 03/06/20 24 Active cyanocobalamin (B-12) 1000 MCG/ML injection Inject 1 mL (1,000 mcg total) into the muscle every 30 (thirty) days. Active ammonium lactate (AMLACTIN) 12 % cream Apply topically as needed for Dry skin (One application daily as needed). 03/26/20 24 Active ondansetron (ZOFRAN-ODT) 4 MG disintegrating tablet Take 1 tablet (4 mg total) by mouth every 8 (eight) hours as needed for Nausea. 20 tablet 04/01/20 24 Active baclofen (LIORESAL) 10 MG tablet Take 1 tablet (10 mg total) by mouth 3 (three) times daily. 04/14/20 24 Active nortriptyline (PAMELOR) 75 MG capsule Take 1 capsule (75 mg total) by mouth nightly at bedtime. Active gabapentin (NEURONTIN) 300 MG capsuleIndications :Neuropathy take 2 capsules by mouth three times daily 180 capsule 05/16/20 24 Active Magnesium Oxide 400 MG Cap Take 1 tablet by mouth daily. Active SUMAtriptan (IMITREX) 100 MG tabletIndications: Migraine without aura, not intractable, without status migrainosus Take 1 tablet (100 mg total) by mouth 2 (two) times daily as needed for Migraine. Take 1 tablet at onset of symptoms, may take 1 tablet 2 hours later. Max of 2 tablets in 24-hour period. 16 tablet 11 05/29/20 24 Active ZENPEP 44044-834183 units CAPSULE ENTERIC COATED PARTICLES Take 1 capsule per meal 06/01/20 24 Active ZENPEP 91625-97996 units CAPSULE ENTERIC COATED PARTICLES take 1 capsule per snack 06/01/20 24 Active clonazePAM (KLONOPIN) 1 MG tablet Take 1 tablet (1 mg total) by mouth 2 (two) times daily. 06/02/20 24 Active topiramate (TOPAMAX) 100 MG tabletIndications: Migraine without aura, not intractable, without status migrainosus Take 1 tablet by mouth twice daily 60 tablet 07/07/20 24 Active topiramate (TOPAMAX) 100 MG tabletIndications: Migraine without aura, not intractable, without status migrainosus Take 1 tablet (100 mg total) by mouth 2 (two) times daily. 60 tablet 11 08/10/20 24 Active ondansetron (ZOFRAN) 4 MG tabletIndications: Nausea Take 1 tablet (4 mg total) by mouth every 8 (eight) hours as needed for Nausea. 20 tablet 5 10/07/20 24 Active nortriptyline (PAMELOR) 75 MG capsuleIndications :Migraine without aura, not intractable, without status migrainosus Take 1 capsule (75 mg total) by mouth nightly at bedtime. 30 capsule 11 11/04/19 25 Active FLUoxetine (PROZAC) 20 MG capsule Take 1 capsule (20 mg total) by mouth daily. Active FLUoxetine (PROZAC) 40 MG capsule Take 1 capsule (40 mg total) by mouth daily. 01/27/20 25 Active atogepant (QULIPTA) tabletIndications: Migraine without aura, not intractable, without status migrainosus Take 1 tablet by mouth once daily 30 tablet 11 03/16/20 25 Active prazosin (MINIPRESS) 2 MG capsule Take 1 capsule (2 mg total) by mouth. 11/06/19 25 025 Active Problems Problem Noted Date Diagnosed Date Bipolar 1 disorder ([facility]) 11/19/2024 Dry skin 11/19/2024 Multiple joint pain 11/19/2024 Mixed hyperlipidemia 11/19/2024 Mass of anterior abdominal wall 11/19/2024 Major depressive disorder 11/19/2024 Lower abdominal pain 11/19/2024 Left lower quadrant pain 11/19/2024 Iron deficiency 11/19/2024 Indigestion 11/19/2024 Incontinence in female 11/19/2024 Overview (11/19/2024): and overflow Hirsutism 11/19/2024 Hematoma 11/19/2024 Hiatal hernia 11/19/2024 GERD (gastroesophageal reflux disease) Gastritis 11/19/2024 Effusion of joint 11/19/2024 Lower urinary tract symptoms 11/19/2024 Dyssomnia 11/19/2024 Duodenitis 11/19/2024 Disorder of vitamin B12 11/19/2024 Daily headache 11/19/2024 Constipation 11/19/2024 Colon disorder 11/19/2024 Carpal tunnel syndrome of right wrist 11/19/2024 Carpal tunnel syndrome of left wrist 11/19/2024 Acute folliculitis 11/19/2024 Postoperative seroma of both eyes after non-ophthalmic procedure 11/19/2024 Post-scabetic nodules 11/19/2024 Papular eruption 11/19/2024 Pain in upper limb 11/19/2024 Osteophyte 11/19/2024 Onychomycosis 11/19/2024 Brittle nails 11/19/2024 Neuralgia 11/19/2024 Asthma without status asthmaticus ([facility]) 07/06 Sliding hiatal hernia 05/27/2024 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) 12/12/2023 Alcohol withdrawal delirium ([facility]) Alcohol withdrawal ([facility]) 12/12/2023 Acute sinusitis 10/21/2023 Irregular periods 07/09/2023 Dysuria 07/09/2023 Dysmenorrhea 07/09/2023 Muscle tension pain 04/15/2023 Candidiasis of vagina 03/22/2023 Chronic migraine w/o aura w/ o status migrainosus, not intractable 03/11/2023 Mass of soft tissue of right lower extremity Loss of hair 11/21/2022 Glossodynia 11/21/2022 Peripheral neuropathic pain 11/21/2022 Vitamin B12 deficiency neuropathy ([facility]) 10/04 Abnormal weight loss 07/11/2022 Chronic diarrhea 05/09/2022 Insect bite 03/27/2022 Obesity 02/28/2022 Arthritis 02/28/2022 Overview (11/19/2024): left foot Dysphagia 02/28/2022 Dry skin 02/28/2022 Congenital pes planus of both feet 01/26/2022 Arthralgia of left ankle 11/29/2021 Foot pain 08/03/2021 Ingrowing toenail 08/03/2021 Foot callus 08/03/2021 Borderline personality disorder (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 GERD (gastroesophageal reflux disease) 8 Excessive daytime sleepiness 09/11/2018 Chronic post-traumatic stress disorder (PTSD) Fibromyalgia 09/11/2018 Chronic neck pain 09/11/2018 Chronic insomnia 09/11/2018 Chronic fatigue 09/11/2018 Chronic back pain greater than 3 months duration 09/11/2018 Overview (11/19/2024): Narrowing of spine, back fracture, wedging of spine t10 t11 Poor balance 09/11/2018 Neuropathy 09/11/2018 Overview (11/19/2024): Positive EMG Legs and feet Generalized anxiety disorder 03/07/2018 Female stress incontinence 03/07/2018 Obstructive sleep apnea syndrome 03/07/2018 Other alopecia areata 02/27/2018 Degeneration of lumbar intervertebral disc 02/19 Resolved Problems Problem Noted Date Diagnosed Date Resolved Date Encounter to establish care 10/16/2017 11/23/2024 Encounters Date Type Department Care Team Description 03/03/2025 8:20 AM CDT Office Visit [facility] - [facility] [address] [place] [phone] Nemesio Santillan MD Botox (migraine 155 units/) 03/03/2025 Scan [facility] SRVCS Scanned, [facility] 03/03/2025 Travel 02/15/2025 Telephone [facility] - [address] [place] [phone] Nemesio Santillan MD Reschedule from Last 3 Months Immunizations Immunization Administration Dates Next Due Dtp (Generic) 06/21/1988, 5,03/11/1984,1983,1983 Influenza (Generic) 07/16/2017 Influenza Adult (Generic) 10/05/2021,,07/06/2019,2017,08/16/2017 MMR (MMRII) 05/31/1993,06/05/1990,10/20/1984 Polio Opv (Generic) 06/21/1988, 5,03/11/1984,1983,1983 Td, Adsorbed, Preservative F ree, Adult Use, Lf Unspecified 08/18/1997 Tdap (Generic) 12/13/2021,08/18/1997 Family History Medical History Relation Comments Asthma Brother 1 Hypertension Brother 2 Vision loss Daughter Diabetes Maternal Aunt Graves' disease Mother degenerative disc disease Mother Alcohol Abuse Neg Hx Arthritis Neg Hx Cancer Neg Hx Depression Neg Hx Drug Abuse Neg Hx Early Hearing Loss Neg Hx Mental Health Neg Hx Relation Status Comments Brother 1 Brother 2 Daughter Father Alive Maternal Aunt Mother Alive Social History Tobacco Use Types Packs/Day Years Used Date Smoking Tobacco: Former Cigarettes 0.5 15 0 2007 - 2022 Passive Smoke Exposure: Past Smokeless Tobacco: Never Tobacco Cessation:Counseling Given: Yes Comments:Vapes daily, Former, Quit 2021 Alcohol Use Standard Drinks/Week Comments Yes 0 (1 standard drink = 0.6 oz pur e alcohol) 1 pint whiskey every Saturday B1300 Health Literacy Answer Date Recor ded How often do you need to hav e someone help you when you read instructions, pamphlets, or other written material from your doctor or pharmacy? Often 04/16/2024 [facility] Utilities Answer Date Recorded In the past 12 months has e [email or web address], gas, oil, or water gokit threatened to shut off services in your home? No 04/16/2024 Humiliation, Afraid, Rape, and Kick questionnair e Answer Date Recorded Within the last year, have y ou been afraid of your partner or ex-partner? No 04/16/2024 Within the last year, have y ou been humiliated or emotionally abused in other ways by your partner or ex-partner? No Within the last year, have y ou been kicked, hit, slapped, or otherwise physically hurt by your partner or ex-partner? No 04/16/2024 Within the last year, have y ou been raped or forced to have any kind of sexual activity by your partner or ex-partner? No 04/16/2024 Social Connection and Isolation Panel [NHANES] A nswer Date Recorded In a typical week, how many times do you talk on the phone with family, friends, or neighbors? Twice a week 04/16/2024 How often do you get together with friends or re latives? Once a week 04/16/2024 How often do you attend samaritan or rastafarian serv ices? Never 04/16/2024 Do you belong to any clubs o r organizations such as samaritan groups, unions, fraternal or athletic groups, or school groups? No 04/16/2024 How often do you attend meet ings of the clubs or organizations you belong to? Never 04/16/2024 Are you , , di vorced, , never , or living with a partner? Never 04/16/2024 AUDIT-C Answer Date Recorded Q1: How often do you have a drink containing alc ohol? Monthly or less 04/16/2024 Q2: How many drinks containi ng alcohol do you have on a typical day when you are drinking? 7 to 9 04/16/2024 Q3: How often do you have si x or more drinks on one occasion? Monthly 04/16/2024 Overall Financial Resource Strain (CARDIA) Answe r Date Recorded How hard is it for you to pa y for the very basics like food, housing, medical care, and heating? Hard 04/16/2024 PHQ-2 Answer Date Recorded Patient Health Questionnaire-2 Score 6 03/03/2025 [facility] - Occupational Stress Questionnaire Answer Date Recorded Do you feel stress - tense, restless, nervous, or anxious, or unable to sleep at night because your mind is troubled all the time - these days? Very much 04/16/2024 Exercise Vital Sign Answer Date Recorde d On average, how many days pe r week do you engage in moderate to strenuous exercise (like a brisk walk)? 0 days 04/16/2024 On average, how many minutes do you engage in exercise at this level? 0 min 04/16/2024 Hunger Vital Sign Answer Date Recorded Within the past 12 months, y ou worried that your food would run out before you got the money to buy more. Often true 04/16/20 24 Within the past 12 months, t he food you bought just didn't last and you didn't have money to get more. Often true 04/16/2024 PRAPARE - Transportation Answer Date Re corded In the past 12 months, has l ack of transportation kept you from medical appointments or from getting medications? Yes 04/04 In the past 12 months, has l ack of transportation kept you from meetings, work, or from getting things needed for daily living? Yes 04/16/2024 Housing Stability Vital Sign Answer Toni e Recorded In the last 12 months, was t here a time when you were not able to pay the mortgage or rent on time? Yes 04/16/2024 In the past 12 months, how m any times have you moved where you were living? 0 04/16/2024 At any time in the past 12 m [facility], were you homeless or living in a mcfp (including now)? No 04/16/2024 Comments No Sex and Gender Information Value Date Recorded Sex Assigned at Female 12/08/2024 6:39 AM TRANSMISSION CALIBRATION ENGINEER Legal Sex Female 10:09 AM TRANSMISSION CALIBRATION ENGINEER Gender Identity Not on file Sexual Orientation Not on file Last Filed Vital Signs Vital Sign Reading Time Taken Comments Blood Pressure 123/45 03/03/2025 8:14 AM CDT Pulse 85 03/03/2025 8:14 AM CDT Temperature 36.2 C (97.1 F) 03/03/2025 8:14 AM CDT Respiratory Rate 18 06/19/2024 8:55 AM CDT Oxygen Saturation 100% 03/03/2025 8:14 AM CDT Inhaled Oxygen Concentration - - Weight 112 kg (247 lb) 03/03/2025 8:14 AM CDT Height 175.3 cm (5' 9) 03/03/2025 8:14 AM CDT Body Mass Index 36.48 03/03/2025 8:14 AM CDT Plan of Treatment Upcoming Encounters Date Type Department Care Team (Late st Contact Info) Description 06/03/2025 8:00 AM CDT Office Visit [facility] - [address], [address] [place] [address] Nemesio Santillan MD [address] [place] [address] Health Maintenance Due Date Last Done Comments Annual Physical 1986 Hepatitis C 2001 Hepatitis B Vaccines (1 of 3 - 19+ 3-dose series) 2002 Pneumococcal Vaccine: Pediatrics (0 to 5 Years) and At-Risk Patients (6 to 49 Years) (1 of 2 - PCV) 2002 Mammogram Screening 2023 COVID-19 Vaccine ( season) 2024 10/05/2021, 02/23/2021, 02/02/2021 DTaP, Tdap and Td Vaccines (8 - Td or Tdap) 12/13/2031 12/13/2021, 08/18/1997, 08/18/1997, Additional history exists PHQ-2 (Physician Sod) Completed 03/03/2025 HPV Vaccines Aged Out No longer eligi ble based on patient's age to complete this topic Meningococcal B Vaccine Aged Out No l onger eligible based on patient's age to complete this topic Meningococcal Vaccine Aged Out No kareen omar eligible based on patient's age to complete this topic RSV Immunizations Under 20 Months Aged Out No longer eligible based on patient's age to complete this topic Medical Devices Implanted Type Area Outpatient Phlebotomist Device Identifier Shelf Expiration Date Model / Serial / Lot 2.0/2.3 [employer]ilock 4cf Plate Small Implanted:Qty: 1 on 04/19/2023 by Cesar Viveros MD at [facility] Left: Arm MEDARTIS [id number]. Mm Length Hd6 Implanted:Qty: 1 on 04/19/2023 by Cesar Viveros MD at [facility] Left: Arm MEDARTIS [id number] Length Hd6 Implanted:Qty: 1 on 04/19/2023 by Cesar Viveros MD at [facility] Left: Arm [id number] Length, Hd6 Implanted:Qty: 2 on 04/19/2023 by Cesar Viveros MD at [facility] Left: Arm MEDARTIS [id number] Length Hd Implanted:Qty: 2 on 04/19/2023 by Cesar Viveros MD at [facility] Left: Arm [employer]IS [id number]/04mm Length Hd6 Implanted:Qty: 1 on 04/19/2023 by Cesar Viveros MD at [facility] Left: Arm MEDARTIS [id number]/04 20mm Length Hd6 Implanted:Qty: 1 on 04/19/2023 by Cesar Viveros MD at [facility] Left: Arm MEDARTIS [id number]/11 / Insurance MEDICAID [facility] Advance Directives * Full Code (Latest Code Status on File) Date Activated Date Inactivated Comments 04/15/2024 7:08 PM 04/18/2024 3:50 PM Care Teams Motorcoach Operator Relationship Specialty Start Date End Date Soraida Bowden PA PCP - General PHYSICIAN CROP PEST CONTROL SPECIALIST 01/04/22
--- OUTSIDE RECORDS SUMMARY | 2025-05-11 10:08 | XMS_ITS | Encounter Summary ---
Author Organization [facility] Address [address] [place] [address] Care Team Providers Care Ironer Hand Name Role Phone Soraida Bowden Primary Care Provider [phone] Encounter Details Date Type Department Care Team (Late st Contact Info) Description 08/09/2024 [id number] Message Enc [facility] Orthopedic & Sports Medicine - [place] [address] [place] [address] [phone] Cesar Viveros MD [address] [place], [place] [phone] Covid Social History Tobacco Use Types Packs/Day Years Used Date Smoking Tobacco: Former Cigarettes 0.5 15 0 2007 - 2022 Passive Smoke Exposure: Past Smokeless Tobacco: Never Comments:Vapes daily, Former , Quit 2021 Alcohol Use Standard Drinks/Week Comments Yes 0 (1 standard drink = 0.6 oz pur e alcohol) 1 pint whiskey every Saturday B1300 Health Literacy Answer Date Recor ded How often do you need to hav e someone help you when you read instructions, pamphlets, or other written material from your doctor or pharmacy? Often 04/16/2024 [facility] Utilities Answer Date Recorded In the past 12 months has e electric, gas, oil, or water [employer] threatened to shut off services in your [...] week 04/16/2024 How often do you attend jainism or rastafari serv ices? Never 04/16/2024 Do you belong to any clubs o r organizations such as jainism groups, unions, fraternal or athletic groups, or [...] Date Recorded Patient Health Questionnaire-2 Score 6 04/16/2024 [facility] - Occupational Stress [...] any time in the past 12 m [facility], were you homeless or living in a long term (including now)? 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 Answer Date of Assessment Author Status No 04/16/2024 2:58 PM Mei Malik, JOSUÉ Active * Do you have serious difficulty walking or climbing stairs? Answer Date of Assessment Author Status Yes 04/16/2024 3:01 PM Mei Malik RN Active * Do you have difficulty dressing or bathing? Answer Date of Assessment Author Status No 04/16/2024 2:58 PM CDT Mei George RN Active * Because of a physical, mental, or emotional condition, do you have difficulty doing errands alone such as visiting a doctor's office or shopping? Answer Date of Assessment Author Status No 04/16/2024 2:58 PM CDT Mei George RN Active documented as of this encounter Mental Status * Because of a physical, mental, or emotional condition, do you have serious difficulty concentrating, remembering, or making decisions? Answer Entry Date Author Status No 04/16/2024 2:58 PM CDT Mei George RN Active documented in this encounter Plan of Treatment Upcoming Encounters Date Type Department Care Team (Late st Contact Info) Description 06/03/2025 8:00 AM CDT Office Visit [facility] Multispecialty Care - [address], [address] [place] [address] Nemesio Santillan MD [address] [place] [address] documented as of this encounter Visit Diagnoses Not on filedocumented in this encounter Additional Health Concerns Assessment Noted Time PHQ-9 Depression Total Score: 24 024 2:53 PM CDT documented as of this encounter Care Teams Ironer Hand Relationship Specialty Start Date End Date Soraida Bowden PA PCP - General PHYSICIAN ENERGY SALES BROKER 01/04/22 documented as of this encounter
--- OUTSIDE RECORDS SUMMARY | 2025-05-11 10:08 | XMS_ITS | Encounter Summary ---
Author Organization [facility] Address [address] [place] [address] Care Team Providers Care Roofing Apprentice Name Role Phone Soraida Bowden Primary Care Provider [phone] Encounter Details Date Type Department Care Team (Late st Contact Info) Description 06/09/2024 Vitrynt Message Enc [facility] Orthopedic & Sports Medicine - [place] [address] [place], [place] [phone] Cesar Viveros MD [address] [place], [place] [phone] Therapy Social History Tobacco Use Types Packs/Day Years [...] from your doctor or pharmacy? Often 04/16/2024 [facility] Utilities Answer Date Recorded In the past 12 months has e [employer], gas, oil, or water [employer] threatened to shut off services in your [...] week 04/16/2024 How often do you attend jew or faith serv ices? Never 04/16/2024 Do you belong to any clubs o r organizations such as jew groups, unions, fraternal or athletic groups, or [...] Recorded Patient Health Questionnaire-2 Score 6 04/16/2024 [facility] - Occupational Stress [...] any time in the past 12 m [facility], were you homeless or living in a senior living (including now)? 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 Multispecialty Care - [facility] [address], [address] [place] [address] Nemesio Santillan MD [address] [place] [address] documented as of this encounter Visit Diagnoses Not on filedocumented in this encounter Additional Health Concerns Assessment Noted Time PHQ-9 Depression Total Score: 24 024 2:53 PM CDT documented as of this encounter Care Teams Roofing Apprentice Relationship Specialty Start Date End Date Soraida Bowden PA PCP - General PHYSICIAN LOCOMOTIVE FIRER/FIREMAN 01/04/22 documented as of this encounter
--- OUTSIDE RECORDS SUMMARY | 2025-05-11 10:08 | XMS_ITS | Data Portability ---
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 Plan of Treatment Reminders Order Date Submit Date Provider Last Modified By Organization Details Last Modified Time Details Appointments ANY 15 2024 09:00A Larry Oshea MD Not available Not available Not available Lab CBC w/ auto diff [address] [facility] [address], [place], [address], 12/15/2024 11:27:25 CMP, serum or plasma [address] [facility] [address], [place], [address], 12/15/2024 11:27:25 HbA1c (hemoglob in A1c), blood [address] [facility] [facility] [address], [place], [address], 12/15/2024 11:27:25 vitamin B12 + folate, serum or blood 2024 025 [facility] [address], [place], [address], 12/15/2024 11:27:26 TSH + free T4, serum [address] [facility] At [facility], [facility] [address], [place], [address], 12/15/2024 11:27:26 magnesium , serum or plasma [...] 00:02:45 Referral otolaryng ologist referral 2024 025 Jayesh Oshea MD, [address], [place], [address], 04/08/2025 14:31:09 urologist referral 2024 025 [email or web address] [facility], [facility] [place], [address], 04/28/2025 13:22:22 dermatolo gist referral 2024 025 [email or web address], [address] [place], [address], 04/28/2025 13:22:22 pulmonolo gist referral 2023 024 [email or web address] Sneed MD, [address] [place], [address], 07/28/2024 09:37:19 dermatolo gist referral 2023 024 [email or web address] Jose Maria Valencia MD, [address] [place], [address], 10/20/2024 10:54:31 podiatris t referral - pt was prior patient of dr. velazquez , has [facility] with [facility]. needs [facility]. 2023 024 David Jasso DPM, [address], [place], [address], 04/14/2024 16:54:24 EGD referral 2023 024 [email or web address] Jin MD, [address] [facility], [address], [place], [address], 07/12/2024 23:12:54 gastroent erologist referral 2023 024 PATTIE Jin MD, [address] [facility], [address], [place], [address], 07/13/2024 12:50:18 Procedures None recorded. Surgeries None recorded. Imaging XR, chest, 2 view 2024 025 [facility], [address] [place] [address], [address], [place], [address], 12/22/2024 13:11:13 MAMMO, screening , digital, bilateral 2023 024 Not available 02/24/2025 14:00:01 Medication Orders doxycycli ne hyclate 100 mg capsule 2024 025 [facility] [address] [place], [address], 12/31/2024 12:12:49 Medrol (Leandro) 4 mg tablets in a dose pack 2024 025 [facility] [address] [place], [address], 04/05/2025 16:32:36 fluconazo le 150 mg tablet 2024 025 [facility] [address] [place], [address], 12/31/2024 12:12:47 loratadin e 10 mg tablet 2024 025 [facility] [address] [place], [address], 12/31/2024 12:12:50 albuterol sulfate HFA 90 mcg/actua tion aerosol inhaler 2024 025 [facility] [address] [place], [address], 11/17/2024 16:12:40 amoxicill in 875 mg-potass ium clavulana te 125 mg tablet 2024 025 [facility] [address] [place], [address], 12/31/2024 11:33:29 omeprazol e 40 mg capsule,d elayed release 2023 024 [facility] [address] [place], [address], 06/16/2024 12:15:41 lidocaine 5 % topical cream 2023 024 [facility] [address] [place], [address], 09/03/2024 16:01:34 cyanocoba chad (vit B-12) 1,000 mcg/mL injection solution 2023 024 [email or web address] Not available 12/31/2024 11:32:24 Macrobid 100 mg capsule [address] [facility] [address] [place], [address], 03/24/2024 18:21:49 triamcino lone acetonide 0.1 % topical cream 2023 024 [facility] [address] [place], [address], 02/19/2024 17:15:43 omeprazol e 40 mg capsule,d elayed release 2023 024 [facility] [address] [place], [address], 02/19/2024 17:15:39 azithromy sugar 250 mg tablet [address] [facility] [address] [place], [address], 03/24/2024 18:21:39 Diflucan 150 mg tablet 2023 024 [email or web address] [facility] [address] [place], [address], 12/31/2024 11:32:34 cyclobenz aprine 10 mg tablet [address] [facility] [address] [place], [address], 03/24/2024 18:24:02 lidocaine 5 % topical patch 2023 024 [facility] [address], [address] [place] [address], [address], 02/21/2024 18:00:39 Patient TargetsNo targets recorded. Patient Instructions Encounter Date Encounter Id Patient Instructions Last Modified By Organization Details Last Modified Time 12/31/2024 [id number] A healthy lifestyle: care instructions Not available 12/31/2024 12:00:02 Reason for Referral Turpentiner Referral for Exocrine pancreatic insufficiency Referring Physician: Soraida Bowden Internal Medicine, Encounter Date: 02/19/2024 EGD Referral for Hiatal kirk ia with gastroesophageal reflux Referring Physician: Soraida Bowden Internal Medicine, Encounter Date: 02/19/2024 Optimization Specialist Referral for Bila teral foot joint pain pt was prior patient of dr. velazquez, has records with [facility]. needs to [facility]. Referring Physician: Soraida Bowden Internal Medicine, Encounter Date: 02/19/2024 Play Therapist Referral for D isorder of nail Referring Physician: Soraida Bowden Internal Medicine, Encounter Date: 06/16/2024 Steward/Stewardess Wine Referral for D yspnea Referring Physician: Soraida Bowden Internal Medicine, Encounter Date: 06/16/2024 Quality Assistant Referral fo r Cyst of nasal cavity Referring Physician: Georgiana Campos Medicine, Encounter Date: 12/31/2024 Play Therapist Referral for S kin lesion Referring Physician: Soraida Bowden Internal Medicine, Encounter Date: 12/31/2024 Urologist Referral for Incre ased frequency of urination Referring Physician: Soraida Bowden Internal Medicine, Encounter Date: 12/31/2024 Results Created Date Observation Date Name Description Value Unit Range Abnormal Flag Note LastModifiedBy Organization Detail LastModifiedTime 03/17/20 24 03/19/2024 Landmark light chain s.gissel e/Haynes bda light chain s.gissel e [Mass Ratio ] in Serum kappa light chains.free [mass/volume ] in serum 23.5 mg/L low: 3.3mg/ Lhigh: 19.4mg /L high KAPPA FREE LIGHT CHAIN 23.5 (H) 3.3 - 19.4 mg/L 03/19 5:01 PM CDT [facility] LS-CH ANTIL LY Not Available Not Available 01/06/2025 10:29:15 03/17/20 24 03/19/2024 Landmark light chain s.gissel e/Haynes bda light chain s.gissel e [Mass Ratio ] in Serum lambda light chains.free [mass/volume ] in serum or plasma 12.4 mg/L low: 5.7mg/ Lhigh: 26.3mg /L LAMBD A FREE LIGHT CHAIN 12.4 5.7 - 26.3 mg/L 03/19 5:01 PM CDT [facility] CHATO LS-CH ANTIL LY Not Available Not Available 01/06/2025 10:29:15 03/17/20 24 03/19/2024 Landmark light chain s.gissel e/Haynes bda light chain s.gissel e [Mass Ratio ] in Serum kappa light chains.free/ lambda light chains.free [mass ratio] in serum 1.9 low: 0.26hi gh: 1.65 high KAPPA /BARLOW DA FREE 1.90 (H) 0.26 - 1.65 03/19 5:01 PM CDT [facility] CHATO LS-CH ANTIL LY Not Available Not Available 01/06/2025 10:29:15 03/17/20 24 03/19/2024 Landmark light chain s.gissel e/Haynes bda light chain [...] - 17.5 NG/ML 03/17 1:44 PM CDT [facility] Not Available Not Available 01/06/2025 10:29:14 [...] Not Available 01/06/2025 10:29:14 03/17/20 24 03/20/2024 Corrine ine [Mole s/vol ume] in Serum or [...] - 1,320 PG/ML 03/17 1:44 PM CDT [facility] Not Available Not Available 01/06/2025 10:29:14 04/15/20 24 04/15/2024 Phosp hate [Mass /volu me] in Serum or Plasm a phosphate [mass/volume ] in serum or plasma 3 text: 2.5 - 4.9 mg/dL PHOSP HORUS 3.0 2.5 - 4.9 MG/DL 04/15 3:30 PM CDT [facility] Not Available Not Available 02/15/2025 11:03:36 04/15/20 24 04/15/2024 Magne sium [Mass /volu me] in Serum or Plasm a magnesium [mass/volume ] in serum or plasma 1.3 text: 1.8 - 2.4 mg/dL low MAGNE SIUM 1.3 (L) 1.8 - 2.4 MG/DL 04/15 3:30 PM CDT [facility] Not Available Not Available 02/15/2025 11:03:36 [...] 500 ng{FE U}/mL 04/15 3:44 PM CDT [facility] Not Available Not Available 02/15/2025 11:03:36 [...] - 99 MG/DL 04/15 3:30 PM CDT [facility] Not Available Not Available 02/15/2025 11:03:36 04/15/20 24 04/15/2024 Compr ehens ifeanyi metab olic 1999 panel - Serum or Plasm a urea nitrogen [mass/volume ] in serum or plasma 12 text: 7 - 18 mg/dL BUN 12 7 - 18 MG/DL 04/15 3:30 PM CDT [facility] Not Available Not Available 02/15/2025 11:03:36 04/15/20 24 04/15/2024 Compr ehens ifeanyi metab olic 1999 panel - Serum or Plasm a creatinine [mass/volume ] in serum or plasma 1.04 text: 0.55 - 1.02 mg/dL high CREAT ININE S/P/B 1.04 (H) 0.55 - 1.02 MG/DL 04/15 3:30 PM CDT [facility] Not Available Not Available 02/15/2025 11:03:36 04/15/20 24 04/15/2024 Compr ehens ifeanyi metab olic 1999 panel - Serum or Plasm a sodium [moles/volum e] in serum or plasma 136 text: 136 - 145 mmol/L SODIU M S/P/B 136 136 - 145 MMOL/ L 04/15 3:30 PM CDT [facility] Not Available Not Available 02/15/2025 11:03:36 04/15/20 24 04/15/2024 Compr ehens ifeanyi metab olic 1999 panel - Serum or Plasm a potassium [moles/volum e] in serum or plasma 3.3 text: 3.5 - 5.1 mmol/L low POTAS SIUM S/P/B 3.3 (L) 3.5 - 5.1 MMOL/ L 04/15 3:30 PM CDT [facility] Not Available Not Available 02/15/2025 11:03:36 04/15/20 24 04/15/2024 Compr ehens ifeanyi metab olic 2000 panel - Serum or Plasm a chloride [moles/volum e] in serum or plasma 106 text: 100 - 108 mmol/L CHLOR JENNIFER S/P/B 106 100 - 108 MMOL/ L 04/15 3:30 PM CDT [facility] Not Available Not Available 02/15/2025 11:03:36 04/15/20 24 04/15/2024 Compr ehens ifeanyi metab olic 2000 panel - Serum or Plasm a carbon dioxide, total [moles/volum e] in serum or plasma 22.8 text: 21 - 32 mmol/L CO2 22.8 21 - 32 MMOL/ L 04/15 3:30 PM CDT [facility] Not Available Not Available 02/15/2025 11:03:36 04/15/20 24 04/15/2024 Compr ehens ifeanyi metab olic 2000 panel - Serum or Plasm a calcium [mass/volume ] in serum or plasma 8.4 text: 8.5 - 10.1 mg/dL low CALCI UM S/P/B 8.4 (L) 8.5 - 10.1 MG/DL 04/15 3:30 PM CDT [facility] Not Available Not Available 02/15/2025 11:03:36 04/15/20 24 04/15/2024 Compr ehens ifeanyi metab olic 1999 panel - Serum or Plasm a bilirubin.to obed [mass/volume ] in serum or plasma 0.4 text: 0.2 - 1.2 mg/dL BILIR UBIN TOTAL S/P/B 0.4 0.2 - 1.2 MG/DL 04/15 3:30 PM CDT [facility] Not Available Not Available 02/15/2025 11:03:36 04/15/20 24 04/15/2024 Compr ehens ifeanyi metab olic 2000 panel - Serum or Plasm a protein [mass/volume ] in serum or plasma 6.7 text: 6.4 - 8.2 g/dL TOTAL PROTE IN S/P/B 6.7 6.4 - 8.2 G/DL 04/15 3:30 PM CDT [facility] Not Available Not Available 02/15/2025 11:03:36 04/15/20 24 04/15/2024 Compr ehens ifeanyi metab olic 2000 panel - Serum or Plasm a albumin [mass/volume ] in serum or plasma 3.2 text: 3.4 - 5.0 g/dL low ALBUM IN S/P/B 3.2 (L) 3.4 - 5.0 G/DL 04/15 3:30 PM CDT [facility] Not Available Not Available 02/15/2025 11:03:36 04/15/20 24 04/15/2024 Compr ens ifeanyi metab olic 1999 panel - Serum or Plasm a aspartate aminotransfe rase [enzymatic activity/vol ume] in serum or plasma 18 U/L low: 15U/Lh igh: 37U/L AST 18 15 - 37 U/L 04/15 3:30 PM CDT [facility] Not Available Not Available 02/15/2025 11:03:36 04/15/20 24 04/15/2024 Compr ens ifeanyi metab olic 1999 panel - Serum or Plasm a alanine aminotransfe rase [enzymatic activity/vol ume] in serum or plasma 18 U/L low: 14U/Lh igh: 55U/L ALT 18 14 - 55 U/L 04/15 3:30 PM CDT [facility] Not Available Not Available 02/15/2025 11:03:36 04/15/20 24 04/15/2024 Compr ehens ifeanyi metab olic 1999 panel - Serum or Plasm a alkaline phosphatase [enzymatic activity/vol ume] in serum or plasma 54 U/L low: 50U/Lh igh: 136U/L ALKAL INE PHOSP HATAS E S/P/B 54 50 - 136 U/L 04/15 3:30 PM CDT [facility] Not Available Not Available 02/15/2025 11:03:36 04/15/20 24 04/15/2024 Compr ehens ifeanyi metab olic 1999 panel - Serum or Plasm a anion gap in serum or plasma by calculation 7.2 text: 5 - 15 mmol/L ANION GAP 7.2 5 - 15 MMOL/ L 04/15 3:30 PM CDT [facility] Not Available Not Available 02/15/2025 11:03:36 04/15/20 24 04/15/2024 Compr ehens ifeanyi metab olic 1999 panel - Serum or Plasm a urea nitrogen/cre atinine [mass ratio] in serum or plasma 11.5 low: 6high: 26 BUN CREAT ININE RATIO 11.5 6 - 26 04/15 3:30 PM CDT [facility] Not Available Not Available 02/15/2025 11:03:36 04/15/20 24 04/15/2024 Compr ehens ifeanyi metab olic 1999 panel - Serum or Plasm a albumin/glob ulin [mass ratio] in serum or plasma 0.9 text: 1.0 - 2.0 ratio low A/G RATIO 0.9 (L) 1.0 - 2.0 RATIO 04/15 3:30 PM CDT [facility] Not Available Not Available 02/15/2025 11:03:36 04/15/20 24 04/15/2024 Compr ehens ifeanyi metab olic 1999 panel - Serum or Plasm a glomerular filtration rate [volume rate/area] in serum, plasma or blood by creatinine-b ased formula (CKD-epi 2020)/1.73 sq M 70 text: >90 mL/min /1.73 M2 low GFR ESTIM ATE 70 (L) >90 ML/FL N/1.7 3 M2 04/15 3:30 PM CDT [facility] Not Available Not Available 02/15/2025 11:03:36 [...] 11.0 x10'3 /uL 04/15 2:52 PM CDT [facility] Not Available Not Available 02/15/2025 11:03:36 04/15/20 24 04/15/2024 CBC W Auto Diffe renti al panel - Blood erythrocytes [#/volume] in blood by automated count 4.4 text: 4.20 - 5.40 x10'6/ uL RBC 4.40 4.20 - 5.40 x10'6 /uL 04/15 2:52 PM CDT [facility] Not Available Not Available 02/15/2025 11:03:36 04/15/20 24 04/15/2024 CBC W Auto Diffe renti al panel - Blood hemoglobin [mass/volume ] in blood 12.9 text: 12.0 - 16.0 g/dL HGB 12.9 12.0 - 16.0 G/DL 04/15 2:52 PM CDT [facility] Not Available Not Available 02/15/2025 11:03:36 04/15/20 24 04/15/2024 CBC W Auto Diffe renti al panel - Blood hematocrit [volume fraction] of blood by calculation 39.8 % low: 38%hig h: 48% HCT 39.8 38.0 - 48.0 % 04/15 2:52 PM CDT [facility] Not Available Not Available 02/15/2025 11:03:36 04/15/20 24 04/15/2024 CBC W Auto Diffe renti al panel - Blood MCV [entitic mean volume] in red blood cells 90.5 text: 81.0 - 99.0 fL MCV 90.5 81.0 - 99.0 FL 04/15 2:52 PM CDT [facility] Not Available Not Available 02/15/2025 11:03:36 04/15/20 24 04/15/2024 CBC W Auto Diffe renti al panel - Blood MCH [entitic mass] 29.3 pg low: 27pghi gh: 31pg MCH 29.3 27.0 - 31.0 PG 04/15 2:52 PM CDT [facility] Not Available Not Available 02/15/2025 11:03:36 04/15/20 24 04/15/2024 CBC W Auto Diffe renti al panel - Blood MCHC [entitic mass/volume] in red blood cells 32.4 text: 32.0 - 36.0 g/dL MCHC 32.4 32.0 - 36.0 G/DL 04/15 2:52 PM CDT [facility] Not Available Not Available 02/15/2025 11:03:36 04/15/20 24 04/15/2024 CBC W Auto Diffe renti al panel - Blood RDW 16.4 % low: 11.5%h igh: 14.5% high RDW 16.4 (H) 11.5 - 14.5 % 04/15 2:52 PM CDT [facility] Not Available Not Available 02/15/2025 11:03:36 04/15/20 24 04/15/2024 CBC W Auto Diffe renti al panel - Blood platelets [#/volume] in blood 238 text: 130 - 400 x10'3/ uL PLT 238 130 - 400 x10'3 /uL 04/15 2:52 PM CDT [facility] Not Available Not Available 02/15/2025 11:03:36 04/15/20 24 04/15/2024 CBC W Auto Diffe renti al panel - Blood platelet [entitic mean volume] in blood 11.4 text: 9.3 - 12.2 fL MPV 11.4 9.3 - 12.2 FL 04/15 2:52 PM CDT [facility] Not Available Not Available 02/15/2025 11:03:36 04/15/20 24 04/15/2024 CBC W Auto Diffe renti al panel - Blood differential cell count method - blood AUTOMA BUCK DIFFER ENTIAL DIFFE RENTI AL TYPE AUTOM ATED DIFFE RENTI AL 04/15 2:52 PM CDT [facility] Not Available Not Available 02/15/2025 11:03:36 04/15/20 24 04/15/2024 CBC W Auto Diffe renti al panel - Blood neutrophils/ leukocytes in blood by automated count 85 % NEUTR OPHIL S 85.0 % 04/15 2:52 PM CDT [facility] Not Available Not Available 02/15/2025 11:03:36 04/15/20 24 04/15/2024 CBC W Auto Diffe renti al panel - Blood lymphocytes/ leukocytes in blood by automated count 10.6 % LYMPH OCYTE S 10.6 % 04/15 2:52 PM CDT [facility] Not Available Not Available 02/15/2025 11:03:36 04/15/20 24 04/15/2024 CBC W Auto Diffe renti al panel - Blood monocytes/le ukocytes in blood by automated count 3.6 % MONOC YTES 3.6 % 04/15 2:52 PM CDT [facility] Not Available Not Available 02/15/2025 11:03:36 04/15/20 24 04/15/2024 CBC W Auto Diffe renti al panel - Blood eosinophils/ leukocytes in blood by automated count 0 % EOSIN OPHIL S 0.0 % 04/15 2:52 PM CDT [facility] Not Available Not Available 02/15/2025 11:03:36 04/15/20 24 04/15/2024 CBC W Auto Diffe renti al panel - Blood basophils/le ukocytes in blood by automated count 0.3 % BASOP HILS 0.3 % 04/15 2:52 PM CDT [facility] Not Available Not Available 02/15/2025 11:03:36 04/15/20 24 04/15/2024 CBC W Auto Diffe renti al panel - Blood immature granulocytes /leukocytes in blood by automated count 0.5 % IMMAT URE GRANS 0.5 % 04/15 2:52 PM CDT [facility] Not Available Not Available 02/15/2025 11:03:36 04/15/20 24 04/15/2024 CBC W Auto Diffe renti al panel - Blood neutrophils [#/volume] in blood 14.55 text: 1.80 - 7.70 x10'3/ uL high ABS. NEUTR OPHIL S 14.55 (H) 1.80 - 7.70 x10'3 /uL 04/15 2:52 PM CDT [facility] Not Available Not Available 02/15/2025 11:03:36 04/15/20 24 04/15/2024 CBC W Auto Diffe renti al panel - Blood lymphocytes [#/volume] in blood 1.82 text: 1.00 - 4.80 x10'3/ uL ABS. LYMPH OCYTE S 1.82 1.00 - 4.80 x10'3 /uL 04/15 2:52 PM CDT [facility] Not Available Not Available 02/15/2025 11:03:36 04/15/20 24 04/15/2024 CBC W Auto Diffe renti al panel - Blood monocytes [#/volume] in blood 0.61 text: 0.24 - 0.86 x10'3/ uL ABS. MONOC YTES 0.61 0.24 - 0.86 x10'3 /uL 04/15 2:52 PM CDT [facility] Not Available Not Available 02/15/2025 11:03:36 04/15/20 24 04/15/2024 CBC W Auto Diffe renti al panel - Blood eosinophils [#/volume] in blood 0 text: 0.04 - 0.36 x10'3/ uL low ABS. EOSIN OPHIL S 0.00 (L) 0.04 - 0.36 x10'3 /uL 04/15 2:52 PM CDT [facility] Not Available Not Available 02/15/2025 11:03:36 04/15/20 24 04/15/2024 CBC W Auto Diffe renti al panel - Blood basophils [#/volume] in blood 0.05 text: 0.01 - 0.08 x10'3/ uL ABS. BASOP HILS 0.05 0.01 - 0.08 x10'3 /uL 04/15 2:52 PM CDT [facility] Not Available Not Available 02/15/2025 11:03:36 04/15/20 24 04/15/2024 CBC W Auto Diffe renti al panel - Blood immature granulocytes [#/volume] in blood 0.08 text: 0.00 - 0.49 x10'3/ uL ABS. IMMAT URE GRANU LOCYT ES 0.08 0.00 - 0.49 x10'3 /uL 04/15 2:52 PM CDT [facility] Not Available Not Available 02/15/2025 11:03:36 [...] URINE CLEAN CATCH 04/15 1:59 PM CDT [facility] Not Available Not Available 02/15/2025 11:03:36 04/15/20 24 04/15/2024 Urina lysis dipst ick W Refle x Micro scopi c panel - Urine color of urine YELLOW COLOR (U) YELLO W 04/15 2:24 PM CDT [facility] Not Available Not Available 02/15/2025 11:03:36 04/15/20 24 04/15/2024 Urina lysis dipst ick W Refle x Micro scopi c panel - Urine clarity of urine CLEAR TRANS PAREN CY CLEAR 04/15 2:24 PM CDT [facility] Not Available Not Available 02/15/2025 11:03:36 04/15/20 24 04/15/2024 Urina lysis dipst ick W Refle x Micro scopi c panel - Urine specific gravity of urine 1.024 low: 1.001h igh: 1.03 SPECI FIC GRAVI TY (U) 1.024 1.001 - 1.030 04/15 2:24 PM CDT [facility] Not Available Not Available 02/15/2025 11:03:36 04/15/20 24 04/15/2024 Urina lysis dipst ick W Refle x Micro scopi c panel - Urine pH of urine 6 low: 5high: 9 U PH 6.0 5.0 - 9.0 04/15 2:24 PM CDT [facility] Not Available Not Available 02/15/2025 11:03:36 04/15/20 24 04/15/2024 Urina lysis dipst ick W Refle x Micro scopi c panel - Urine leukocytes [#/volume] in urine by test strip NEGATI VE text: negati ve LEUKO CYTES (U) NEGAT IFEANYI NEGAT IFEANYI 04/15 2:24 PM CDT [facility] Not Available Not Available 02/15/2025 11:03:36 04/15/20 24 04/15/2024 Urina lysis dipst ick W Refle x Micro scopi c panel - Urine nitrite [presence] in urine NEGATI VE text: negati ve NITRI BENJAMIN NEGAT IFEANYI NEGAT IFEANYI 04/15 2:24 PM CDT [facility] Not Available Not Available 02/15/2025 11:03:36 04/15/20 24 04/15/2024 Urina lysis dipst ick W Refle x Micro scopi c panel - Urine protein [mass/volume ] in urine by test strip 10 text: <30 mg/dL PROTE IN RANDO M (U) 10 <30 MG/DL 04/15 2:24 PM CDT [facility] Not Available Not Available 02/15/2025 11:03:36 04/15/20 24 04/15/2024 Urina lysis dipst ick W Refle x Micro scopi c panel - Urine glucose [mass/volume ] in urine NORMAL text: normal mg/dL GLUCO SE (U) RAMSEY L RAMSEY L MG/DL 04/15 2:24 PM CDT [facility] Not Available Not Available 02/15/2025 11:03:36 04/15/20 24 04/15/2024 Urina lysis dipst ick W Refle x Micro scopi c panel - Urine ketones [mass/volume ] in urine by test strip NEGATI VE text: negati ve mg/dL KETON ES (U) NEGAT IFEANYI NEGAT IFEANYI MG/DL 04/15 2:24 PM CDT [facility] Not Available Not Available 02/15/2025 11:03:36 04/15/20 24 04/15/2024 Urina lysis dipst ick W Refle x Micro scopi c panel - Urine urobilinogen [units/volum e] in urine by test strip NORMAL text: normal mg/dL UROBI LINOG EN RAMSEY L RAMSEY L MG/DL 04/15 2:24 PM CDT [facility] Not Available Not Available 02/15/2025 11:03:36 04/15/20 24 04/15/2024 Urina lysis dipst ick W Refle x Micro scopi c panel - Urine bilirubin.to obed [mass/volume ] in urine NEGATI VE text: negati ve mg/dL BILIR UBIN (U) NEGAT IFEANYI NEGAT IFEANYI MG/DL 04/15 2:24 PM CDT [facility] Not Available Not Available 02/15/2025 11:03:36 04/15/20 24 04/15/2024 Urina lysis dipst ick W Refle x Micro scopi c panel - Urine erythrocytes [#/volume] in urine by automated test strip NEGATI VE text: negati ve BLOOD (U) NEGAT IFEANYI NEGAT IFEANYI 04/15 2:24 PM CDT [facility] Not Available Not Available 02/15/2025 11:03:36 04/15/20 24 04/15/2024 Influ mehnaz virus A+B Ag [Pres ence] in Speci men specimen source identified NASAL Speci men Type NASAL 04/15 2:07 PM CDT [facility] Not Available Not Available 02/15/2025 11:03:36 04/15/20 24 04/15/2024 Influ mehnaz virus A+B Ag [Pres ence] in Speci men influenza virus A Ag [presence] in specimen NEGATI VE text: negati ve INFLU MEHNAZ A NEGAT IFEANYI NEGAT IFEANYI 04/15 2:36 PM CDT [facility] Not Available Not Available 02/15/2025 11:03:36 04/15/20 24 04/15/2024 Influ mehnaz virus A+B Ag [Pres ence] in Speci men haemophilus influenzae B Ag [presence] in specimen NEGATI VE text: negati ve INFLU MEHNAZ B NEGAT IFEANYI NEGAT IFEANYI 04/15 2:36 PM CDT [facility] Not Available Not Available 02/15/2025 11:03:36 04/16/20 24 04/21/2024 Bacte [place] ident ified in Blood by Cultu re specimen source identified BLOOD SPEC DESCR IPTIO N BLOOD 04/16 1:34 PM CDT [facility] Not Available Not Available 02/15/2025 11:03:37 04/16/20 24 04/21/2024 Bacte charlotte ident ified in Blood by Cultu re service comment NO SPECIA L REQUES T SPECI AL REQUE STS NO SPECI AL REQUE ST 04/16 1:34 PM CDT [facility] Not Available Not Available 02/15/2025 11:03:37 04/16/20 24 04/21/2024 Bacte charlotte ident ified in Blood by Cultu re bacteria identified in specimen by culture NO GROWTH 5 DAYS CULTU RE RESUL T NO GROWT H 5 DAYS 04/21 6:43 AM CDT [facility] Not Available Not Available 02/15/2025 11:03:37 04/16/20 24 04/21/2024 Bacte charlotte ident ified in Blood by Cultu re specimen source identified BLOOD SPEC DESCR IPTIO N BLOOD 04/16 1:34 PM CDT [facility] Not Available Not Available 02/15/2025 11:03:37 04/16/20 24 04/21/2024 Bacte charlotte ident ified in Blood by Cultu re service comment NO SPECIA L REQUES T SPECI AL REQUE STS NO SPECI AL REQUE ST 04/16 1:34 PM CDT [facility] Not Available Not Available 02/15/2025 11:03:37 04/16/20 24 04/21/2024 Bacte charlotte ident ified in Blood by Cultu re bacteria identified in specimen by culture NO GROWTH 5 DAYS CULTU RE RESUL T NO GROWT H 5 DAYS 04/21 6:43 AM CDT [facility] Not Available Not Available 02/15/2025 11:03:37 04/16/20 24 04/16/2024 Lacta te [Mole s/vol ume] in Serum or Plasm a lactate [moles/volum e] in serum or plasma 2.1 text: 0.4 - 2.0 mmol/L high LACTI C ACID VENOU S 2.1 (H) 0.4 - 2.0 MMOL/ L 04/16 12:23 PM CDT [facility] Not Available Not Available 02/15/2025 [...] - 99 MG/DL 04/16 6:14 AM T [facility] Not Available Not Available 02/15/2025 11:03:37 04/16/20 24 04/16/2024 Basic metab olic 1999 panel - Serum or Plasm a urea nitrogen [mass/volume ] in serum or plasma 10 text: 7 - 18 mg/dL BUN 10 7 - 18 MG/DL 04/16 6:14 AM T [facility] Not Available Not Available 02/15/2025 11:03:37 04/16/20 24 04/16/2024 Basic metab olic 1999 panel - Serum or Plasm a creatinine [mass/volume ] in serum or plasma 0.88 text: 0.55 - 1.02 mg/dL CREAT ININE S/P/B 0.88 0.55 - 1.02 MG/DL 04/16 6:14 AM T [facility] Not Available Not Available 02/15/2025 11:03:37 04/16/20 24 04/16/2024 Basic metab olic 1999 panel - Serum or Plasm a sodium [moles/volum e] in serum or plasma 142 text: 136 - 145 mmol/L SODIU M S/P/B 142 136 - 145 MMOL/ L 04/16 6:14 AM CDT [facility] Not Available Not Available 02/15/2025 11:03:37 04/16/20 24 04/16/2024 Basic metab olic 2000 panel - Serum or Plasm a potassium [moles/volum e] in serum or plasma 3.5 text: 3.5 - 5.1 mmol/L POTAS SIUM S/P/B 3.5 3.5 - 5.1 MMOL/ L 04/16 6:14 AM CDT [facility] Not Available Not Available 02/15/2025 11:03:37 04/16/20 24 04/16/2024 Basic metab olic 1999 panel - Serum or Plasm a chloride [moles/volum e] in serum or plasma 113 text: 100 - 108 mmol/L high CHLOR JENNIFER S/P/B 113 (H) 100 - 108 MMOL/ L 04/16 6:14 AM CDT [facility] Not Available Not Available 02/15/2025 11:03:37 04/16/20 24 04/16/2024 Basic metab olic 1999 panel - Serum or Plasm a carbon dioxide, total [moles/volum e] in serum or plasma 23.9 text: 21 - 32 mmol/L CO2 23.9 21 - 32 MMOL/ L 04/16 6:14 AM CDT [facility] Not Available Not Available 02/15/2025 11:03:37 04/16/20 24 04/16/2024 Basic metab olic 1999 panel - Serum or Plasm a calcium [mass/volume ] in serum or plasma 7.8 text: 8.5 - 10.1 mg/dL low CALCI UM S/P/B 7.8 (L) 8.5 - 10.1 MG/DL 04/16 6:14 AM T [facility] Not Available Not Available 02/15/2025 11:03:37 04/16/20 24 04/16/2024 Basic metab olic 1999 panel - Serum or Plasm a anion gap in serum or plasma by calculation 5.1 text: 5 - 15 mmol/L ANION GAP 5.1 5 - 15 MMOL/ L 04/16 6:14 AM T [facility] Not Available Not Available 02/15/2025 11:03:37 04/16/20 24 04/16/2024 Basic metab olic 2000 panel - Serum or Plasm a urea nitrogen/cre atinine [mass ratio] in serum or plasma 11.4 low: 6high: 26 BUN CREAT ININE RATIO 11.4 6 - 26 04/16 6:14 AM CDT [facility] Not Available Not Available 02/15/2025 11:03:37 04/16/20 24 04/16/2024 Basic metab olic 2000 panel - Serum or Plasm a glomerular filtration rate [volume rate/area] in serum, plasma or blood by creatinine-b ased formula (CKD-epi 2020)/1.73 sq M 85 text: >90 mL/min /1.73 M2 low GFR ESTIM ATE 85 (L) >90 ML/FL N/1.7 3 M2 04/16 6:14 AM CDT [facility] Not Available Not Available 02/15/2025 [...] 11.0 x10'3 /uL 04/16 5:46 AM CDT [facility] Not Available Not Available 02/15/2025 11:03:36 04/16/20 24 04/16/2024 CBC W Auto Diffe renti al panel - Blood erythrocytes [#/volume] in blood by automated count 3.57 text: 4.20 - 5.40 x10'6/ uL low RBC 3.57 (L) 4.20 - 5.40 x10'6 /uL 04/16 5:46 AM CDT [facility] Not Available Not Available 02/15/2025 11:03:36 04/16/20 24 04/16/2024 CBC W Auto Diffe renti al panel - Blood hemoglobin [mass/volume ] in blood 10.6 text: 12.0 - 16.0 g/dL low HGB 10.6 (L) 12.0 - 16.0 G/DL 04/16 5:46 AM CDT [facility] Not Available Not Available 02/15/2025 11:03:36 04/16/20 24 04/16/2024 CBC W Auto Diffe renti al panel - Blood hematocrit [volume fraction] of blood by calculation 34 % low: 38%hig h: 48% low HCT 34.0 (L) 38.0 - 48.0 % 04/16 5:46 AM CDT [facility] Not Available Not Available 02/15/2025 11:03:36 04/16/20 24 04/16/2024 CBC W Auto Diffe renti al panel - Blood MCV [entitic mean volume] in red blood cells 95.2 text: 81.0 - 99.0 fL MCV 95.2 81.0 - 99.0 FL 04/16 5:46 AM CDT [facility] Not Available Not Available 02/15/2025 11:03:36 04/16/20 24 04/16/2024 CBC W Auto Diffe renti al panel - Blood MCH [entitic mass] 29.7 pg low: 27pghi gh: 31pg MCH 29.7 27.0 - 31.0 PG 04/16 5:46 AM CDT [facility] Not Available Not Available 02/15/2025 11:03:36 04/16/20 24 04/16/2024 CBC W Auto Diffe renti al panel - Blood MCHC [entitic mass/volume] in red blood cells 31.2 text: 32.0 - 36.0 g/dL low MCHC 31.2 (L) 32.0 - 36.0 G/DL 04/16 5:46 AM CDT [facility] Not Available Not Available 02/15/2025 11:03:36 04/16/20 24 04/16/2024 CBC W Auto Diffe renti al panel - Blood RDW 16.7 % low: 11.5%h igh: 14.5% high RDW 16.7 (H) 11.5 - 14.5 % 04/16 5:46 AM CDT [facility] Not Available Not Available 02/15/2025 11:03:36 04/16/20 24 04/16/2024 CBC W Auto Diffe renti al panel - Blood platelets [#/volume] in blood 191 text: 130 - 400 x10'3/ uL PLT 191 130 - 400 x10'3 /uL 04/16 5:46 AM CDT [facility] Not Available Not Available 02/15/2025 11:03:36 04/16/20 24 04/16/2024 CBC W Auto Diffe renti al panel - Blood platelet [entitic mean volume] in blood 11.4 text: 9.3 - 12.2 fL MPV 11.4 9.3 - 12.2 FL 04/16 5:46 AM CDT [facility] Not Available Not Available 02/15/2025 11:03:36 04/16/20 24 04/16/2024 CBC W Auto Diffe renti al panel - Blood differential cell count method - blood AUTOMA BUCK DIFFER ENTIAL DIFFE RENTI AL TYPE AUTOM ATED DIFFE RENTI AL 04/16 5:46 AM CDT [facility] Not Available Not Available 02/15/2025 11:03:36 04/16/20 24 04/16/2024 CBC W Auto Diffe renti al panel - Blood neutrophils/ leukocytes in blood by automated count 55.8 % NEUTR OPHIL S 55.8 % 04/16 5:46 AM CDT [facility] Not Available Not Available 02/15/2025 11:03:36 04/16/20 24 04/16/2024 CBC W Auto Diffe renti al panel - Blood lymphocytes/ leukocytes in blood by automated count 38.1 % LYMPH OCYTE S 38.1 % 04/16 5:46 AM CDT [facility] Not Available Not Available 02/15/2025 11:03:36 04/16/20 24 04/16/2024 CBC W Auto Diffe renti al panel - Blood monocytes/le ukocytes in blood by automated count 5.3 % MONOC YTES 5.3 % 04/16 5:46 AM CDT [facility] Not Available Not Available 02/15/2025 11:03:36 04/16/20 24 04/16/2024 CBC W Auto Diffe renti al panel - Blood eosinophils/ leukocytes in blood by automated count 0 % EOSIN OPHIL S 0.0 % 04/16 5:46 AM CDT [facility] Not Available Not Available 02/15/2025 11:03:36 04/16/20 24 04/16/2024 CBC W Auto Diffe renti al panel - Blood basophils/le ukocytes in blood by automated count 0.4 % BASOP HILS 0.4 % 04/16 5:46 AM CDT [facility] Not Available Not Available 02/15/2025 11:03:36 04/16/20 24 04/16/2024 CBC W Auto Diffe renti al panel - Blood immature granulocytes /leukocytes in blood by automated count 0.4 % IMMAT URE GRANS 0.4 % 04/16 5:46 AM CDT [facility] Not Available Not Available 02/15/2025 11:03:36 04/16/20 24 04/16/2024 CBC W Auto Diffe renti al panel - Blood neutrophils [#/volume] in blood 4.54 text: 1.80 - 7.70 x10'3/ uL ABS. NEUTR OPHIL S 4.54 1.80 - 7.70 x10'3 /uL 04/16 5:46 AM CDT [facility] Not Available Not Available 02/15/2025 11:03:36 04/16/20 24 04/16/2024 CBC W Auto Diffe renti al panel - Blood lymphocytes [#/volume] in blood 3.09 text: 1.00 - 4.80 x10'3/ uL ABS. LYMPH OCYTE S 3.09 1.00 - 4.80 x10'3 /uL 04/16 5:46 AM CDT [facility] Not Available Not Available 02/15/2025 11:03:36 04/16/20 24 04/16/2024 CBC W Auto Diffe renti al panel - Blood monocytes [#/volume] in blood 0.43 text: 0.24 - 0.86 x10'3/ uL ABS. MONOC YTES 0.43 0.24 - 0.86 x10'3 /uL 04/16 5:46 AM CDT [facility] Not Available Not Available 02/15/2025 11:03:36 04/16/20 24 04/16/2024 CBC W Auto Diffe renti al panel - Blood eosinophils [#/volume] in blood 0 text: 0.04 - 0.36 x10'3/ uL low ABS. EOSIN OPHIL S 0.00 (L) 0.04 - 0.36 x10'3 /uL 04/16 5:46 AM CDT [facility] Not Available Not Available 02/15/2025 11:03:36 04/16/20 24 04/16/2024 CBC W Auto Diffe renti al panel - Blood basophils [#/volume] in blood 0.03 text: 0.01 - 0.08 x10'3/ uL ABS. BASOP HILS 0.03 0.01 - 0.08 x10'3 /uL 04/16 5:46 AM CDT [facility] Not Available Not Available 02/15/2025 11:03:36 04/16/20 24 04/16/2024 CBC W Auto Diffe renti al panel - Blood immature granulocytes [#/volume] in blood 0.03 text: 0.00 - 0.49 x10'3/ uL ABS. IMMAT URE GRANU LOCYT ES 0.03 0.00 - 0.49 x10'3 /uL 04/16 5:46 AM CDT [facility] Not Available Not Available 02/15/2025 11:03:36 04/16/20 24 04/16/2024 CBC W Auto Diffe nargis al panel - Blood interpretati on and review of laboratory results Geo [facility]ryant Not Available Not Available 11:03:36 04/16/20 24 04/16/2024 Thyro tropi n [Unit s/vol ume] in Serum or Plasm a thyrotropin [units/volum e] in serum or plasma 2.38 text: 0.358 - 3.74 uIU/mL TSH 2.380 0.358 - 3.74 uIU/M L 04/16 6:14 AM T [facility] Not Available Not Available 02/15/2025 11:03:36 04/17/20 24 04/17/2024 Lacta te [Mole s/vol ume] in Serum or Plasm a lactate [moles/volum e] in serum or plasma 1.4 text: 0.4 - 2.0 mmol/L LACTI C ACID VENOU S 1.4 0.4 - 2.0 MMOL/ L 04/17 10:59 AM T [facility] Not Available Not Available 02/15/2025 11:03:37 04/17/20 24 04/17/2024 Basic metab olic 2000 panel - Serum or Plasm a glucose [mass/volume ] in serum or plasma 102 text: 70 - 99 mg/dL high GLUCO SE 102 (H) 70 - 99 MG/DL 04/17 8:53 AM T [facility] Not Available Not Available 02/15/2025 11:03:37 04/17/20 24 04/17/2024 Basic metab olic 2000 panel - Serum or Plasm a urea nitrogen [mass/volume ] in serum or plasma 11 text: 7 - 18 mg/dL BUN 11 7 - 18 MG/DL 04/17 8:53 AM T [facility] Not Available Not Available 02/15/2025 11:03:37 04/17/20 24 04/17/2024 Basic metab olic 1999 panel - Serum or Plasm a creatinine [mass/volume ] in serum or plasma 0.93 text: 0.55 - 1.02 mg/dL CREAT ININE S/P/B 0.93 0.55 - 1.02 MG/DL 04/17 8:53 AM CDT [facility] Not Available Not Available 02/15/2025 11:03:37 04/17/20 24 04/17/2024 Basic metab olic 1999 panel - Serum or Plasm a sodium [moles/volum e] in serum or plasma 143 text: 136 - 145 mmol/L SODIU M S/P/B 143 136 - 145 MMOL/ L 04/17 8:53 AM CDT [facility] Not Available Not Available 02/15/2025 11:03:37 04/17/20 24 04/17/2024 Basic metab olic 1999 panel - Serum or Plasm a potassium [moles/volum e] in serum or plasma 3.7 text: 3.5 - 5.1 mmol/L POTAS SIUM S/P/B 3.7 3.5 - 5.1 MMOL/ L 04/17 8:53 AM CDT [facility] Not Available Not Available 02/15/2025 11:03:37 04/17/20 24 04/17/2024 Basic metab olic 1999 panel - Serum or Plasm a chloride [moles/volum e] in serum or plasma 118 text: 100 - 108 mmol/L high CHLOR JENNIFER S/P/B 118 (H) 100 - 108 MMOL/ L 04/17 8:53 AM CDT [facility] Not Available Not Available 02/15/2025 11:03:37 04/17/20 24 04/17/2024 Basic metab olic 1999 panel - Serum or Plasm a carbon dioxide, total [moles/volum e] in serum or plasma 18.9 text: 21 - 32 mmol/L low CO2 18.9 (L) 21 - 32 MMOL/ L 04/17 8:53 AM CDT [facility] Not Available Not Available 02/15/2025 11:03:37 04/17/20 24 04/17/2024 Basic metab olic 2000 panel - Serum or Plasm a calcium [mass/volume ] in serum or plasma 8.5 text: 8.5 - 10.1 mg/dL CALCI UM S/P/B 8.5 8.5 - 10.1 MG/DL 04/17 8:53 AM CDT [facility] Not Available Not Available 02/15/2025 11:03:37 04/17/20 24 04/17/2024 Basic metab olic 2000 panel - Serum or Plasm a anion gap in serum or plasma by calculation 6.1 text: 5 - 15 mmol/L ANION GAP 6.1 5 - 15 MMOL/ L 04/17 8:53 AM T [facility] Not Available Not Available 02/15/2025 11:03:37 04/17/20 24 04/17/2024 Basic metab olic 2000 panel - Serum or Plasm a urea nitrogen/cre atinine [mass ratio] in serum or plasma 11.8 low: 6high: 26 BUN CREAT ININE RATIO 11.8 6 - 26 04/17 8:53 AM [facility] Not Available Not Available 02/15/2025 11:03:37 04/17/20 24 04/17/2024 Basic metab olic 2000 panel - Serum or Plasm a glomerular filtration rate [volume rate/area] in serum, plasma or blood by creatinine-b ased formula (CKD-epi 2020)/1.73 sq M 80 text: >90 mL/min /1.73 M2 low GFR ESTIM ATE 80 (L) >90 ML/FL N/1.7 3 M2 04/17 8:53 AM T [facility] Not Available Not Available 02/15/2025 11:03:37 04/17/20 24 04/17/2024 Basic metab olic 2000 panel - Serum or Plasm a interpretati on and review of laboratory results Abnorm al Not Available Not Available 11:03:37 04/17/20 24 04/17/2024 CBC W Auto Diffe renleonardo al panel - Blood leukocytes [#/volume] in blood by automated count 6.89 text: 4.5 - 11.0 x10'3/ uL WBC 6.89 4.5 - 11.0 x10'3 /uL 04/17 8:29 AM CDT [facility] Not Available Not Available 02/15/2025 11:03:37 04/17/20 24 04/17/2024 CBC W Auto Diffe renti al panel - Blood erythrocytes [#/volume] in blood by automated count 3.69 text: 4.20 - 5.40 x10'6/ uL low RBC 3.69 (L) 4.20 - 5.40 x10'6 /uL 04/17 8:29 AM CDT [facility] Not Available Not Available 02/15/2025 11:03:37 04/17/20 24 04/17/2024 CBC W Auto Diffe renti al panel - Blood hemoglobin [mass/volume ] in blood 10.9 text: 12.0 - 16.0 g/dL low HGB 10.9 (L) 12.0 - 16.0 G/DL 04/17 8:29 AM CDT [facility] Not Available Not Available 02/15/2025 11:03:37 04/17/20 24 04/17/2024 CBC W Auto Diffe renti al panel - Blood hematocrit [volume fraction] of blood by calculation 35 % low: 38%hig h: 48% low HCT 35.0 (L) 38.0 - 48.0 % 04/17 8:29 AM CDT [facility] Not Available Not Available 02/15/2025 11:03:37 04/17/20 24 04/17/2024 CBC W Auto Diffe renti al panel - Blood MCV [entitic mean volume] in red blood cells 94.9 text: 81.0 - 99.0 fL MCV 94.9 81.0 - 99.0 FL 04/17 8:29 AM CDT [facility] Not Available Not Available 02/15/2025 11:03:37 04/17/20 24 04/17/2024 CBC W Auto Diffe renti al panel - Blood MCH [entitic mass] 29.5 pg low: 27pghi gh: 31pg MCH 29.5 27.0 - 31.0 PG 04/17 8:29 AM CDT [facility] Not Available Not Available 02/15/2025 11:03:37 04/17/20 24 04/17/2024 CBC W Auto Diffe renti al panel - Blood MCHC [entitic mass/volume] in red blood cells 31.1 text: 32.0 - 36.0 g/dL low MCHC 31.1 (L) 32.0 - 36.0 G/DL 04/17 8:29 AM CDT [facility] Not Available Not Available 02/15/2025 11:03:37 04/17/20 24 04/17/2024 CBC W Auto Diffe renti al panel - Blood RDW 16.7 % low: 11.5%h igh: 14.5% high RDW 16.7 (H) 11.5 - 14.5 % 04/17 8:29 AM CDT [facility] Not Available Not Available 02/15/2025 11:03:37 04/17/20 24 04/17/2024 CBC W Auto Diffe renti al panel - Blood platelets [#/volume] in blood 178 text: 130 - 400 x10'3/ uL PLT 178 130 - 400 x10'3 /uL 04/17 8:29 AM CDT [facility] Not Available Not Available 02/15/2025 11:03:37 04/17/20 24 04/17/2024 CBC W Auto Diffe renti al panel - Blood platelet [entitic mean volume] in blood 11.4 text: 9.3 - 12.2 fL MPV 11.4 9.3 - 12.2 FL 04/17 8:29 AM CDT [facility] Not Available Not Available 02/15/2025 11:03:37 04/17/20 24 04/17/2024 CBC W Auto Diffe renti al panel - Blood differential cell count method - blood AUTOMA BUCK DIFFER ENTIAL DIFFE RENTI AL TYPE AUTOM ATED DIFFE RENTI AL 04/17 8:29 AM CDT [facility] Not Available Not Available 02/15/2025 11:03:37 04/17/20 24 04/17/2024 CBC W Auto Diffe renti al panel - Blood neutrophils/ leukocytes in blood by automated count 51.6 % NEUTR OPHIL S 51.6 % 04/17 8:29 AM CDT [facility] Not Available Not Available 02/15/2025 11:03:37 04/17/20 24 04/17/2024 CBC W Auto Diffe renti al panel - Blood lymphocytes/ leukocytes in blood by automated count 41.8 % LYMPH OCYTE S 41.8 % 04/17 8:29 AM CDT [facility] Not Available Not Available 02/15/2025 11:03:37 04/17/20 24 04/17/2024 CBC W Auto Diffe renti al panel - Blood monocytes/le ukocytes in blood by automated count 5.7 % MONOC YTES 5.7 % 04/17 8:29 AM CDT [facility] Not Available Not Available 02/15/2025 11:03:37 04/17/20 24 04/17/2024 CBC W Auto Diffe renti al panel - Blood eosinophils/ leukocytes in blood by automated count 0 % EOSIN OPHIL S 0.0 % 04/17 8:29 AM CDT [facility] Not Available Not Available 02/15/2025 11:03:37 04/17/20 24 04/17/2024 CBC W Auto Diffe renti al panel - Blood basophils/le ukocytes in blood by automated count 0.6 % BASOP HILS 0.6 % 04/17 8:29 AM CDT [facility] Not Available Not Available 02/15/2025 11:03:37 04/17/20 24 04/17/2024 CBC W Auto Diffe renti al panel - Blood immature granulocytes /leukocytes in blood by automated count 0.3 % IMMAT URE GRANS 0.3 % 04/17 8:29 AM CDT [facility] Not Available Not Available 02/15/2025 11:03:37 04/17/20 24 04/17/2024 CBC W Auto Diffe renti al panel - Blood neutrophils [#/volume] in blood 3.56 text: 1.80 - 7.70 x10'3/ uL ABS. NEUTR OPHIL S 3.56 1.80 - 7.70 x10'3 /uL 04/17 8:29 AM CDT [facility] Not Available Not Available 02/15/2025 11:03:37 04/17/20 24 04/17/2024 CBC W Auto Diffe renti al panel - Blood lymphocytes [#/volume] in blood 2.88 text: 1.00 - 4.80 x10'3/ uL ABS. LYMPH OCYTE S 2.88 1.00 - 4.80 x10'3 /uL 04/17 8:29 AM CDT [facility] Not Available Not Available 02/15/2025 11:03:37 04/17/20 24 04/17/2024 CBC W Auto Diffe renti al panel - Blood monocytes [#/volume] in blood 0.39 text: 0.24 - 0.86 x10'3/ uL ABS. MONOC YTES 0.39 0.24 - 0.86 x10'3 /uL 04/17 8:29 AM CDT [facility] Not Available Not Available 02/15/2025 11:03:37 04/17/20 24 04/17/2024 CBC W Auto Diffe renti al panel - Blood eosinophils [#/volume] in blood 0 text: 0.04 - 0.36 x10'3/ uL low ABS. EOSIN OPHIL S 0.00 (L) 0.04 - 0.36 x10'3 /uL 04/17 8:29 AM CDT [facility] Not Available Not Available 02/15/2025 11:03:37 04/17/20 24 04/17/2024 CBC W Auto Diffe renti al panel - Blood basophils [#/volume] in blood 0.04 text: 0.01 - 0.08 x10'3/ uL ABS. BASOP HILS 0.04 0.01 - 0.08 x10'3 /uL 04/17 8:29 AM CDT [facility] Not Available Not Available 02/15/2025 11:03:37 04/17/20 24 04/17/2024 CBC W Auto Diffe renti al panel - Blood immature granulocytes [#/volume] in blood 0.02 text: 0.00 - 0.49 x10'3/ uL ABS. IMMAT URE GRANU LOCYT ES 0.02 0.00 - 0.49 x10'3 /uL 04/17 8:29 AM CDT [facility] Not Available Not Available 02/15/2025 [...] 11.0 x10'3 /uL 04/18 6:10 AM CDT [facility] Not Available Not Available 02/15/2025 11:03:37 04/18/20 24 04/18/2024 CBC W Auto Diffe renti al panel - Blood erythrocytes [#/volume] in blood by automated count 3.67 text: 4.20 - 5.40 x10'6/ uL low RBC 3.67 (L) 4.20 - 5.40 x10'6 /uL 04/18 6:10 AM CDT [facility] Not Available Not Available 02/15/2025 11:03:37 04/18/20 24 04/18/2024 CBC W Auto Diffe renti al panel - Blood hemoglobin [mass/volume ] in blood 10.8 text: 12.0 - 16.0 g/dL low HGB 10.8 (L) 12.0 - 16.0 G/DL 04/18 6:10 AM CDT [facility] Not Available Not Available 02/15/2025 11:03:37 04/18/20 24 04/18/2024 CBC W Auto Diffe nargis al panel - Blood hematocrit [volume fraction] of blood by calculation 35 % low: 38%hig h: 48% low HCT 35.0 (L) 38.0 - 48.0 % 04/18 6:10 AM CDT [facility] Not Available Not Available 02/15/2025 11:03:37 04/18/20 24 04/18/2024 CBC W Auto Diffe desiti al panel - Blood MCV [entitic mean volume] in red blood cells 95.4 text: 81.0 - 99.0 fL MCV 95.4 81.0 - 99.0 FL 04/18 6:10 AM CDT [facility] Not Available Not Available 02/15/2025 11:03:37 04/18/20 24 04/18/2024 CBC W Auto Diffe renti al panel - Blood MCH [entitic mass] 29.4 pg low: 27pghi gh: 31pg MCH 29.4 27.0 - 31.0 PG 04/18 6:10 AM CDT [facility] Not Available Not Available 02/15/2025 11:03:37 04/18/20 24 04/18/2024 CBC W Auto Diffe renti al panel - Blood MCHC [entitic mass/volume] in red blood cells 30.9 text: 32.0 - 36.0 g/dL low MCHC 30.9 (L) 32.0 - 36.0 G/DL 04/18 6:10 AM CDT [facility] Not Available Not Available 02/15/2025 11:03:37 04/18/20 24 04/18/2024 CBC W Auto Diffe renti al panel - Blood RDW 16.8 % low: 11.5%h igh: 14.5% high RDW 16.8 (H) 11.5 - 14.5 % 04/18 6:10 AM CDT [facility] Not Available Not Available 02/15/2025 11:03:37 04/18/20 24 04/18/2024 CBC W Auto Diffe renti al panel - Blood platelets [#/volume] in blood 145 text: 130 - 400 x10'3/ uL PLT 145 130 - 400 x10'3 /uL 04/18 6:10 AM CDT [facility] Not Available Not Available 02/15/2025 11:03:37 04/18/20 24 04/18/2024 CBC W Auto Diffe renti al panel - Blood platelet [entitic mean volume] in blood 11.6 text: 9.3 - 12.2 fL MPV 11.6 9.3 - 12.2 FL 04/18 6:10 AM CDT [facility] Not Available Not Available 02/15/2025 11:03:37 04/18/20 24 04/18/2024 CBC W Auto Diffe renti al panel - Blood differential cell count method - blood AUTOMA BUCK DIFFER ENTIAL DIFFE RENTI AL TYPE AUTOM ATED DIFFE RENTI AL 04/18 6:11 AM CDT [facility] Not Available Not Available 02/15/2025 11:03:37 06/15/04/18/2024 CBC W Auto Diffe renti al panel - Blood neutrophils/ leukocytes in blood by automated count 48 % NEUTR OPHIL S 48.0 % 04/18 6:11 AM CDT [facility] Not Available Not Available 02/15/2025 11:03:37 04/18/20 24 04/18/2024 CBC W Auto Diffe renti al panel - Blood lymphocytes/ leukocytes in blood by automated count 46.3 % LYMPH OCYTE S 46.3 % 04/18 6:11 AM CDT [facility] Not Available Not Available 02/15/2025 11:03:37 04/18/20 24 04/18/2024 CBC W Auto Diffe renti al panel - Blood monocytes/le ukocytes in blood by automated count 4.9 % MONOC YTES 4.9 % 04/18 6:11 AM CDT [facility] Not Available Not Available 02/15/2025 11:03:37 04/18/20 24 04/18/2024 CBC W Auto Diffe renti al panel - Blood eosinophils/ leukocytes in blood by automated count 0.1 % EOSIN OPHIL S 0.1 % 04/18 6:11 AM CDT [facility] Not Available Not Available 02/15/2025 11:03:37 04/18/20 24 04/18/2024 CBC W Auto Diffe renti al panel - Blood basophils/le ukocytes in blood by automated count 0.4 % BASOP HILS 0.4 % 04/18 6:11 AM CDT [facility] Not Available Not Available 02/15/2025 11:03:37 04/18/20 24 04/18/2024 CBC W Auto Diffe renti al panel - Blood immature granulocytes /leukocytes in blood by automated count 0.3 % IMMAT URE GRANS 0.3 % 04/18 6:11 AM CDT [facility] Not Available Not Available 02/15/2025 11:03:37 04/18/20 24 04/18/2024 CBC W Auto Diffe renti al panel - Blood neutrophils [#/volume] in blood 3.56 text: 1.80 - 7.70 x10'3/ uL ABS. NEUTR OPHIL S 3.56 1.80 - 7.70 x10'3 /uL 04/18 6:11 AM CDT [facility] Not Available Not Available 02/15/2025 11:03:37 04/18/20 24 04/18/2024 CBC W Auto Diffe renti al panel - Blood lymphocytes [#/volume] in blood 3.43 text: 1.00 - 4.80 x10'3/ uL ABS. LYMPH OCYTE S 3.43 1.00 - 4.80 x10'3 /uL 04/18 6:11 AM CDT [facility] Not Available Not Available 02/15/2025 11:03:37 04/18/20 24 04/18/2024 CBC W Auto Diffe renti al panel - Blood monocytes [#/volume] in blood 0.36 text: 0.24 - 0.86 x10'3/ uL ABS. MONOC YTES 0.36 0.24 - 0.86 x10'3 /uL 04/18 6:11 AM CDT [facility] Not Available Not Available 02/15/2025 11:03:37 04/18/20 24 04/18/2024 CBC W Auto Diffe renti al panel - Blood eosinophils [#/volume] in blood 0.01 text: 0.04 - 0.36 x10'3/ uL low ABS. EOSIN OPHIL S 0.01 (L) 0.04 - 0.36 x10'3 /uL 04/18 6:11 AM CDT [facility] Not Available Not Available 02/15/2025 11:03:37 04/18/20 24 04/18/2024 CBC W Auto Diffe renti al panel - Blood basophils [#/volume] in blood 0.03 text: 0.01 - 0.08 x10'3/ uL ABS. BASOP HILS 0.03 0.01 - 0.08 x10'3 /uL 04/18 6:11 AM CDT [facility] Not Available Not Available 02/15/2025 11:03:37 04/18/20 24 04/18/2024 CBC W Auto Diffe renti al panel - Blood immature granulocytes [#/volume] in blood 0.02 text: 0.00 - 0.49 x10'3/ uL ABS. IMMAT URE GRANU LOCYT ES 0.02 0.00 - 0.49 x10'3 /uL 04/18 6:11 AM CDT [facility] Not Available Not Available 02/15/2025 11:03:37 04/18/20 24 04/18/2024 CBC W Auto Diffe renti al panel - Blood erythrocytes [morphology] in blood by automated count RBC MORPHO LOGY APPEAR S NORMAL . SLIDE REVIEW ED. RBC MORPH OLOGY RBC MORPH OLOGY APPEA RS RAMSEY L. SLIDE REVIE WED. 04/18 6:11 AM CDT [facility] Not Available Not Available 02/15/2025 11:03:37 04/18/20 24 04/18/2024 CBC W Auto Diffe renti al panel - Blood platelets [#/volume] in blood by automated count ADEQUA TE PLT EST. ADEQU ATE 04/18 6:11 AM CDT [facility] Not Available Not Available 02/15/2025 [...] - 99 MG/DL 04/18 5:59 AM CDT [facility] Not Available Not Available 02/15/2025 11:03:37 04/18/20 24 04/18/2024 Basic metab olic 1999 panel - Serum or Plasm a urea nitrogen [mass/volume ] in serum or plasma 12 text: 7 - 18 mg/dL BUN 12 7 - 18 MG/DL 04/18 5:59 AM CDT [facility] Not Available Not Available 02/15/2025 11:03:37 04/18/20 24 04/18/2024 Basic metab olic 1999 panel - Serum or Plasm a creatinine [mass/volume ] in serum or plasma 0.9 text: 0.55 - 1.02 mg/dL CREAT ININE S/P/B 0.90 0.55 - 1.02 MG/DL 04/18 5:59 AM CDT [facility] Not Available Not Available 02/15/2025 11:03:37 04/18/20 24 04/18/2024 Basic metab olic 1999 panel - Serum or Plasm a sodium [moles/volum e] in serum or plasma 140 text: 136 - 145 mmol/L SODIU M S/P/B 140 136 - 145 MMOL/ L 04/18 5:59 AM CDT [facility] Not Available Not Available 02/15/2025 11:03:37 04/18/20 24 04/18/2024 Basic metab olic 1999 panel - Serum or Plasm a potassium [moles/volum e] in serum or plasma 3.5 text: 3.5 - 5.1 mmol/L POTAS SIUM S/P/B 3.5 3.5 - 5.1 MMOL/ L 04/18 5:59 AM CDT [facility] Not Available Not Available 02/15/2025 11:03:37 04/18/20 24 04/18/2024 Basic metab olic 2000 panel - Serum or Plasm a chloride [moles/volum e] in serum or plasma 116 text: 100 - 108 mmol/L high CHLOR JENNIFER S/P/B 116 (H) 100 - 108 MMOL/ L 04/18 5:59 AM CDT [facility] Not Available Not Available 02/15/2025 11:03:37 04/18/20 24 04/18/2024 Basic metab olic 2000 panel - Serum or Plasm a carbon dioxide, total [moles/volum e] in serum or plasma 15.8 text: 21 - 32 mmol/L low CO2 15.8 (L) 21 - 32 MMOL/ L 04/18 5:59 AM CDT [facility] Not Available Not Available 02/15/2025 11:03:37 04/18/20 24 04/18/2024 Basic metab olic 1999 panel - Serum or Plasm a calcium [mass/volume ] in serum or plasma 8.8 text: 8.5 - 10.1 mg/dL CALCI UM S/P/B 8.8 8.5 - 10.1 MG/DL 04/18 5:59 AM CDT [facility] Not Available Not Available 02/15/2025 11:03:37 04/18/20 24 04/18/2024 Basic metab olic 1999 panel - Serum or Plasm a anion gap in serum or plasma by calculation 8.2 text: 5 - 15 mmol/L ANION GAP 8.2 5 - 15 MMOL/ L 04/18 5:59 AM T [facility] Not Available Not Available 02/15/2025 11:03:37 04/18/20 24 04/18/2024 Basic metab olic 2000 panel - Serum or Plasm a urea nitrogen/cre atinine [mass ratio] in serum or plasma 13.4 low: 6high: 26 BUN CREAT ININE RATIO 13.4 6 - 26 04/18 5:59 AM CDT [facility] Not Available Not Available 02/15/2025 11:03:37 04/18/20 24 04/18/2024 Basic metab olic 2000 panel - Serum or Plasm a glomerular filtration rate [volume rate/area] in serum, plasma or blood by creatinine-b ased formula (CKD-epi 2020)/1.73 sq M 83 text: >90 mL/min /1.73 M2 low GFR ESTIM ATE 83 (L) >90 ML/FL N/1.7 3 M2 04/18 5:59 AM CDT [facility] Not Available Not Available 02/15/2025 [...] 400 x10'3 /uL 06/19 9:01 AM CDT [facility] Not Available Not Available 12/31/2024 10:28:59 06/19/20 24 06/19/2024 Plate lets [#/vo lume] in Blood platelet mean volume [entitic volume] in blood 10.6 text: 9.3 - 12.2 fL MPV 10.6 9.3 - 12.2 FL 06/19 9:01 AM CDT [facility] Not Available Not Available 12/31/2024 10:28:59 06/19/20 24 06/19/2024 aPTT in Plate let poor plasm a by Coagu latio n assay APTT in platelet poor plasma by coagulation assay 25.8 text: 25.1 - 36.5 sec PTT 25.8 25.1 - 36.5 SEC 06/19 9:15 AM CDT [facility] Not Available Not Available 12/31/2024 10:28:59 06/19/20 24 06/19/2024 Proth rombi n time (PT) prothrombin time (PT) 9.4 text: 10.2 - 12.9 sec low PROTI ME 9.4 (L) 10.2 - 12.9 SEC 06/19 9:15 AM CDT [facility] Not Available Not Available 12/31/2024 10:28:59 06/19/20 24 06/19/2024 Proth rombi n time (PT) INR in platelet poor plasma by coagulation assay 0.8 INR 0.8 06/19 9:15 AM CDT [facility] Not Available Not Available 12/31/2024 [...] contr ast No observ ation record ed. [email or web address] [address] [place], [address], 03/19/2024 23:11:21 03/20/20 24 03/20/2024 US, pelvi s, limit ed No observ ation record ed. [facility] [address] [place], [address], 03/21/2024 10:56:40 04/15/[address], head, w/o contr ast [facility] [place] [address] EXAMIN ATION: CT of the head CLINIC [...] 9:15 PM [facility] 1 [facility], [place], [address], 04/16/2024 16:29:53 05/18/20 24 05/13/2024 CT, abdom en + pelvi s, w/o contr ast No observ ation record ed. [facility] [address], [place], [address], 05/19/2024 18:04:05 06/03/20 24 06/03/2024 XR, chest , 2 view No observ ation record ed. [address], [address], 06/03/2024 17:52:29 06/19/20 24 06/19/2024 lumba r punct ure (PROC ) No observ ation record ed. [email or web address]: Pulmonology 1 [facility], [place], [address], 06/19/2024 16:07:12 06/28/20 24 06/28/2024 XR, chest , 2 view No observ ation record ed. [facility] [address] [place], [address], 06/28/2024 16:35:31 07/27/20 24 07/23/2024 PFT, compl ete No observ ation record ed. [facility] ([facility] Call Scheduling) [address] [place], [address], 07/28/2024 09:37:11 07/28/20 24 06/22/2024 home sleep study No observ ation record ed. [facility] [place] [address] Sleep Lab One [facility], [place], [address], 07/28/2024 12:28:20 07/29/20 24 07/29/2024 MRI, lumba r spine , w/o contr ast No observ ation record ed. [email or web address] [place], [address], 08/06/2024 13:56:59 07/29/20 24 07/29/2024 MRI, thora cic spine , w/o contr ast No observ ation record ed. [email or web address] [place], [address], 08/06/2024 13:56:59 09/15/20 24 08/25/2024 audio logic asses sment (PROC ) No observ ation record ed. [email or web address] [place] [address] [address], [place], [address], 09/15/2024 18:33:11 11/24/19 25 11/23/2024 XR, chest , 2 view No observ ation record ed. [facility] [address], [place], [address], 11/30/2024 15:11:29 12/09/19 25 12/08/2024 MR, venog kaylie, brain , w/wo contr ast No observ ation record ed. [address] 1 [facility], [place], [address], 12/11/2024 00:35:31 04/21/20 25 04/21/2025 CT, abdom en + pelvi s, w/ contr ast No observ ation record ed. [address] [place], [address], 04/22/2025 10:33:38 Result Notes Documentation Provider Name and Address Organization Details Recorded Time Ct, Head, W/o Contrast : [facility] [place] [address] EXAMINATION: CT of the head CLINICAL HISTORY: Headache COMPARISON: MRI 01/31/2024 TECHNIQUE: CT examination of the head without contrast was performed with axial images obtained. A radiation dose lowering technique was used for this procedure, which may include, but is not limited to, dose reduction technique, automated exposure control, the use of iterative reconstruction, ALARA (As Low As Reasonably Achievable) techniques, and Image Gently techniques. FINDINGS: There is no evidence of acute intracranial hemorrhage, abnormal extra-axial collections, intracranial mass effect, or midline shift. The ventricles and extra-axial/subarachnoid spaces are unremarkable. The riley-white matter differentiation is grossly preserved. There is no definite CT evidence to suggest acute territorial infarction. The calvarium is unremarkable without evidence of acute fracture. The visualized mastoid air cells, paranasal sinuses, and orbits are grossly unremarkable. IMPRESSION: No definite CT evidence for acute intracranial abnormality. Please note that CT has limited sensitivity for the detection of acute ischemia. Referred By: Interpreted By: Igor Coughlin MD, 04/15/2024 9:15 PM ALYSSA Campos Attn: Accounting,[address] [place], [address], [place] [facility] 04/16/2024 16:29:53 Problems Name Problem SNOMED Code Status Onset Date Resolution Date Notes Provider Name and Address Organization Details Recorded Time Hiatal hernia with gastroesophage al reflux 049658529 Active 2023 ALYSSA Campos Attn: Miguelrob duque,[address] [place], [address], [place] [facility] 19:53:56 Exocrine pancreatic insufficiency 57009056 Active 2023 ALYSSA Campos Attn: Deion neto,[address] [place], [address], [place] [facility] 4 19:53:58 Lower urinary tract symptoms 020059149 Active 2023 ALYSSA Campos Attn: Deion neto,[address] [place], [address], [place] [facility] 4 19:53:59 Hypomagnesemia 481919519 Active 2023 ALYSSA Campos Attn: Deion neto,[address] [place], [address], [place] [facility] 4 19:54:01 Fatigue 16690904 Active 2023 ALYSSA Campos Attn: Deion neto,[address] [place], [address], [place] [facility] 4 19:54:02 Muscle tension pain 306982886 Active 2023 ALYSSA Campos Attn: Deion duque,[address] [place], [address], [place] [facility] 4 19:54:03 Body mass index 30+ - obesity 612401027 Active 2024 Rudy Jason MA null, [place] - [facility] 5 11:35:14 Obesity 701959515 Active 2024 ALYSSA Campos Attn: Accountin g,[address] [facility], [place], [address], [place] [facility] 5 21:52:51 Cyst of nasal cavity 978859897 Active 2024 ALYSSA Campos Attn: Accountin g,[address] [facility], [place], [address], [place] [facility] 5 21:53:01 Increased frequency of urination 409255726 Active 2024 ALYSSA Campos Attn: Accountin g,[address] [facility], [place], [address], [place] [facility] 5 21:53:22 Skin lesion 58363069 Active 2024 ALYSSA Campos Attn: Accountin g,[address] [facility], [place], [address], [place] - [facility] 5 21:53:23 Long-term drug therapy Active 2024 ALYSSA Campos Attn: Accountin g,[address] [facility], [place], [address], [place] - [facility] 5 21:53:43 Problem Notes None recorded. Procedures Surgical History Date Name Laterality Status Provider Name and Address Organization Details Recorded Time 1 colonoscopy completed Libby Vera [place] - [facility] 08/03/2024 17:02:22 Imaging Results None recorded. Procedure Notes None recorded. Medical Equipment None Reported. Allergies Allergen ID Allergen Name Allergen Category Reaction Reaction Severity Criticality Documentation Date Start Date Code Code System Note Provider Name and Address Organization Details Recorded Time 532072 Substance with sulfonami de structure and antibacte rial mechanism of action (substanc e) medicatio n Not available Not available Not available 02/19/2024 83022 8003 SNOMED ALYSSA Campos Attn: Deion duque,[address], [place], [address], [facility] 4 16:48:43 Medications Name Sig Start Date Stop Date Status Note LastModified by Organization Details LastModified Time cmp budesonid e 0.5mg capsule EMPTY ONE CAPSULE INTO IDS, ADD DISTILLE D WATER AND SALINE PACKET, IRRIGATE ONCE DAILY active Not Available Not Available No t Available fluoxetin e 40 mg capsule TAKE 1 CAPSULE BY [...] mg tablet TAKE 1 TABLET BY MOUTH FOR ONE DOSE NOW. THEN REPEAT IN 7 DAYS IF SYMPTOMS PERSIST active Not Available Not Available No t [...] Not Avai lable tramadol 50 mg tablet TAKE 1 TABLET BY MOUTH EVERY 6 HOURS NEEDED active Not Available Not [...] 25 gauge x 1 USE MONTHLY DIRECTED 2024 active Not Available Not Available Not Avai lable gabapenti n 300 mg capsule TAKE 2 [...] extended release TAKE 1 TABLET BY MOUTH IN THE MORNING active Not Available Not Available No t Available bupropion HCl XL 150 mg 24 hr tablet, extended release TAKE 1 TABLET BY MOUTH ONCE DAILY active Not Available Not Available No t Available nitrofura ntoin monohydra te/macroc rystals 100 mg capsule TAKE 1 CAPSULE BY MOUTH TWICE DAILY FOR 7 DAYS active Not Available Not Available No t Available acamprosa te 333 mg tablet,de layed [...] 9,600-252 ,600 unit capsule,d elayed release TAKE ONE CAPSULE BY MOUTH PER MEAL. APPOINTM ENT REQUIRED FOR FUTURE REFILLS active Not Available Not Available No t Available Vitals Date Recorded Body height Respiratory rate Oxygen saturation Oxygen saturation in Arterial blood by Pulse oximetry Heart rate Systolic And Diastolic Provider Name and Address Organization Details Last Updated DateTime 5 175.26 cm 20 /min 99 % 99 % 90 /min 110/72 mm[Hg] Rudy Jason MA [facility] 5 15:26:36 Date Recorded Body height Provider Name an d Address Organization Details Last Updated DateTime 12/21/2024 175.26 cm Rudy Jason MA [facility] 2024 12:57:29 Date Recorded Body height Body mass index (BMI) Body weight Respiratory rate Oxygen saturation Oxygen saturation in Arterial blood by Pulse oximetry Heart rate Systolic And Diastolic Provider Name and Address Organization Details Last Updated DateTime 5 175.26 cm 36.9 kg/m2 790595. 09 g 20 /min 99 % 99 % 85 /min 118/82 mm[Hg] Rudy Jason MA [facility] 5 11:37:00 Date Recorded Body height Body mass index (BMI) Body weight Oxygen saturation Oxygen saturation in Arterial blood by Pulse oximetry Heart rate Systolic And Diastolic Provider Name and Address Organization Details Last Updated DateTime 4 175.26 cm 35.7 kg/m2 313365. 35 g 98 % 98 % 100 /min 126/88 mm[Hg] Rudy Jason MA [facility] 4 16:34:45 Date Recorded Systolic And Diastolic Provider Name and Address Organization Details Last Updated DateTime 06/16/2024 100/70 mm[Hg] ALYSSA Campos Attn: Accounting,[address] [place], [address], [facility] 06/16/2024 12:15:05 Date Recorded Body height Body mass index (BMI) Body weight Respiratory rate Oxygen saturation Oxygen saturation in Arterial blood by Pulse oximetry Heart rate Systolic And Diastolic Provider Name and Address Organization Details Last Updated DateTime 4 175.26 cm 35.5 kg/m2 585242. 6 g 20 /min 100 % 100 % 83 /min 128/82 mm[Hg] Rudy Jason MA [facility] 4 11:45:52 Social History Question Answer Notes LastModified by Organizat ion Details LastModified Time Tobacco Smoking Status Former Smoker Rudy Jason MA [facility], [place] - [facility] 02/19/2024 16:25:59 Do You Have An Advance [...] anxious, or unable to sleep at night)? [id number] Information not available 02/19/2024 Family History Relationship [...] Skin Problems N Anemia N Heart Attack ([place]) N Anxiety Disorder Y Diabetes N Muscle, [...] - [facility] 11/17/2024 15:22:12 MMR 0 completed APRIL [place], [place] [facility] 11/17/2024 15:22:12 MMR 4 completed Rudy Jason [place], [place] [facility] 11/17/2024 15:22:12 COVID-19, mRNA, LNP-S, PF, 30 mcg/0.3 mL dose 1 completed Rudy Jaosn [place], [place] [facility] 11/17/2024 15:22:12 COVID-19, mRNA, LNP-S, PF, 30 mcg/0.3 mL dose 1 completed APRIL [place] [facility] 11/17/2024 15:22:12 COVID-19, mRNA, LNP-S, PF, 30 mcg/0.3 mL dose 1 [place] [facility] 11/17/2024 15:22:12 influenza, unspecified formulation 8 completed [place]IL [place] [facility] 11/17/2024 15:22:12 Td(adult) unspecified formulation 7 completed [place] [facility] 11/17/2024 15:22:12 Tdap 2 completed APRIL [place]Lcey[place] [facility] 11/17/2024 15:22:12 DTP 4 completed [place]IL [place] [facility] 11/17/2024 15:22:12 DTP 5 completed Rudy Lamer, [place] [facility] 11/17/2024 15:22:12 DTP 4 completed Rudy Lamer, [place] [facility] 11/17/2024 15:22:12 DTP 8 completed Rudy Jason, [place] [facility] 11/17/2024 15:22:12 DTP 3 completed Rudy Jason, [place] [facility] 11/17/2024 15:22:12 OPV 4 completed Rudy Jason, [place] [facility] 11/17/2024 15:22:12 OPV 5 completed Rudy Jason, [place] [facility] 11/17/2024 15:22:12 OPV 4 completed Rudy Jason, [place] [facility] 11/17/2024 15:22:12 OPV 8 completed Rudy Jason, [place] [facility] 11/17/2024 15:22:12 OPV 3 completed Rudy Jason, [place] [facility] 11/17/2024 15:22:12 Influenza, split virus, trivalent, preservative 7 completed Rudy Jason, [place] [facility] 11/17/2024 15:22:12 Influenza, split virus, quadrivalent, PF 0 completed Rudy Jason, [place] [facility] 11/17/2024 15:22:12 Influenza, split virus, quadrivalent, PF 9 completed Rudy Jason, [place] [facility] 11/17/2024 15:22:12 Influenza, split virus, quadrivalent, PF 8 completed Rudy Jason, [place] [facility] 11/17/2024 15:22:12 Influenza, split virus, quadrivalent, PF 3 completed Rudy Jason MA [place], [facility] 11/17/2024 15:22:12 Influenza, split virus, quadrivalent, PF 1 completed Rudy Jason MA [place], [facility] 11/17/2024 15:22:13 Past Encounters Encounter ID Performer Location Encounter Start Date Encounter Closed Date Diagnosis/Indication Diagnosis SNOMED-CT Code Diagnosis ICD10 Code Diagnosis Note [id number] Leandro Carias MD [facility] [employer] [address] [place] [address] 02/19/2024 16:09:17 03/04/2024 15:03:14 Hiatal hernia with gastroesophageal reflux 298687641 K44.9 refer to Gi for f/u EGD and refill PPI Therapy Exocrine p ancreatic insufficiency 88365226 K86.81 refer back to GI for mangaement . Lower urin kaela tract symptoms 615600641 R39.9 frequency, pressure, little bit of burn; start macrobid course. check ua after abx Localized eruption of skin 712471154 R21 RX for steroid cream low dose PRN to the leg area Hypomagnesemia 518163696 E83.42 hx of def. in magnesium. check updated lab Long-term drug therapy 357447935 Z79.899 cmp and cbc due Fatigue 47440222 R53.83 screening thyroid and vitamins Muscle tension pain 2790 56807 M79.10 Rx for refill lidocaine patches and refill flexeril. Bilateral foot joint pain 5666170233 8348558 M79.671 M79.672 refer to solutions architect . Cholesterol screening 27 6706405 Z13.220 fasting lipids due Diabetes m ellitus screening 866800580 Z13.1 screening a1c due Otalgia of right ear 824 6397000 H92.01 rx for zpack therapy. Right ear is mildly erythemati c. RX for diflucan too Screening mammography 24 214527 Z12.31 mammogram is due [id number] Leandro Carias MD [facility] [employer] [address] [place] [address] 05/05/2024 09:28:17 05/05/2024 10:04:22 Cobalamin deficiency 814758315 E53.8 [id number] Leandro Carias MD [facility] [employer] [address] [place] [address] 06/16/2024 11:23:17 06/16/2024 12:48:14 Sliding hiatus hernia 387610408 K44.9 Start omeprazole 40 mg twice daily and she is supposed to be getting referral lined up to GI Disorder of nail 3945637 8 L60.9 Patient has some unusual indentatio n on fingernail s, we will refer to dermatolog ist to see if biopsy is needed Muscle tension pain 2790 37865 M79.10 Refill on lidocaine cream per request to use on scattered areas of muscle tension pain Dyspnea 324263070 R06.00 This has been evaluated also in the emergency room prior. This has been noncardiac in nature. We will refer her to a pulmonolog ist to discuss further [id number] Leandro Carias MD [facility] [employer] [address] [place] [address] 11/17/2024 14:48:18 11/30/2024 14:56:51 Acute sinusitis 63074039 J01.90 Start Augmentin 875 twice daily for 7 days for treatment of acute sinusitis Cough 95932840 R05.9 Refill on albuterol inhaler, check an updated chest x-ray for ongoing cough over 2 weeks Long-term drug therapy 478184603 Z79.899 cmp and cbc due Blood gluc ose outside reference range 315165516 R73.09 Screening A1c is due Fatigue 06372453 R53.83 screening thyroid and vitamins ordered for continued fatigue [id number] Leandro Carias MD [facility] [employer] [address] [place] [address] 12/31/2024 11:20:51 12/31/2024 13:09:48 Body mass index 30+ - obesity 929586025 Z68.36 BMI is 36.9 Obesity 173580193 E66.9 discussed healthy diet, exercise, controllin g carbohydra benjamin and added sugars in the diet Adult [facility] th examination 156979076 Z00.01 Annual wellness exam completed Cyst of nasal cavity 232 200028 J34.1 Refer to [facility] for 2nd opinion regarding her [place] cyst Skin lesion 98328602 L98 .9 Refer to new dermatolog y with her [facility] Medicare complete secondary Medicaid. We are hopeful that [facility] accepts her insurance. She needs overall skin check Increased frequency of urination 165825978 R35.0 Refer to [facility] urology Acute sinusitis 75973185 J01.90 For continued sinus symptoms we will start doxycyclin e 100 mg twice daily along with a Medrol Dosepak, loratadine and empiric fluconazol e treatment Long-term drug therapy 674841064 Z79.899 Health Concerns Section Related Observation LastModified by Organization Detai ls LastModified Time None Recorded Concern Status LastModified by Organization Details LastModified Time None Recorded Advance Directives Directive N: Payers Insurance Date Sequence Insurance Name Policy Number Policy Pressley Covered Member ID Pressley Member ID Guarantor Name 12/28/2024 1 [facility] (MEDICARE REPLACEMENT/AD VANTAGE - HMO) [id number] [facility] [id number] [facility] 12/08/2024 2 [place] WHEN [place]ICARE OR MEDICARE REPLACEMENT PRIMARY) [facility] [id number] [facility] 12/08/2024 [place] [facility] [id number] [facility] 11/10/2024 1 [place] [facility] [id number] [facility] 05/05/2024 1 [place] [facility] [id number] [facility] Notes Date Note Type Note [...] and stopped covering her meds.Needs referral to ribber, Would like to get back on lidocaine cream for her pain states that she wants to try to patches, would also like to discuss weight loss. Would like to talk about ENT for hearing problems. ALYSSA Campos Attn: Accounting,[address] [facility], [place], [address], [facility] 03/03/2024 19:54:42 06/16/2024 text/html pt. need a [...] and stopped covering her meds.Needs referral to ribber Would like to get back on lidocaine cream for her pain states that she wants to try to patches, would also like to discuss weight loss. Would like to talk about ENT for hearing problems. ALYSSA Campos Attn: Accounting,[address] [facility], [place], [address], [facility] 2024 18:41:59 11/17/2024 text/html Upper Respirator y SymptomsReported bypatient.Location:a d; chest Quality:productive cough;colored phlegm;congested Severity:moderate Duration:onset within the last week Onset/Timing:sudden Context:no sick contacts Modifying Factors:OTC medication Associated Symptoms:fatigue ALYSSA Campos Attn: Accounting,[address] [facility], [place], [address], [facility] 12/04/2024 21:38:27 12/31/2024 text/html Patient is here for her O wellness exam. She has an extensive list [...] drainage. She also needs to find a steam pipe fitter in her insurance network and a urologist in her insurance network. She continues to have increased frequency of urination and frequent UTI like symptoms. She is up-to-date on her labs ALYSSA Campos Attn: Accounting,[address] [facility], [place], [address], [facility] 12/31/2024 21:54:04 OBGyn Episode No OBEpisode recorded.
--- OUTSIDE RECORDS SUMMARY | 2025-05-11 10:08 | XMS_ITS | Clinical Summary ---
Author Organization [facility] Address [address] [place] [address] Phone Care Team Providers Care Grooming Assistant Name Role Phone Soraida Bowden Primary Care Provider [phone] Allergies Active Allergy Reactions Criticality Noted Date [...] pur e alcohol) one pint on Saturdays [facility] Utilities Answer Date Recorded In the [...] place to sleep or slept in a fdc (including now)? No 12/12/2023 Sexually Active Control [...] C Virus (HCV) Screening 1983 Mammogram 1983 Human Papillomavirus (HPV) Immunization (1 - 3-dose series) 1998 Hepatitis B Immunization (1 of 3 - 19+ 3-dose series) 2002 Discussion re Starting/Frequency of Mammograms 2023 SARS-COV-2 Immunization ( season) 2024 10/05/2021, 02/23/2021, 02/02/2021 Influenza Immunization (Season Ended) 2025 08/07/2023, 10/05/2021, 06/26/2020, Additional history exists Respiratory Syncytial Virus (RSV) Immunization (Adult) (1 - 1-dose 75+ series) 2058 DTaP/Tdap/Td Immunization Discontinued 2021, 08/18/1997, 08/18/1997, Additional history exists TdaP Immunization Completed 12/13/2021, 08/18/1997 Meningococcal Immunization (ACWY) Aged Out No longer eligible based on patient's age to complete this topic Pneumococcal Immunization Combined Aged Out No longer eligible based on patient's age to complete this topic Rotavirus Immunization Aged Out No lo nger eligible based on patient's age to complete this topic Insurance [place] [id number] MEDICARE MEDICARE [place] Advance Directives * [...] measures to stabilize the patient. Care Teams Grooming Assistant Relationship Specialty Start Date End Date Soraida Bowden PA PCP - General Family Medicine 07/15/17
--- OUTSIDE RECORDS SUMMARY | 2025-05-11 10:08 | XMS_ITS | Encounter Summary ---
Author Organization [facility] Address [address] [facility] [place] [address] Care Team Providers Care Lead Informatica Developer Name Role Phone Anju Naik Primary Care Provider Soraida Ruiz Primary Care Pr ovider Reason for Visit * Reason Onset Date Comments MEDICATION REFILL 09/13/2023 Encounter Details Date Type Department Care Team (Late st Contact Info) Description 09/13/2023 Refill [facility] - Internal Med [address] [place] [address], [place] [address] Pancho Hurley MD [address] [place] [address] [place] [address] MEDICATION REFILL Social History Tobacco [...] on file Legal Sex 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 EEPER documented in this encounter Plan of Treatment Upcoming Encounters Date Type Department Care Team (Late st Contact Info) Description 06/01/2025 8:00 AM CDT Office Visit [facility] - Urology [address] [place] [phone] Milind Mcelroy PA [address] [place] [address] 06/18/2025 9:10 AM CDT Office Visit [facility] - Dermatology [address] [facility] ([place], [place]), [place] [address] [place] [address] [place] [address] [address] [place] [address] documented as of this encounter Visit Diagnoses Diagnosis Migraine without aura and without status migrainosus, not intractable Migraine without aura, without mention of intractable migraine without mention of status migrainosus documented in this encounter Care Teams Lead Informatica Developer Relationship Specialty Start Date End Date Anju Naik, FRANCISCO JAVIER-SUPPORT SERVICES TECH [address] [place] [address] 2L DIV OF [facility] [place] [address] PCP - General Nurse Practitioner Family 07/09/2301/03 Soraida Ruiz PA [address] [place] [address] PCP - General Physician Strategic Account Director 01/28/25 documented as of this encounter
--- OUTSIDE RECORDS SUMMARY | 2025-05-11 10:09 | XMS_ITS | Encounter Summary ---
Author Organization [facility] Address [address] [facility] [place] [address] Care Team Providers Care Manager Finance Name Role Phone Anju NaikHEALTHCARE SCIENCE SPECIALIST Primary Care Provider Soraida Ruiz Primary Care Pr ovider Reason for Visit * Reason Onset Date Comments MEDICATION REFILL 12/23/2023 Encounter Details Date Type Department Care Team (Late st Contact Info) Description 12/23/2023 Refill [facility] - Internal Med [address] [place] [address], [place] [address] Anju Naik APRN-HEALTHCARE SCIENCE SPECIALIST [address] [place] [address] OF [facility] [place] [address] MEDICATION REFILL Social History Tobacco Use Types [...] on file Legal Sex Female 6:09 AM RN CORRECTIONS Gender Identity Not on file Sexual Orientation Not on file 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 Pt no longer [...] Dept 07/09/23 Office Visit Anju Naik APRN-[facility] 06/19/23 Office Visit Ale Ford [facility] Showing recent visits within past [...] (one) tablet by mouth 2 times daily CORRECTIONS documented in this encounter Plan of Treatment Upcoming Encounters Date Type Department Care Team (Late st Contact Info) Description 06/01/2025 8:00 AM CDT Office Visit [facility] - Urology [address] [place] [address] Milind Mcelroy PA [address] [place] [address] 06/18/2025 9:10 AM CDT Office Visit [facility] - Dermatology [address] [facility], [place] [address] Jinny Hale MD [address] [facility] 3L [place] [address] documented as of this encounter Visit Diagnoses Not on filedocumented in this encounter Care Teams Manager Finance Relationship Specialty Start Date End Date Anju Naik, HEMATOLOGY NURSE-HEALTHCARE SCIENCE SPECIALIST [address] [facility] 2L DIV OF [facility] [place] [address] PCP - General Nurse Practitioner Family 07/09/2301/03 Soraida Ruiz PA [address] [place] [phone] PCP - General Physician Olive Knocker 01/28/25 documented as of this encounter
--- OUTSIDE RECORDS SUMMARY | 2025-05-11 10:09 | XMS_ITS | Clinical Summary ---
Author Organization [facility] Address [address] [facility] [place] [address] Care Team Providers Care Apple Peeler Operator Name Role Phone Soraida Ruiz Primary Care Pr ovider Source Comments [facility],non-owned Affiliates and Associated Physician Practices is amultiple site organization consisting of ambulatory clinics and hospital sitesin [place], [place], [place] and [place]. This disclosure is being madepursuant to the Care Everywhere program and may not contain all information available regarding this patient. Last updated 18.[facility] Allergies Active Allergy Reactions Criticality Noted Date [...] 4 TIMES PER DAY Active pancrelipase (Creon) 68350-[address] units capsule TAKE 4 CAPSULES BY MOUTH [...] fluticasone propionate (Flonase) 50 MCG/ACT nasal spray Howell 2 (two) sprays into each nostril once [...] as needed 8 g 2 3 Active acamprosate calcium EC (Campral) 333 MG tablet Take 1 (one) tablet by mouth 3 times daily for 90 days 90 tablet 2 5 07/12/20 25 Active ARIPiprazole (Abilify) 10 MG tablet Take 1 (one) tablet by mouth once daily 30 tablet 5 5 10/10/20 25 Active clonazePAM (KlonoPIN) 1 MG tablet Take 1 (one) tablet by mouth 2 times daily 60 tablet 2 5 Active FLUoxetine (PROzac) 40 MG capsule Take 1 (one) capsule by mouth every morning 30 capsule 4 5 Active prazosin (Minipress) 2 MG capsule Take 1 (one) capsule by mouth at bedtime 30 capsule 5 5 10/10/20 25 Active prazosin (Minipress) 5 MG capsule Take 1 (one) capsule by mouth at bedtime 30 capsule 5 5 10/10/20 25 Active traZODone (Desyrel) 100 MG tablet Take 2 (two) tablets by mouth at bedtime 60 tablet 5 5 10/10/20 25 Active buPROPion XL 24hr (Wellbutrin-XL) 300 MG tablet Take 1 (one) tablet by mouth every morning 30 tablet 3 5 Active ARIPiprazole (Abilify) 10 MG tablet Take 1 (one) tablet by mouth once daily 30 tablet 5 5 04/13/20 25 Discontinu ed(Reorder ) acamprosate calcium EC (Campral) 333 MG tablet Take 1 (one) tablet by mouth 3 times daily for 90 days 90 tablet 2 5 04/13/20 25 Discontinu ed(Reorder ) FLUoxetine (PROzac) 40 MG capsule Take 1 (one) capsule by mouth every morning 30 capsule 4 5 04/13/20 25 Discontinu ed(Reorder ) buPROPion XL 24hr (Wellbutrin-XL) 150 MG tablet Take 1 (one) tablet by mouth once daily 30 tablet 3 5 04/13/20 25 Discontinu ed(Dose Adjustment ) prazosin (Minipress) 2 MG capsule Take 1 (one) capsule by mouth at bedtime 30 capsule 5 5 04/13/20 25 Discontinu ed(Reorder ) prazosin (Minipress) 5 MG capsule Take 1 (one) capsule by mouth at bedtime 30 capsule 5 5 04/13/20 25 Discontinu ed(Reorder ) traZODone (Desyrel) 100 MG tablet Take 2 (two) tablets by mouth at bedtime 60 tablet 5 5 04/13/20 25 Discontinu ed(Reorder ) clonazePAM (KlonoPIN) 1 MG tablet Take 1 (one) tablet by mouth 2 times daily 60 tablet 2 5 04/13/20 25 Discontinu ed(Reorder ) Active Problems Problem Noted Date Diagnosed Date [...] organization. Date Type Department Care Team Description 04/13/2025 Travel 04/09/2025 Travel from Last 3 Months Immunizations Immunization Administration Dates Next Due INFLUENZA VACCINE, TRIV. (AF LURIA, FLUZONE TRIVALENT; 6MO+) (IIV3) 07/16/2017 DTP, HISTORIC VACCINE 06/21/1988, 985,03/11/1984,1983,1983 INFLUENZA VACCINE 10/05/2021, 0,07/06/2019,2017,08/16/2017,07/16/2017 INFLUENZA VACCINE, QUADR. 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 Not on file N ot on file Last Filed Vital Signs Vital Sign Reading Time Taken Comments Blood Pressure 131/87 04/13/2025 10:13 AM CDT Pulse 102 04/13/2025 10:13 AM CDT Temperature 36 C (96.8 F) 07/17/2024 8:39 AM CDT Respiratory Rate 18 01/04/2023 4:47 PM ELECTRIC METER SETTER Oxygen Saturation 97% 04/13/2025 10:13 AM CDT Inhaled Oxygen Concentration - - Weight 107.5 kg (237 lb) 04/13/2025 10:13 AM CDT Height 172.7 cm (5' 8) 04/13/2025 10:13 AM CDT Body Mass Index 36.04 04/13/2025 10:13 AM CDT Plan of Treatment Upcoming Encounters Date Type Department Care Team (Late st Contact Info) Description 06/01/2025 8:00 AM CDT Office Visit [facility] - Urology [address] [place] [address] Milind Mcelroy PA [address] [place] [address] 06/18/2025 9:10 AM CDT Office Visit [facility] - Dermatology [address] [facility], [place] [address] Jinny Hale MD [address] [facility] 3L [place] [address] Health Maintenance Due Date Last Done Comments MAMMOGRAM 1983 HIV SCREENING 1998 HEPATITIS C SCREENING 06/29/2001 HEPATITIS B VACCINE (1 of 3 - 19+ 3-dose series) 2002 PAP with HPV 2013 LIPID TESTING 11/12/2023 11/12/2018 COVID-19 VACCINE ( season) 2024 10/05/2021, 02/23/2021, 02/02/2021 MEDICARE AWV CALENDAR YEAR 2024 INFLUENZA VACCINE (#1) 2025 1, 10/05/2021, 06/26/2020, Additional history exists SCREENING FOR DIABETES 04/18/2027 4, 04/18/2024, 04/17/2024, Additional history exists DTAP/TDAP/TD VACCINES [...] this topic Medical Devices Implanted Type Area Application Integration Engineer Device Identifier Shelf Expiration Date Model / Serial / Lot Screw 2.5mm 18mm Flly Thrd Mark Comp Implanted:Qty: 1 on 02/12/2019 by Gokul Jolly MD at [facility] Left: Wrist [employer] [id number] / / Explanted Type Area Application Integration Engineer Device Identifier Shelf Expiration Date Model / Serial / Lot Wire K .9mm 95mm Cocr 2.5mm Screw Fx Explanted:Qty: 4 on 02/12/2019 at [facility] [employer] [id number] / / Procedures Procedure Name Priority Date/Time Associated Diagnosis Comments BASIC METABOLIC PANEL (CALCIUM TOTAL) Routine 08/25/2019 11:51 AM CDT Hypokalemia LIPID PROFILE Routine 11/12/2018 11:16 AM ELECTRIC METER SETTER Other alopecia areata from Last 3 Months or Most Recently Relevant to Health Maintenance Results * (ABNORMAL) BASIC METABOLIC PANEL (CALCIUM TOTAL) (08/25/2019 11:51 AM CDT) BUN 8 7 - 26 mg/dL 08/25/2019 1:59 PM [facility] Creatinine 0.9 0.6 - 1.2 mg/dL 08/25/2019 1:59 PM [facility] Sodium 140 136 - 145 mmol/L 08/25/2019 1:59 PM [facility] Potassium 3.5 3.5 - 4.5 mmol/L 08/25/2019 1:59 PM [facility] Chloride 111(H) 98 - 107 mmol/L 08/25/2019 1:59 PM [facility] CO2 19(L) 22 - 29 mmol/L 08/25/2019 1:59 PM [facility] Glucose 85 70 - 115 mg/dL 08/25/2019 1:59 PM [facility] Calcium 8.9 8.4 - 10.2 mg/dL 08/25/2019 1:59 PM [facility] Anion Gap 14 8 - 18 08/25/2019 1:59 PM [facility] BUN/Creatinine Ratio 9 7 - 23 08/25/2019 1:59 PM [facility] Osmolality Calculated 288 270 - 300 mOsm/kg 08/25/2019 1:59 PM [facility] eGFR >60 >60 mL/min/1.7 3 m2 08/25/2019 1:59 PM [facility] Blood BLOOD SPECIMEN / Unknown Lab Venipuncture / Unknown 08/25/2019 11:51 AM CDT 08/25/2019 12:48 PM [facility] us Dyllan Lopez MD LAB - CHEMISTRY ORDERABLES Final Result [address] [phone] * LIPID PROFILE (11/12/2018 11:16 AM ELECTRIC METER SETTER) Cholesterol Total 149 <200 mg/dL 11/12/2018 12:42 PM [facility] HDL 47 >40 mg/dL 11/12/2018 12:42 PM [facility] Comment: ATP III Classification of HDL Cholesterol: <40 mg/dL: Considered a major risk factor. >60 mg/dL: Considered a negative risk factor. LDL Calculated 82 <100 mg/dL 11/12/2018 12:42 PM [facility] Comment: ATP III Classification of LDL Cholesterol: <100 mg/dL: Optimal 100 - 129 mg/dL: Near Optimal/Above Optimal 130 - 159 mg/dL: Borderline High 160 - 189 mg/dL: High >190 mg/dL: Very High Triglycerides 99 <150 mg/dL 11/12/2018 12:42 PM [facility] Comment: ATP III Classification of Triglycerides: <150 mg/dL: Normal 150 - 199 mg/dL: Borderline High 200 - 400 mg/dL: High >500 mg/dL: Very High Blood BLOOD SPECIMEN / Unknown Lab Venipuncture / Unknown 11/12/2018 11:16 AM ELECTRIC METER SETTER 11/12/2018 11:56 AM ELECTRIC METER SETTER us Ordering Provider Unlisted MD LAB - CHEMISTRY OR DERABLES Final Result [facility] [address] [phone] from Last 3 Months or Most Recently Relevant to Health Maintenance Insurance [place] [employer] MANAGED MEDICARE ADV [place] [facility] MANAGED MEDICARE ADV Care Teams Apple Peeler Operator Relationship Specialty Start Date End Date Soraida Ruiz PA [address] [place] [address] PCP - General Physician Assistant Counsel 01/28/25
--- OUTSIDE RECORDS SUMMARY | 2025-05-11 10:09 | XMS_ITS | Encounter Summary ---
Author Organization [facility] Address [address] [facility] [place] [address] Care Team Providers Care Cook Fast Food Name Role Phone Anju NaikSTOVE POLISHER Primary Care Provider Soraida Ruiz Primary Care Pr ovider Reason for Visit * Reason Onset Date Comments MEDICATION REFILL 11/23/2023 Encounter Details Date Type Department Care Team (Late st Contact Info) Description 11/23/2023 Refill [facility] - Internal Med [address] [place] [address], [place] [phone] Anju Naik APRN-STOVE POLISHER [address] [place] [address] OF [facility] [place] [address] MEDICATION REFILL Social History Tobacco Use Types [...] on file Legal Sex Female 6:09 AM RADIO RECORDER Gender Identity Not on file Sexual Orientation Not on file 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 Not on file Not on file N ot on file documented as of this encounter Miscellaneous Notes * Telephone Encounter - Mar Brewer RN - 11/25/2023 12:59 PM RADIO RECORDER Refill Request Nisa Gallego Dee Recent Visits Date Type Provider Dept 07/09/23 Office Visit [facility] 06/19/23 Office Visit Ale Ford [facility] Showing recent visits within past 540 days with a meds authorizing provider and meeting all other requirements Future Appointments Date Type Provider Dept 12/23/23 Appointment Ale Ford APRN-CNP [facility] 2l Showing future appointments within next 150 [...] by mouth every 4 hours as needed O RECORDER documented in this encounter Plan of Treatment Upcoming Encounters Date Type Department Care Team (Late st Contact Info) Description 06/01/2025 8:00 AM CDT Office Visit [facility] - Urology [address] [place] [address] Milind Mcelroy PA [address] [place] [address] 06/18/2025 9:10 AM CDT Office Visit [facility] - Dermatology [address] [facility] [place] [address] Jinny Hale MD [address] 3[address] DEPT [place] [address] documented as of this encounter Visit Diagnoses Not on filedocumented in this encounter Care Teams Cook Fast Food Relationship Specialty Start Date End Date Anju Naik, PRINT JOURNALIST-STOVE POLISHER [address] 2L DIV OF [place] [address] PCP - General Nurse Practitioner Family 07/09/2301/03 Soraida Ruiz PA [address] [place] [address] PCP - General Physician Lease Administrator 01/28/25 documented as of this encounter
--- OUTSIDE RECORDS SUMMARY | 2025-05-11 10:09 | XMS_ITS | Encounter Summary ---
Author Organization [facility] Address [address] [facility] [place] [address] Care Team Providers Care Second Vp Hr Assessment Name Role Phone Anju Naik Primary Care Provider Soraida Ruiz Primary Care Pr ovider Reason for Visit * Reason Onset Date Comments MEDICATION REFILL 03/03/2024 Encounter Details Date Type Department Care Team (Late st Contact Info) Description 03/03/2024 Refill [facility] - Internal Med [address] [place] [address], [place] [address] Anju Naik APRN-STUCCO PLASTERER [address] [place] [address] OF [facility] [place] [address] MEDICATION REFILL Social History Tobacco Use Types [...] on file Legal Sex Female 6:09 AM DIETETICS DIRECTOR Gender Identity Not on file Sexual Orientation Not on file 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 Not on file N ot on file documented as of this encounter Miscellaneous Notes * Telephone Encounter - Maritza Be LPN - 03/04/2024 7:33 AM CDT Refill Request Nisa Gallego Dee Recent Visits Date Type Provider Dept 07/09/23 Office Visit Anju Naik, SHANK PIECE TACKER-STUCCO PLASTERER [facility] 06/19/23 Office Visit Ale Ford APRN-STUCCO PLASTERER [facility] Showing recent visits within past 540 [...] Office Visit [facility] - Urology [address] [place] [address] Milind Mcelroy PA [address] [place] [address] 06/18/2025 9:10 AM CDT Office Visit [facility] - Dermatology [address] [facility], [place] [address] Jinny Hale MD [address] [place] [address] documented as of this encounter Visit Diagnoses Not on filedocumented in this encounter Care Teams Second Vp Hr Assessment Relationship Specialty Start Date End Date Anju Naik APRN-STUCCO PLASTERER [address] 2L [place] [address] PCP - General Nurse Practitioner Family 07/09/2301/03 Soraida Ruiz PA [address] [place] [address] PCP - General Physician Window Caser 01/28/25 documented as of this encounter
[2025-05-17 15:08] LABS: Estradiol, Sensitive 368.1 pg/mL (.)
== END 2025-05-11 10:03 | disposition home or self-care (01) ==
PROVIDERS: PCP Obstetrics & Gynecology; Visit Provider Obstetrics & Gynecology
DX: R23.2 Flushing (principal)
CPT/HCPCS: 36415; 82670; 83001; 84144